=== PATIENT | female | born 1945 | race Caucasian/White ===

== ENCOUNTER 2016-10-06 14:28 | Inpatient (IN) | payer OTHER ==
[2016-10-06 15:05] VITALS: BMI 25.0
--- NOTE | 2016-10-06 15:43 | PDOC ---
History of Present Illness <Treva Capellan - Last Filed: 10/06/16 18:17> - History of Present Illness Initial Comments: 10/06/16 18:21 Pt. is a 71 y/o female with PMH of kidney cancer with mets to the liver and lungs, anemia who presents to the ED today with a complaint of shortness of breath and and cough. Patient states that she wasn't feeling well today. She recently traveled from [place] to [facility] 2 days ago also she could be evaluated for her cancer here. Patient states that she was diagnosed with her kidney cancer back in February 2016. At that time she had the kidney removed. She then went and had chemotherapy in July. She had 3 doses of chemotherapy and [place]. However they found that the cancer had spread in September to her kidneys liver and lungs. She has multiple lung metastases in her right long with a few scattered lung metastases in the left lung. Today she has cough and shortness of breath. She was evaluated today at Dr. Fina Jeong's office hematology oncology where was found she had a white blood cell count that was elevated as well as a hemoglobin of 7. She was transferred to the emergency department for higher level of care. She is also found to have a fever in the emergency department. Patient admits to lethargy, weakness, cough, shortness of breath. Patient denies chest pain, difficulty breathing, nausea, vomiting and diarrhea. <Dorys Carrera - Last Filed: 10/06/16 19:24> - General Chief Complaint: SIRS, Suspected/Possible Stated Complaint: SOB Time Seen by Provider: 10/06/16 15:42 Past History <Treva Capellan - Last Filed: 10/06/16 18:17> - Travel Traveled outside of the country in the last 30 days: Yes If so, where?: was living in [place] until this week. Close contact w/someone who was outside of country & ill: No - Past Medical History Cancer: Yes (renal) HTN: Yes - Psycho/Social/Smoking Cessation Hx Suicidal Ideation: No Smoking History: Never smoked Hx Alcohol Use: No Drug/Substance Use Hx: No <Dorys Carrera - Last Filed: 10/06/16 19:24> - Past Medical History Allergies/Adverse Reactions: Allergies Allergy/AdvReac Type Severity Reaction Status Date / Time Penicillins Allergy Verified 10/06/16 14:53 Home Medications: Ambulatory Orders Amlodipine Besylate 5 mg PO DAILY 10/06/16 Aspirin [Aspirin EC] 81 mg PO DAILY 10/06/16 Atorvastatin Ca [Lipitor] 40 mg PO HS 10/06/16 Dicyclomine HCl [Bentyl -] 20 mg PO BID 10/06/16 Famotidine 20 mg PO DAILY 10/06/16 Losartan Potassium 100 mg PO DAILY 10/06/16 Ondansetron [Zofran -] 4 mg PO BID 10/06/16 Tramadol HCl 50 mg PO DAILY 10/06/16 Review of Systems - Review of Systems Able to Perform ROS?: Yes Is the patient limited Monegasque proficient: No Constitutional: Yes: Chills, Fever, Malaise, Weakness HEENTM: No: Blurred Vision, Recent change in vision, Nose Congestion, Throat Pain Respiratory: Yes: Cough (dry ), Shortness of Breath. No: Wheezing, Productive cough Cardiac (ROS): No: Chest Pain, Edema, Lightheadedness, Syncope, Chest Tightness ABD/GI: No: Abdominal Distended, Diarrhea, Nausea, Vomiting : No: Burning, Dysuria, Discharge, Frequency, Hematuria Integumentary: No: Bruising, Rash Neurological: Yes: Weakness, Dizziness. No: Headache, Numbness, Paresthesia, Unsteady Gait <Dorys Carrera - Last Filed: 10/06/16 19:24> *Physical Exam - Vital Signs Last Vital Signs Temp Pulse Resp BP Pulse Ox 100.2 F H 101 H 18 122/68 100 10/06/16 14:53 10/06/16 14:53 10/06/16 14:53 10/06/16 14:53 10/06/16 14:53 <Treva Capellan - Last Filed: 10/06/16 18:17> - Vital Signs Last Vital Signs Temp Pulse Resp BP Pulse Ox 100.2 F H 101 H 18 122/68 100 10/06/16 14:53 10/06/16 14:53 10/06/16 14:53 10/06/16 14:53 10/06/16 14:53 - Physical Exam Comments: 10/06/16 18:41 GENERAL: Well developed, well nourished. Awake and alert and oriented x3. Mild distress. Tachycardic in the 110's, 02 sat 98 on 2L NC. HEENT: Normocephalic, atraumatic. PERRLA, EOMI. No conjunctival pallor. Sclera are non- icteric. Moist mucous membranes. Oropharynx is clear. NECK: Supple. Full ROM. No JVD. Carotid pulses 2+ and symmetric, without bruits. No thyromegaly. No lymphadenopathy. CARDIOVASCULAR: Regular rate and rhythm. No murmurs, rubs, or gallops. Distal pulses are 2+ and symmetric. PULMONARY: Mild respiratory distress. Fair aeration to the bases Diminished lung sounds on the right. Lungs clear to auscultation bilaterally. No wheezing, rales or rhonchi. ABDOMINAL: Soft. Non-tender. Non-distended. No rebound or guarding. No organomegaly. Normoactive bowel sounds. MUSCULOSKELETAL Normal range of motion at all joints. No bony deformities or tenderness. No CVA tenderness. EXTREMITIES: No cyanosis. No clubbing. No edema. No calf tenderness. SKIN: Pt. appears pale. Warm and dry. Normal capillary refill. No rashes. No jaundice. NEUROLOGICAL: Alert, awake, appropriate. Cranial nerves 2-12 intact. No deficits to light touch and temperature in face, upper extremities and lower extremities. No motor deficits in the in face, upper extremities and lower extremities. Normoreflexic in the upper and lower extremities. Normal speech. Toes are down- going bilaterally. Gait is normal without ataxia. PSYCHIATRIC: Cooperative. Good eye contact. Appropriate mood and affect. <Dorys Carrera - Last Filed: 10/06/16 19:24> Procedures - Bedside Ultrasound Bedside Ultrasound: Cardiac Other: FOCUSED ed tte, LUNG US SEE MDM FOR REPORT <Treva Capellan - Last Filed: 10/06/16 18:17> ED Treatment Course - LABORATORY CBC & Chemistry Diagram: 10/06/16 17:12 10/06/16 17:12 - ADDITIONAL ORDERS Additional order review: Laboratory Results 10/06/16 10/06/16 10/06/16 17:12 17:12 17:12 VBG pH POC VBG pCO2 POC VBG pO2 Mixed VBG HCO3 Sodium 136 Potassium 4.5 Chloride 102 Carbon Dioxide 21 Anion Gap 13 BUN 26 H Creatinine 1.6 H Creat Clearance w eGFR 31.87 Random Glucose 105 Lactic Acid Calcium 8.3 L Total Bilirubin 1.4 H AST 58 H ALT 63 Alkaline Phosphatase 1194 H Creatine Kinase 21 L Troponin I < 0.02 Total Protein 5.7 L Albumin 2.2 L Urine Color Yellow Urine Appearance Clear Urine pH 5.0 Urine Protein Negative Urine Glucose (UA) Negative Urine Ketones Negative Urine Blood Negative Urine Nitrite Negative Urine Bilirubin Negative Urine Urobilinogen 4.0 e.u/dl H Ur Leukocyte Esterase Negative Blood Type Cancelled Antibody Screen Cancelled Crossmatch See Detail Spec Expiration Date Cancelled 10/06/16 10/06/16 17:10 17:07 VBG pH 7.42 POC VBG pCO2 31.2 L POC VBG pO2 36.8 Mixed VBG HCO3 19.9 Sodium Potassium Chloride Carbon Dioxide Anion Gap BUN Creatinine Creat Clearance w eGFR Random Glucose Lactic Acid 2.5 H* Calcium Total Bilirubin AST ALT Alkaline Phosphatase Creatine Kinase Troponin I Total Protein Albumin Urine Color Urine Appearance Urine pH Urine Protein Urine Glucose (UA) Urine Ketones Urine Blood Urine Nitrite Urine Bilirubin Urine Urobilinogen Ur Leukocyte Esterase Blood Type Antibody Screen Crossmatch Spec Expiration Date 10/06/16 17:12 RBC 2.74 L MCV 82.8 MCHC 32.1 RDW 18.5 H MPV 7.8 Neutrophils % 79.5 Lymphocytes % 11.6 Monocytes % 8.4 Eosinophils % 0.3 Basophils % 0.2 - Medications Given in the ED: ED Medications Discontinued Medications Generic Name Dose Route Start Last Admin Trade Name Freq PRN Reason Stop Dose Admin Acetaminophen 650 mg 10/06/16 17:42 10/06/16 17:56 Tylenol - PO 10/06/16 17:43 650 mg ONCE ONE Administration <Treva Capellan - Last Filed: 10/06/16 18:17> - LABORATORY CBC & Chemistry Diagram: 10/06/16 17:12 10/06/16 17:12 <Dorys Carrera - Last Filed: 10/06/16 19:24> Medical Decision Making - Medical Decision Making 10/06/16 18:18 FOCUSED ED US TTE indication: r/o pericardial effusion sob cardiac exam performed, four views ( parasternal long and short, subxiphoid, apical). no pericardial effusion noted. good contractility no rv enlargement or strain. impression: normal tte. lungs scanned bilaterally , indication : sob findings: bilat lungs with normal lung sliding, no ptx. left anterior lung field with air bronchograms, possible infiltrate vs. met left lung base with dynamic air bronchograms, focal b lines, right lung base with air bronchograms. impression: bilat base with air bronchograms c/w atelectasis vs. pneumonia, left anterior bronchograms as well. magdalena <Treva Capellan - Last Filed: 10/06/16 18:17> - Medical Decision Making 10/06/16 16:43 Patient is a 71-year-old female who presents to the emergency department today with cough shortness of breath in the presence of metastatic kidney cancer to her lungs and liver. Patient appears to be pale and mildly short of breath on exam she is tachycardic into the 110s. She is also febrile at 100.2. 1.septic workup 2.IV fluids, PRBC's 3. CXR, EKG 4. bedside US 5. re-evaluate 10/06/16 17:48 CBC shows anemia to 7.3, WBC of 17. BUN/CR elevated to . Will start IV antibiotics at this time as blood cultures have been drawn at this time. Will use levoquin to cover lung or urine pathology. CXR shows bilateral pulmonary nodules compatible with clinical history. Minimal right pleural effusion. No gross focal infiltrates consolidation or pneumothorax are identified. EKG: Low voltage, rate 104, sinus rhythm, normal intervals normal axis. No acute ST-T wave changes. bedside ultra sound performed: see above 10/06/16 18:[address] Sandra zarate/onc. Would like to add CT chest non-contrast at this time to further evaluate for pneumonia and the nodules. Agrees that the patient will require admission. 10/06/16 18:51 Microblog to [facility] to admit patient. 10/06/16 18:57 Sign out given to Mohan Salmeron, resident <Dorys Carrera - Last Filed: 10/06/16 19:24> *DC/Admit/Observation/Transfer <Treva Capellan - Last Filed: 10/06/16 18:17> - Discharge Dispostion Admit: Yes <Dorys Carrera - Last Filed: 10/06/16 19:24> Diagnosis at time of Disposition: Metastases to the liver Sepsis Qualifiers: Sepsis type: sepsis due to unspecified organism Qualified Code(s): A41.9 - Sepsis, unspecified organism Metastatic lung cancer (metastasis from lung to other site) Qualifiers: Laterality: right Qualified Code(s): C34.91 - Malignant neoplasm of unspecified part of right bronchus or lung Anemia Qualifiers: Anemia type: unspecified type Qualified Code(s): D64.9 - Anemia, unspecified Kidney cancer, primary, with metastasis from kidney to other site Qualifiers: Laterality: unspecified laterality Qualified Code(s): C64.9 - Malignant neoplasm of unspecified kidney, except renal pelvis - Discharge Dispostion Condition at time of disposition: Guarded
[2016-10-06 17:10] LABS: VENOUS BLOOD GAS HCO3 19.9 meq/L (19-25); VENOUS PH 7.42 (7.32-7.42)
[2016-10-06 17:27] LABS: BASOPHIL 0.2 % (0-2.0); EOSINOPHIL 0.3 % (0-4.5); MCH 26.6 pg (25.7-33.7); MCHC 32.1 g/dl (32.0-36.0); MEAN CELL VOLUME 82.8 fl (80-96); MEAN PLT VOLUME 7.8 fl (7.5-11.1); NEUTROPHILS 79.5 % (42.8-82.8); PLATELET COUNT 494 K/MM3 (134-434); RDW 18.5 % (11.6-15.6); URINE APPEARANCE CLEAR; URINE BILIRUBIN NEGATIVE (NEGATIVE); URINE BLOOD NEGATIVE (NEGATIVE); URINE COLOR YELLOW; URINE GLUCOSE (UA) NEGATIVE (NEGATIVE); URINE KETONE NEGATIVE (NEGATIVE); URINE LEUK ESTERASE NEGATIVE (NEGATIVE); URINE NITRITE NEGATIVE (NEGATIVE); URINE PROTEIN NEGATIVE (NEGATIVE); URINE UROBILINOGEN 4.0 E.U/dl mg/dL (0.2-1.0); WHITE BLOOD COUNT 17.3 K/mm3 (4.0-10.0)
[2016-10-06] MEDS ORDERED: LEVOFLOXACIN 750 MG IVPB 150 ML IVPB ONE ×2 (17:31→17:56)
[2016-10-06] MEDS ORDERED: ACETAMINOPHEN 325 MG TABLET (FP) PO ONE (17:42)
--- NOTE | 2016-10-06 17:42 | PDOC ---
*Physical Exam - Vital Signs Last Vital Signs Temp Pulse Resp BP Pulse Ox 100.2 F H 101 H 18 122/68 100 10/06/16 14:53 10/06/16 14:53 10/06/16 14:53 10/06/16 14:53 10/06/16 14:53 - Physical Exam Comments: 10/06/16 17:41 The patient was examined by FRANSISCO Carrera under my direct supervision. I personally evaluated the patient. I concur with the above findings and the plan of care. ED Treatment Course - LABORATORY CBC & Chemistry Diagram: 10/06/16 17:12 10/06/16 17:12 - ADDITIONAL ORDERS Additional order review: Laboratory Results 10/06/16 10/06/16 10/06/16 17:12 17:12 17:07 VBG pH 7.42 POC VBG pCO2 31.2 L POC VBG pO2 36.8 Mixed VBG HCO3 19.9 Urine Color Yellow Urine Appearance Clear Urine pH 5.0 Urine Protein Negative Urine Glucose (UA) Negative Urine Ketones Negative Urine Blood Negative Urine Nitrite Negative Urine Bilirubin Negative Urine Urobilinogen 4.0 e.u/dl H Ur Leukocyte Esterase Negative Crossmatch See Detail *DC/Admit/Observation/Transfer Diagnosis at time of Disposition: Sepsis, Metastatic lung cancer (metastasis from lung to other site), Anemia, Metastases to the liver, Kidney cancer, primary, with metastasis from kidney to other site - Discharge Dispostion Condition at time of disposition: Guarded
[2016-10-06 17:49] LABS: ALBUMIN 2.2 g/dl (3.4-5.0); ANION GAP 13 (8-16); BILIRUBIN,TOTAL 1.4 mg/dL (0.2-1.0); CALCIUM 8.3 mg/dL (8.5-10.1); CO2 21 mmol/L (21-32); CREATININE 1.6 mg/dL (0.55-1.02); GLUCOSE,RANDOM 105 mg/dL (74-106); SGOT/AST 58 U/L (15-37); SGPT/ALT 63 U/L (12-78); TOT PROT 5.7 g/dl (6.4-8.2)
[2016-10-06 17:53] LABS: INR 1.43 (0.82-1.09); PROTHROMBIN TIME (PATIENT) 15.9 SEC (9.98-11.88)
[2016-10-06] MEDS ORDERED: ACETAMINOPHEN 325 MG TABLET (FP) ONE (17:56)
[2016-10-06 18:01] LABS: CPK 21 IU/L (26-192); TROPONIN I < 0.02 ng/ml (0.00-0.05)
[2016-10-06 18:02] LABS: ALK PHOS 1194 U/L (45-117)
[2016-10-06] MEDS ORDERED: SODIUM CHLORIDE 1,000 ML IV STA ×2 (18:04→19:27)
--- NOTE | 2016-10-06 20:33 | HP ---
CHIEF COMPLAINT: SOB, cough, weakness PCP: none Heme-Onc: Dr. Flores from Dr. [facility] HISTORY OF PRESENT ILLNESS: 71yo F with PMH of renal cancer with mets to lungs/liver presents today with weakness, SOB and cough x 2 weeks. Symptoms are constant and unchanged over the last 2 weeks. Pt saw Heme-Onc (Dr. Flores) today, who young blood finding pt to be anemic with elevated WBCs, and sent pt to ER. Pt reports a similar episode of symptomatic anemia in [place], which was relieved with a blood transfusion. Pt admits to hx of small amount of hemoptysis, but denies any hemoptysis now. Pt denies pleuritic chest pain, hematuria, hematochezia, melena. Pt was diagnosed with renal cancer in 02/2016 in [place], and had Left sided nephrectomy. Pt received 3-4 chemotherapy treatments in [place]. F/ U PET/CT from 09/2016 revealed disease progression so pt came to the [facility] for further W/U. Pt just arrived here on Tuesday, 2 days ago, and began care with Dr. Flores today. ER course was notable for: (1) Levaquin 750mg IVPB (2) NS 1 L bolus Recent Travel: Came here from [place] on Tuesday, 2 days ago. PAST MEDICAL HISTORY: HTN, hypercholesterolemia, renal cancer PAST SURGICAL HISTORY: Left Nephrectomy 02/2016 Social History: Smoking: never smoker Alcohol: social Drugs: none Family History: father with HTN Allergies Penicillins Allergy (Verified 10/06/16 14:53) HOME MEDICATIONS: Home Medications Medication Instructions Recorded Amlodipine Besylate 5 mg PO DAILY 10/06/16 Aspirin [Aspirin EC] 81 mg PO DAILY 10/06/16 Atorvastatin Ca [Lipitor] 40 mg PO HS 10/06/16 Dicyclomine HCl [Bentyl -] 20 mg PO BID 10/06/16 Famotidine 20 mg PO DAILY 10/06/16 Losartan Potassium 100 mg PO DAILY 10/06/16 Ondansetron [Zofran -] 4 mg PO BID 10/06/16 Tramadol HCl 50 mg PO DAILY 10/06/16 REVIEW OF SYSTEMS CONSTITUTIONAL: Present: weakness Absent: fever, chills, diaphoresis HEENT: Absent: throat pain, ear pain, eye pain, visual changes CARDIOVASCULAR: Present: ocassional LE edema Absent: chest pain, palpitations, irregular heart rate RESPIRATORY: Present: cough, SOB, dyspnea with exertion Absent: orthopnea, wheezing, stridor, hemoptysis GASTROINTESTINAL: Absent: melena, hematochezia, abdominal pain, abdominal distension, nausea, vomiting, diarrhea, constipation GENITOURINARY: Absent: hematuria MUSCULOSKELETAL: Present: flank pain with coughing Absent: myalgia, arthralgia, joint swelling, back pain, neck pain SKIN: Absent: rash, itching, pallor HEMATOLOGIC/IMMUNOLOGIC: Absent: easy bleeding, easy bruising, lymphadenopathy, frequent infections NEUROLOGIC: Absent: headache, focal weakness or paresthesias, unsteady gait, mental status changes PHYSICAL EXAMINATION Vital Signs - 24 hr 10/06/16 10/06/16 14:53 20:03 Temperature 100.2 F H 98.2 F Pulse Rate 101 H Pulse Rate [ 84 Right] Respiratory 18 16 Rate Blood Pressure 122/68 Blood Pressure 90/51 [Right] O2 Sat by Pulse 100 100 Oximetry (%) O2 Sat 95% on RA at visit, 22:00 GENERAL: Awake, alert, and fully oriented, in no acute distress. HEAD: Normal with no signs of trauma. EYES: sclera anicteric, conjunctiva clear. No lid lag. EARS, NOSE, THROAT: Ears normal, Moist mucous membranes. NECK: no JVD or masses. LUNGS: Breath sounds equal, clear to auscultation bilaterally. No wheezes, and no crackles. No accessory muscle use. HEART: Regular rate and rhythm, normal S1 and S2 without murmur, rub or gallop. ABDOMEN: bulging mass felt with coughing in umbilical region Soft, nontender, not distended, normoactive bowel sounds, no guarding, no rebound, no masses. No hepatomegaly or splenomegaly. LOWER EXTREMITIES: 2+ pulses, warm, well-perfused. No calf tenderness. No peripheral edema. NEUROLOGICAL: Normal speech. PSYCHIATRIC: Cooperative. Good eye contact. Appropriate mood and affect. SKIN: Warm, dry, normal turgor, no rashes or lesions noted. CBCD WBC 17.3 K/mm3 (4.0-10.0) H 10/06/16 17:12 RBC 2.74 M/mm3 (3.60-5.2) L 10/06/16 17:12 Hgb 7.3 GM/dL (10.7-15.3) L 10/06/16 17:12 Hct 22.7 % (32.4-45.2) L 10/06/16 17:12 MCV 82.8 fl (80-96) 10/06/16 17:12 MCHC 32.1 g/dl (32.0-36.0) 10/06/16 17:12 RDW 18.5 % (11.6-15.6) H 10/06/16 17:12 Plt Count 494 K/MM3 (134-434) H 10/06/16 17:12 MPV 7.8 fl (7.5-11.1) 10/06/16 17:12 CMP Sodium 136 mmol/L (136-145) 10/06/16 17:12 Potassium 4.5 mmol/L (3.5-5.1) 10/06/16 17:12 Chloride 102 mmol/L (98-107) 10/06/16 17:12 Carbon Dioxide 21 mmol/L (21-32) 10/06/16 17:12 Anion Gap 13 (8-16) 10/06/16 17:12 BUN 26 mg/dL (7-18) H 10/06/16 17:12 Creatinine 1.6 mg/dL (0.55-1.02) H 10/06/16 17:12 Creat Clearance w eGFR 31.87 (>60) 10/06/16 17:12 Calcium 8.3 mg/dL (8.5-10.1) L 10/06/16 17:12 Total Bilirubin 1.4 mg/dL (0.2-1.0) H 10/06/16 17:12 AST 58 U/L (15-37) H 10/06/16 17:12 ALT 63 U/L (12-78) 10/06/16 17:12 Alkaline Phosphatase 1194 U/L (45-117) H 10/06/16 17:12 Total Protein 5.7 g/dl (6.4-8.2) L 10/06/16 17:12 Albumin 2.2 g/dl (3.4-5.0) L 10/06/16 17:12 Abnormal Lab Results 10/06/16 10/06/16 10/06/16 17:07 17:10 17:12 WBC 17.3 H RBC 2.74 L Hgb 7.3 L Hct 22.7 L RDW 18.5 H Plt Count 494 H INR POC VBG pCO2 31.2 L BUN Creatinine Lactic Acid 2.5 H* Calcium Total Bilirubin AST Alkaline Phosphatase Creatine Kinase Total Protein Albumin Urine Urobilinogen Crossmatch 10/06/16 10/06/16 10/06/16 17:12 17:12 17:12 WBC RBC Hgb Hct RDW Plt Count INR 1.43 H POC VBG pCO2 BUN 26 H Creatinine 1.6 H Lactic Acid Calcium 8.3 L Total Bilirubin 1.4 H AST 58 H Alkaline Phosphatase 1194 H Creatine Kinase 21 L Total Protein 5.7 L Albumin 2.2 L Urine Urobilinogen 4.0 e.u/dl H Crossmatch IMAGIN10/06/16 CXR reveals minimal right pleural effusion. No gross focal infiltrates/ consolidation or pneumothorax noted. Bilateral pulmonary nodules compatible with lung mets. 10/06/[address] w/o contrast reveals mild to moderate Right and minimal Left pleural effusion. Right lung base with compressive atelectasis/consolidation. Multiple bilateral pulmonary nodules with the largest measuring 2.3cm consistent with clinical history of metastasis. 09/25/16 PET/CT from [place] reveals increase in number and size of lung lesions, significant worsening of liver mets with involvement of almost entire parenchyma now. Interval growth (compared to PET/CT from 06/07/16) of retroperitoneal metastatic adenopathy, with mets to Left axillary and Left retroclavicular adenopathy. ASSESSMENT/PLAN: 71yo F with PMH of renal cancer with mets to lungs/liver presents with SOB/cough /weakness adm to Med-Surg for symptomatic anemia. (1) Dyspnea - likely r/t symptomatic anemia vs pneumonia vs pulmonary embolism - Levaquin given in ER to cover possible pneumonia - low Wells Criteria Score, <4 - cont. supplemental O2 (2) Anemia - 1U PRBC given - f/u routine CBC tomorrow, f/u iron studies - f/u stool for occult blood (3) SUSANA on CKD - CKD Stage 3B based on GFR = 30-44 ml/min - baseline unknown - f/u Right sided renal U/S - f/u U lytes (4) Leukocytosis - likely reactive - cont. to monitor (5) Lactic Acidosis - Type B Lactic Acidosis r/t malignancy and mets to liver - f/u routine lactic acid after IV hydration (6) Renal Malignancy - consult Dr. Flores (7) HTN - cont. Amlodipine and Losartan (8) Hypercholesterolemia - cont. Atorvastatin (9) Umbilical mass - likely hernia - stable now, cont. to monitor (10) FEN - Fluids: NS @ 100 ml/hr - Electrolytes: cont. to monitor - Nutrition: regular diet (11) Prophylaxis - bilateral SCDs for DVT prophylaxis Visit type - Emergency Visit Emergency Visit: Yes ED Registration Date: 10/06/16 Care time: The patient presented to the Emergency Department on the above date and was hospitalized for further evaluation of their emergent condition. - New Patient This patient is new to me today: Yes Date on this admission: 10/07/16 - Critical Care Critical Care patient: No
--- NOTE | 2016-10-06 22:18 | PN ---
Teaching Attending Note Name of Resident: Mohan Salmeron ATTENDING PHYSICIAN STATEMENT I saw and evaluated the patient. I reviewed the resident's note and discussed the case with the resident. I agree with the resident's findings and plan as documented. 71 yrs old F known case F Left Renal cancer(pathology unknown) s/p Left Nephrectomy and 3 cycles of chemotherapy at [place] also H/O HTN, Hypercholsterolemia and back pain as per patient she has been feeling weak, poor PO intake, dry cough, ZHAO for past 2-3 wks after chemotherapy, 2 days ago came to [facility] to visit family and 2nd opinion, today visited Oncologist office and oncologist recommended to visit Ed for evaluation and get a CT chest, no acute decompensation of symptoms, denies any leg swelling, pleuritic chest pain , vomiting or diarrhea. At the time of examination: Vitals: Vital Signs Period Temp Pulse Resp BP Sys/Aldrich Pulse Ox Last 24 Hr 98.2 F-100.2 F 84-101 16-18 90-122/51-68 100-100 General:Elderly F not in distress feels improved after O2 inhalation; P Exam: HEENT: Mm moist anemia, PERRLA, EOMI NECK: No JVD No Bruit CHEST: B/L Good AE Occasional discrete Crepts CVS; S1S2 R no m/g/r ABD: Healed surgical scar , ventral hernia, non tender, no rebound no guarding Bs + EXT: B/L Trace edema, no calf tenderness, Pulses + [employer]: AOX3 non focal LABS: CBC,CMP WBC 17.3 K/mm3 (4.0-10.0) H 10/06/16 17:12 RBC 2.74 M/mm3 (3.60-5.2) L 10/06/16 17:12 Hgb 7.3 GM/dL (10.7-15.3) L 10/06/16 17:12 Hct 22.7 % (32.4-45.2) L 10/06/16 17:12 MCV 82.8 fl (80-96) 10/06/16 17:12 MCH 26.6 pg (25.7-33.7) 10/06/16 17:12 MCHC 32.1 g/dl (32.0-36.0) 10/06/16 17:12 RDW 18.5 % (11.6-15.6) H 10/06/16 17:12 Plt Count 494 K/MM3 (134-434) H 10/06/16 17:12 MPV 7.8 fl (7.5-11.1) 10/06/16 17:12 Neutrophils % 79.5 % (42.8-82.8) 10/06/16 17:12 Lymphocytes % 11.6 % (8-40) 10/06/16 17:12 Monocytes % 8.4 % (3.8-10.2) 10/06/16 17:12 Eosinophils % 0.3 % (0-4.5) 10/06/16 17:12 Basophils % 0.2 % (0-2.0) 10/06/16 17:12 Sodium 136 mmol/L (136-145) 10/06/16 17:12 Potassium 4.5 mmol/L (3.5-5.1) 10/06/16 17:12 Chloride 102 mmol/L (98-107) 10/06/16 17:12 Carbon Dioxide 21 mmol/L (21-32) 10/06/16 17:12 Anion Gap 13 (8-16) 10/06/16 17:12 BUN 26 mg/dL (7-18) H 10/06/16 17:12 Creatinine 1.6 mg/dL (0.55-1.02) H 10/06/16 17:12 Creat Clearance w eGFR 31.87 (>60) 10/06/16 17:12 Random Glucose 105 mg/dL (74-106) 10/06/16 17:12 Lactic Acid 2.5 mmol/L (0.4-2.0) H* 10/06/16 17:10 Calcium 8.3 mg/dL (8.5-10.1) L 10/06/16 17:12 Total Bilirubin 1.4 mg/dL (0.2-1.0) H 10/06/16 17:12 AST 58 U/L (15-37) H 10/06/16 17:12 ALT 63 U/L (12-78) 10/06/16 17:12 Alkaline Phosphatase 1194 U/L (45-117) H 10/06/16 17:12 Creatine Kinase 21 IU/L (26-192) L 10/06/16 17:12 Troponin I < 0.02 ng/ml (0.00-0.05) 10/06/16 17:12 Total Protein 5.7 g/dl (6.4-8.2) L 10/06/16 17:12 Albumin 2.2 g/dl (3.4-5.0) L 10/06/16 17:12 UA: Normal CXR: Small Pleural effusion on Rt Pulmonary nodules; CT Chest: Lymphadenopathy, multiple nodule, B/L Pleural effusion RT> Left, atelactasis/ consolidation EKG: ASSESSMENT AND PLAN:71 yrs old F known case F Left Renal cancer(pathology unknown) s/p Left Nephrectomy and 3 cycles of chemotherapy at [place] also H/O HTN, Hypercholsterolemia and back pain referred from Oncology office for evaluation of SOB and anemia, agrees with evalluation nad plan of acre by the team Active Issue; SOB with Cough R/O Pneumonia : symptoms are there for past 3 wks no recent decompensation , no fever T max 100.2 TWBC 17.2 mild elevation of Lactate , normal Blood PH no AG , noral O2 sat on RA, no clinical sign of DVT, multiple cause for SOB including low H/H, pulmonary metastasis, ? Consolidation , received IV Levofloxacin in the ED good for 24 hrs F/U Sputum Gram stain, culture, blood cultures, O2 Inhalation, re evaluate in am if patient needs Abx for pneumonia, TWBC can be reactive. Symptomatic Anemia; F/U anemia w/u consider 1 unit PRBC transfusion, stool occult blood Cont Famotidine and Zofran. CKD Stage 3: GFR 31 No base line GFR available, IV hydration call daughter to get base line lab result. Hold Lisinopril, Bladder scan and renal ultrasound in am. U Lytes. Mild elevation of Lactic acid; multile etiology malignancy, renal failure hepatic mets or infection rpt Lactic acid after IV Hydration. HTN: well controlled Hypercholesterolemia; cont statin. DVT Prophylaxis: SQ Heparin.
[2016-10-06] MEDS ORDERED: SODIUM CHLORIDE 1,000 ML IV SCH (23:30)
[2016-10-07] MEDS: ONDANSETRON 4 MG/2 ML VIAL IVPUSH PRN (06:30)
[2016-10-07 07:29] LABS: BASOPHIL 0.2 % (0-2.0); EOSINOPHIL 0.4 % (0-4.5); MCH 27.6 pg (25.7-33.7); MCHC 33.8 g/dl (32.0-36.0); MEAN CELL VOLUME 81.5 fl (80-96); MEAN PLT VOLUME 7.5 fl (7.5-11.1); NEUTROPHILS 86.1 % (42.8-82.8); PLATELET COUNT 402 K/MM3 (134-434); RDW 17.5 % (11.6-15.6); WHITE BLOOD COUNT 13.8 K/mm3 (4.0-10.0)
[2016-10-07 07:37] LABS: INR 1.58 (0.82-1.09); PROTHROMBIN TIME (PATIENT) 17.5 SEC (9.98-11.88)
[2016-10-07 07:40] LABS: ACTIVATED PTT 29.1 SECONDS (26.9-34.4)
[2016-10-07 08:41] LABS: ALBUMIN 1.9 g/dl (3.4-5.0); ALK PHOS 925 U/L (45-117); ANION GAP 8 (8-16); BILIRUBIN,TOTAL 2.2 mg/dL (0.2-1.0); CALCIUM 7.7 mg/dL (8.5-10.1); CO2 21 mmol/L (21-32); CREATININE 1.3 mg/dL (0.55-1.02); FERRITIN 1748.232 ng/ml (6.9-282.5); GLUCOSE,RANDOM 93 mg/dL (74-106); MAGNESIUM 2.2 mg/dL (1.8-2.4); SGOT/AST 44 U/L (15-37); SGPT/ALT 49 U/L (12-78); TOT PROT 4.9 g/dl (6.4-8.2)
--- NOTE | 2016-10-07 09:00 | PN ---
Teaching Attending Note Name of Resident: Tyree Jensen ATTENDING PHYSICIAN STATEMENT I saw and evaluated the patient. I reviewed the resident's note and discussed the case with the resident. I agree with the resident's findings and plan as documented. SUBJECTIVE: Patient is feeling better, breathing better since got one unit of blood transfusion. positive for hemoptysis tinged blood on and off. OBJECTIVE: Vital Signs Temperature 98.6 F 10/07/16 05:00 Pulse Rate 92 H 10/07/16 05:00 Respiratory Rate 16 10/07/16 05:00 Blood Pressure 122/64 10/07/16 05:00 O2 Sat by Pulse Oximetry (%) 95 10/06/16 22:53 CBCD WBC 13.8 K/mm3 (4.0-10.0) H 10/07/16 05:35 RBC 2.96 M/mm3 (3.60-5.2) L 10/07/16 05:35 Hgb 8.2 GM/dL (10.7-15.3) L D 10/07/16 05:35 Hct 24.1 % (32.4-45.2) L 10/07/16 05:35 MCV 81.5 fl (80-96) 10/07/16 05:35 MCHC 33.8 g/dl (32.0-36.0) 10/07/16 05:35 RDW 17.5 % (11.6-15.6) H 10/07/16 05:35 Plt Count 402 K/MM3 (134-434) 10/07/16 05:35 MPV 7.5 fl (7.5-11.1) 10/07/16 05:35 CMP Sodium 140 mmol/L (136-145) 10/07/16 05:35 Potassium 4.4 mmol/L (3.5-5.1) 10/07/16 05:35 Chloride 111 mmol/L (98-107) H 10/07/16 05:35 Carbon Dioxide 21 mmol/L (21-32) 10/07/16 05:35 Anion Gap 8 (8-16) 10/07/16 05:35 BUN 23 mg/dL (7-18) H 10/07/16 05:35 Creatinine 1.3 mg/dL (0.55-1.02) H 10/07/16 05:35 Creat Clearance w eGFR 40.49 (>60) 10/07/16 05:35 Random Glucose 93 mg/dL (74-106) 10/07/16 05:35 Calcium 7.7 mg/dL (8.5-10.1) L 10/07/16 05:35 Total Bilirubin 2.2 mg/dL (0.2-1.0) H D 10/07/16 05:35 AST 44 U/L (15-37) H D 10/07/16 05:35 ALT 49 U/L (12-78) D 10/07/16 05:35 Alkaline Phosphatase 925 U/L (45-117) H D 10/07/16 05:35 Total Protein 4.9 g/dl (6.4-8.2) L 10/07/16 05:35 Albumin 1.9 g/dl (3.4-5.0) L 10/07/16 05:35 CARDIAC ENZYMES Creatine Kinase 21 IU/L (26-192) L 10/06/16 17:12 Troponin I < 0.02 ng/ml (0.00-0.05) 10/06/16 17:12 Current Medications Generic Name Dose Route Start Last Admin Trade Name Freq PRN Reason Stop Dose Admin Amlodipine Besylate 5 mg 10/07/16 10:00 Norvasc - PO DAILY JOSE Aspirin 81 mg 10/07/16 10:00 Ecotrin - PO DAILY JOSE Atorvastatin Calcium 40 mg 10/07/16 22:00 Lipitor - PO HS JOSE Dicyclomine HCl 20 mg 10/07/16 10:00 Bentyl - PO BID JOSE Sodium Chloride 1,000 mls @ 100 mls/hr 10/06/16 23:30 10/07/16 06:29 Normal Saline - IV 100 mls/hr ASDIR JOSE Administration Levofloxacin 150 mls @ 100 mls/hr 10/07/16 10:00 Levaquin 750 Mg Premixed Ivpb - IVPB DAILY JOSE Ondansetron HCl 4 mg 10/07/16 06:23 10/07/16 06:30 Zofran Injection IVPUSH 4 mg Q6H PRN Administration NAUSEA AND/OR VOMITING Pneumococcal 13-Valent Conj Vacc 0.5 ml 10/07/16 10:00 Prevnar 13 Syringe - IM 10/07/16 10:01 .ONCE ONE Ranitidine HCl 150 mg 10/07/16 10:00 Zantac - PO DAILY [facility] Home Medications Medication Instructions Recorded Amlodipine Besylate 5 mg PO DAILY 10/06/16 Aspirin [Aspirin EC] 81 mg PO DAILY 10/06/16 Famotidine 20 mg PO DAILY 10/06/16 Losartan Potassium 100 mg PO DAILY 10/06/16 Ondansetron [Zofran -] 4 mg PO BID 10/06/16 Chest: CTABL Heart: S1S2 positive abdomen: NR, Nt. ND, positive for BS Rest of PE: resident's note IMAGIN10/06/16 CXR reveals minimal right pleural effusion. No gross focal infiltrates/ consolidation or pneumothorax noted. Bilateral pulmonary nodules compatible with lung mets. 10/06/[address] w/o contrast reveals mild to moderate Right and minimal Left pleural effusion. Right lung base with compressive atelectasis/consolidation. Multiple bilateral pulmonary nodules with the largest measuring 2.3cm consistent with clinical history of metastasis. 09/25/16 PET/CT from [place] reveals increase in number and size of lung lesions, significant worsening of liver mets with involvement of almost entire parenchyma now. Interval growth (compared to PET/CT from 06/07/16) of retroperitoneal metastatic adenopathy, with mets to Left axillary and Left retroclavicular adenopathy. ASSESSMENT/PLAN: Patient is a 71yo F with PMHx of renal cell CA with mets to lungs/liver presents with SOB/cough/weakness adm to Med-Surg for symptomatic anemia. # Acute Dyspnea with Hemoptysis likely r/o symptomatic anemia vs LUNg CA / pneumonia s/p Levaquin in ER for possible pneumonia. Pulmonary consult for hemoptysis and lung CA due to mets # Anemia s/p 1U PRBC given, breathing better, repeat level in am. and follow # SUSANA on CKD ; CKD Stage 3B based on GFR = 30-44 ml/min; s/p nephrectomy # Acute Leukocytosis trend down # Acute transaminits trend lft # Lactic Acidosis s/p IVF trend down - # Renal Malignancy consult Dr. Flores Hematology and oncology # HTN cont. Amlodipine and Losartan # Hypercholesterolemia cont. Atorvastatin # Umbilical mass likely hernia DVT Prophylaxis: bilateral SCDs for DVT prophylaxis
[2016-10-07] MEDS ORDERED: ASPIRIN COATED 81 MG TABLET.EC PO SCH (10:00)
[2016-10-07] MEDS ORDERED: DICYCLOMINE HCL 20 MG TABLET PO SCH (10:00)
[2016-10-07] MEDS ORDERED: RANITIDINE HCL 150 MG TABLET (FP) PO SCH (10:00)
[2016-10-07] MEDS ORDERED: ONDANSETRON 4 MG TABLET PO SCH (10:00)
[2016-10-07] MEDS ORDERED: BENZOCAINE/MENTH/CETYLPYRD CL 1 EACH LOZENGE MM PRN (10:04)
[2016-10-07] MEDS: amLODIPine BESYLATE 5 MG TABLET (FP) PO SCH (11:06)
[2016-10-07 11:24] LABS: HIV 1 & 2 AB NEGATIVE; HIV 1 AGp24 NEGATIVE
--- NOTE | 2016-10-07 11:25 | EKG ---
Test Reason : Blood Pressure : / mmHG Vent. Rate : 104 BPM Atrial Rate : 104 BPM P-R Int : 124 ms QRS Dur : 066 ms QT Int : 336 ms P-R-T Axes : 046 013 025 degrees QTc Int : 441 ms SINUS TACHYCARDIA LOW VOLTAGE QRS BORDERLINE ECG NO PREVIOUS ECGS AVAILABLE Confirmed by KATIE JOSEPH MD ([id number]) on 10/07/2016 11:25:19 AM Referred By: Confirmed By:KATIE JOSEPH MD
--- NOTE | 2016-10-07 11:27 | CONSULT ---
Consultation: REQUESTING PROVIDER: CONSULT REQUEST: We have been asked to medically evaluate this patient for ( Nephrology). HISTORY OF PRESENT ILLNESS: History given by patient 71 y/o female with pastm medical h/o of L Renak cancer s/p nephrectomy and chemotherapy( 3 or 4 cycle last one in august) with mets to liver and lungs came to [facility] from [place] for further work up. Patient states that she was diagnosed with ca kidney in december and nephrectomy, with removal of ureter and and part of urinary bladder was done in february 2016. Patient got pet scan in june 2013 which showed enlarged lymphnode and patient was started on chemo. In September she had repeat PET scan which showed mets in liver and lungs. Post chemo patient started feeling week. From last two week she started feeling sob she use to get sob even while at rest but it improved in hospital , generalized weakness, dizziness, loss of apatite and lost weight from 160 to 141. States she also have dry cough and had some blood in her sputum this morning, lood was bright red on outre surface of sputum. She also reports that she feels cold but no fever. Denies headache, chest pain, fever, palpitations, vomiting, diarrhoea, abdominal distension, burning micturation, no change in frequency of micturation. Denies blood in stool and urine. Denies yellow discoloration of skin. Patient also reports that she was not eating and drinking enough from two week and was feeling dehydrated. Patient also reports that her Cr was normal in [place] but don't remember the numbers. Denies use of advil, motrin, ibuprofen, naproxen Labs from [place] not available, pathology report not available. States that her relative is bringing in the reports. In hospital her Cr was 1.6 which decraesed to 1.3 after IV hydration. Her lactic acid improved. Hb went upto 8.2 after one PC transfusion. Fena 2.08 social: never smoked, non alcoholic, use to work in factory. Family: Grand father had some kind of cancer, Mother and father were smoker, no other h/o cancer in family. BP 122/66,pr 93, spo2 95 on room air. REVIEW OF SYSTEMS: CONSTITUTIONAL: Absent: fever, chills, diaphoresis, generalized weakness, malaise, loss of appetite, weight change HEENT: Absent: rhinorrhea, nasal congestion, throat pain, CARDIOVASCULAR: Absent: chest pain, syncope, palpitations, irregular heart rate, lightheadedness , peripheral edema RESPIRATORY: Absent: Dry cough, shortness of breath, orthopnea, wheezing, stridor, hemoptysis GASTROINTESTINAL: Absent: abdominal pain, abdominal distension, nausea, vomiting, diarrhea, constipation, melena, hematochezia GENITOURINARY: Absent: dysuria, frequency, urgency, hesitancy, hematuria, MUSCULOSKELETAL: Absent: myalgia, arthralgia, SKIN: Absent: rash, itching, pallor PHYSICAL EXAMINATION Vital Signs - 24 hr 10/06/16 10/06/16 10/07/16 20:03 22:53 01:46 Temperature 98.2 F 98.1 F 98.2 F Pulse Rate 91 H 89 Pulse Rate [ 84 Right] Respiratory 16 16 16 Rate Blood Pressure 114/59 107/60 Blood Pressure 90/51 [Right] O2 Sat by Pulse 100 95 Oximetry (%) 10/07/16 10/07/16 05:00 09:00 Temperature 98.6 F 98.7 F Pulse Rate 92 H 93 H Pulse Rate [ Right] Respiratory 16 18 Rate Blood Pressure 122/64 122/66 Blood Pressure [Right] O2 Sat by Pulse 96 Oximetry (%) CBCD WBC 13.8 K/mm3 (4.0-10.0) H 10/07/16 05:35 RBC 2.96 M/mm3 (3.60-5.2) L 10/07/16 05:35 Hgb 8.2 GM/dL (10.7-15.3) L D 10/07/16 05:35 Hct 24.1 % (32.4-45.2) L 10/07/16 05:35 MCV 81.5 fl (80-96) 10/07/16 05:35 MCHC 33.8 g/dl (32.0-36.0) 10/07/16 05:35 RDW 17.5 % (11.6-15.6) H 10/07/16 05:35 Plt Count 402 K/MM3 (134-434) 10/07/16 05:35 MPV 7.5 fl (7.5-11.1) 10/07/16 05:35 CMP Sodium 140 mmol/L (136-145) 10/07/16 05:35 Potassium 4.4 mmol/L (3.5-5.1) 10/07/16 05:35 Chloride 111 mmol/L (98-107) H 10/07/16 05:35 Carbon Dioxide 21 mmol/L (21-32) 10/07/16 05:35 Anion Gap 8 (8-16) 10/07/16 05:35 BUN 23 mg/dL (7-18) H 10/07/16 05:35 Creatinine 1.3 mg/dL (0.55-1.02) H 10/07/16 05:35 Creat Clearance w eGFR 40.49 (>60) 10/07/16 05:35 Random Glucose 93 mg/dL (74-106) 10/07/16 05:35 Calcium 7.7 mg/dL (8.5-10.1) L 10/07/16 05:35 Total Bilirubin 2.2 mg/dL (0.2-1.0) H D 10/07/16 05:35 AST 44 U/L (15-37) H D 10/07/16 05:35 ALT 49 U/L (12-78) D 10/07/16 05:35 Alkaline Phosphatase 925 U/L (45-117) H D 10/07/16 05:35 Total Protein 4.9 g/dl (6.4-8.2) L 10/07/16 05:35 Albumin 1.9 g/dl (3.4-5.0) L 10/07/16 05:35 CARDIAC ENZYMES Creatine Kinase 21 IU/L (26-192) L 10/06/16 17:12 Troponin I < 0.02 ng/ml (0.00-0.05) 10/06/16 17:12 GENERAL: Awake, alert, and fully oriented, in no acute distress. HEAD: Normal with no signs of trauma. EYES: Pupils equal, round sclera anicteric, conjunctiva clear EARS, NOSE, THROAT: oropharynx clear without exudates. dry mucous membranes. LUNGS: Breath sounds equal, clear to auscultation bilaterally. mild crackles at bases . No accessory muscle use. HEART: Regular rate normal S1 and S2 without murmur, ABDOMEN: Soft, nontender, not distended, normoactive bowel sounds, no guarding, no rebound, no masses. incesional hernia present UPPER EXTREMITIES: 2+ pulses, warm, well-perfused. LOWER EXTREMITIES: 2+ pulses, warm, well-perfused. No calf tenderness. No peripheral edema. SKIN: Warm, dry, . Laboratory Results - last 24 hr 10/06/16 10/07/16 10/07/16 23:00 05:35 05:35 WBC 13.8 H RBC 2.96 L Hgb 8.2 L D Hct 24.1 L MCV 81.5 MCH 27.6 MCHC 33.8 RDW 17.5 H Plt Count 402 MPV 7.5 Neutrophils % 86.1 H Lymphocytes % 6.3 L D Monocytes % 7.0 Eosinophils % 0.4 Basophils % 0.2 INR 1.58 H PTT (Actin FS) 29.1 Sodium Potassium Chloride Carbon Dioxide Anion Gap BUN Creatinine Creat Clearance w eGFR Random Glucose Lactic Acid 1.5 Calcium Phosphorus Magnesium Ferritin Total Bilirubin AST ALT Alkaline Phosphatase Total Protein Albumin Ur Random Sodium Urine Creatinine 10/07/16 10/07/16 10/07/16 05:35 05:35 06:30 WBC RBC Hgb Hct MCV MCH MCHC RDW Plt Count MPV Neutrophils % Lymphocytes % Monocytes % Eosinophils % Basophils % INR PTT (Actin FS) Sodium 140 Potassium 4.4 Chloride 111 H Carbon Dioxide 21 Anion Gap 8 BUN 23 H Creatinine 1.3 H Creat Clearance w eGFR 40.49 Random Glucose 93 Lactic Acid 0.9 Calcium 7.7 L Phosphorus 3.0 Magnesium 2.2 Ferritin 1748.232 H Cancelled Total Bilirubin 2.2 H D AST 44 H D ALT 49 D Alkaline Phosphatase 925 H D Total Protein 4.9 L Albumin 1.9 L Ur Random Sodium Urine Creatinine 10/07/16 10/07/16 07:00 07:00 WBC RBC Hgb Hct MCV MCH MCHC RDW Plt Count MPV Neutrophils % Lymphocytes % Monocytes % Eosinophils % Basophils % INR PTT (Actin FS) Sodium Potassium Chloride Carbon Dioxide Anion Gap BUN Creatinine Creat Clearance w eGFR Random Glucose Lactic Acid Calcium Phosphorus Magnesium Ferritin Total Bilirubin AST ALT Alkaline Phosphatase Total Protein Albumin Ur Random Sodium 64 Urine Creatinine 35.1 Active Medications Generic Name Dose Route Start Last Admin Trade Name Freq PRN Reason Stop Dose Admin Amlodipine Besylate 5 mg 10/07/16 10:00 10/07/16 11:06 Norvasc - PO 5 mg DAILY JOSE Administration Aspirin 81 mg 10/07/16 10:00 10/07/16 11:06 Ecotrin - PO 81 mg DAILY JOSE Administration Atorvastatin Calcium 40 mg 10/07/16 22:00 Lipitor - PO HS JOSE Benzocaine/Menthol 1 each 10/07/16 10:04 Cepacol Lozenge - MM PRN PRN SORE THROAT Dicyclomine HCl 20 mg 10/07/16 10:00 Bentyl - PO BID JOSE Levofloxacin 150 mls @ 100 mls/hr 10/07/16 10:00 Levaquin 750 Mg Premixed Ivpb - IVPB DAILY JOSE Ondansetron HCl 4 mg 10/07/16 06:23 10/07/16 06:30 Zofran Injection IVPUSH 4 mg Q6H PRN Administration NAUSEA AND/OR VOMITING Pneumococcal 13-Valent Conj Vacc 0.5 ml 10/07/16 12:00 Prevnar 13 Syringe - IM 10/07/16 12:01 .ONCE ONE Ranitidine HCl 150 mg 10/07/16 10:00 10/07/16 11:06 Zantac - PO 150 mg DAILY JOSE Administration ASSESSMENT/PLAN: SUSANA on ckd; could from prerenal cause as patient was not eating and drinkg from 2 week and Cr improved on IV hydration. Anemia s/p one pack transfusion. Acute dyspnea: cold be from symptomatic anemia vs pneumonia, on Levaquin H/o Renal cancer s/p nephrectomy and chemo H/o liver and lung mets. Lactic acidosis h/o HTN h/o Hyperlipidemia Incesional hernia Plan Continue with IV fluid. Avoid nephrotoxic drugs. Monitor electrolyte and renal function. FeNa 2.08. Renal usg pending. Try to get old records. Lactic acidosis improved after hydration. On levaquin for possible pneumonia. Monitor and control BP. Repeat labs tomorrow morning. DVt prophylaxis Renal diet. Dispo: We will continue to follow the patient. Thank you for this consultative opportunity. Visit type - Emergency Visit Emergency Visit: Yes ED Registration Date: 10/06/16 Care time: The patient presented to the Emergency Department on the above date and was hospitalized for further evaluation of their emergent condition. - New Patient This patient is new to me today: Yes Date on this admission: 10/07/16 - Critical Care Critical Care patient: No
[2016-10-07] MEDS ORDERED: PNEUMOC 13-VAL CONJ-DIP CRM/PF 0.5 ML DISP.SYRIN IM ONE (12:00)
--- NOTE | 2016-10-07 13:48 | PN ---
Physical Exam: SUBJECTIVE: Patient seen and examined at bedside. Pt feels well at this time. No complaints. OBJECTIVE: Vital Signs Period Temp Pulse Resp BP Sys/Aldrich Pulse Ox Last 24 Hr 98.1 F-98.7 F 84-93 16-18 90-122/51-66 95-100 GENERAL: The patient is awake, alert, and fully oriented, in no acute distress. HEAD: Normal with no signs of trauma. EYES: PERRL, extraocular movements intact, sclera anicteric, conjunctiva clear. No ptosis. ENT: oropharynx clear without exudates, moist mucous membranes. NECK: Trachea midline, full range of motion, supple. LUNGS: Breath sounds equal, clear to auscultation bilaterally, no wheezes, no crackles, no accessory muscle use. HEART: Regular rate and rhythm, S1, S2 without murmur, rub or gallop. ABDOMEN: Soft, nontender, nondistended, normoactive bowel sounds, no guarding, no rebound, no hepatosplenomegaly, no masses. suprapubic midline scar EXTREMITIES: 2+ pulses, warm, well-perfused, no edema. NEUROLOGICAL: Cranial nerves II through XII grossly intact. Normal speech, gait not observed. no focal neural deficits PSYCH: Normal mood, normal affect. SKIN: Warm, dry, normal turgor, no rashes or lesions noted Laboratory Results - last 24 hr 10/06/16 10/07/16 10/07/16 23:00 05:35 05:35 WBC 13.8 H RBC 2.96 L Hgb 8.2 L D Hct 24.1 L MCV 81.5 MCH 27.6 MCHC 33.8 RDW 17.5 H Plt Count 402 MPV 7.5 Neutrophils % 86.1 H Lymphocytes % 6.3 L D Monocytes % 7.0 Eosinophils % 0.4 Basophils % 0.2 INR 1.58 H PTT (Actin FS) 29.1 Sodium Potassium Chloride Carbon Dioxide Anion Gap BUN Creatinine Creat Clearance w eGFR Random Glucose Lactic Acid 1.5 Calcium Phosphorus Magnesium Ferritin Total Bilirubin AST ALT Alkaline Phosphatase Total Protein Albumin Ur Random Sodium Ur Random Potassium Ur Random Chloride Urine Creatinine HIV 1&2 Antibody Screen HIV P24 Antigen 10/07/16 10/07/16 10/07/16 05:35 05:35 05:35 WBC RBC Hgb Hct MCV MCH MCHC RDW Plt Count MPV Neutrophils % Lymphocytes % Monocytes % Eosinophils % Basophils % INR PTT (Actin FS) Sodium 140 Potassium 4.4 Chloride 111 H Carbon Dioxide 21 Anion Gap 8 BUN 23 H Creatinine 1.3 H Creat Clearance w eGFR 40.49 Random Glucose 93 Lactic Acid 0.9 Calcium 7.7 L Phosphorus 3.0 Magnesium 2.2 Ferritin 1748.232 H Total Bilirubin 2.2 H D AST 44 H D ALT 49 D Alkaline Phosphatase 925 H D Total Protein 4.9 L Albumin 1.9 L Ur Random Sodium Ur Random Potassium Ur Random Chloride Urine Creatinine HIV 1&2 Antibody Screen Negative HIV P24 Antigen Negative 10/07/16 10/07/16 10/07/16 06:30 07:00 07:00 WBC RBC Hgb Hct MCV MCH MCHC RDW Plt Count MPV Neutrophils % Lymphocytes % Monocytes % Eosinophils % Basophils % INR PTT (Actin FS) Sodium Potassium Chloride Carbon Dioxide Anion Gap BUN Creatinine Creat Clearance w eGFR Random Glucose Lactic Acid Calcium Phosphorus Magnesium Ferritin Cancelled Total Bilirubin AST ALT Alkaline Phosphatase Total Protein Albumin Ur Random Sodium 64 Ur Random Potassium Ur Random Chloride Urine Creatinine 35.1 HIV 1&2 Antibody Screen HIV P24 Antigen 10/07/16 10/07/16 13:00 13:00 WBC RBC Hgb Hct MCV MCH MCHC RDW Plt Count MPV Neutrophils % Lymphocytes % Monocytes % Eosinophils % Basophils % INR PTT (Actin FS) Sodium Potassium Chloride Carbon Dioxide Anion Gap BUN Creatinine Creat Clearance w eGFR Random Glucose Lactic Acid Calcium Phosphorus Magnesium Ferritin Total Bilirubin AST ALT Alkaline Phosphatase Total Protein Albumin Ur Random Sodium 67 Ur Random Potassium 23.2 Ur Random Chloride 72 Urine Creatinine 46.0 HIV 1&2 Antibody Screen HIV P24 Antigen Active Medications Generic Name Dose Route Start Last Admin Trade Name Freq PRN Reason Stop Dose Admin Amlodipine Besylate 5 mg 10/07/16 10:00 10/07/16 11:06 Norvasc - PO 5 mg DAILY JOSE Administration Aspirin 81 mg 10/07/16 10:00 10/07/16 11:06 Ecotrin - PO 81 mg DAILY JOSE Administration Atorvastatin Calcium 40 mg 10/07/16 22:00 Lipitor - PO HS JOSE Benzocaine/Menthol 1 each 10/07/16 10:04 Cepacol Lozenge - MM PRN PRN SORE THROAT Dicyclomine HCl 20 mg 10/07/16 10:00 Bentyl - PO BID JOSE Levofloxacin 150 mls @ 100 mls/hr 10/07/16 10:00 Levaquin 750 Mg Premixed Ivpb - IVPB DAILY [facility] Sodium Chloride 1,000 mls @ 75 mls/hr 10/07/16 12:15 Normal Saline - IV ASDIR JOSE Ondansetron HCl 4 mg 10/07/16 06:23 10/07/16 06:30 Zofran Injection IVPUSH 4 mg Q6H PRN Administration NAUSEA AND/OR VOMITING Ranitidine HCl 150 mg 10/07/16 10:00 10/07/16 11:06 Zantac - PO 150 mg DAILY JOSE Administration ASSESSMENT/PLAN: 71yo F with PMH of renal cancer with mets to lungs/liver presents with SOB/cough /weakness adm to Med-Surg for symptomatic anemia. #Dyspnea - uncertain etiology - Levaquin given in ER to cover possible pneumonia - low Wells Criteria Score, <4 - O2 96% on RA # Renal Malignancy - consult Dr. Flores, Dr. Tirado, f/u recs - per Heme/Onc, biopsy needed, but not with pt on ASA - per Heme/Onc, pt wants to continue palliative chemo # Lung Mets - causing small volume hemoptysis and ZHAO - per pulm, not unexpected considering pt's disease # Anemia - 1U PRBC given, f/u CBC 8.2 - iron studies: Ferritin 1748. f/u other Fe studies - f/u stool for occult blood - 1 PRBC, f/u repeat CBC # Elevated LFTs - per Heme/Onc, possibly 2/2 liver mets, consider MRCP - GI consulted - Stop Ceftriaxone # Elevated INR - per Heme/Onc, likely from liver mets - will repeat # SUSANA on CKD resolving - CKD Stage 3B based on GFR = 30-44 ml/min - baseline unknown - Right sided renal U/S - suspicious for liver mets - FeNa 2.8 - Dredge Mate down to 1.3 # Pleural effusion - Per Pulm, too small to sample # Leukocytosis - likely reactive - down from 17.3 to 13.8 - cont. to monitor # Lactic Acidosis : Resolved - dropped from 2.5 to 0.9 after hydration # HTN - cont. Amlodipine and Losartan # Hypercholesterolemia - cont. Atorvastatin # FEN - Fluids: not on fluids - Electrolytes: cont. to monitor - Nutrition: regular diet # Prophylaxis - bilateral SCDs for DVT prophylaxis - Zantac # Dispo - Admit to [facility] - Daughter [place] Visit type - Emergency Visit Emergency Visit: Yes ED Registration Date: 10/06/16 Care time: The patient presented to the Emergency Department on the above date and was hospitalized for further evaluation of their emergent condition. - New Patient This patient is new to me today: No - Critical Care Critical Care patient: No - Discharge Referral Referred to [facility] Med [facility] No
[2016-10-07] MEDS: DICYCLOMINE HCL 10 MG CAPSULE PO SCH ×2 (14:19→21:03)
[2016-10-07 14:21] LABS: URINE CREATININE 35.4 mg/dL (20-320)
[2016-10-07] MEDS: SODIUM CHLORIDE 1,000 ML IV SCH (14:23)
--- NOTE | 2016-10-07 14:24 | CON.PULM ---
Consult Consult Specialty:: PULMONARY Referred by:: Dr. Vázquez Reason for Consultation:: lung nodules, hemoptysis - History of Present Illness Chief Complaint: generalized weakness History of Present Illness: 71yo female with HTN, h/o renal cell ca s/p resection now with metastases to lung and liver, multiple chemotherapy regimens which have failed who presents with worsening shortness of breath and cough. She does report hemoptysis in the morning and coughing fits at night. Hemoptysis quantified as less than a teaspoon but bright red. No fevers, chills but with significant unintentional weight loss due to poor appetite. CT chest done in the ER confirming presence of multiple bilateral lung nodules. - History Source History Provided By: Patient, Family Member, Medical Record Limitations to Obtaining History: No Limitations - Past Medical History Cardio/Vascular: Yes: HTN - Alcohol/Substance Use Hx Alcohol Use: No - Smoking History Smoking history: Never smoked Home Medications - Allergies Allergies/Adverse Reactions: Allergies Allergy/AdvReac Type Severity Reaction Status Date / Time Penicillins Allergy Verified 10/06/16 14:53 - Home Medications Home Medications: Ambulatory Orders Amlodipine Besylate 5 mg PO DAILY 10/06/16 Aspirin [Aspirin EC] 81 mg PO DAILY 10/06/16 Famotidine 20 mg PO DAILY 10/06/16 Losartan Potassium 100 mg PO DAILY 10/06/16 Ondansetron [Zofran -] 4 mg PO BID 10/06/16 Review of Systems - Review of Systems Constitutional: reports: Malaise, Unintentional Wgt. Loss, Weakness. denies: Chills, Fever Eyes: denies: Recent Change in Vision HENT: denies: Nasal Congestion, Throat Pain Neck: denies: Stiffness, Tenderness Cardiovascular: reports: Shortness of Breath. denies: Chest Pain, Edema, Palpitations Respiratory: reports: Cough, Exercise Intolerance, Hemoptysis, SOB. denies: Wheezing Gastrointestinal: denies: Abdominal Pain, Nausea, Vomiting Genitourinary: denies: Dysuria, Hematuria Neurological: denies: Dizziness, Headache Endocrine: reports: Unexplained Weight Loss Physical Exam Vital Sings: Vital Signs Temperature 98.7 F 10/07/16 09:00 Pulse Rate 93 H 10/07/16 09:00 Respiratory Rate 18 10/07/16 09:00 Blood Pressure 122/66 10/07/16 09:00 O2 Sat by Pulse Oximetry (%) 96 10/07/16 09:00 Constitutional: Yes: Calm Eyes: Yes: Conjunctiva Clear, EOM Intact HENT: Yes: Atraumatic, Normocephalic Neck: Yes: Other (left supraclavicular node) Cardiovascular: Yes: Regular Rate and Rhythm Respiratory: Yes: Regular, Rales (basilar) ...Clubbing: No Gastrointestinal: Yes: Normal Bowel Sounds, Soft. No: Tenderness Edema: No Neurological: Yes: Alert, Oriented Labs: CBC, BMP 10/07/16 05:35 10/07/16 05:35 Imaging - Results Cat Scan: Report Reviewed, Image Reviewed (bilateral multiple nodules, small right sided effusion) Problem List - Problems (1) Kidney cancer, primary, with metastasis from kidney to other site Code(s): C64.9 - MALIGNANT NEOPLASM OF UNSP KIDNEY, EXCEPT RENAL PELVIS C79.9 - SECONDARY MALIGNANT NEOPLASM OF UNSPECIFIED SITE Qualifiers: Laterality: unspecified laterality Qualified Code(s): C64.9 - Malignant neoplasm of unspecified kidney, except renal pelvis; C79.9 - Secondary malignant neoplasm of unspecified site (2) Lung nodules Code(s): R91.8 - OTHER NONSPECIFIC ABNORMAL FINDING OF LUNG FIELD (3) Hemoptysis Code(s): R04.2 - HEMOPTYSIS (4) Pleural effusion Code(s): J90 - PLEURAL EFFUSION, NOT ELSEWHERE CLASSIFIED (5) Atelectasis Code(s): J98.11 - ATELECTASIS Assessment/Plan Metastatic Renal Cell Ca to lung, liver Hemoptysis Small Pleural Effusions Atelectasis - will start cough suppressants for hemoptysis - continue to monitor hemoptysis - pleural effusion to small to sample at this time - given pt's history of metastatic disease, findings on CT chest expected - oncology evaluation for further or salvage therapy - DVT prophylaxis Thank you for this consult Himanshu Guevara MD
--- NOTE | 2016-10-07 15:17 | CONSULT ---
Consult Consult Specialty:: Oncology/Hematology Reason for Consultation:: Urothelial cancer - History of Present Illness History of Present Illness: is a 71 year old female with history of metastatic urothelial papillary carcinoma diagnosed in [facility] earlier this year, she was on atezolizumab ( front line ) and she received 4 cycles. Post treatment scan on ( PET-CT) in [facility] showed progression of disease with lung and liver mets. Her last treatment was on 09/02/2016. [place] further care for her cancer. She was seen in the office yesterday, she was dyspenic, pale, tachycardic and was traiged to the ER. Patient seen and examined. She received PRBC, one unit yesterday. She underwent a CT chest , she was on abx for a brief time. She mentioned that she feels much better this morning. She was seen by Pulmonary too. She continues to have cough and reported small amount of hemoptysis. Daughter and son at bedside. - History Source History Provided By: Patient, Family Member Limitations to Obtaining History: No Limitations - Past Medical History Cardio/Vascular: Yes: HTN - Alcohol/Substance Use Hx Alcohol Use: No - Smoking History Smoking history: Never smoked Home Medications - Allergies Allergies/Adverse Reactions: Allergies Allergy/AdvReac Type Severity Reaction Status Date / Time Penicillins Allergy Verified 10/06/16 14:53 - Home Medications Home Medications: Ambulatory Orders Amlodipine Besylate 5 mg PO DAILY 10/06/16 Aspirin [Aspirin EC] 81 mg PO DAILY 10/06/16 Famotidine 20 mg PO DAILY 10/06/16 Losartan Potassium 100 mg PO DAILY 10/06/16 Ondansetron [Zofran -] 4 mg PO BID 10/06/16 Family Disease History - Family Disease History Family History: Denies Review of Systems Findings/Remarks: ROS was positive on 10/06 in the office: ZHAO Chest tightness Cough Lightheadedness Physical Exam Vital Signs: Vital Signs Temperature 98.3 F 10/07/16 14:57 Pulse Rate 100 H 10/07/16 14:57 Respiratory Rate 18 10/07/16 14:57 Blood Pressure 119/65 10/07/16 14:57 O2 Sat by Pulse Oximetry (%) 96 10/07/16 09:00 Constitutional: Yes: No Distress, Calm Eyes: Yes: Conjunctiva Clear, EOM Intact HENT: Yes: Atraumatic, Normocephalic Neck: Yes: Supple, Trachea Midline. No: Decreased ROM, Lymphadenopathy Cardiovascular: Yes: Regular Rate and Rhythm Respiratory: Yes: Regular, CTA Bilaterally Gastrointestinal: Yes: Normal Bowel Sounds, Soft, Other (hernia) Edema: No Labs: CBC, BMP 10/07/16 05:35 10/07/16 05:35 Imaging - Results Cat Scan: Report Reviewed Ultrasound: Report Reviewed Problem List - Problems (1) Anemia Code(s): D64.9 - ANEMIA, UNSPECIFIED Qualifiers: Anemia type: other cause Other causes of anemia: antineoplastic chemotherapy Qualified Code(s): D64.81 - Anemia due to antineoplastic chemotherapy (2) Metastatic urothelial carcinoma Code(s): C79.10 - SECONDARY MALIGNANT NEOPLASM OF UNSPECIFIED URINARY ORGANS (3) Metastases to the liver Code(s): C78.7 - SECONDARY MALIG NEOPLASM OF LIVER AND INTRAHEPATIC BILE DUCT (4) Lung nodules Code(s): R91.8 - OTHER NONSPECIFIC ABNORMAL FINDING OF LUNG FIELD Assessment/Plan is a 71 year old with h.o Metastatic Urothelial Cancer ( Lung, liver mets) progressed on front line immunotherapy is admitted for symptomatic anemia. Anemia: -likely ACD/ACI in the setting of active malignancy and s/p recent therapy. -supportive care with transfusion -Transfuse one more unit today Metastatic Urothelial Cancer: -Would need to confirm pathological diagnosis here -will need to get a biopsy (liver/lung) , to confirm diagnosis, but pt is on aspirin , will need at least 5 days off of therapy ( discontinued in the system ) , next week if she stay as an inpatient. -further treatment with second line agents as an out patient. Patient interested in continuing palliative chemotherapy. Elevated Bilirubin: -likely from the Liver mets -US of the liver noted -Consider MRCP andrea to r/o any obstruction and might need stenting if tumor/ obstruction present -GI consult. Lung mets: -causing ZHAO/mild hemoptysis -appreciate Pulm follow-up Elevated INR: -likely from the liver mets/poor po intake. -repeat in the am Hypocalcemia/CKD -Being worked up, renal consulted discussed with family. Plan discussed with Hospitalist.
--- NOTE | 2016-10-07 16:57 | PN ---
Teaching Attending Note Name of Resident: Tor Skinner (Nephrology) ATTENDING PHYSICIAN STATEMENT I saw and evaluated the patient. I reviewed the resident's note and discussed the case with the resident. I agree with the resident's findings and plan as documented. Nephrology Consult Pt is a 71 year old female with his of renal cell cancer s/p let nephrectomy.She presented for worsening fatigue and shortness of breath. She was found to have elevated creatinne and I was called to evaluate her. She denies dysuria. She denies hematuria. She denies nsaid use. PMHX nephrectomy ckd htn chol allergy pcn ros fatigue family hx neg Current Medications Generic Name Dose Route Start Last Admin Trade Name Freq PRN Reason Stop Dose Admin Amlodipine Besylate 5 mg 10/07/16 10:00 10/07/16 11:06 Norvasc - PO 5 mg DAILY JOSE Administration Atorvastatin Calcium 40 mg 10/07/16 22:00 Lipitor - PO HS JOSE Benzocaine/Menthol 1 each 10/07/16 10:04 Cepacol Lozenge - MM PRN PRN SORE THROAT Dicyclomine HCl 20 mg 10/07/16 10:00 10/07/16 14:19 Bentyl - PO Not Given BID JOSE Levofloxacin 150 mls @ 100 mls/hr 10/07/16 10:00 Levaquin 750 Mg Premixed Ivpb - IVPB DAILY JOSE Sodium Chloride 1,000 mls @ 75 mls/hr 10/07/16 12:15 10/07/16 14:23 Normal Saline - IV 75 mls/hr ASDIR JOSE Administration Ondansetron HCl 4 mg 10/07/16 06:23 10/07/16 06:30 Zofran Injection IVPUSH 4 mg Q6H PRN Administration NAUSEA AND/OR VOMITING Ranitidine HCl 150 mg 10/07/16 10:00 10/07/16 11:06 Zantac - PO 150 mg DAILY JOSE Administration Laboratory Tests 10/06/16 10/06/16 10/07/16 17:12 17:12 05:35 WBC 13.8 H Hgb 8.2 L D Sodium Potassium Chloride Carbon Dioxide Anion Gap BUN 26 H Creatinine 1.6 H Urine Color Yellow Urine Appearance Clear Urine pH 5.0 Ur Specific [place] 1.015 Urine Protein Negative Urine Glucose (UA) Negative Urine Ketones Negative Urine Blood Negative Urine Nitrite Negative Urine Bilirubin Negative 10/07/16 05:35 WBC Hgb Sodium 140 Potassium 4.4 Chloride 111 H Carbon Dioxide 21 Anion Gap 8 BUN 23 H Creatinine 1.3 H Urine Color Urine Appearance Urine pH Ur Specific [place] Urine Protein Urine Glucose (UA) Urine Ketones Urine Blood Urine Nitrite Urine Bilirubin cardio s1s2 reg pulm on oxygen GI soft ext neg edema neuro awake and alert Impression 1. SUSANA 2. renal cell cancer 3. metastatic urothelial cancer 4. HTN 5. chol Plan - renal function is improving with fluids - no obstruction on renal ultrasound - repeat labs in am - cont current meds - avoid nsaids - will follow Dr Tirado
[2016-10-07] MEDS: LEVOFLOXACIN 750 MG IVPB 150 ML IVPB SCH (17:39)
[2016-10-07] MEDS ORDERED: guaiFENesin 200 MG/10 ML 10 ML UNIT-DOSE CUPS PO ONE (17:46)
[2016-10-07] MEDS ORDERED: PT OWN MED DRAWER 7, Y5N ONE ×2 (20:49→21:33)
[2016-10-07] MEDS: ATORVASTATIN CA 40 MG TABLET (FP) PO SCH (21:03)
--- NOTE | 2016-10-07 21:08 | CON.GI ---
Consult Consult Specialty:: GASTROENTEROLOGY - History of Present Illness Chief Complaint: ELEVATED LIVER ENZYMES/METASTATIC REANL CELL CARCINOMA History of Present Illness: 71YEAR OLD FEMALA ADMITTED FOR ANEMIA, HEMOPYTSIS AND ELEVATED LIVER FUNCTION TESTS. SHE HAD LEFT NEPHECTOMY IN FEBRUARY IN [place] (SHE LIVES THERE NOW AFTER RAISING HER CHILDREN HER IN THE [place]) FOR RENAL CELL CANCER. SHE HAS BEEN TREATED WITH CHEMO AND REPEAT PET SCAN IN AUGUST/SEPTEMBER HAS SHOWN PROGRESSION OF THE DISEASE. SHE LEFT [place] AND FLEW TO [place] FOR FURTHER THERAPY. I HAVE REVIEWED HER INFO FROM [place]. SHE HAS HAD LESIONS IN HER LIVER BEFORE BUT FOLLOW UP IMAGES SHOW THE NOW TNEARLY THE ENTIRE PARENCHYMA IS INVOLVED IN NEOPLASTIC DISEASE. SINCE JULY OF THE YEAR HER LIVER FUNCTION TESTS HAVE WORSENED. SHE HAS FREQUENT HEMOPTYSIS. HER STOOLS ARE NORMAL. SHE HAS HAD COLONOSCOPIES THAT WERE NORMAL. I SPOKE WITH THE HOSPITALIST AND THERE IS A QUESTION BOUT PERFORMING A LIVER BIOPSY. - History Source History Provided By: Patient, Medical Record Limitations to Obtaining History: No Limitations - Past Medical History Cardio/Vascular: Yes: HTN Pulmonary: No: Asthma, Bronchitis, Cancer, COPD, O2 Dependent, Pneumonia, Previously Intubated, Pulmonary Embolus, Pulmonary Fibrosis, Sleep Apnea, Other Gastrointestinal: No: Ascites, Cancer, Constipation, Crohn's Disease, Diverticulitis, Diverticulosis, Esophageal Varices, Gastritis, GERD, GI Bleed, Hemorrhoids, Hiatal Hernia, Inflamatory Bowel Disease, Irritable Bowel Disease, Pancreatitis, Peptic Ulcer Disease, Ulcerative Colitis, Other Hepatobiliary: No: Cirrhosis, Cholelithiasis, Cholecystitis, Choledocholithiasis , Hepatitis A, Hepatitis B, Hepatitis C, Other Renal/: Yes: Other (RENAL CELL CANCER) Reproductive: No: Ectopic , Endometriosis, Fibroids, PID, Polycystic Ovary Syndrome, Postmenopausal, Other Heme/Onc: Yes: Anemia Infectious Disease: No: AIDS, C-Diff, Herpes Zoster, HIV, MRSA, STD's, Tuberculosis, VREF, Other Psych: No: Addictions, Anxiety, Bipolar, Depression, Panic, Psychosis, Schizophrenia, Other Musculoskeletal: No: Bursitis, Chronic low back pain, Hemiparesis, Hemiplegia, Osteoarthritis, Paraplegia, Other Rheumatology: No: Fibromyalgia, Gout, Lupus, Rheumatoid Arthritis, Sarcoidosis, Vasculitis, Other Endocrine: No: [place]'s Disease, [place]'s Disease, Diabetes Insipidus, Diabetes Mellitus, Hyperparathyroidism, Hyperthyroidism, Hypothyroidism, Osteopenia, SIADH, Other - Past Surgical History Past Surgical History: Yes: Colonoscopy Additional Surgical History: NEPHRECTOMY - Alcohol/Substance Use Hx Alcohol Use: No - Smoking History Smoking history: Never smoked Home Medications - Allergies Allergies/Adverse Reactions: Allergies Allergy/AdvReac Type Severity Reaction Status Date / Time Penicillins Allergy Verified 10/06/16 14:53 - Home Medications Home Medications: Ambulatory Orders Amlodipine Besylate 5 mg PO DAILY 10/06/16 Aspirin [Aspirin EC] 81 mg PO DAILY 10/06/16 Famotidine 20 mg PO DAILY 10/06/16 Losartan Potassium 100 mg PO DAILY 10/06/16 Ondansetron [Zofran -] 4 mg PO BID 10/06/16 Review of Systems - Review of Systems Constitutional: reports: Lethargy, Loss of Appetite Eyes: reports: No Symptoms HENT: reports: No Symptoms Neck: reports: No Symptoms Cardiovascular: reports: Shortness of Breath Respiratory: reports: Cough, Other (HEMOPTYSIS) Gastrointestinal: reports: Vomiting, Other (RARELY) Genitourinary: reports: No Symptoms Musculoskeletal: reports: No Symptoms Neurological: reports: No Symptoms Endocrine: reports: No Symptoms Hematology/Lymphatic: reports: No Symptoms Physical Exam-GI Vital Signs: Vital Signs Temperature 98.3 F 10/07/16 14:57 Pulse Rate 100 H 10/07/16 14:57 Respiratory Rate 18 10/07/16 14:57 Blood Pressure 119/65 10/07/16 14:57 O2 Sat by Pulse Oximetry (%) 96 10/07/16 09:00 Constitutional: Yes: Calm Eyes: Yes: Conjunctiva Clear HENT: Yes: Normocephalic Neck: Yes: Supple Cardiovascular: Yes: Regular Rate and Rhythm Respiratory: Yes: Diminished, Other (PORT SITE RIGHT CHEST) Gastrointestinal Inspection: Yes: WNL, Hernia, Scars ...Auscultate: Yes: Normoactive Bowel Sounds ...Palpate: Yes: Soft Musculoskeletal: Yes: WNL Extremities: Yes: WNL Neurological: Yes: Alert, Oriented Labs: CBC, BMP 10/07/16 05:35 10/07/16 05:35 INR, PTT INR 1.58 (0.82-1.09) H 10/07/16 05:35 Laboratory Tests 10/07/16 10/07/16 10/07/16 05:35 05:35 05:35 WBC 13.8 H RBC 2.96 L Hgb 8.2 L D Hct 24.1 L MCV 81.5 MCH 27.6 MCHC 33.8 RDW 17.5 H Plt Count 402 MPV 7.5 Neutrophils % 86.1 H Lymphocytes % 6.3 L D Monocytes % 7.0 Eosinophils % 0.4 Basophils % 0.2 INR 1.58 H PTT (Actin FS) 29.1 Sodium 140 Potassium 4.4 Chloride 111 H Carbon Dioxide 21 Anion Gap 8 BUN 23 H Creatinine 1.3 H Creat Clearance w eGFR 40.49 Random Glucose 93 Lactic Acid Calcium 7.7 L Phosphorus 3.0 Magnesium 2.2 Iron TIBC Iron Saturation Total Bilirubin 2.2 H D AST 44 H D ALT 49 D Alkaline Phosphatase 925 H D Total Protein 4.9 L Albumin 1.9 L Hepatitis C Antibody HIV 1&2 Antibody Screen HIV P24 Antigen 10/07/16 10/07/16 10/07/16 05:35 05:35 05:35 WBC RBC Hgb Hct MCV MCH MCHC RDW Plt Count MPV Neutrophils % Lymphocytes % Monocytes % Eosinophils % Basophils % INR PTT (Actin FS) Sodium Potassium Chloride Carbon Dioxide Anion Gap BUN Creatinine Creat Clearance w eGFR Random Glucose Lactic Acid 0.9 Calcium Phosphorus Magnesium Iron Pending TIBC Pending Iron Saturation Pending Total Bilirubin AST ALT Alkaline Phosphatase Total Protein Albumin Hepatitis C Antibody HIV 1&2 Antibody Screen Negative HIV P24 Antigen Negative 10/07/16 05:35 WBC RBC Hgb Hct MCV MCH MCHC RDW Plt Count MPV Neutrophils % Lymphocytes % Monocytes % Eosinophils % Basophils % INR PTT (Actin FS) Sodium Potassium Chloride Carbon Dioxide Anion Gap BUN Creatinine Creat Clearance w eGFR Random Glucose Lactic Acid Calcium Phosphorus Magnesium Iron TIBC Iron Saturation Total Bilirubin AST ALT Alkaline Phosphatase Total Protein Albumin Hepatitis C Antibody Pending HIV 1&2 Antibody Screen HIV P24 Antigen Problem List - Problems (1) Metastases to the liver Assessment/Plan: I BELIEVE THAT THIS IS THE CAUSE OF HER ELEVATED LIVER ENZYMES BASED ON THE CT/ PET SCAN AND LFT PATTERN. IF THE MEDICAL TEAM STRONGLY BELIEVES THAT THERE IS ANOTHER CANCER HERE AND A LIVER BIOPSY WOULD CHANGE THE COURSE OF HER THERAPY ANMD OUTCOME THEY CAN ORDER THE BIOPSY. I DO NOT THINK PERFORMING A BIOPSY WOULD BE HELPFUL. I DO NOT THINK ANY FURTHER EVALUATION OF THE LIVER ENZYMES IS NEEDED AT THIS POINT. I BELIEVE THE MAIN GOAL IS TO SEE IF OTHER CHEMOTHERAPUETIC AGENTS WILL IMPROVE HER SURVIVAL. Code(s): C78.7 - SECONDARY MALIG NEOPLASM OF LIVER AND INTRAHEPATIC BILE DUCT (2) Kidney cancer, primary, with metastasis from kidney to other site Code(s): C64.9 - MALIGNANT NEOPLASM OF UNSP KIDNEY, EXCEPT RENAL PELVIS C79.9 - SECONDARY MALIGNANT NEOPLASM OF UNSPECIFIED SITE Qualifiers: Laterality: unspecified laterality Qualified Code(s): C64.9 - Malignant neoplasm of unspecified kidney, except renal pelvis; C79.9 - Secondary malignant neoplasm of unspecified site (3) Hemoptysis Code(s): R04.2 - HEMOPTYSIS (4) Iron deficiency anemia due to chronic blood loss Code(s): D50.0 - IRON DEFICIENCY ANEMIA SECONDARY TO BLOOD LOSS (CHRONIC)
[2016-10-07] MEDS: SUCRALFATE 1 GM/10 ML UNIT DOSE CUPS PO SCH (21:36)
[2016-10-07] MEDS: RANITIDINE HCL 150 MG TABLET (FP) PO SCH (21:36)
[2016-10-08] LABS: BASOPHIL 0.3 % (0-2.0); EOSINOPHIL 0.8 % (0-4.5); MCH 27.2 pg (25.7-33.7); MEAN CELL VOLUME 82.4 fl (80-96); MEAN PLT VOLUME 7.4 fl (7.5-11.1); NEUTROPHILS 81.3 % (42.8-82.8); PLATELET COUNT 385 K/MM3 (134-434); RDW 17.1 % (11.6-15.6); WHITE BLOOD COUNT 14.9 K/mm3 (4.0-10.0)
[2016-10-08] MEDS: SODIUM CHLORIDE 1,000 ML IV SCH ×3 (02:34→22:20)
[2016-10-08 06:06] LABS: SERUM IRON 70 ug/dL (27-139); TOTAL IRON BINDING CAPACITY 105 ug/dL (250-450); UIBC 35 ug/dL (118-369)
[2016-10-08 06:30] LABS: BASOPHIL 0.4 % (0-2.0); EOSINOPHIL 0.8 % (0-4.5); MCH 27.2 pg (25.7-33.7); MCHC 33.2 g/dl (32.0-36.0); MEAN CELL VOLUME 81.8 fl (80-96); MEAN PLT VOLUME 7.7 fl (7.5-11.1); NEUTROPHILS 81.6 % (42.8-82.8); PLATELET COUNT 393 K/MM3 (134-434); RDW 17.3 % (11.6-15.6); WHITE BLOOD COUNT 14.4 K/mm3 (4.0-10.0)
[2016-10-08 06:45] LABS: INR 1.55 (0.82-1.09); PROTHROMBIN TIME (PATIENT) 17.2 SEC (9.98-11.88)
[2016-10-08 06:57] LABS: ANION GAP 7 (8-16); CO2 22 mmol/L (21-32); CREATININE 1.3 mg/dL (0.55-1.02); GLUCOSE,RANDOM 87 mg/dL (74-106)
[2016-10-08 06:58] LABS: ALBUMIN 1.8 g/dl (3.4-5.0); ALK PHOS 949 U/L (45-117); BILIRUBIN,TOTAL 1.6 mg/dL (0.2-1.0); SGOT/AST 49 U/L (15-37); SGPT/ALT 50 U/L (12-78); TOT PROT 4.7 g/dl (6.4-8.2)
[2016-10-08] MEDS: amLODIPine BESYLATE 5 MG TABLET (FP) PO SCH (10:36)
[2016-10-08] MEDS: RANITIDINE HCL 150 MG TABLET (FP) PO SCH ×2 (10:36→22:19)
[2016-10-08] MEDS: SUCRALFATE 1 GM/10 ML UNIT DOSE CUPS PO SCH ×2 (10:36→22:18)
[2016-10-08] MEDS: DICYCLOMINE HCL 10 MG CAPSULE PO SCH ×2 (10:36→22:19)
[2016-10-08] MEDS: LEVOFLOXACIN 750 MG IVPB 150 ML IVPB SCH (10:37)
--- NOTE | 2016-10-08 11:35 | PN ---
GI Progress Note Subjective: GASTROENTEROLOGY NO CHANGES SINCE LAST EVENING - Objective Vital Signs: Vital Signs Temperature 98.6 F 10/08/16 10:00 Pulse Rate 95 H 10/08/16 10:00 Respiratory Rate 18 10/08/16 10:00 Blood Pressure 116/58 10/08/16 10:00 O2 Sat by Pulse Oximetry (%) 96 10/08/16 09:00 Constitutional: No Distress HENT: Yes: WNL Cardiovascular: Yes: Regular Rate and Rhythm Respiratory: Yes: Regular ...Auscultate: Yes: Normoactive Bowel Sounds ...Palpate: Yes: Soft Extremities: Yes: WNL Labs: CBC, BMP 10/08/16 05:38 10/08/16 05:38 INR, PTT INR 1.55 (0.82-1.09) H 10/08/16 05:38 Problem List - Problems (1) Metastases to the liver Assessment/Plan: I BELIEVE THAT THIS IS THE CAUSE OF HER ELEVATED LIVER ENZYMES BASED ON THE CT/ PET SCAN AND LFT PATTERN. IF THE MEDICAL TEAM STRONGLY BELIEVES THAT THERE IS ANOTHER CANCER HERE AND A LIVER BIOPSY WOULD CHANGE THE COURSE OF HER THERAPY AND OUTCOME THEY CAN ORDER THE BIOPSY FROM THE ir DEPARTMENT. I DO NOT THINK PERFORMING A BIOPSY WOULD BE HELPFUL. I DO NOT THINK ANY FURTHER EVALUATION OF THE LIVER ENZYMES IS NEEDED AT THIS POINT. I BELIEVE THE MAIN GOAL IS TO SEE IF OTHER CHEMOTHERAPUETIC AGENTS WILL IMPROVE HER SURVIVAL. LFT'S INDICATIVE OF INFILTRATIVE DISEASE. IN VIEW OF HER IMAGING AND CURRENT CLINICAL PICTURE ERCP AND STENTING IS NOT INDICATED AT THIS POINT. Code(s): C78.7 - SECONDARY MALIG NEOPLASM OF LIVER AND INTRAHEPATIC BILE DUCT (2) Kidney cancer, primary, with metastasis from kidney to other site Code(s): C64.9 - MALIGNANT NEOPLASM OF UNSP KIDNEY, EXCEPT RENAL PELVIS C79.9 - SECONDARY MALIGNANT NEOPLASM OF UNSPECIFIED SITE Qualifiers: Laterality: unspecified laterality Qualified Code(s): C64.9 - Malignant neoplasm of unspecified kidney, except renal pelvis; C79.9 - Secondary malignant neoplasm of unspecified site (3) Hemoptysis Code(s): R04.2 - HEMOPTYSIS (4) Iron deficiency anemia due to chronic blood loss Code(s): D50.0 - IRON DEFICIENCY ANEMIA SECONDARY TO BLOOD LOSS (CHRONIC)
--- NOTE | 2016-10-08 11:35 | PN ---
Physical Exam: SUBJECTIVE: Patient seen and examined at bedside. No complaints today. Pt had some coughing last night without hemoptysis. No fever, chills, headache, cp, sob , abd pain, nausea, vomiting, diarrhea. OBJECTIVE: Vital Signs Period Temp Pulse Resp BP Sys/Aldrich Pulse Ox Last 24 Hr 97.9 F-98.7 F 93-100 18-20 115-126/52-71 96-98 GENERAL: The patient is awake, alert, and fully oriented, in no acute distress. HEAD: Normal with no signs of trauma. EYES: PERRLA, extraocular movements intact, sclera anicteric, conjunctiva clear. No ptosis. ENT:oropharynx clear without exudates, moist mucous membranes. NECK: Trachea midline, full range of motion, supple. LUNGS: Breath sounds equal, clear to auscultation bilaterally, no wheezes, sparse crackles, no accessory muscle use. HEART: Regular rate and rhythm, normal S1, S2 without murmur, rub or gallop. ABDOMEN: Soft, nontender, nondistended, normoactive bowel sounds, no guarding, no rebound, no hepatosplenomegaly, no masses. EXTREMITIES: 2+ pulses, warm, well-perfused, no edema. NEUROLOGICAL: Cranial nerves II through XII grossly intact. Normal speech, gait not observed. PSYCH: Normal mood, normal affect. SKIN: Warm, dry, normal turgor, no rashes or lesions noted Laboratory Results - last 24 hr 10/07/16 10/07/16 10/07/16 05:35 05:35 13:00 WBC RBC Hgb Hct MCV MCH MCHC RDW Plt Count MPV Neutrophils % Lymphocytes % Monocytes % Eosinophils % Basophils % INR PTT (Actin FS) Sodium Potassium Chloride Carbon Dioxide Anion Gap BUN Creatinine Creat Clearance w eGFR Random Glucose Calcium Iron 70 TIBC 105 L Iron Saturation 67 H Total Bilirubin Direct Bilirubin AST ALT Alkaline Phosphatase Total Protein Albumin Urine Protein U Random Total Protein 24 H Ur Random Sodium Ur Random Potassium Ur Random Chloride Urine Creatinine 35.4 Protein/Creatinin Ratio 0.67 Hepatitis C Antibody <0.1 10/07/16 10/07/16 10/07/16 13:00 13:00 23:44 WBC 14.9 H RBC 3.18 L Hgb 8.6 L Hct 26.2 L MCV 82.4 MCH 27.2 MCHC 33.0 RDW 17.1 H Plt Count 385 MPV 7.4 L Neutrophils % 81.3 Lymphocytes % 9.2 D Monocytes % 8.4 Eosinophils % 0.8 D Basophils % 0.3 INR PTT (Actin FS) Sodium Potassium Chloride Carbon Dioxide Anion Gap BUN Creatinine Creat Clearance w eGFR Random Glucose Calcium Iron TIBC Iron Saturation Total Bilirubin Direct Bilirubin AST ALT Alkaline Phosphatase Total Protein Albumin Urine Protein 35 U Random Total Protein Ur Random Sodium 67 Ur Random Potassium 23.2 Ur Random Chloride 72 Urine Creatinine Protein/Creatinin Ratio Hepatitis C Antibody 10/08/16 10/08/16 10/08/16 05:38 05:38 05:38 WBC 14.4 H RBC 3.13 L Hgb 8.5 L Hct 25.6 L MCV 81.8 MCH 27.2 MCHC 33.2 RDW 17.3 H Plt Count 393 MPV 7.7 Neutrophils % 81.6 Lymphocytes % 9.0 Monocytes % 8.2 Eosinophils % 0.8 Basophils % 0.4 INR PTT (Actin FS) Sodium 139 Potassium 4.7 Chloride 110 H Carbon Dioxide 22 Anion Gap 7 L BUN 22 H Creatinine 1.3 H Creat Clearance w eGFR 40.49 Random Glucose 87 Calcium 8.0 L Iron TIBC Iron Saturation Total Bilirubin 1.6 H D Direct Bilirubin 1.1 H AST 49 H ALT 50 Alkaline Phosphatase 949 H Total Protein 4.7 L Albumin 1.8 L Urine Protein U Random Total Protein Ur Random Sodium Ur Random Potassium Ur Random Chloride Urine Creatinine Protein/Creatinin Ratio Hepatitis C Antibody 10/08/16 05:38 WBC RBC Hgb Hct MCV MCH MCHC RDW Plt Count MPV Neutrophils % Lymphocytes % Monocytes % Eosinophils % Basophils % INR 1.55 H PTT (Actin FS) 30.0 Sodium Potassium Chloride Carbon Dioxide Anion Gap BUN Creatinine Creat Clearance w eGFR Random Glucose Calcium Iron TIBC Iron Saturation Total Bilirubin Direct Bilirubin AST ALT Alkaline Phosphatase Total Protein Albumin Urine Protein U Random Total Protein Ur Random Sodium Ur Random Potassium Ur Random Chloride Urine Creatinine Protein/Creatinin Ratio Hepatitis C Antibody Active Medications Generic Name Dose Route Start Last Admin Trade Name Freq PRN Reason Stop Dose Admin Amlodipine Besylate 5 mg 10/07/16 10:00 10/08/16 10:36 Norvasc - PO 5 mg DAILY JOSE Administration Atorvastatin Calcium 40 mg 10/07/16 22:00 10/07/16 21:03 Lipitor - PO Not Given HS JOSE Benzocaine/Menthol 1 each 10/07/16 10:04 Cepacol Lozenge - MM PRN PRN SORE THROAT Dicyclomine HCl 20 mg 10/07/16 10:00 10/08/16 10:36 Bentyl - PO 20 mg BID JOSE Administration Levofloxacin 150 mls @ 100 mls/hr 10/07/16 17:00 10/08/16 10:37 Levaquin 750 Mg Premixed Ivpb - IVPB 100 mls/hr DAILY JOSE Administration Sodium Chloride 1,000 mls @ 75 mls/hr 10/07/16 12:15 10/08/16 02:34 Normal Saline - IV 75 mls/hr ASDIR JOSE Administration Ondansetron HCl 4 mg 10/07/16 06:23 10/07/16 06:30 Zofran Injection IVPUSH 4 mg Q6H PRN Administration NAUSEA AND/OR VOMITING Ranitidine HCl 150 mg 10/07/16 22:00 10/08/16 10:36 Zantac - PO 150 mg BID JOSE Administration Sucralfate 1 gm 10/07/16 22:00 10/08/16 10:36 Carafate Oral Suspension - PO 1 gm BID JOSE Administration ASSESSMENT/PLAN: 71yo F with PMH of renal cancer with mets to lungs/liver presents with SOB/cough /weakness adm to Med-Surg for symptomatic anemia. #Dyspnea - uncertain etiology - Levaquin given in ER to cover possible pneumonia - low Wells Criteria Score, <4 # Renal Malignancy - consult Dr. Flores, Dr. Tirado, f/u recs - per Heme/Onc, biopsy needed, but not with pt on ASA. Pt can have Bx next week - per Heme/Onc, pt wants to continue palliative chemo # Lung Mets - causing small volume hemoptysis and ZHAO - per pulm, not unexpected considering pt's disease # Anemia - pt has had 2 PRBC - iron studies: Ferritin 1748, Fe 70, TIBC 105, FeSat 67 - f/u stool for occult blood # Elevated LFTs - per Heme/Onc, possibly 2/2 liver mets, consider MRCP - GI consulted - Stop Ceftriaxone # Elevated INR - per Heme/Onc, likely from liver mets - 1.55 # SUSANA on CKD resolving - CKD Stage 3B based on GFR = 30-44 ml/min - baseline unknown - Right sided renal U/S - suspicious for liver mets - FeNa 2.8 - Phlebotomy Specialist stable at 1.3 # Pleural effusion - Per Pulm, too small to sample # Leukocytosis - likely reactive - down from 17.3 to 14.4 - cont. to monitor # Lactic Acidosis : Resolved - dropped from 2.5 to 0.9 after hydration # HTN - cont. Amlodipine and Losartan # Hypercholesterolemia - cont. Atorvastatin # FEN - Fluids: not on fluids - Electrolytes: cont. to monitor - Nutrition: regular diet # Prophylaxis - bilateral SCDs for DVT prophylaxis - Zantac - PT #Serology -HepC neg -HIV neg # Dispo - Admit to [facility] - Daughter Carolina Visit type - Emergency Visit Emergency Visit: Yes ED Registration Date: 10/06/16 Care time: The patient presented to the Emergency Department on the above date and was hospitalized for further evaluation of their emergent condition. - New Patient This patient is new to me today: No - Critical Care Critical Care patient: No - Discharge Referral Referred to [facility] No
--- NOTE | 2016-10-08 13:15 | PN ---
Progress Note, Physician History of Present Illness: PULMONARY no distress,+ ritchie,-cp,- hemoptysis today - Current Medication List Current Medications: Active Medications Amlodipine Besylate (Norvasc -) 5 mg PO DAILY [facility] Last Admin: 10/08/16 10:36 Dose: 5 mg Atorvastatin Calcium (Lipitor -) 40 mg PO HS [facility] Last Admin: 10/07/16 21:03 Dose: Not Given Benzocaine/Menthol (Cepacol Lozenge -) 1 each MM PRN PRN PRN Reason: SORE THROAT Dicyclomine HCl (Bentyl -) 20 mg PO BID [facility] Last Admin: 10/08/16 10:36 Dose: 20 mg Levofloxacin (Levaquin 750 Mg Premixed Ivpb -) 150 mls @ 100 mls/hr IVPB DAILY [facility] Last Admin: 10/08/16 10:37 Dose: 100 mls/hr Sodium Chloride (Normal Saline -) 1,000 mls @ 75 mls/hr IV ASDIR [facility] Last Admin: 10/08/16 12:35 Dose: 75 mls/hr Ondansetron HCl (Zofran Injection) 4 mg IVPUSH Q6H PRN PRN Reason: NAUSEA AND/OR VOMITING Last Admin: 10/07/16 06:30 Dose: 4 mg Ranitidine HCl (Zantac -) 150 mg PO BID [facility] Last Admin: 10/08/16 10:36 Dose: 150 mg Sucralfate (Carafate Oral Suspension -) 1 gm PO BID [facility] Last Admin: 10/08/16 10:36 Dose: 1 gm - Objective Vital Signs: Vital Signs Temperature 98.6 F 10/08/16 10:00 Pulse Rate 95 H 10/08/16 10:00 Respiratory Rate 18 10/08/16 10:00 Blood Pressure 116/58 10/08/16 10:00 O2 Sat by Pulse Oximetry (%) 96 10/08/16 09:00 Constitutional: Yes: Well Nourished, Calm Eyes: Yes: WNL HENT: Yes: WNL Neck: Yes: WNL Cardiovascular: Yes: Regular Rate and Rhythm, S1, S2 Respiratory: Yes: Diminished (bibasilar crackles), Rales Gastrointestinal: Yes: Normal Bowel Sounds, Soft Extremities: Yes: WNL Edema: No Labs: CBC, BMP 10/08/16 05:38 10/08/16 05:38 INR, PTT INR 1.55 (0.82-1.09) H 10/08/16 05:38 Assessment/Plan Problem List - Problems (1) Kidney cancer, primary, with metastasis from kidney to other site Code(s): C64.9 - MALIGNANT NEOPLASM OF UNSP KIDNEY, EXCEPT RENAL PELVIS C79.9 - SECONDARY MALIGNANT NEOPLASM OF UNSPECIFIED SITE Qualifiers: Laterality: unspecified laterality Qualified Code(s): C64.9 - Malignant neoplasm of unspecified kidney, except renal pelvis; C79.9 - Secondary malignant neoplasm of unspecified site (2) Lung nodules Code(s): R91.8 - OTHER NONSPECIFIC ABNORMAL FINDING OF LUNG FIELD (3) Hemoptysis Code(s): R04.2 - HEMOPTYSIS (4) Pleural effusion Code(s): J90 - PLEURAL EFFUSION, NOT ELSEWHERE CLASSIFIED (5) Atelectasis Code(s): J98.11 - ATELECTASIS Assessment/Plan Metastatic Renal Cell Ca to lung, liver Hemoptysis Small Pleural Effusions Atelectasis - cough suppressants for hemoptysis - continue to monitor hemoptysis - pleural effusion to small to sample at this time - oncology evaluation for further or salvage therapy - DVT prophylaxis DR REID
[2016-10-08] MEDS ORDERED: HEPARIN NA (PORCINE) 5,000 UNITS/ML 1ML VIAL SQ SCH (14:00)
--- NOTE | 2016-10-08 14:06 | PN ---
Progress Note (short form) - Note Progress Note: Patient seen and examined this am. feels better. Has short of breath otherwise feels OK. She did not walk around yet or out of bed. Last Vital Signs Temp Pulse Resp BP Pulse Ox 98.6 F 95 H 18 116/58 96 10/08/16 10:00 10/08/16 10:00 10/08/16 10:00 10/08/16 10:00 10/08/16 09:00 CBC, BMP 10/08/16 05:38 10/08/16 05:38 INR, PTT INR 1.55 (0.82-1.09) H 10/08/16 05:38 Current Medications Generic Name Dose Route Start Last Admin Trade Name Freq PRN Reason Stop Dose Admin Amlodipine Besylate 5 mg 10/07/16 10:00 10/08/16 10:36 Norvasc - PO 5 mg DAILY JOSE Administration Atorvastatin Calcium 40 mg 10/07/16 22:00 10/07/16 21:03 Lipitor - PO Not Given HS JOSE Benzocaine/Menthol 1 each 10/07/16 10:04 Cepacol Lozenge - MM PRN PRN SORE THROAT Dicyclomine HCl 20 mg 10/07/16 10:00 10/08/16 10:36 Bentyl - PO 20 mg BID JOSE Administration Levofloxacin 150 mls @ 100 mls/hr 10/07/16 17:00 10/08/16 10:37 Levaquin 750 Mg Premixed Ivpb - IVPB 100 mls/hr DAILY JOSE Administration Sodium Chloride 1,000 mls @ 75 mls/hr 10/07/16 12:15 10/08/16 12:35 Normal Saline - IV 75 mls/hr ASDIR JOSE Administration Ondansetron HCl 4 mg 10/07/16 06:23 10/07/16 06:30 Zofran Injection IVPUSH 4 mg Q6H PRN Administration NAUSEA AND/OR VOMITING Ranitidine HCl 150 mg 10/07/16 22:00 10/08/16 10:36 Zantac - PO 150 mg BID JOSE Administration Sucralfate 1 gm 10/07/16 22:00 10/08/16 10:36 Carafate Oral Suspension - PO 1 gm BID JOSE Administration Assessment/Plan: is a 71 year old with h.o Metastatic Urothelial Cancer ( Lung, liver mets) progressed on front line immunotherapy is admitted for symptomatic anemia. Anemia Metastatic lung/Liver , from Urothelial Papillary high grade ( mets were not biopsied in [facility]) Dyspnea from lung mets Elevated INR CKD -likely ACD/ACI in the setting of active malignancy and s/p recent therapy, supportive care with transfusion, now stable -Would need to confirm pathological diagnosis here. Patient after surgery in [place], had image evidence of lung nodules and was started on immunotherapy , no pathological diagnosis was done there -pt is on aspirin , will need at least 5 days off of therapy (today is day 1), next week if she stay as an inpatient or will need to be arranged as an Out patient -further treatment with second line agents as an out patient. Patient interested in continuing palliative chemotherapy. -Lung mets are causing ZHAO/mild hemoptysis -Elevated INR is likely from the liver mets/poor po intake. -stable renal function. -PT eval -family requesting Visiting nurse services -Respiratory therapist to assess the need for home oxygen. discussed with family. Plan discussed with Hospitalist team Problem List - Problems (1) Anemia Code(s): D64.9 - ANEMIA, UNSPECIFIED Qualifiers: Anemia type: other cause Other causes of anemia: antineoplastic chemotherapy Qualified Code(s): D64.81 - Anemia due to antineoplastic chemotherapy (2) Metastatic urothelial carcinoma Code(s): C79.10 - SECONDARY MALIGNANT NEOPLASM OF UNSPECIFIED URINARY ORGANS (3) Metastases to the liver Code(s): C78.7 - SECONDARY MALIG NEOPLASM OF LIVER AND INTRAHEPATIC BILE DUCT (4) Lung nodules Code(s): R91.8 - OTHER NONSPECIFIC ABNORMAL FINDING OF LUNG FIELD
--- NOTE | 2016-10-08 15:08 | PN ---
Physical Exam: SUBJECTIVE: Patient seen and examined.. Patient feel better. Breathing has improved. Has base line creatnine of 1.5. OBJECTIVE: Vital Signs Period Temp Pulse Resp BP Sys/Aldrich Pulse Ox Last 24 Hr 97.9 F-98.9 F 93-100 18-20 115-135/52-71 96-98 Laboratory Results - last 24 hr GENERAL: Awake, alert, and fully oriented, in no acute distress. HEAD: Normal with no signs of trauma. EARS, NOSE, THROAT: oropharynx clear without exudates. moist mucous membranes. LUNGS: Breath sounds equal, clear to auscultation bilaterally. mild crackles at bases . No accessory muscle use. HEART: Regular rate normal S1 and S2 without murmur, ABDOMEN: Soft, nontender, not distended, normoactive bowel sounds, no guarding, no rebound, no masses. incesional hernia present UPPER EXTREMITIES: 2+ pulses, warm, well-perfused. LOWER EXTREMITIES: 2+ pulses, warm, well-perfused. No calf tenderness. No peripheral edema. SKIN: Warm, dry, . 10/07/16 10/07/16 10/07/16 05:35 05:35 23:44 WBC 14.9 H RBC 3.18 L Hgb 8.6 L Hct 26.2 L MCV 82.4 MCH 27.2 MCHC 33.0 RDW 17.1 H Plt Count 385 MPV 7.4 L Neutrophils % 81.3 Lymphocytes % 9.2 D Monocytes % 8.4 Eosinophils % 0.8 D Basophils % 0.3 INR PTT (Actin FS) Sodium Potassium Chloride Carbon Dioxide Anion Gap BUN Creatinine Creat Clearance w eGFR Random Glucose Calcium Iron 70 TIBC 105 L Iron Saturation 67 H Total Bilirubin Direct Bilirubin AST ALT Alkaline Phosphatase Total Protein Albumin Hepatitis C Antibody <0.1 10/08/16 10/08/16 10/08/16 05:38 05:38 05:38 WBC 14.4 H RBC 3.13 L Hgb 8.5 L Hct 25.6 L MCV 81.8 MCH 27.2 MCHC 33.2 RDW 17.3 H Plt Count 393 MPV 7.7 Neutrophils % 81.6 Lymphocytes % 9.0 Monocytes % 8.2 Eosinophils % 0.8 Basophils % 0.4 INR PTT (Actin FS) Sodium 139 Potassium 4.7 Chloride 110 H Carbon Dioxide 22 Anion Gap 7 L BUN 22 H Creatinine 1.3 H Creat Clearance w eGFR 40.49 Random Glucose 87 Calcium 8.0 L Iron TIBC Iron Saturation Total Bilirubin 1.6 H D Direct Bilirubin 1.1 H AST 49 H ALT 50 Alkaline Phosphatase 949 H Total Protein 4.7 L Albumin 1.8 L Hepatitis C Antibody 10/08/16 05:38 WBC RBC Hgb Hct MCV MCH MCHC RDW Plt Count MPV Neutrophils % Lymphocytes % Monocytes % Eosinophils % Basophils % INR 1.55 H PTT (Actin FS) 30.0 Sodium Potassium Chloride Carbon Dioxide Anion Gap BUN Creatinine Creat Clearance w eGFR Random Glucose Calcium Iron TIBC Iron Saturation Total Bilirubin Direct Bilirubin AST ALT Alkaline Phosphatase Total Protein Albumin Hepatitis C Antibody Active Medications Generic Name Dose Route Start Last Admin Trade Name Freq PRN Reason Stop Dose Admin Amlodipine Besylate 5 mg 10/07/16 10:00 10/08/16 10:36 Norvasc - PO 5 mg DAILY JOSE Administration Atorvastatin Calcium 40 mg 10/07/16 22:00 10/07/16 21:03 Lipitor - PO Not Given HS JOSE Benzocaine/Menthol 1 each 10/07/16 10:04 Cepacol Lozenge - MM PRN PRN SORE THROAT Dicyclomine HCl 20 mg 10/07/16 10:00 10/08/16 10:36 Bentyl - PO 20 mg BID JOSE Administration Levofloxacin 150 mls @ 100 mls/hr 10/07/16 17:00 10/08/16 10:37 Levaquin 750 Mg Premixed Ivpb - IVPB 100 mls/hr DAILY JOSE Administration Sodium Chloride 1,000 mls @ 75 mls/hr 10/07/16 12:15 10/08/16 12:35 Normal Saline - IV 75 mls/hr ASDIR JOSE Administration Ondansetron HCl 4 mg 10/07/16 06:23 10/07/16 06:30 Zofran Injection IVPUSH 4 mg Q6H PRN Administration NAUSEA AND/OR VOMITING Ranitidine HCl 150 mg 10/07/16 22:00 10/08/16 10:36 Zantac - PO 150 mg BID JOSE Administration Sucralfate 1 gm 10/07/16 22:00 10/08/16 10:36 Carafate Oral Suspension - PO 1 gm BID JOSE Administration ASSESSMENT/PLAN: SUSANA on ckd; could from prerenal cause as patient was not eating and drinkg from 2 week and Cr improved on IV hydration. Anemia s/p one pack transfusion. Acute dyspnea: cold be from symptomatic anemia vs pneumonia, on Levaquin H/o Renal cancer s/p nephrectomy and chemo H/o liver and lung mets. Lactic acidosis h/o HTN h/o Hyperlipidemia Incesional hernia Plan Renal function improved, back to its base line, her base is 1.5,Old record shows cr of 1.5 to 1.9 Avoid nephrotoxic drugs. Monitor electrolyte and renal function. Renal ultrasound report reviewed. Monitor and control BP. Repeat labs tomorrow morning. DVt prophylaxis Renal diet. Encourage po intake. Visit type - Emergency Visit Emergency Visit: Yes ED Registration Date: 10/06/16 Care time: The patient presented to the Emergency Department on the above date and was hospitalized for further evaluation of their emergent condition. - New Patient This patient is new to me today: No - Critical Care Critical Care patient: No
[2016-10-08] MEDS ORDERED: guaiFENesin 200 MG/10 ML 10 ML UNIT-DOSE CUPS PO PRN (16:52)
--- NOTE | 2016-10-08 17:33 | PN ---
Teaching Attending Note Name of Resident: Tyree Jensen ATTENDING PHYSICIAN STATEMENT I saw and evaluated the patient. I reviewed the resident's note and discussed the case with the resident. I agree with the resident's findings and plan as documented. SUBJECTIVE: Patient is comfortable, with no acute distress. OBJECTIVE: Vital Signs Temperature 99.2 F 10/08/16 17:18 Pulse Rate 103 H 10/08/16 17:18 Respiratory Rate 18 10/08/16 17:18 Blood Pressure 125/68 10/08/16 17:18 O2 Sat by Pulse Oximetry (%) 96 10/08/16 14:59 CBCD WBC 14.4 K/mm3 (4.0-10.0) H 10/08/16 05:38 RBC 3.13 M/mm3 (3.60-5.2) L 10/08/16 05:38 Hgb 8.5 GM/dL (10.7-15.3) L 10/08/16 05:38 Hct 25.6 % (32.4-45.2) L 10/08/16 05:38 MCV 81.8 fl (80-96) 10/08/16 05:38 MCHC 33.2 g/dl (32.0-36.0) 10/08/16 05:38 RDW 17.3 % (11.6-15.6) H 10/08/16 05:38 Plt Count 393 K/MM3 (134-434) 10/08/16 05:38 MPV 7.7 fl (7.5-11.1) 10/08/16 05:38 CMP Sodium 139 mmol/L (136-145) 10/08/16 05:38 Potassium 4.7 mmol/L (3.5-5.1) 10/08/16 05:38 Chloride 110 mmol/L (98-107) H 10/08/16 05:38 Carbon Dioxide 22 mmol/L (21-32) 10/08/16 05:38 Anion Gap 7 (8-16) L 10/08/16 05:38 BUN 22 mg/dL (7-18) H 10/08/16 05:38 Creatinine 1.3 mg/dL (0.55-1.02) H 10/08/16 05:38 Creat Clearance w eGFR 40.49 (>60) 10/08/16 05:38 Random Glucose 87 mg/dL (74-106) 10/08/16 05:38 Calcium 8.0 mg/dL (8.5-10.1) L 10/08/16 05:38 Total Bilirubin 1.6 mg/dL (0.2-1.0) H D 10/08/16 05:38 AST 49 U/L (15-37) H 10/08/16 05:38 ALT 50 U/L (12-78) 10/08/16 05:38 Alkaline Phosphatase 949 U/L (45-117) H 10/08/16 05:38 Total Protein 4.7 g/dl (6.4-8.2) L 10/08/16 05:38 Albumin 1.8 g/dl (3.4-5.0) L 10/08/16 05:38 CARDIAC ENZYMES Creatine Kinase 21 IU/L (26-192) L 10/06/16 17:12 Troponin I < 0.02 ng/ml (0.00-0.05) 10/06/16 17:12 Home Medications Medication Instructions Recorded Amlodipine Besylate 5 mg PO DAILY 10/06/16 Aspirin [Aspirin EC] 81 mg PO DAILY 10/06/16 Famotidine 20 mg PO DAILY 10/06/16 Losartan Potassium 100 mg PO DAILY 10/06/16 Ondansetron [Zofran -] 4 mg PO BID 10/06/16 Laboratory Tests 10/06/16 10/07/16 10/07/16 17:12 05:35 23:44 WBC 17.3 H 13.8 H 14.9 H Hgb 7.3 L 8.2 L D 8.6 L Hct 26.2 L 10/08/16 05:38 WBC 14.4 H Hgb 8.5 L Hct 25.6 L Pe: per resident's note Microbiology 10/06/16 17:22 Blood - Peripheral Venous Blood Culture - Preliminary NO GROWTH OBTAINED AFTER 48 HOURS, INCUBATION TO CONTINUE FOR 3 DAYS. 10/06/16 17:12 Blood - Peripheral Venous Blood Culture - Preliminary NO GROWTH OBTAINED AFTER 48 HOURS, INCUBATION TO CONTINUE FOR 3 DAYS. 10/06/16 17:12 Urine - Urine Clean Catch Urine Culture - Final NO GROWTH OBTAINED IMAGIN10/06/16 CXR reveals minimal right pleural effusion. No gross focal infiltrates/ consolidation or pneumothorax noted. Bilateral pulmonary nodules compatible with lung mets. 10/06/[address] w/o contrast reveals mild to moderate Right and minimal Left pleural effusion. Right lung base with compressive atelectasis/consolidation. Multiple bilateral pulmonary nodules with the largest measuring 2.3cm consistent with clinical history of metastasis. 09/25/16 PET/CT from [place] reveals increase in number and size of lung lesions, significant worsening of liver mets with involvement of almost entire parenchyma now. Interval growth (compared to PET/CT from 06/07/16) of retroperitoneal metastatic adenopathy, with mets to Left axillary and Left retroclavicular adenopathy. ASSESSMENT/PLAN: Patient is a 71yo F with PMHx of renal cell CA with mets to lungs/liver presents with SOB/cough/weakness adm to Med-Surg for symptomatic anemia. # Acute Dyspnea with Hemoptysis; Breating improving with no further hemoptysis today , with hx of Lung CA /pneumonia s/p Levaquin in ER for pneumonia. Pulmonary consult appreciated for hemoptysis and lung CA due to mets. Discussed with Oncologist , needs to be arranged for Liver Bx by IR, as per oncologist will be on Tuesday and will see her in her office on . # Anemia s/p 1U PRBC given, breathing better. # SUSANA on CKD ; CKD Stage 3B based on GFR = 30-44 ml/min; s/p nephrectomy # Acute Leukocytosis trending down # Acute transaminits trending LFTs # Lactic Acidosis s/p IVF ,resolved # Renal Malignancy seen by Dr. Flores Hematology and oncology , patient will have Liver Bx by Tuesday and will see her in her office on . # HTN cont. Amlodipine and Losartan # Hypercholesterolemia cont. Atorvastatin # Umbilical mass likely hernia DVT Px: SCds
--- NOTE | 2016-10-08 18:02 | PN ---
Teaching Attending Note Name of Resident: Tor Skinner (Nephrology) ATTENDING PHYSICIAN STATEMENT I saw and evaluated the patient. I reviewed the resident's note and discussed the case with the resident. I agree with the resident's findings and plan as documented. Nephrology Follow Up Pt seen and examined at bedside. Current Medications Generic Name Dose Route Start Last Admin Trade Name Freq PRN Reason Stop Dose Admin Amlodipine Besylate 5 mg 10/07/16 10:00 10/08/16 10:36 Norvasc - PO 5 mg DAILY JOSE Administration Atorvastatin Calcium 40 mg 10/07/16 22:00 10/07/16 21:03 Lipitor - PO Not Given HS JOSE Benzocaine/Menthol 1 each 10/07/16 10:04 Cepacol Lozenge - MM PRN PRN SORE THROAT Dicyclomine HCl 20 mg 10/07/16 10:00 10/08/16 10:36 Bentyl - PO 20 mg BID JOSE Administration Guaifenesin 10 ml 10/08/16 16:52 10/08/16 17:40 Robitussin - PO 10 ml Q6H PRN Administration COUGH Levofloxacin 150 mls @ 100 mls/hr 10/07/16 17:00 10/08/16 10:37 Levaquin 750 Mg Premixed Ivpb - IVPB 100 mls/hr DAILY JOSE Administration Sodium Chloride 1,000 mls @ 75 mls/hr 10/07/16 12:15 10/08/16 12:35 Normal Saline - IV 75 mls/hr ASDIR JOSE Administration Ondansetron HCl 4 mg 10/07/16 06:23 10/07/16 06:30 Zofran Injection IVPUSH 4 mg Q6H PRN Administration NAUSEA AND/OR VOMITING Ranitidine HCl 150 mg 10/07/16 22:00 10/08/16 10:36 Zantac - PO 150 mg BID JOSE Administration Sucralfate 1 gm 10/07/16 22:00 10/08/16 10:36 Carafate Oral Suspension - PO 1 gm BID JOSE Administration Last Vital Signs Temp Pulse Resp BP Pulse Ox 99.2 F 103 H 18 125/68 96 10/08/16 17:18 10/08/16 17:18 10/08/16 17:18 10/08/16 17:18 10/08/16 14:59 cardio s1s2 reg pulm on oxygen GI soft ext neg edema neuro awake and alert Impression 1. SUSANA 2. renal cell cancer 3. metastatic urothelial cancer 4. HTN 5. chol Plan - renal function is stable - encourage PO intake - repeat labs in am - cont current meds - avoid nsaids - will follow
[2016-10-08] MEDS ORDERED: PT OWN MED DRAWER 7, Y5N ONE (22:00)
[2016-10-08] MEDS: ATORVASTATIN CA 40 MG TABLET (FP) PO SCH (22:19)
[2016-10-09] MEDS: ONDANSETRON 4 MG/2 ML VIAL IVPUSH PRN ×2 (00:03→07:40)
[2016-10-09 07:22] LABS: BASOPHIL 0.6 % (0-2.0); EOSINOPHIL 0.4 % (0-4.5); MCH 27.4 pg (25.7-33.7); MCHC 33.2 g/dl (32.0-36.0); MEAN CELL VOLUME 82.5 fl (80-96); MEAN PLT VOLUME 7.1 fl (7.5-11.1); NEUTROPHILS 82.5 % (42.8-82.8); PLATELET COUNT 374 K/MM3 (134-434); RDW 17.4 % (11.6-15.6); WHITE BLOOD COUNT 14.1 K/mm3 (4.0-10.0)
[2016-10-09 07:49] LABS: ALBUMIN 1.7 g/dl (3.4-5.0); ANION GAP 8 (8-16); BILIRUBIN,TOTAL 1.3 mg/dL (0.2-1.0); CALCIUM 7.8 mg/dL (8.5-10.1); CO2 22 mmol/L (21-32); CREATININE 1.1 mg/dL (0.55-1.02); GLUCOSE,RANDOM 97 mg/dL (74-106); SGOT/AST 50 U/L (15-37); SGPT/ALT 48 U/L (12-78); TOT PROT 4.5 g/dl (6.4-8.2)
[2016-10-09 07:50] LABS: ALK PHOS 990 U/L (45-117)
[2016-10-09 08:10] LABS: INR 1.49 (0.82-1.09); PROTHROMBIN TIME (PATIENT) 16.5 SEC (9.98-11.88)
--- NOTE | 2016-10-09 09:41 | PN ---
Progress Note, Physician History of Present Illness: Renal f/u Pt in no distress Granddaughter at bedside Had some N/V last night but was able to eat breakfast today - Current Medication List Current Medications: Active Medications Amlodipine Besylate (Norvasc -) 5 mg PO DAILY [facility] Last Admin: 10/08/16 10:36 Dose: 5 mg Atorvastatin Calcium (Lipitor -) 40 mg PO HS [facility] Last Admin: 10/08/16 22:19 Dose: Not Given Benzocaine/Menthol (Cepacol Lozenge -) 1 each MM PRN PRN PRN Reason: SORE THROAT Dicyclomine HCl (Bentyl -) 20 mg PO BID [facility] Last Admin: 10/08/16 22:19 Dose: Not Given Guaifenesin (Robitussin -) 10 ml PO Q6H PRN PRN Reason: COUGH Last Admin: 10/08/16 17:40 Dose: 10 ml Levofloxacin (Levaquin 750 Mg Premixed Ivpb -) 150 mls @ 100 mls/hr IVPB DAILY [facility] Last Admin: 10/08/16 10:37 Dose: 100 mls/hr Sodium Chloride (Normal Saline -) 1,000 mls @ 75 mls/hr IV ASDIR [facility] Last Admin: 10/08/16 22:20 Dose: 75 mls/hr Ondansetron HCl (Zofran Injection) 4 mg IVPUSH Q6H PRN PRN Reason: NAUSEA AND/OR VOMITING Last Admin: 10/09/16 07:40 Dose: 4 mg Ranitidine HCl (Zantac -) 150 mg PO BID [facility] Last Admin: 10/08/16 22:19 Dose: 150 mg Sucralfate (Carafate Oral Suspension -) 1 gm PO BID [facility] Last Admin: 10/08/16 22:18 Dose: 1 gm - Objective Vital Signs: Vital Signs Temperature 99.3 F 10/09/16 06:00 Pulse Rate 94 H 10/09/16 06:00 Respiratory Rate 18 10/09/16 06:00 Blood Pressure 130/62 10/09/16 06:00 O2 Sat by Pulse Oximetry (%) 92 L 10/08/16 22:00 Constitutional: Yes: No Distress Neck: Yes: Other (Right sided Q Port) Cardiovascular: Yes: S1, S2 Respiratory: Yes: CTA Bilaterally Gastrointestinal: Yes: Soft. No: Tenderness, Rebound Edema: No Labs: CBC, BMP 10/09/16 06:20 10/09/16 06:20 INR, PTT INR 1.49 (0.82-1.09) H 10/09/16 06:20 Assessment/Plan IMPRESSION Impression S/P SUSANA [facility] Metastatic urothelial cancer HTN HLD Anemia Plan Will decrease the IVF Rpt labs in am Dr Navarrete
[2016-10-09] MEDS ORDERED: PT OWN MED DRAWER 7, Y5N ONE ×3 (10:03→21:45)
[2016-10-09] MEDS: amLODIPine BESYLATE 5 MG TABLET (FP) PO SCH (10:25)
[2016-10-09] MEDS: LEVOFLOXACIN 750 MG IVPB 150 ML IVPB SCH (10:25)
[2016-10-09] MEDS: SUCRALFATE 1 GM/10 ML UNIT DOSE CUPS PO SCH ×2 (10:25→22:01)
[2016-10-09] MEDS: SODIUM CHLORIDE 1,000 ML IV SCH (10:33)
[2016-10-09] MEDS: RANITIDINE HCL 150 MG TABLET (FP) PO SCH (10:33)
[2016-10-09] MEDS: DICYCLOMINE HCL 10 MG CAPSULE PO SCH ×2 (10:33→22:02)
--- NOTE | 2016-10-09 10:40 | PN ---
Progress Note, Physician History of Present Illness: PULMONARY ALERT,OOB-CHAIR,+ COUGH,TRACE HEMOPTYSIS - Current Medication List Current Medications: Active Medications Amlodipine Besylate (Norvasc -) 5 mg PO DAILY [facility] Last Admin: 10/09/16 10:25 Dose: 5 mg Atorvastatin Calcium (Lipitor -) 40 mg PO HS [facility] Last Admin: 10/08/16 22:19 Dose: Not Given Benzocaine/Menthol (Cepacol Lozenge -) 1 each MM PRN PRN PRN Reason: SORE THROAT Dicyclomine HCl (Bentyl -) 20 mg PO BID [facility] Last Admin: 10/09/16 10:33 Dose: Not Given Guaifenesin (Robitussin -) 10 ml PO Q6H PRN PRN Reason: COUGH Last Admin: 10/08/16 17:40 Dose: 10 ml Levofloxacin (Levaquin 750 Mg Premixed Ivpb -) 150 mls @ 100 mls/hr IVPB DAILY [facility] Last Admin: 10/09/16 10:25 Dose: 100 mls/hr Sodium Chloride (Normal Saline -) 1,000 mls @ 40 mls/hr IV ASDIR [facility] Last Admin: 10/09/16 10:33 Dose: 40 mls/hr Ondansetron HCl (Zofran Injection) 4 mg IVPUSH Q6H PRN PRN Reason: NAUSEA AND/OR VOMITING Last Admin: 10/09/16 07:40 Dose: 4 mg Ranitidine HCl (Zantac -) 150 mg PO BID [facility] Last Admin: 10/09/16 10:33 Dose: Not Given Sucralfate (Carafate Oral Suspension -) 1 gm PO BID [facility] Last Admin: 10/09/16 10:25 Dose: 1 gm - Objective Vital Signs: Vital Signs Temperature 99.3 F 10/09/16 06:00 Pulse Rate 94 H 10/09/16 06:00 Respiratory Rate 18 10/09/16 06:00 Blood Pressure 130/62 10/09/16 06:00 O2 Sat by Pulse Oximetry (%) 92 L 10/08/16 22:00 Constitutional: Yes: Well Nourished, Calm Eyes: Yes: WNL HENT: Yes: WNL Neck: Yes: Supple Cardiovascular: Yes: Regular Rate and Rhythm, S1, S2 Respiratory: Yes: Rhonchi (FEW RHONCHI) Gastrointestinal: Yes: Normal Bowel Sounds, Soft Extremities: Yes: WNL Edema: No Labs: CBC, BMP 10/09/16 06:20 10/09/16 06:20 INR, PTT INR 1.49 (0.82-1.09) H 10/09/16 06:20 Assessment/Plan Problem List - Problems (1) Kidney cancer, primary, with metastasis from kidney to other site Code(s): C64.9 - MALIGNANT NEOPLASM OF UNSP KIDNEY, EXCEPT RENAL PELVIS C79.9 - SECONDARY MALIGNANT NEOPLASM OF UNSPECIFIED SITE Qualifiers: Laterality: unspecified laterality Qualified Code(s): C64.9 - Malignant neoplasm of unspecified kidney, except renal pelvis; C79.9 - Secondary malignant neoplasm of unspecified site (2) Lung nodules Code(s): R91.8 - OTHER NONSPECIFIC ABNORMAL FINDING OF LUNG FIELD (3) Hemoptysis Code(s): R04.2 - HEMOPTYSIS (4) Pleural effusion Code(s): J90 - PLEURAL EFFUSION, NOT ELSEWHERE CLASSIFIED (5) Atelectasis Code(s): J98.11 - ATELECTASIS Assessment/Plan 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
[2016-10-09] MEDS ORDERED: guaiFENesin/CODEINE 5 ML UNIT-DOSE CUPS PO PRN (10:43)
--- NOTE | 2016-10-09 11:51 | PN ---
Physical Exam: SUBJECTIVE: Patient seen and examined Patient is comfortable with no acute distress. OBJECTIVE: Vital Signs Temperature 99.3 F 10/09/16 06:00 Pulse Rate 94 H 10/09/16 06:00 Respiratory Rate 18 10/09/16 06:00 Blood Pressure 130/62 10/09/16 06:00 O2 Sat by Pulse Oximetry (%) 92 L 10/08/16 22:00 GENERAL: The patient is awake, alert, and fully oriented, in no acute distress. HEAD: Normal with no signs of trauma. EYES: PERRL, extraocular movements intact, sclera anicteric, conjunctiva clear. ENT: Ears normal, oropharynx clear without exudates, moist mucous membranes. NECK: Trachea midline, full range of motion, supple. LUNGS: decreased Breath sounds equal, otherwise clear to auscultation bilaterally, no wheezes, no crackles, no accessory muscle use. HEART: Regular rate and rhythm, S1, S2 without murmur, rub or gallop. ABDOMEN: Soft, nontender, nondistended, normoactive bowel sounds, no guarding, no rebound, no hepatosplenomegaly, no masses. EXTREMITIES: 2+ pulses, warm, well-perfused, no edema. NEUROLOGICAL: Cranial nerves II through XII grossly intact. Normal speech. PSYCH: Normal mood, normal affect. SKIN: Warm, dry, normal turgor, no rashes or lesions noted CBCD WBC 14.1 K/mm3 (4.0-10.0) H 10/09/16 06:20 RBC 3.10 M/mm3 (3.60-5.2) L 10/09/16 06:20 Hgb 8.5 GM/dL (10.7-15.3) L 10/09/16 06:20 Hct 25.6 % (32.4-45.2) L 10/09/16 06:20 MCV 82.5 fl (80-96) 10/09/16 06:20 MCHC 33.2 g/dl (32.0-36.0) 10/09/16 06:20 RDW 17.4 % (11.6-15.6) H 10/09/16 06:20 Plt Count 374 K/MM3 (134-434) 10/09/16 06:20 MPV 7.1 fl (7.5-11.1) L 10/09/16 06:20 CMP Sodium 140 mmol/L (136-145) 10/09/16 06:20 Potassium 4.2 mmol/L (3.5-5.1) 10/09/16 06:20 Chloride 110 mmol/L (98-107) H 10/09/16 06:20 Carbon Dioxide 22 mmol/L (21-32) 10/09/16 06:20 Anion Gap 8 (8-16) 10/09/16 06:20 BUN 19 mg/dL (7-18) H 10/09/16 06:20 Creatinine 1.1 mg/dL (0.55-1.02) H 10/09/16 06:20 Creat Clearance w eGFR 49.10 (>60) 10/09/16 06:20 Random Glucose 97 mg/dL (74-106) 10/09/16 06:20 Calcium 7.8 mg/dL (8.5-10.1) L 10/09/16 06:20 Total Bilirubin 1.3 mg/dL (0.2-1.0) H 10/09/16 06:20 AST 50 U/L (15-37) H 10/09/16 06:20 ALT 48 U/L (12-78) 10/09/16 06:20 Alkaline Phosphatase 990 U/L (45-117) H 10/09/16 06:20 Total Protein 4.5 g/dl (6.4-8.2) L 10/09/16 06:20 Albumin 1.7 g/dl (3.4-5.0) L 10/09/16 06:20 CARDIAC ENZYMES Creatine Kinase 21 IU/L (26-192) L 10/06/16 17:12 Troponin I < 0.02 ng/ml (0.00-0.05) 10/06/16 17:12 Active Medications Generic Name Dose Route Start Last Admin Trade Name Freq PRN Reason Stop Dose Admin Amlodipine Besylate 5 mg 10/07/16 10:00 10/09/16 10:25 Norvasc - PO 5 mg DAILY JOSE Administration Atorvastatin Calcium 40 mg 10/07/16 22:00 10/08/16 22:19 Lipitor - PO Not Given HS JOSE Benzocaine/Menthol 1 each 10/07/16 10:04 Cepacol Lozenge - MM PRN PRN SORE THROAT Dicyclomine HCl 20 mg 10/07/16 10:00 10/09/16 10:33 Bentyl - PO Not Given BID JOSE Guaifenesin/Codeine Phosphate 5 ml 10/09/16 10:43 Robitussin Ac - PO QID PRN COUGH Levofloxacin 150 mls @ 100 mls/hr 10/07/16 17:00 10/09/16 10:25 Levaquin 750 Mg Premixed Ivpb - IVPB 100 mls/hr DAILY JO[facility] Administration Sodium Chloride 1,000 mls @ 40 mls/hr 10/09/16 09:44 10/09/16 10:33 Normal Saline - IV 40 mls/hr ASDIR JOSE Administration Ondansetron HCl 4 mg 10/07/16 06:23 10/09/16 07:40 Zofran Injection IVPUSH 4 mg Q6H PRN Administration NAUSEA AND/OR VOMITING Ranitidine HCl 150 mg 10/07/16 22:00 10/09/16 10:33 Zantac - PO Not Given BID JOSE Sucralfate 1 gm 10/07/16 22:00 10/09/16 10:25 Carafate Oral Suspension - PO 1 gm BID JOSE Administration IMAGIN10/06/16 CXR reveals minimal right pleural effusion. No gross focal infiltrates/ consolidation or pneumothorax noted. Bilateral pulmonary nodules compatible with lung mets. 10/06/[address] w/o contrast reveals mild to moderate Right and minimal Left pleural effusion. Right lung base with compressive atelectasis/consolidation. Multiple bilateral pulmonary nodules with the largest measuring 2.3cm consistent with clinical history of metastasis. 09/25/16 PET/CT from [place] reveals increase in number and size of lung lesions, significant worsening of liver mets with involvement of almost entire parenchyma now. Interval growth (compared to PET/CT from 06/07/16) of retroperitoneal metastatic adenopathy, with mets to Left axillary and Left retroclavicular adenopathy. ASSESSMENT/PLAN: Patient is a 71yo F with PMHx of renal cell CA with mets to lungs/liver presents with SOB/cough/weakness adm to Med-Surg for symptomatic anemia. # Acute Dyspnea improved with no further Hemoptysis with hx of Lung CA with multiple Bl pulmonary nodules seen by Pulmonary for hemoptysis and lung CA due to mets. # Acute Pneumonia s/p Levaquin in ER for pneumonia. On IV antibiotic will continue # Patient vomited last night will monitor , Pepcid IV changed from PO # Anemia s/p 1U PRBC given, breathing better. # SUSANA on CKD ; CKD Stage 3B based on GFR = 30-44 ml/min; s/p nephrectomy # Acute Leukocytosis trending down # Acute transaminits trending LFTs # Lactic Acidosis s/p IVF ,resolved # Renal Malignancy with lung and liver Cancer consult Dr. Flores Hematology and oncology : Liver Bx on Tuesday by IR # HTN cont. Amlodipine and Losartan # Hypercholesterolemia cont. Atorvastatin # Umbilical mass likely hernia possible discharge in am Visit type - Emergency Visit Emergency Visit: Yes ED Registration Date: 10/06/16 Care time: The patient presented to the Emergency Department on the above date and was hospitalized for further evaluation of their emergent condition. - New Patient This patient is new to me today: No - Critical Care Critical Care patient: No
[2016-10-09] MEDS: FAMOTIDINE 20 MG/50 ML IVPB 50 ML IVPB SCH ×2 (17:08→22:01)
[2016-10-09] MEDS ORDERED: FAMOTIDINE 20 MG/50 ML IVPB 50 ML IVPB SCH (22:00)
[2016-10-09] MEDS: ATORVASTATIN CA 40 MG TABLET (FP) PO SCH (22:01)
[2016-10-10 07:13] LABS: MCH 27.9 pg (25.7-33.7); MCHC 33.5 g/dl (32.0-36.0); MEAN CELL VOLUME 83.2 fl (80-96); MEAN PLT VOLUME 7.2 fl (7.5-11.1); PLATELET COUNT 373 K/MM3 (134-434); RDW 17.9 % (11.6-15.6); WHITE BLOOD COUNT 13.5 K/mm3 (4.0-10.0)
[2016-10-10 08:00] LABS: ANION GAP 7 (8-16); CO2 23 mmol/L (21-32); CREATININE 1.2 mg/dL (0.55-1.02); GLUCOSE,RANDOM 97 mg/dL (74-106)
[2016-10-10 08:40] LABS: HYPOCHROMIA 1+; METAMYELOCYTE 1 % (0-2); PLATELET ESTIMATE ADEQUATE (NORMAL); POLYCHROMASIA FEW
[2016-10-10] MEDS: DICYCLOMINE HCL 10 MG CAPSULE PO SCH (09:19)
[2016-10-10] MEDS: amLODIPine BESYLATE 5 MG TABLET (FP) PO SCH (09:21)
[2016-10-10] MEDS: FAMOTIDINE 20 MG/50 ML IVPB 50 ML IVPB SCH (09:21)
[2016-10-10] MEDS: LEVOFLOXACIN 750 MG IVPB 150 ML IVPB SCH (09:21)
[2016-10-10] MEDS: SUCRALFATE 1 GM/10 ML UNIT DOSE CUPS PO SCH (09:21)
[2016-10-10] MEDS: SODIUM CHLORIDE 1,000 ML IV SCH (09:25)
--- NOTE | 2016-10-10 10:00 | PN ---
Progress Note, Physician History of Present Illness: Renal f/u Pt in no distress and has not had any N/V since yesterday She ate breakfast without difficulty Granddaughter present at time of the evaluation - Current Medication List Current Medications: Active Medications Amlodipine Besylate (Norvasc -) 5 mg PO DAILY [facility] Last Admin: 10/10/16 09:21 Dose: 5 mg Atorvastatin Calcium (Lipitor -) 40 mg PO HS [facility] Last Admin: 10/09/16 22:01 Dose: Not Given Benzocaine/Menthol (Cepacol Lozenge -) 1 each MM PRN PRN PRN Reason: SORE THROAT Last Admin: 10/09/16 22:03 Dose: 1 each Dicyclomine HCl (Bentyl -) 20 mg PO BID [facility] Last Admin: 10/10/16 09:19 Dose: Not Given Guaifenesin/Codeine Phosphate (Robitussin Ac -) 5 ml PO QID PRN PRN Reason: COUGH Last Admin: 10/09/16 22:01 Dose: 5 ml Levofloxacin (Levaquin 750 Mg Premixed Ivpb -) 150 mls @ 100 mls/hr IVPB DAILY [facility] Last Admin: 10/10/16 09:21 Dose: 100 mls/hr Sodium Chloride (Normal Saline -) 1,000 mls @ 40 mls/hr IV ASDIR [facility] Last Admin: 10/10/16 09:25 Dose: 40 mls/hr Famotidine/Sodium Chloride (Pepcid 20 Mg Premixed Ivpb -) 50 mls @ 100 mls/hr IVPB BID [facility] Last Admin: 10/10/16 09:21 Dose: 100 mls/hr Ondansetron HCl (Zofran Injection) 4 mg IVPUSH Q6H PRN PRN Reason: NAUSEA AND/OR VOMITING Last Admin: 10/09/16 07:40 Dose: 4 mg Sucralfate (Carafate Oral Suspension -) 1 gm PO BID [facility] Last Admin: 10/10/16 09:21 Dose: 1 gm - Objective Vital Signs: Vital Signs Temperature 98.5 F 10/10/16 06:00 Pulse Rate 100 H 10/10/16 06:00 Respiratory Rate 20 10/10/16 06:00 Blood Pressure 127/68 10/10/16 06:00 O2 Sat by Pulse Oximetry (%) 93 L 10/09/16 21:00 Constitutional: Yes: No Distress Cardiovascular: Yes: S1, S2 Respiratory: Yes: CTA Bilaterally Gastrointestinal: Yes: Soft. No: Tenderness, Rebound Edema: No Labs: CBC, BMP 10/10/16 06:30 10/10/16 06:30 INR, PTT INR 1.49 (0.82-1.09) H 10/09/16 06:20 Assessment/Plan IMPRESSION Impression S/P SUSANA with slight rise in the serum Cr on the reduced IVF since yesterday RCC Metastatic urothelial cancer HTN HLD Anemia Plan Continue with the present IVF for additional 24 hour Rpt labs in am Dr Navarrete
--- NOTE | 2016-10-10 10:18 | PN ---
Progress Note, Physician History of Present Illness: pulmonary alert,nad,less cough,- hemoptysis - Current Medication List Current Medications: Active Medications Amlodipine Besylate (Norvasc -) 5 mg PO DAILY [facility] Last Admin: 10/10/16 09:21 Dose: 5 mg Atorvastatin Calcium (Lipitor -) 40 mg PO HS [facility] Last Admin: 10/09/16 22:01 Dose: Not Given Benzocaine/Menthol (Cepacol Lozenge -) 1 each MM PRN PRN PRN Reason: SORE THROAT Last Admin: 10/09/16 22:03 Dose: 1 each Dicyclomine HCl (Bentyl -) 20 mg PO BID [facility] Last Admin: 10/10/16 09:19 Dose: Not Given Guaifenesin/Codeine Phosphate (Robitussin Ac -) 5 ml PO QID PRN PRN Reason: COUGH Last Admin: 10/09/16 22:01 Dose: 5 ml Levofloxacin (Levaquin 750 Mg Premixed Ivpb -) 150 mls @ 100 mls/hr IVPB DAILY [facility] Last Admin: 10/10/16 09:21 Dose: 100 mls/hr Sodium Chloride (Normal Saline -) 1,000 mls @ 40 mls/hr IV ASDIR [facility] Last Admin: 10/10/16 09:25 Dose: 40 mls/hr Famotidine/Sodium Chloride (Pepcid 20 Mg Premixed Ivpb -) 50 mls @ 100 mls/hr IVPB BID [facility] Last Admin: 10/10/16 09:21 Dose: 100 mls/hr Ondansetron HCl (Zofran Injection) 4 mg IVPUSH Q6H PRN PRN Reason: NAUSEA AND/OR VOMITING Last Admin: 10/09/16 07:40 Dose: 4 mg Sucralfate (Carafate Oral Suspension -) 1 gm PO BID [facility] Last Admin: 10/10/16 09:21 Dose: 1 gm - Objective Vital Signs: Vital Signs Temperature 98.5 F 10/10/16 06:00 Pulse Rate 100 H 10/10/16 06:00 Respiratory Rate 20 10/10/16 06:00 Blood Pressure 127/68 10/10/16 06:00 O2 Sat by Pulse Oximetry (%) 93 L 10/09/16 21:00 Constitutional: Yes: Well Nourished, Calm Eyes: Yes: WNL HENT: Yes: WNL Neck: Yes: WNL Cardiovascular: Yes: Regular Rate and Rhythm, S1, S2 Respiratory: Yes: Rales (few bibasilar crackles) Gastrointestinal: Yes: Normal Bowel Sounds, Soft Extremities: Yes: WNL Edema: No Labs: CBC, BMP 10/10/16 06:30 10/10/16 06:30 INR, PTT INR 1.49 (0.82-1.09) H 10/09/16 06:20 Assessment/Plan Problem List - Problems (1) Kidney cancer, primary, with metastasis from kidney to other site Code(s): C64.9 - MALIGNANT NEOPLASM OF UNSP KIDNEY, EXCEPT RENAL PELVIS C79.9 - SECONDARY MALIGNANT NEOPLASM OF UNSPECIFIED SITE Qualifiers: Laterality: unspecified laterality Qualified Code(s): C64.9 - Malignant neoplasm of unspecified kidney, except renal pelvis; C79.9 - Secondary malignant neoplasm of unspecified site (2) Lung nodules Code(s): R91.8 - OTHER NONSPECIFIC ABNORMAL FINDING OF LUNG FIELD (3) Hemoptysis Code(s): R04.2 - HEMOPTYSIS (4) Pleural effusion Code(s): J90 - PLEURAL EFFUSION, NOT ELSEWHERE CLASSIFIED (5) Atelectasis Code(s): J98.11 - ATELECTASIS Assessment/Plan 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
--- NOTE | 2016-10-10 11:00 | PN ---
Teaching Attending Note Name of Resident: Tyree Jensen ATTENDING PHYSICIAN STATEMENT I saw and evaluated the patient. I reviewed the resident's note and discussed the case with the resident. I agree with the resident's findings and plan as documented. SUBJECTIVE: Patient is feeling better, with no acute distress, would like to go home. Grand daughter at bedside. No further vomiting. OBJECTIVE: Vital Signs Temperature 98.5 F 10/10/16 06:00 Pulse Rate 100 H 10/10/16 06:00 Respiratory Rate 20 10/10/16 06:00 Blood Pressure 127/68 10/10/16 06:00 O2 Sat by Pulse Oximetry (%) 93 L 10/09/16 21:00 CBCD WBC 13.5 K/mm3 (4.0-10.0) H 10/10/16 06:30 RBC 2.94 M/mm3 (3.60-5.2) L 10/10/16 06:30 Hgb 8.2 GM/dL (10.7-15.3) L 10/10/16 06:30 Hct 24.5 % (32.4-45.2) L 10/10/16 06:30 MCV 83.2 fl (80-96) 10/10/16 06:30 MCHC 33.5 g/dl (32.0-36.0) 10/10/16 06:30 RDW 17.9 % (11.6-15.6) H 10/10/16 06:30 Plt Count 373 K/MM3 (134-434) 10/10/16 06:30 MPV 7.2 fl (7.5-11.1) L 10/10/16 06:30 CMP Sodium 141 mmol/L (136-145) 10/10/16 06:30 Potassium 4.2 mmol/L (3.5-5.1) 10/10/16 06:30 Chloride 111 mmol/L (98-107) H 10/10/16 06:30 Carbon Dioxide 23 mmol/L (21-32) 10/10/16 06:30 Anion Gap 7 (8-16) L 10/10/16 06:30 BUN 20 mg/dL (7-18) H 10/10/16 06:30 Creatinine 1.2 mg/dL (0.55-1.02) H 10/10/16 06:30 Creat Clearance w eGFR 49.10 (>60) 10/09/16 06:20 Random Glucose 97 mg/dL (74-106) 10/10/16 06:30 Calcium 8.0 mg/dL (8.5-10.1) L 10/10/16 06:30 Total Bilirubin 1.3 mg/dL (0.2-1.0) H 10/09/16 06:20 AST 50 U/L (15-37) H 10/09/16 06:20 ALT 48 U/L (12-78) 10/09/16 06:20 Alkaline Phosphatase 990 U/L (45-117) H 10/09/16 06:20 Total Protein 4.5 g/dl (6.4-8.2) L 10/09/16 06:20 Albumin 1.7 g/dl (3.4-5.0) L 10/09/16 06:20 CARDIAC ENZYMES Creatine Kinase 21 IU/L (26-192) L 10/06/16 17:12 Troponin I < 0.02 ng/ml (0.00-0.05) 10/06/16 17:12 Current Medications Generic Name Dose Route Start Last Admin Trade Name Freq PRN Reason Stop Dose Admin Amlodipine Besylate 5 mg 10/07/16 10:00 10/10/16 09:21 Norvasc - PO 5 mg DAILY JOSE Administration Atorvastatin Calcium 40 mg 10/07/16 22:00 10/09/16 22:01 Lipitor - PO Not Given HS JOSE Benzocaine/Menthol 1 each 10/07/16 10:04 10/09/16 22:03 Cepacol Lozenge - MM 1 each PRN PRN Administration SORE THROAT Dicyclomine HCl 20 mg 10/07/16 10:00 10/10/16 09:19 Bentyl - PO Not Given BID JOSE Guaifenesin/Codeine Phosphate 5 ml 10/09/16 10:43 10/09/16 22:01 Robitussin Ac - PO 5 ml QID PRN Administration COUGH Levofloxacin 150 mls @ 100 mls/hr 10/07/16 17:00 10/10/16 09:21 Levaquin 750 Mg Premixed Ivpb - IVPB 100 mls/hr DAILY JOSE Administration Sodium Chloride 1,000 mls @ 40 mls/hr 10/09/16 09:44 10/10/16 09:25 Normal Saline - IV 40 mls/hr ASDIR JOSE Administration Famotidine/Sodium Chloride 50 mls @ 100 mls/hr 10/09/16 17:15 10/10/16 09:21 Pepcid 20 Mg Premixed Ivpb - IVPB 100 mls/hr BID JOSE Administration Ondansetron HCl 4 mg 10/07/16 06:23 10/09/16 07:40 Zofran Injection IVPUSH 4 mg Q6H PRN Administration NAUSEA AND/OR VOMITING Sucralfate 1 gm 10/07/16 22:00 10/10/16 09:21 Carafate Oral Suspension - PO 1 gm BID JOSE Administration Home Medications Medication Instructions Recorded Amlodipine Besylate 5 mg PO DAILY 10/06/16 Aspirin [Aspirin EC] 81 mg PO DAILY 10/06/16 Famotidine 20 mg PO DAILY 10/06/16 Losartan Potassium 100 mg PO DAILY 10/06/16 Ondansetron [Zofran -] 4 mg PO BID 10/06/16 10/06/16 CXR reveals minimal right pleural effusion. No gross focal infiltrates/ consolidation or pneumothorax noted. Bilateral pulmonary nodules compatible with lung mets. 10/06/[address] w/o contrast reveals mild to moderate Right and minimal Left pleural effusion. Right lung base with compressive atelectasis/consolidation. Multiple bilateral pulmonary nodules with the largest measuring 2.3cm consistent with clinical history of metastasis. 09/25/16 PET/CT from [place] reveals increase in number and size of lung lesions, significant worsening of liver mets with involvement of almost entire parenchyma now. Interval growth (compared to PET/CT from 06/07/16) of retroperitoneal metastatic adenopathy, with mets to Left axillary and Left retroclavicular adenopathy. ASSESSMENT/PLAN: Patient is a 71yo F with PMHx of renal cell CA with mets to lungs/liver presents with SOB/cough/weakness adm to Med-Surg for symptomatic anemia. # Acute Dyspnea improved with no further Hemoptysis , hx of Lung CA with multiple Bl pulmonary nodules seen by Pulmonary for hemoptysis and lung CA due to mets. Patient will follow with and the oncologist. # Acute Pneumonia on levaquin will continue 5 more days .s/p IV antibiotic. # Anemia s/p 1U PRBC given, breathing better. # SUSANA on CKD ; CKD Stage 3B based on GFR = 30-44 ml/min; s/p nephrectomy # Acute Leukocytosis trending down # Acute transaminits improving . needs to have CMP repeated as an outpatient. # Lactic Acidosis s/p IVF ,resolved # Renal Malignancy with lung and liver Cancer consult Dr. Flores Hematology and oncology : Liver Bx on Tuesday by IR # HTN cont. Amlodipine # Hypercholesterolemia cont. Atorvastatin will reduce the dose since mild elevation of LFts # Umbilical mass likely hernia discharge patient today .
--- NOTE | 2016-10-10 11:36 | DS ---
Physical Exam: SUBJECTIVE: Patient seen and examined at bedside. No acute events overnight. Pt has no complaints at this time. No headache, dizziness, fevers, cp, sob. OBJECTIVE: Vital Signs Period Temp Pulse Resp BP Sys/Aldrich Pulse Ox Last 24 Hr 98.3 F-99 F 80-100 18-20 122-140/65-82 93 PHYSICAL EXAM GENERAL: The patient is awake, alert, and fully oriented, in no acute distress. HEAD: Normal with no signs of trauma. EYES: sclera anicteric, conjunctiva clear. ENT: oropharynx clear without exudates, moist mucous membranes. NECK: Trachea midline, full range of motion, supple. LUNGS: Breath sounds equal, clear to auscultation bilaterally, no wheezes, sparse fine crackles, no accessory muscle use. HEART: Regular rate and rhythm, S1, S2 without murmur, rub or gallop. ABDOMEN: Soft, nontender, nondistended, normoactive bowel sounds, no guarding, no rebound, no hepatosplenomegaly, no masses. EXTREMITIES: 2+ pulses, warm, well-perfused, no edema. NEUROLOGICAL: Cranial nerves II through XII grossly intact. Normal speech, gait not observed. PSYCH: Normal mood, normal affect. SKIN: Warm, dry, normal turgor, no rashes or lesions noted. LABS Laboratory Results - last 24 hr 10/09/16 10/10/16 10/10/16 12:16 06:30 06:30 WBC 13.5 H RBC 2.94 L Hgb 8.2 L Hct 24.5 L MCV 83.2 MCH 27.9 MCHC 33.5 RDW 17.9 H Plt Count 373 MPV 7.2 L Neutrophils % 82.0 Lymphocytes % 10.0 D Monocytes % 7.0 Eosinophils % 1.0 D Metamyelocytes 1 Platelet Estimate Adequate Platelet Comment No clumping noted Polychromasia Few Hypochromic-Microcytic 1+ Sodium 141 Potassium 4.2 Chloride 111 H Carbon Dioxide 23 Anion Gap 7 L BUN 20 H Creatinine 1.2 H Random Glucose 97 Calcium 8.0 L Stool Occult Blood Negative HOSPITAL COURSE: Date of Admission:10/06/16 Date of Discharge: 10/10/16 71yo F with PMH of renal cancer with mets to lungs/liver presents with SOB/cough /weakness adm to Med-Surg for symptomatic anemia. Pt received 2 PRBCs in the hospital. -Pt had SUSANA and lactic acidosis which stabilized with IVF. -CXR and chest CT revealed pulm nodules and small effusion. -Liver U/S revealed multiple lesions suspicious for mets. Pt will be going for biopsy as outpt after at least 5 days without ASA. Pt had transaminitis likely 2 /2 rocephin, which was discontinued. Pt had leukocytosis, likely 2/2 CA, but ABX were given to cover for PNA. O2 sat was 96% on RA before leaving the hospital. -INR was high, likely 2/2 liver mets. -Pt's HTN was managed with home meds. Atorvastatin was held in setting of transaminitis with PCP to determine if/when to restart. -Pt had negative HepC and HIV serologies - Daughter Carolina Minutes to complete discharge: 45 Discharge Summary Reason For Visit: ANEMIA/SEPSIS/KIDNEY CANCER WITH METASTASIS Current Active Problems Atelectasis (Acute) Hemoptysis (Acute) Anemia (Chronic) Iron deficiency anemia due to chronic blood loss (Chronic) Kidney cancer, primary, with metastasis from kidney to other site (Chronic) Lung nodules (Chronic) Metastases to the liver (Chronic) Metastatic lung cancer (metastasis from lung to other site) (Chronic) Metastatic urothelial carcinoma (Chronic) Pleural effusion (Chronic) Sepsis (Chronic) Condition: Guarded - Instructions Diet, Activity, Other Instructions: You need to follow up with the following doctors: Dr. Martinez - interventional radiology Dr. Howell - pulmonology Dr. Tirado - nephrology Dr. Flores - hematology/oncology Dr. Alfonso - gastroenterology October 11, 2016 ,please call Dr. Jones the interventinal radiologist to perform biopsy of the Liver. Continue to hold the aspirin till you have the biopsy of the liver. After the biopsy check with radiologist when to start taking the aspirin! You need to take the following medications: -Amlodipine 5mg by mouth daily -Famotidine 20mg by mouth daily -Sucralfate 1gm oral suspension twice daily -Levaquin 500mg by mouth daily -Do not take aspirin until after your biopsy with Dr. Martinez It is important that you follow up with your appointments and take your medications as directed. If you have new symptoms or if you symptoms get worse, please return to the emergency department. Referrals: Gómez Howell MD [Staff Physician] - 1 Week Evan Jones MD [Staff Physician] - 10/11/16 (October 11, 2016 ,please call Dr. Jones the interventinal radiologist to perform biopsy of the Liver. Continue to hold the aspirin till you have the biopsy of the liver. After the biopsy check with radiologist when to start taking the aspirin!) Marcelina Flores MD [Primary Care Provider] - 1 Week Pepper Tirado MD [Staff Physician] - 1 Week Demarcus Alfonso MD [Staff Physician] - 1 Week Disposition: VNS/HOME HEALTH CARE - Home Medications Comprehensive Discharge Medication List: Ambulatory Orders Amlodipine Besylate 5 mg PO DAILY 10/06/16 Atorvastatin Ca [Lipitor] 20 mg PO HS #30 tablet 10/10/16 Famotidine 20 mg PO BID #60 tab 10/10/16 Levofloxacin [Levaquin -] 500 mg PO DAILY #5 tablet 10/10/16 Sucralfate Oral Suspension [Carafate Oral Suspension -] 1 gm PO BID #240 ml 08/21 This patient is new to me today: No Emergency Visit: No Critical Care patient: No - Discharge Referral Referred to [facility] No
[2016-10-10 18:39] VITALS: BP 130/72; PULSE 84; TEMP 98.1
== END 2016-10-10 19:55 | disposition home health service (06) | DRG 181 ==
LOC: JER 14:28 → JERBED 19:25 → J4S 21:22
PROVIDERS: ADMIT Internal Medicine; ATTEND Internal Medicine
PROC: 30233P1 Transfusion of Nonautologous Frozen Red Cells into Peripheral Vein, Percutaneous Approach (ICD-10-PCS; principal; 2016-10-07)
DX: C78.02 Secondary malignant neoplasm of left lung (principal); C64.9 Malignant neoplasm of unspecified kidney, except renal pelvis; C78.7 Secondary malignant neoplasm of liver and intrahepatic bile duct; C79.89 Secondary malignant neoplasm of other specified sites; N17.9 Acute kidney failure, unspecified; E87.2 Acidosis; J98.11 Atelectasis; R04.2 Hemoptysis; J91.0 Malignant pleural effusion; C78.01 Secondary malignant neoplasm of right lung; Z90.5 Acquired absence of kidney; D64.9 Anemia, unspecified; N18.3 Chronic kidney disease, stage 3 (moderate); I12.9 Hypertensive chronic kidney disease with stage 1 through stage 4 chronic kidney disease, or unspecified chronic kidney disease; E78.5 Hyperlipidemia, unspecified; K43.2 Incisional hernia without obstruction or gangrene; R06.00 Dyspnea, unspecified; E83.51 Hypocalcemia; J45.909 Unspecified asthma, uncomplicated
CPT/HCPCS: 36415; 36430; 71010-TC; 71250-TC; 76705-TC; 76775-TC; 80048; 80053; 81003; 82248; 82272; 82436; 82570; 82728; 82803; 83540; 83550; 83605; 83735; 84100; 84133; 84156; 84300; 84484; 85025; 85610; 85730; 86803; 86850; 86900; 86901; 86922; 87040; 87086; 87389; 90670; 93005; 93010; 94761; 97116-GP; 97161-GP; 99284-25; P9038; P9058

== ENCOUNTER 2016-10-13 20:57 | Inpatient (IN) | payer OTHER ==
[2016-10-13 21:22] VITALS: BMI 25.0
--- NOTE | 2016-10-13 22:19 | PDOC ---
History of Present Illness - General History Source: Patient Exam Limitations: No Limitations - History of Present Illness Initial Comments: 10/13/16 23:55 The patient is a 71 year old female with a significant PMH of pneumonia, renal cancer that metastasized to the liver and lungs s/p left kidney removal who presents to the emergency department with a fever (T. max 102 F), abdominal pain and back pain beginning approximately today. She reports that her abdominal pain is localized on the right mid quadrant, ranging from mild to moderate, without radiation. She reports minimal pain in her upper back, but significant pain in her lower back. The patients family notes that the patient has been coughing up blood for the past couple of months and had a coughing episode today. The patient was last in the ED on 10/06/2016 for shortness of breath and cough, she was admitted to the hospital and discharged on 10/10/2016 after improvement of symptoms. The patients family reports that the patient has recently returned from [place] last week. The patient denies chest pain, shortness of breath, headache and dizziness. Denies chills, nausea, vomit, diarrhea and constipation. Denies dysuria, frequency, urgency and hematuria. Allergies: Penicillin Past surgical history: None reported Social history : No alcohol, tobacco or drug use reported PCP: Dr. Schmidt <Xavier Shepherd - Last Filed: 10/14/16 02:01> <Oliver Choi - Last Filed: 10/14/16 02:10> - General Chief Complaint: Pain, Acute Stated Complaint: FEVER Time Seen by Provider: 10/13/16 21:55 Past History <Xavier Shepherd - Last Filed: 10/14/16 02:01> - Past Medical History Cancer: Yes (renal and lung) HTN: Yes Liver Disease: (liver cancer) - Psycho/Social/Smoking Cessation Hx Anxiety: No Suicidal Ideation: No Smoking History: Never smoked Have you smoked in the past 12 months: No Information on smoking cessation initiated: No Hx Alcohol Use: No Drug/Substance Use Hx: No Substance Use Type: None Hx Substance Use Treatment: No <Oliver Choi - Last Filed: 10/14/16 02:10> - Past Medical History Allergies/Adverse Reactions: Allergies Allergy/AdvReac Type Severity Reaction Status Date / Time Penicillins Allergy Verified 10/13/16 21:22 Home Medications: Ambulatory Orders Amlodipine Besylate 5 mg PO DAILY 10/06/16 Atorvastatin Ca [Lipitor] 20 mg PO HS #30 tablet 10/10/16 Famotidine 20 mg PO BID #60 tab 10/10/16 Levofloxacin [Levaquin -] 500 mg PO DAILY #5 tablet 10/10/16 Sucralfate Oral Suspension [Carafate Oral Suspension -] 1 gm PO BID #240 ml 08/21 Review of Systems - Review of Systems Able to Perform ROS?: Yes Comments:: 10/13/16 23:56 CONSTITUTIONAL: No fever, no chills, no fatigue EYES: No visual changes ENT: No ear pain, no sore throat CARDIOVASCULAR: No chest pain, no palpitations RESPIRATORY: (+) Cough. No SOB GI: (+) Abdominal pain. No nausea, no vomiting, no constipation, no diarrhea GENITOURINARY: No dysuria, no frequency, no hematuria MUSKULOSKELETAL: (+) Back pain. No joint pain, no myalgias SKIN: No rash NEURO: No headache <Xavier Shepherd - Last Filed: 10/14/16 02:01> *Physical Exam - Vital Signs Last Vital Signs Temp Pulse Resp BP Pulse Ox 100.2 F H 116 H 16 135/72 100 10/13/16 21:17 10/13/16 21:17 10/13/16 21:17 10/13/16 21:17 10/13/16 21:17 <Xavier Shepherd - Last Filed: 10/14/16 02:01> - Vital Signs Last Vital Signs Temp Pulse Resp BP Pulse Ox 100.2 F H 116 H 16 135/72 100 10/13/16 21:17 10/13/16 21:17 10/13/16 21:17 10/13/16 21:17 10/13/16 21:17 - Physical Exam Comments: 10/14/16 02:03 EXAMINATION CONSTITUTIONAL: Awake and alert, frail-appearing, in mild to moderate distress HEAD: Normocephalic; atraumatic EYES: PERRL; EOM intact; no photophobia; conjunctivae were pale; ENMT: External appears normal; mm-dry NECK: Supple; non-tender; no cervical lymphadenopathy CARD: Tachycardic; Normal S1, S2; no murmurs, rubs, or gallops RESP: Mildly tachypneic; decreased breath sounds at the right base; no wheezes, rhonchi, or rales ABD: Soft, non-distended; mild right sided abdominal tender; + hepatomegaly with hepatic edge palpable 5 fingers below the costal margin, no palpable hernias EXT: Normal ROM in all four extremities; non-tender to palpation; distal pulses intact SKIN: Warm, dry, no petechia NEURO: Awake and alert, moving all extremities symmetrically; cranial nerves II through XII are grossly intact. <Oliver Choi - Last Filed: 10/14/16 02:10> Heart Score/ECG Review #1 ECG reviewed & interpreted by me at: 02:01 10/14/16 02:01 Ventricular rate: 101 bpm Sinus tachycardia with frequent premature ventricular complexes Nonspecific T wave abnormality <Xavier Shepherd - Last Filed: 10/14/16 02:01> ED Treatment Course - LABORATORY CBC & Chemistry Diagram: 10/13/16 23:30 10/13/16 23:30 - Medications Given in the ED: ED Medications Discontinued Medications Generic Name Dose Route Start Last Admin Trade Name Freq PRN Reason Stop Dose Admin Acetaminophen 650 mg 10/13/16 22:38 10/13/16 23:16 Tylenol - PO 10/13/16 22:39 650 mg ONCE ONE Administration Sodium Chloride 500 ml 10/13/16 22:37 10/13/16 23:15 Normal Saline - IV 10/13/16 22:38 500 ml ONCE STA Administration <Xavier Shepherd - Last Filed: 10/14/16 02:01> - LABORATORY CBC & Chemistry Diagram: 10/13/16 23:30 10/13/16 23:30 <Oliver Choi - Last Filed: 10/14/16 02:10> Medical Decision Making - Medical Decision Making 10/14/16 02:05 Patient is an ill-appearing 71-year-old female with history of stage IV renal cell ca, status post left nephrectomy, with known pulmonary and hepatic metastases who presents to the ER with fever of 102, recurrent hemoptysis and worsening right-sided abdominal and back pain. In the ER, patient is awake and alert, in mild distress, afebrile and hemodynamically stable. Patient's oxygen saturation on room air is noted to be 90%. It improves to 97% on 3 L via nasal cannula. CBC reveals increased leukocytosis of 15,000 with normal differential with hematocrit of 27. CMP reveals a normal lactic acid is minimally increased BUN. Chest x-ray reveals increased right-sided pleural effusion and a small left -sided pleural effusion. Urinalysis reveals 9 WBCs per high-power field. I suspect worsening post obstructive pneumonia that has failed outpatient therapy with Levaquin. Patient has received IV fluids and set amount of thin. We will administer imipenem with vancomycin at this time. [place] [facility] [place]. <Oliver Choi - Last Filed: 10/14/16 02:10> *DC/Admit/Observation/Transfer - Attestations Scribe Attestion: 10/13/16 23:57 Documentation prepared by Xavier Shepherd, acting as certified medical assistant for Oliver Choi MD <Xavier Shepherd - Last Filed: 10/14/16 02:01> - Discharge Dispostion Admit: Yes - Attestations Physician Attestion: 10/14/16 02:03 The documentation was prepared by the scribe under my direct supervision. I have reviewed the documentation which correctly represents the findings, medical decision-making and critical action taken by me. <Oliver Choi - Last Filed: 10/14/16 02:10> Diagnosis at time of Disposition: Pleural effusion, Hepatomegaly Sepsis Qualifiers: Sepsis type: sepsis due to unspecified organism Qualified Code(s): A41.9 - Sepsis, unspecified organism Kidney cancer, primary, with metastasis from kidney to other site Qualifiers: Laterality: left Qualified Code(s): C64.2 - Malignant neoplasm of left kidney, except renal pelvis; C79.9 - Secondary malignant neoplasm of unspecified site - Discharge Dispostion Condition at time of disposition: Fair - Referrals Referrals: Jian Schmidt MD [Primary Care Provider] -
[2016-10-13] MEDS ORDERED: SODIUM CHLORIDE 0.9% 1000 ML INFUS.BAG IV STA (22:37)
[2016-10-13] MEDS ORDERED: ACETAMINOPHEN 325 MG TABLET (FP) PO ONE (22:38)
[2016-10-13] MEDS ORDERED: ACETAMINOPHEN 325 MG TABLET (FP) ONE (23:10)
[2016-10-14 00:15] LABS: URINE APPEARANCE CLEAR; URINE BILIRUBIN NEGATIVE (NEGATIVE); URINE BLOOD 1+ (NEGATIVE); URINE COLOR YELLOW; URINE GLUCOSE (UA) NEGATIVE (NEGATIVE); URINE KETONE NEGATIVE (NEGATIVE); URINE LEUK ESTERASE TRACE (NEGATIVE); URINE NITRITE NEGATIVE (NEGATIVE); URINE PROTEIN NEGATIVE (NEGATIVE); URINE UROBILINOGEN NEGATIVE mg/dL (0.2-1.0)
[2016-10-14 00:16] LABS: BASOPHIL 0.4 % (0-2.0); EOSINOPHIL 0.5 % (0-4.5); MCH 27.9 pg (25.7-33.7); MCHC 33.4 g/dl (32.0-36.0); MEAN CELL VOLUME 83.6 fl (80-96); MEAN PLT VOLUME 8.1 fl (7.5-11.1); PLATELET COUNT 312 K/MM3 (134-434); RDW 17.7 % (11.6-15.6); WHITE BLOOD COUNT 15.9 K/mm3 (4.0-10.0)
[2016-10-14 00:29] LABS: INR 1.48 (0.82-1.09); PROTHROMBIN TIME (PATIENT) 16.4 SEC (9.98-11.88)
[2016-10-14 00:31] LABS: ACTIVATED PTT 31.6 SECONDS (26.9-34.4)
[2016-10-14 00:40] LABS: ALBUMIN 2.1 g/dl (3.4-5.0); ANION GAP 11 (8-16); CALCIUM 8.2 mg/dL (8.5-10.1); CO2 24 mmol/L (21-32); CREATININE 1.1 mg/dL (0.55-1.02); GLUCOSE,RANDOM 116 mg/dL (74-106); SGOT/AST 77 U/L (15-37); SGPT/ALT 56 U/L (12-78)
[2016-10-14] MEDS ORDERED: IMIPENEM/CILASTATIN SODIUM 250 MG in SODIUM CHLORIDE 100 ML IV ONE (00:51)
[2016-10-14 00:54] LABS: ALK PHOS 967 U/L (45-117); BILIRUBIN,TOTAL 1.6 mg/dL (0.2-1.0); CPK 23 IU/L (26-192); TOT PROT 5.2 g/dl (6.4-8.2); TROPONIN I < 0.02 ng/ml (0.00-0.05)
[2016-10-14 01:33] LABS: URINE RBC 6 /hpf (0-3); URINE WBC 9 /hpf (3-5)
[2016-10-14] MEDS ORDERED: VANCOMYCIN 1,250 MG in DEXTROSE 5%-WATER - 250 ML IVPB ONE (01:42)
[2016-10-14 02:26] LABS: VENOUS PH 7.45 (7.32-7.42)
[2016-10-14 02:27] LABS: VENOUS BLOOD GAS HCO3 23.1 meq/L (19-25)
--- NOTE | 2016-10-14 02:31 | HP ---
Admitting History and Physical - Admission History of Present Illness: Pt is a 71yo F with significant history of renal carcinoma (s/p L nephrectomy ) with multiple mets to liver and lungs, HTN, and recent discharge from hospital 10/10/2016 due to PNA is seen today in the ER due to increased malaise, fever of 102 orally per ED physician (not documented in chart), and abdominal pain. Pt reports that today she started to feel a non-radiating, mid-right sided , intermittent abdominal pain. She states nothing she does really improves the pain and it goes away by itself for short periods of time. Per family, pt felt more feverish at home today and she has had increased coughing. She previously had hemoptysis related to her lung mets, however, pt and family note the hemoptysis to have decreased. Pt denies any chills, diarrhea/constipation/nausea /vomiting, chest pain/pressure, dysuria, and polyuria. ER Course notable for: 1) CXR - by my read: b/l pleural effusions (R>L) that have increased since previous on 10/06; four R lung nodules present with questionable opacities on the right cardiac silhouette; official read is pending 2) EKG - Sinus tachycardia unchanged from previous admission's EKG 3) Imipinem/Cilastatin IV dose x1 initiated for G- coverage 4) Vancomycin 1250mg IV x1 dose initiated 5) Blood cultures x2 drawn 6) Urine culture x1 collected 7) Labwork revealing LA - WNL Cbc - Leukocytosis with normal diff, CMP, INR - 1.48 (not on anticoagulation) On previous admission for pneumonia, pt received CT scan, liver ultrasound, and hematology consult for evaluation of her malignancies. She was discharged with instructions to f/u with a liver biopsy to evaluate her liver mets and was given Levaquin 500mg PO to finish on an outpatient basis. Recent Travel: Arrived 2 weeks ago from [place] PCP: Dr. Schmidt History Source: Patient, Family Member Limitations to Obtaining History: No Limitations - Past Medical History Cardiovascular: Yes: HTN Pulmonary: Yes: Other (R-sided lung mets from renal ca) Gastrointestinal: Yes: Other (Liver mets from renal ca) Renal/: Yes: Other (RENAL CELL CANCER) Heme/Onc: Yes: Anemia - Past Surgical History Past Surgical History: Yes: Colonoscopy, Nephrectomy (L kidney 02/2016) - Smoking History Smoking history: Never smoked Have you smoked in the past 12 months: No - Alcohol/Substance Use Hx Alcohol Use: No Home Medications - Allergies Allergies/Adverse Reactions: Allergies Allergy/AdvReac Type Severity Reaction Status Date / Time Penicillins Allergy Verified 10/13/16 21:22 - Home Medications Home Medications: Ambulatory Orders Amlodipine Besylate 5 mg PO DAILY 10/06/16 Atorvastatin Ca [Lipitor] 20 mg PO HS #30 tablet 10/10/16 Famotidine 20 mg PO BID #60 tab 10/10/16 Levofloxacin [Levaquin -] 500 mg PO DAILY #5 tablet 10/10/16 Sucralfate Oral Suspension [Carafate Oral Suspension -] 1 gm PO BID #240 ml 08/21 Family Disease History - Family Disease History Family Disease History: Other: Father (HTN) Review of Systems Findings/Remarks: See HPI Physical Examination Vital Signs: Vital Signs Temperature 100.2 F H 10/13/16 21:17 Pulse Rate 116 H 10/13/16 21:17 Respiratory Rate 16 10/13/16 21:17 Blood Pressure 135/72 10/13/16 21:17 O2 Sat by Pulse Oximetry (%) 100 10/13/16 21:17 Constitutional: Yes: Well Nourished, Calm, Mild Distress Eyes: Yes: Conjunctiva Clear, EOM Intact. No: Sclera Icterus HENT: Yes: Atraumatic, Normocephalic Cardiovascular: Yes: Tachycardia (regular rhythm). No: Murmur Respiratory: Yes: Regular, Other (Diminished breath sounds on base of R lobe). No: Rales, Rhonchi, SOB, Wheezes Gastrointestinal: Yes: Normal Bowel Sounds, Soft, Hepatomegaly (entire hand- length below rib margin), Tenderness (Mid-right side, no rebound, guarding or peritoneal signs), Other (Freely reducible umbilical hernia) Edema: No Integumentary: No: Rash Neurological: Yes: Alert, Oriented Psychiatric: Yes: Alert, Oriented Labs: CBC, BMP 10/13/16 23:30 10/13/16 23:30 Assessment/Plan 71yo F h/o renal ca (s/p nephrectomy 02/2016) with multiple mets to liver and lungs, HTN, and recent hospitalization for PNA. Leukocytosis 15.9, Fever 102 ( per ER physician), Tachycardia 116. CXR increased b/l effusions (R>L); questionable opacity right cardiac border most likely representing congestion. LA 1.4, 1.0. 1) Renal carcinoma (s/p L nephrectomy) with mets to lungs and liver --Leukocytosis most likely reactive due to malignancy --New pleural effusion seen on CXR with increased opacity most likely representing congestion; pending official report --Consulted IR for diagnostic and therapeutic thoracentesis --Will discuss about possible pigtail catheter for rapidly reoccurring effusions --Palliative care consulted for discussion about long-term plans of care --Consulted Dr. Flores --Fever most likely related to malignancy --Tylenol 325mg q8h PRN for management of fever in short-term due to hepatic impairment 2) CKD --Stage 3A --Unknown baseline, but Cr improved from previous visit (currently Cr 1.1) --Gentle hydration --Renal U/S obtained on previous visit --Renal electrolytes obtained on previous visit 3) Abdominal pain, right-sided --Slight tenderness on exam, no evidence of abnormal bowel movements, vomiting/nausea --Most likely related to hepatomegaly secondary to liver mets --Liver ultrasound obtained on previous admission; reviewed --Holding atorvastatin in light of elevation in AST from previous admission --Still recommend follow-up of liver nodules with biopsy; will discuss 4) HTN --Continued home medication Amlodipine 5) Hyperlipidemia --Holding atorvastatin in light of worsening AST FEN: Fluids: Gentle hydration with Normal Saline @75mls/hr Electrolyte abnormalities: None Nutrition: Regular Diet PPX DVT: SCDs applied to both leg; due to hepatic impairment cannot use Heparin; cannot use Lovenox due to kidney impairment GI: Not indicated at current time Dispo: Admit to med-surg floor Visit type - Emergency Visit Emergency Visit: Yes ED Registration Date: 10/14/16 Care time: The patient presented to the Emergency Department on the above date and was hospitalized for further evaluation of their emergent condition. - New Patient This patient is new to me today: Yes Date on this admission: 10/14/16 - Critical Care Critical Care patient: No
[2016-10-14] MEDS ORDERED: SODIUM CHLORIDE 1,000 ML IV SCH ×2 (03:00)
[2016-10-14] MEDS ORDERED: ACETAMINOPHEN 325 MG TABLET (FP) PO PRN ×2 (03:02→06:00)
--- NOTE | 2016-10-14 05:41 | PN ---
Teaching Attending Note Name of Resident: Guido Jackson ATTENDING PHYSICIAN STATEMENT I saw and evaluated the patient. I reviewed the resident's note and discussed the case with the resident. I agree with the resident's findings and plan as documented. SUBJECTIVE: 71 y/o female presented with right sided abdominal pain and fever of 100.2 for one day. Patient recently discharged for SOB and was treated for pneumonia but retrospectively assumed to be secondary to her metastatic cancer. OBJECTIVE: A&Ox3 in NAD, CVS:tachycardic. Lungs: CTA diminished RLL breath sounds Abd: hepatomegaly, RUQ tenderness, no guarding or rebound. Ext: No ascites, no peripheral edema. CBCD WBC 15.9 K/mm3 (4.0-10.0) H 10/13/16 23:30 RBC 3.23 M/mm3 (3.60-5.2) L 10/13/16 23:30 Hgb 9.0 GM/dL (10.7-15.3) L 10/13/16 23:30 Hct 27.0 % (32.4-45.2) L 10/13/16 23:30 MCV 83.6 fl (80-96) 10/13/16 23:30 MCHC 33.4 g/dl (32.0-36.0) 10/13/16 23:30 RDW 17.7 % (11.6-15.6) H 10/13/16 23:30 Plt Count 312 K/MM3 (134-434) 10/13/16 23:30 MPV 8.1 fl (7.5-11.1) D 10/13/16 23:30 CMP Sodium 141 mmol/L (136-145) 10/13/16 23:30 Potassium 3.7 mmol/L (3.5-5.1) 10/13/16 23:30 Chloride 106 mmol/L (98-107) 10/13/16 23:30 Carbon Dioxide 24 mmol/L (21-32) 10/13/16 23:30 Anion Gap 11 (8-16) 10/13/16 23:30 BUN 25 mg/dL (7-18) H D 10/13/16 23:30 Creatinine 1.1 mg/dL (0.55-1.02) H 10/13/16 23:30 Creat Clearance w eGFR 49.10 (>60) 10/13/16 23:30 Random Glucose 116 mg/dL (74-106) H 10/13/16 23:30 Calcium 8.2 mg/dL (8.5-10.1) L 10/13/16 23:30 Total Bilirubin 1.6 mg/dL (0.2-1.0) H D 10/13/16 23:30 AST 77 U/L (15-37) H D 10/13/16 23:30 ALT 56 U/L (12-78) 10/13/16 23:30 Alkaline Phosphatase 967 U/L (45-117) H 10/13/16 23:30 Total Protein 5.2 g/dl (6.4-8.2) L 10/13/16 23:30 Albumin 2.1 g/dl (3.4-5.0) L D 10/13/16 23:30 CARDIAC ENZYMES Creatine Kinase 23 IU/L (26-192) L 10/13/16 23:30 Troponin I < 0.02 ng/ml (0.00-0.05) 10/13/16 23:30 ASSESSMENT AND PLAN: Sepsis criteria met most likely noninfectious, and secondary to right sided pleural effusion secondary to malignancy. Will hold antibiotics and IR for thoracocentesis diagnostic and therapeutic. Palliative and oncology consults. DVT prophylaxis and continue home medications.
[2016-10-14 07:20] LABS: MCH 27.7 pg (25.7-33.7); MCHC 32.8 g/dl (32.0-36.0); MEAN CELL VOLUME 84.4 fl (80-96); MEAN PLT VOLUME 7.9 fl (7.5-11.1); PLATELET COUNT 252 K/MM3 (134-434); RDW 17.8 % (11.6-15.6)
[2016-10-14] MEDS ORDERED: IMIPENEM/CILASTATIN SODIUM 250 MG in SODIUM CHLORIDE 100 ML IVPB SCH (08:00)
[2016-10-14 08:02] LABS: ALBUMIN 1.8 g/dl (3.4-5.0); ALK PHOS 947 U/L (45-117); ANION GAP 8 (8-16); BILIRUBIN,TOTAL 1.2 mg/dL (0.2-1.0); CO2 24 mmol/L (21-32); CREATININE 1.1 mg/dL (0.55-1.02); GLUCOSE,RANDOM 120 mg/dL (74-106); SGOT/AST 91 U/L (15-37); SGPT/ALT 57 U/L (12-78); TOT PROT 4.6 g/dl (6.4-8.2)
[2016-10-14] MEDS: RANITIDINE HCL 150 MG TABLET (FP) PO SCH ×2 (09:09→21:33)
[2016-10-14] MEDS: amLODIPine BESYLATE 5 MG TABLET (FP) PO SCH (09:09)
[2016-10-14] MEDS: SUCRALFATE 1 GM/10 ML UNIT DOSE CUPS PO SCH ×2 (09:09→21:33)
[2016-10-14] MEDS ORDERED: VANCOMYCIN 1,250 MG in DEXTROSE 5%-WATER - 250 ML IVPB SCH (10:00)
[2016-10-14] MEDS: SODIUM CHLORIDE 1,000 ML IV SCH (10:52)
[2016-10-14] MEDS ORDERED: ENOXAPARIN NA (PORCINE) 40 MG/0.4 ML DISP.SYRIN SQ SCH (12:00)
[2016-10-14] MEDS ORDERED: IMIPENEM/CILASTATIN SODIUM 250 MG in SODIUM CHLORIDE 100 ML IVPB ONE (12:15)
--- NOTE | 2016-10-14 13:23 | PN ---
Teaching Attending Note Name of Resident: Tyree Jensen ATTENDING PHYSICIAN STATEMENT I saw and evaluated the patient. I reviewed the resident's note and discussed the case with the resident. I agree with the resident's findings and plan as documented. SUBJECTIVE: Feels fatigued and tired. has non productive cough. denies CP . has RLQ abd pain when she coughs or when is it is palpated . feels SOB admits to lower back pain, on R lower back , no radiation to LE , n o numbness/ tingling/weakness in LE . No urinary incontinence OBJECTIVE: AND, looks ill. icteric conjunctivae , slightly dry MM. has thrush . no JVD CV: RRR, tachy, no JVD Lungs: L base crackles , decreased breath sounds on R side half way down . Ext: trace edema on LE . Neuro of LE : Strength 5/5 proximally and distally. sensation to light touch NL. Knee jerk 2+ b/l . MS : TTP over R lumbar para-spinal muscles . no TTP over spine ASSESSMENT AND PLAN: 71 y/o unfortunate lady with h/o HTN, renal cell Ca with lung and liver mets , s /p resection and chemo in , and recent hospitalization fro PNA , who presented with fever and malaise 1- Sepsis : possible sources of infection can be lung (HCAP, less likely empyema ) VS Abd ( diverticulitis , Appendicitis , other ) no urinary sx. - will cover with imipinem now as has PCN allergy - ID consult for Abx management - check CT scan of Abd with po contrast ( No IV dye due to stage 3 CKD and one kidney ) - follow blood cx - Thoracentesis ( check cell count , cytology, LDH , protein , Gluc , culture, PH ) - IVF 2- Renal cell carcinoma: with mets to liver and lungs. - will contact her Oncologist. per her , plan was to start chemo on 10/21. 3- Thrush : start nystatin 4- HTN: cont her norvasc . 5- Transaminitis : due to liver mets. unlikley a second primary cancer Liver Bx was not as out pt , and it might not be necessary. - will not trend LFTS at this point - further w/u as out pt per her oncologist 6- h/o Iron ACD : Hb has been stable - monitor 7- dispo : HLOC
[2016-10-14] MEDS: NYSTATIN 500,000 UNITS/5 ML SUSPENSION PO SCH ×3 (14:29→23:32)
[2016-10-14 14:52] LABS: PLEURAL FLUID APPEARANCE CLOUDY; PLEURAL FLUID COLOR AMBER; PLEURAL FLUID SOURCE PLEURAL
[2016-10-14 15:13] LABS: GLUCOSE,PLEURAL FLUID 108.318; TOTAL PROTEIN,PLEURAL FLUID 2.827
--- NOTE | 2016-10-14 15:20 | CONSULT ---
Consult Consult Specialty:: infectious diseases Reason for Consultation:: fever weakness,malignancy - History of Present Illness Chief Complaint: weakness History of Present Illness: 71yo F with significant history of renal carcinoma (s/p L nephrectomy 02/2016) with multiple mets to liver and lungs, HTN, The patient was recently admitted to the hospital and treated for the same patient comes back to the hospital because of increased malaise, fever , and abdominal pain. Pt reports that today she started to feel a non-radiating, mid- right sided, intermittent abdominal pain. She states nothing she does really improves the pain and it goes away by itself for short periods of time. Per family, pt felt more feverish at home today and she has had increased coughing. She previously had hemoptysis related to her lung mets, however, pt and family note the hemoptysis to have decreased. Pt denies any chills, diarrhea/ constipation/nausea/vomiting, chest pain/pressure, dysuria, and polyuria. After the work up it was noted that patients effusion had worsened. patient was send to the IR for drainage of the collection and as per reports about 200 cc was removed patient was having back pain and on exam she has back pain on the rt side she says she feels better now patient was given immepenam - History Source History Provided By: Patient Limitations to Obtaining History: No Limitations - Past Medical History Cardio/Vascular: Yes: HTN Pulmonary: Yes: Other (R-sided lung mets from renal ca) Gastrointestinal: Yes: Other (Liver mets from renal ca) Renal/: Yes: Other (RENAL CELL CANCER) - Past Surgical History Past Surgical History: Yes: Colonoscopy, Nephrectomy (L kidney 02/2016) - Alcohol/Substance Use Hx Alcohol Use: No - Smoking History Smoking history: Never smoked Have you smoked in the past 12 months: No Home Medications - Allergies Allergies/Adverse Reactions: Allergies Allergy/AdvReac Type Severity Reaction Status Date / Time Penicillins Allergy Verified 10/13/16 21:22 - Home Medications Home Medications: Ambulatory Orders Amlodipine Besylate 5 mg PO DAILY 10/06/16 Atorvastatin Ca [Lipitor] 20 mg PO HS #30 tablet 10/10/16 Levofloxacin [Levaquin -] 500 mg PO DAILY #5 tablet 10/10/16 Sucralfate Oral Suspension [Carafate Oral Suspension -] 1 gm PO BID #240 ml 08/21 Losartan Potassium [Cozaar] 100 mg PO DAILY 10/14/16 Family Disease History - Family Disease History Family Disease History: Other: Father (HTN) Review of Systems - Review of Systems Constitutional: reports: Fever, Weakness Eyes: reports: No Symptoms HENT: reports: No Symptoms Neck: reports: No Symptoms Cardiovascular: reports: No Symptoms Respiratory: reports: Cough, SOB Gastrointestinal: reports: Abdominal Pain Genitourinary: reports: No Symptoms Integumentary: reports: No Symptoms Neurological: reports: No Symptoms Endocrine: reports: No Symptoms Hematology/Lymphatic: reports: No Symptoms Psychiatric: reports: No Symptoms Physical Exam Vital Signs: Vital Signs Temperature 99 F 10/14/16 13:42 Pulse Rate 106 H 10/14/16 13:42 Respiratory Rate 20 10/14/16 13:42 Blood Pressure 140/73 10/14/16 13:42 O2 Sat by Pulse Oximetry (%) 96 10/14/16 09:00 Constitutional: Yes: Well Nourished, No Distress, Calm Eyes: Yes: Conjunctiva Clear Neck: Yes: Supple, Trachea Midline Cardiovascular: Yes: Regular Rate and Rhythm Respiratory: Yes: On Nasal O2, Poor Air Entry (on the rt side), SOB Gastrointestinal: Yes: Normal Bowel Sounds, Soft Musculoskeletal: Yes: WNL Extremities: Yes: WNL Neurological: Yes: Alert, Oriented Psychiatric: Yes: Alert, Oriented Labs: CBC, BMP 10/14/16 05:35 10/14/16 05:35 Imaging - Results Chest X-ray: Report Reviewed, Image Reviewed Cat Scan: Report Reviewed, Image Reviewed Assessment/Plan ) Renal carcinoma (s/p L nephrectomy) with mets to lungs and liver 2) CKD 3) Abdominal pain, right-sided 4) HTN 5) Hyperlipidemia after looking at the ct scan i am more worried about her urinary retention and could this patient have pyelo patient mentions that she is able to pass urine pneumonia is a low suspicion plan will change abx to meropenam will see how patient does tomorrow and decide to change it to ertapenam bladder scan to see how much she is retaining await for all cx reports
--- NOTE | 2016-10-14 15:32 | EKG ---
Test Reason : Blood Pressure : / mmHG Vent. Rate : 101 BPM Atrial Rate : 101 BPM P-R Int : 124 ms QRS Dur : 082 ms QT Int : 354 ms P-R-T Axes : 042 024 015 degrees QTc Int : 459 ms SINUS TACHYCARDIA WITH FREQUENT PREMATURE VENTRICULAR COMPLEXES NONSPECIFIC T WAVE ABNORMALITY ABNORMAL ECG WHEN COMPARED WITH ECG OF 06-OCT-2016 16:36, PREMATURE VENTRICULAR COMPLEXES ARE NOW PRESENT Confirmed by JAKE ARRINGTON, KATIE ([id number]) on 10/14/2016 3:31:29 PM Referred By: Confirmed By:KATIE JOSEPH MD
[2016-10-14 15:35] LABS: CHLORIDE PLEURAL FLUID 113
[2016-10-14 15:40] LABS: PLEURAL FLUID LYMPHOCYTES 47 %; PLEURAL FLUID MACROPHAGES 9 %; PLEURAL FLUID NEUTROPHIL 16 %
--- NOTE | 2016-10-14 16:28 | PN ---
Addendum entered and electronically signed by Tyree Jensen, RES 10/15/16 13:20: Spoke with the patient at length about code status. Pt states that she wants to be full code for temporary issues that are expected to resolve quickly. She does not want to be kept alive for long duration with no hope of recovery. She also states that her children should be her decision makers in the event that she is not able to express her wishes and that they know exactly what she wants done for her. Original Note: Physical Exam: SUBJECTIVE: Patient seen and examined at bedside. Pt is understandably saddened by her situation. Pt complains of pain in the right lower abdomen and on the right side of her back when she coughs. No other complaints at this time. OBJECTIVE: Vital Signs Period Temp Pulse Resp BP Sys/Aldrich Pulse Ox Last 24 Hr 98.4 F-99 F 98-106 16-20 128-143/64-74 94-98 GENERAL: The patient is awake, alert, and fully oriented, in no acute distress. HEAD: Normal with no signs of trauma. EYES: PERRL, extraocular movements intact, scleral icterus, conjunctiva clear. No ptosis. ENT: nares patent, oropharynx clear without exudates, moist mucous membranes. NECK: Trachea midline, full range of motion, supple, no carotid bruits. LUNGS: Breath sounds equal, clear to auscultation bilaterally, no wheezes, no crackles, no accessory muscle use. HEART: Regular rate and rhythm, normal S1, S2 without murmur, rub or gallop. ABDOMEN: Soft, tender to palpation in RUQ, nondistended, normoactive bowel sounds, no guarding, no rebound, no hepatosplenomegaly, no masses. EXTREMITIES: 2+ pulses, warm, well-perfused, no edema. NEUROLOGICAL: Cranial nerves II through XII grossly intact. Normal speech, gait not observed. PSYCH: Normal mood, normal affect. SKIN: Warm, dry, normal turgor, no rashes or lesions noted Laboratory Results - last 24 hr 10/14/16 10/14/16 10/14/16 02:15 05:35 05:35 WBC 14.0 H RBC 3.13 L Hgb 8.7 L Hct 26.4 L MCV 84.4 MCH 27.7 MCHC 32.8 RDW 17.8 H Plt Count 252 MPV 7.9 VBG pH 7.45 H POC VBG pCO2 33.5 L POC VBG pO2 40.3 Mixed VBG HCO3 23.1 Sodium 141 Potassium 3.6 Chloride 109 H Carbon Dioxide 24 Anion Gap 8 BUN 23 H Creatinine 1.1 H Creat Clearance w eGFR 49.10 Random Glucose 120 H Calcium 8.0 L Total Bilirubin 1.2 H D AST 91 H ALT 57 Alkaline Phosphatase 947 H Total Protein 4.6 L Albumin 1.8 L Lipase 277 Pleural Fluid Source Pleural Color Pleural Appearance Pleural WBC Pleural RBC Pleural Neutrophils Pleural Lymphocytes Pleural Monocytes Pleural Macrophages Pleural Mesothelial Pleural Chloride Pleural Total Protein Pleural Albumin Pleural LDH Pleural Glucose Pleural Amylase Pleural Cholesterol Pleural Triglycerides 10/14/16 14:00 WBC RBC Hgb Hct MCV MCH MCHC RDW Plt Count MPV VBG pH POC VBG pCO2 POC VBG pO2 Mixed VBG HCO3 Sodium Potassium Chloride Carbon Dioxide Anion Gap BUN Creatinine Creat Clearance w eGFR Random Glucose Calcium Total Bilirubin AST ALT Alkaline Phosphatase Total Protein Albumin Lipase Pleural Fluid Source Pleural Pleural Color Angelica Pleural Appearance Cloudy Pleural WBC 848 Pleural RBC 14751 Pleural Neutrophils 16 Pleural Lymphocytes 47 Pleural Monocytes 6 Pleural Macrophages 9 Pleural Mesothelial 31 Pleural Chloride 113 Pleural Total Protein 2.827 Pleural Albumin 1 Pleural LDH 309.4 Pleural Glucose 108.318 Pleural Amylase 11.632 Pleural Cholesterol 57 Pleural Triglycerides 26 Active Medications Generic Name Dose Route Start Last Admin Trade Name Freq PRN Reason Stop Dose Admin Acetaminophen 325 mg 10/14/16 06:00 Tylenol - PO Q8H PRN FEVER OR PAIN Amlodipine Besylate 5 mg 10/14/16 10:00 10/14/16 09:09 Norvasc - PO 5 mg DAILY JOSE Administration Enoxaparin Sodium 40 mg 10/14/16 18:00 Lovenox - SQ DAILY JOSE Sodium Chloride 1,000 mls @ 75 mls/hr 10/14/16 03:00 10/14/16 05:53 Normal Saline - IV 75 mls/hr ASDIR JOSE Administration Sodium Chloride 1,000 mls @ 75 mls/hr 10/14/16 10:30 10/14/16 10:52 Normal Saline - IV 75 mls/hr ASDIR JOSE Administration Meropenem 1 gm/ Dextrose 100 mls @ 100 mls/hr 10/14/16 18:00 IVPB Q8H-IV JOSE Protocol Nystatin 500,000 units 10/14/16 12:00 10/14/16 14:29 Nystatin Oral Suspension - PO 500,000 units Q6HPO JOSE Administration Ranitidine HCl 150 mg 10/14/16 10:00 10/14/16 09:09 Zantac - PO 150 mg BID JOSE Administration Sucralfate 1 gm 10/14/16 10:00 10/14/16 09:09 Carafate Oral Suspension - PO 1 gm BID JOSE Administration ASSESSMENT/PLAN: 71yo F h/o renal ca (s/p nephrectomy 02/2016) with multiple mets to liver and lungs, HTN, and recent hospitalization for PNA. Leukocytosis 15.9, Fever 102 ( per ER physician), Tachycardia 116. CXR increased b/l effusions (R>L); questionable opacity right cardiac border most likely representing congestion. LA 1.4, 1.0. #r/o Sepsis -Pt measured her fever at 102, and had tachycardia of 116 on admission. Site of infection: pleural effusion -US guided thoracentesis of pleural effusion: exudative by Light's criteria -Per ID, Meropenem #RUQ pain -Due to liver metastases #Renal carcinoma (s/o L nephrectomy) with liver and lung mets -reactive leukocytosis and low grade fever -per Heme/Onc, pt will not be able to get chemo at this hospital because of insurance issues. Pt will need to be stabilized and transferred -palliative consult #HTN -Continued home medication Amlodipine #Hyperlipidemia -Holding atorvastatin in light of worsening AST #FEN -Gentle hydration with Normal Saline @75mls/hr -lytes wnl -Regular Diet #PPX -Lovenox -Not indicated at current time Dispo: Admit to med-surg floor Visit type - Emergency Visit Emergency Visit: No - New Patient This patient is new to me today: No - Critical Care Critical Care patient: No - Discharge Referral Referred to [facility] Med [facility].C[facility] No
[2016-10-14] MEDS: MEROPENEM 1 GM in DEXTROSE 5%-WATER - 100 ML IVPB SCH (17:51)
[2016-10-14] MEDS: ENOXAPARIN NA (PORCINE) 40 MG/0.4 ML DISP.SYRIN SQ SCH (17:51)
[2016-10-14] MEDS ORDERED: ONDANSETRON 8 MG TABLET (FP) PO PRN (19:07)
[2016-10-14] MEDS: ACETAMINOPHEN 325 MG TABLET (FP) PO PRN (20:17)
[2016-10-14] MEDS: guaiFENesin 200 MG/10 ML 10 ML UNIT-DOSE CUPS PO PRN (20:17)
--- NOTE | 2016-10-14 21:18 | PN ---
Progress Note (short form) - Note Progress Note: Patient admitted overnight with progressive shortness of breath and with new pleural effusion. Seen and examined the patient. In mild distress NCAT RRR Decreased breath sounds bilaterally no LE edema seen. Last Vital Signs Temp Pulse Resp BP Pulse Ox 99.7 F H 119 H 20 142/70 96 10/14/16 18:14 10/14/16 18:14 10/14/16 18:14 10/14/16 18:14 10/14/16 09:00 CBC, BMP 10/14/16 05:35 10/14/16 05:35 Current Medications Generic Name Dose Route Start Last Admin Trade Name Freq PRN Reason Stop Dose Admin Acetaminophen 325 mg 10/14/16 06:00 10/14/16 20:17 Tylenol - PO 325 mg Q8H PRN Administration FEVER OR PAIN Amlodipine Besylate 5 mg 10/14/16 10:00 10/14/16 09:09 Norvasc - PO 5 mg DAILY JOSE Administration Enoxaparin Sodium 40 mg 10/14/16 18:00 10/14/16 17:51 Lovenox - SQ 40 mg DAILY JOSE Administration Guaifenesin 10 ml 10/14/16 19:07 10/14/16 20:17 Robitussin - PO 10 ml Q6H PRN Administration COUGH Sodium Chloride 1,000 mls @ 75 mls/hr 10/14/16 10:30 10/14/16 10:52 Normal Saline - IV 75 mls/hr ASDIR JOSE Administration Meropenem 1 gm/ Dextrose 100 mls @ 100 mls/hr 10/14/16 18:00 10/14/16 17:51 IVPB 100 mls/hr Q8H-IV JOSE Administration Protocol Nystatin 500,000 units 10/14/16 12:00 10/14/16 18:35 Nystatin Oral Suspension - PO Not Given Q6HPO JOSE Ondansetron HCl 8 mg 10/14/16 19:07 Zofran - PO Q8H PRN NAUSEA Ranitidine HCl 150 mg 10/14/16 10:00 10/14/16 09:09 Zantac - PO 150 mg BID JOSE Administration Sucralfate 1 gm 10/14/16 10:00 10/14/16 09:09 Carafate Oral Suspension - PO 1 gm BID JOSE Administration INR, PTT INR 1.48 (0.82-1.09) H 10/13/16 23:30 Assessment/Plan: is a 71 year old with h.o Metastatic Urothelial Cancer ( Lung, liver mets) progressed on front line immunotherapy is admitted for symptomatic lung mets Anemia Metastatic lung/Liver , from Urothelial Papillary high grade Dyspnea from lung mets Pleural effusion ,likely malignant . CKD Abnormal LFTs Elevated INR -s/p thoracentesis, will follow up on cytology -not proceeding with biopsy of metastatic site -transfuse prn -repeat CXR post centesis with decreased effusion -less likely infectious -INR/LFTs ,due to liver mets, if continues to have poor po , consider vit K po. -d.c for out patient follow-up. -hopefully, palliative chemotherapy might improve sx. -encourage PO intake. -extensively discussed with the family, son Sundar and Daughter Carolina. Will follow -
[2016-10-14] MEDS ORDERED: ATORVASTATIN CA 20 MG TABLET (FP) PO SCH (22:00)
[2016-10-15] MEDS: MEROPENEM 1 GM in DEXTROSE 5%-WATER - 100 ML IVPB SCH ×2 (02:00→13:40)
[2016-10-15] MEDS: NYSTATIN 500,000 UNITS/5 ML SUSPENSION PO SCH ×3 (06:21→18:09)
[2016-10-15] MEDS: SODIUM CHLORIDE 1,000 ML IV SCH ×3 (06:40→20:14)
[2016-10-15 07:40] LABS: BASOPHIL 0.5 % (0-2.0); EOSINOPHIL 0.5 % (0-4.5); MCH 27.5 pg (25.7-33.7); MCHC 32.9 g/dl (32.0-36.0); MEAN CELL VOLUME 83.3 fl (80-96); MEAN PLT VOLUME 8.1 fl (7.5-11.1); NEUTROPHILS 83.9 % (42.8-82.8); PLATELET COUNT 265 K/MM3 (134-434); RDW 17.9 % (11.6-15.6); WHITE BLOOD COUNT 15.5 K/mm3 (4.0-10.0)
[2016-10-15 07:51] LABS: ALBUMIN 1.8 g/dl (3.4-5.0); ANION GAP 7 (8-16); CALCIUM 7.8 mg/dL (8.5-10.1); CO2 25 mmol/L (21-32); GLUCOSE,RANDOM 120 mg/dL (74-106); SGOT/AST 62 U/L (15-37); SGPT/ALT 55 U/L (12-78)
[2016-10-15 07:53] LABS: ALK PHOS 869 U/L (45-117); BILIRUBIN,TOTAL 1.3 mg/dL (0.2-1.0); CREATININE 0.9 mg/dL (0.55-1.02); TOT PROT 4.7 g/dl (6.4-8.2)
[2016-10-15] MEDS ORDERED: POTASSIUM CHLORIDE TABS 20 MEQ TABLET.ER (FP) PO ONE (08:52)
[2016-10-15] MEDS ORDERED: PT OWN MED DRAWER 7, Y5N ONE ×2 (09:22→20:52)
--- NOTE | 2016-10-15 10:20 | PN ---
Progress Note (short form) - Note Progress Note: Seen and examined the patient. No overnight events. This am, she complains of dizziness upon returning from the bathroom, denies any diarrhea, feels tired. In mild distress, scleral icterus NCAT RRR Decreased breath sounds bilaterally no LE edema seen. Last Vital Signs Temp Pulse Resp BP Pulse Ox 99.0 F 106 H 20 140/69 97 10/15/16 09:47 10/15/16 09:47 10/15/16 09:47 10/15/16 09:47 10/14/16 21:00 CBC, BMP 10/15/16 06:00 10/15/16 06:00 Current Medications Generic Name Dose Route Start Last Admin Trade Name Freq PRN Reason Stop Dose Admin Acetaminophen 325 mg 10/14/16 06:00 10/14/16 20:17 Tylenol - PO 325 mg Q8H PRN Administration FEVER OR PAIN Amlodipine Besylate 5 mg 10/14/16 10:00 10/14/16 09:09 Norvasc - PO 5 mg DAILY JOSE Administration Enoxaparin Sodium 40 mg 10/14/16 18:00 10/14/16 17:51 Lovenox - SQ 40 mg DAILY JOSE Administration Guaifenesin 10 ml 10/14/16 19:07 10/14/16 20:17 Robitussin - PO 10 ml Q6H PRN Administration COUGH Sodium Chloride 1,000 mls @ 75 mls/hr 10/14/16 10:30 10/15/16 06:40 Normal Saline - IV 75 mls/hr ASDIR JOSE Administration Meropenem 1 gm/ Dextrose 100 mls @ 100 mls/hr 10/14/16 18:00 10/15/16 02:00 IVPB 100 mls/hr Q8H-IV JOSE Administration Protocol Nystatin 500,000 units 10/14/16 12:00 10/15/16 06:21 Nystatin Oral Suspension - PO 500,000 units Q6HPO JOSE Administration Ondansetron HCl 8 mg 10/14/16 19:07 Zofran - PO Q8H PRN NAUSEA Ranitidine HCl 150 mg 10/14/16 10:00 10/14/16 21:33 Zantac - PO 150 mg BID JOSE Administration Sucralfate 1 gm 10/14/16 10:00 10/14/16 21:33 Carafate Oral Suspension - PO 1 gm BID JOSE Administration Assessment/Plan: is a 71 year old with h.o Metastatic Urothelial Cancer ( Lung, liver mets) progressed on front line immunotherapy is admitted for symptomatic lung mets Anemia Metastatic lung/Liver , from Urothelial Papillary high grade Dyspnea from lung mets Pleural effusion ,likely malignant . CKD Abnormal LFTs Elevated INR Sepsis likely due to Pyelo/PNA -s/p thoracentesis, will follow up on cytology -not proceeding with biopsy of metastatic site -transfuse prn, will order one today -INR/LFTs ,due to liver mets, if continues to have poor po , consider vit K po. -discussed with the hospitalist, concern for sepsis, on carbopenams, ID consulted. -IVF -encourage PO intake. -encouraged out of bed to chair. I had a extensive discussion about the present situation not limited to infection, pleural effusion, generalized weakness, likely progressing malignancy , and in the present situation that chemotherapy could not be given when being treated for an active infection and she is very weak too. Suggested to focus on quality of life. Suggested that they discuss amongst themselves the best course of actions in terms of supportive care. Emotional support offered. They will discuss about this with family/pt and will let us know. If decision for best supportive care and focus on quality of life was chosen, recommend Pal care consult. Will follow -
[2016-10-15] MEDS ORDERED: ONDANSETRON 8 MG TABLET (FP) PO PRN (11:17)
[2016-10-15] MEDS ORDERED: ONDANSETRON 4 MG TABLET PO ONE (11:18)
[2016-10-15] MEDS ORDERED: ONDANSETRON 4 MG/2 ML VIAL IVPUSH ONE ×2 (11:24→21:29)
[2016-10-15] MEDS: amLODIPine BESYLATE 5 MG TABLET (FP) PO SCH (13:41)
[2016-10-15] MEDS: RANITIDINE HCL 150 MG TABLET (FP) PO SCH ×2 (13:41→21:01)
[2016-10-15] MEDS: ENOXAPARIN NA (PORCINE) 40 MG/0.4 ML DISP.SYRIN SQ SCH (13:41)
[2016-10-15] MEDS: SUCRALFATE 1 GM/10 ML UNIT DOSE CUPS PO SCH ×2 (13:42→21:01)
--- NOTE | 2016-10-15 13:53 | PN ---
Progress Note, Physician History of Present Illness: better than yesterday very tired and dizzy - Current Medication List Current Medications: Active Medications Acetaminophen (Tylenol -) 325 mg PO Q8H PRN PRN Reason: FEVER OR PAIN Last Admin: 10/14/16 20:17 Dose: 325 mg Amlodipine Besylate (Norvasc -) 5 mg PO DAILY [facility] Last Admin: 10/14/16 09:09 Dose: 5 mg Enoxaparin Sodium (Lovenox -) 40 mg SQ DAILY [facility] Last Admin: 10/14/16 17:51 Dose: 40 mg Guaifenesin (Robitussin -) 10 ml PO Q6H PRN PRN Reason: COUGH Last Admin: 10/14/16 20:17 Dose: 10 ml Sodium Chloride (Normal Saline -) 1,000 mls @ 75 mls/hr IV ASDIR [facility] Last Admin: 10/15/16 06:40 Dose: 75 mls/hr Ertapenem 1 gm/ Sodium (Chloride) 50 mls @ 50 mls/hr IVPB DAILY [facility] PRN Reason: Protocol Nystatin (Nystatin Oral Suspension -) 500,000 units PO Q6HPO [facility] Last Admin: 10/15/16 06:21 Dose: 500,000 units Ondansetron HCl (Zofran -) 8 mg PO Q8H PRN PRN Reason: NAUSEA Ranitidine HCl (Zantac -) 150 mg PO BID [facility] Last Admin: 10/14/16 21:33 Dose: 150 mg Sucralfate (Carafate Oral Suspension -) 1 gm PO BID [facility] Last Admin: 10/14/16 21:33 Dose: 1 gm - Objective Vital Signs: Vital Signs Temperature 99.0 F 10/15/16 09:47 Pulse Rate 106 H 10/15/16 09:47 Respiratory Rate 20 10/15/16 09:47 Blood Pressure 140/69 10/15/16 09:47 O2 Sat by Pulse Oximetry (%) 97 10/14/16 21:00 Constitutional: Yes: No Distress, Calm Respiratory: Yes: On Nasal O2, SOB Gastrointestinal: Yes: Normal Bowel Sounds, Soft Musculoskeletal: Yes: WNL Extremities: Yes: WNL Neurological: Yes: Alert, Oriented Psychiatric: Yes: Alert, Oriented Labs: CBC, BMP 10/15/16 06:00 10/15/16 06:00 INR, PTT INR 1.48 (0.82-1.09) H 10/13/16 23:30 Assessment/Plan ) Renal carcinoma (s/p L nephrectomy) with mets to lungs and liver 2) CKD 3) Abdominal pain, right-sided 4) HTN 5) Hyperlipidemia after looking at the ct scan i am more worried about her urinary retention and could this patient have pyelo patient mentions that she is able to pass urine pneumonia is a low suspicion plan changed abx to ertapenam will continue to closely watch her if she spikes then will reinstitute michael with broad coverage await for all reports to be back
--- NOTE | 2016-10-15 14:16 | PN ---
Teaching Attending Note Name of Resident: Tyree Jensen ATTENDING PHYSICIAN STATEMENT I saw and evaluated the patient. I reviewed the resident's note and discussed the case with the resident. I agree with the resident's findings and plan as documented. SUBJECTIVE: Nausea this am , feels a little better at time of evaluation ( 12:30 pm ) . felt dizzy twice when she got up and walked to bathroom, denies double vision , focal weakness, numbness, tingling , or dysphagea . denies back pain OBJECTIVE: NAD, looks slightly better compared to yesterday CV: RRR, tachy, no JVD Lungs: L base crackles , decreased breath sounds on R base Ext: trace edema on LE . Neuro : EOMI, round equal pupils reactive to light. NL facial sensation , uvula and tongue at mid line , strength 5/5 in upper extremities proximally and distally Strength in LE 4/5 at hip flexion , 5/5 knee flexion /extension, and plantar flexion/dorsiflexion . sensation to light touch NL. Knee jerk 2+ b/ l . ASSESSMENT AND PLAN: 71 y/o unfortunate lady with h/o HTN, renal cell Ca with lung and liver mets , s /p resection and chemo in , and recent hospitalization fro PNA , who presented with fever and malaise 1-Sepsis : source could be Urine vs Lung. urine cx neg but pt was on levaquin at home . Keep in mind that fever and leukocytosis could be due to cancer - cont meropenem - follow blood cx and pleural fluid cx and G staining - cont IVF and increase rate - one unit of blood. 2-Pleural effusion R > L. s/p R thoracentesis. Exudative likely due to cancer. - D/w Dr. Olivares who will evaluate 3-Renal cell carcinoma: with mets to liver and lungs. - d/w Dr. Flores. focus on treatment of possible infection and blood transfusion 4- Dizziness: likely due to volume depletion. Although it is described as vertigo, it happened when she tried to walk x 2 this admission , indicating a possible volume depletion as etiology. - increase IVF - RBC transfusion 5- Thrush: Nystatin 6- HTN: cont her norvasc . 7- Transaminitis : due to liver mets Liver Bx was not as out pt , and it might not be necessary. 8- dispo : HLOC d/w son and granddaughter in details
--- NOTE | 2016-10-15 16:35 | PN ---
Progress Note (short form) - Note Progress Note: PULMONARY CONSULTATION DICTATED 10/15/16 IMP METASTATIC RENAL CELL CA BILATERAL PLEURA EFFUSIONS EXUDATE LIKELY MALIGNANT DYSPNEA HEMOPTYSIS FEVER ?INFECTIOUS,? SECONDARY TO TUMOR PLAN ANTIBIOTICS PER ID O2 CHEST CT CHECK PATH PLEURAL FLUID QUANTIFY HEMOPTYSIS ANTITUSSIVES CULTURES PLEUR-X CATH IF FLUID MALIGNANT AND RE-ACCUMULATES DR REID Problem List - Problems (1) Kidney cancer, primary, with metastasis from kidney to other site Code(s): C64.9 - MALIGNANT NEOPLASM OF UNSP KIDNEY, EXCEPT RENAL PELVIS C79.9 - SECONDARY MALIGNANT NEOPLASM OF UNSPECIFIED SITE Qualifiers: Laterality: left Qualified Code(s): C64.2 - Malignant neoplasm of left kidney, except renal pelvis; C79.9 - Secondary malignant neoplasm of unspecified site (2) Pleural effusion Code(s): J90 - PLEURAL EFFUSION, NOT ELSEWHERE CLASSIFIED (3) Hemoptysis Code(s): R04.2 - HEMOPTYSIS (4) Anemia Code(s): D64.9 - ANEMIA, UNSPECIFIED Qualifiers: Anemia type: other cause Other causes of anemia: antineoplastic chemotherapy Qualified Code(s): D64.81 - Anemia due to antineoplastic chemotherapy; T45.1X5A - Adverse effect of antineoplastic and immunosuppressive drugs, initial encounter (5) Lung nodules Code(s): R91.8 - OTHER NONSPECIFIC ABNORMAL FINDING OF LUNG FIELD (6) Metastases to the liver Code(s): C78.7 - SECONDARY MALIG NEOPLASM OF LIVER AND INTRAHEPATIC BILE DUCT (7) Metastatic lung cancer (metastasis from lung to other site) Code(s): C34.90 - MALIGNANT NEOPLASM OF UNSP PART OF UNSP BRONCHUS OR LUNG Qualifiers: Laterality: right Qualified Code(s): C34.91 - Malignant neoplasm of unspecified part of right bronchus or lung (8) Fever Code(s): R50.9 - FEVER, UNSPECIFIED
--- NOTE | 2016-10-15 18:22 | PATH ---
Cytology Non-Gynecological Report Patient Name: GRACIELA SETHI Med. Rec. #: [id number] /Age/Gender: 1945 (Age: 71) / F Account: [id number] Location: [facility] MED/SURG Taken: 10/14/2016 Received: 10/14/2016 Reported: 10/15/2016 Physicians: Clare Ayers M.D. Specimen(s) Received PLEURAL FLUID Clinical History None given Final Diagnosis PLEURAL FLUID, THORACENTESIS: SATISFACTORY FOR EVALUATION BENIGN (NO MALIGNANT CELLS IDENTIFIED) BENIGN AND REACTIVE MESOTHELIAL CELLS, NEUTROPHILS AND LYMPHOCYTES PRESENT. Comment: Recommend correlation with clinical findings and follow up as clinically indicated. Electronically Signed Himanshu Bashir M.D. Gross Description Approximately 50 cc of peach colored fluid received fixed in 50% alcohol. One cytofunnel and one cellblock prepared.
--- NOTE | 2016-10-15 19:40 | PN ---
Physical Exam: SUBJECTIVE: Patient seen and examined at bedside. No other complaints at this time. ROS negative. OBJECTIVE: Vital Signs Period Temp Pulse Resp BP Sys/Aldrich Pulse Ox Last 24 Hr 98.9 F-100.4 F 100-117 18-23 133-148/69-77 93-97 GENERAL: The patient is awake, alert, and fully oriented, in no acute distress. HEAD: Normal with no signs of trauma. EYES: PERRL, extraocular movements intact, scleral icterus, conjunctiva clear. No ptosis. ENT: nares patent, oropharynx clear without exudates, moist mucous membranes. NECK: Trachea midline, full range of motion, supple, no carotid bruits. LUNGS: decreased breath sounds in R lung base, clear to auscultation bilaterally , no wheezes, no crackles, no accessory muscle use. HEART: Regular rate and rhythm, normal S1, S2 without murmur, rub or gallop. ABDOMEN: Soft, tender to palpation in RUQ, nondistended, normoactive bowel sounds, no guarding, no rebound, no hepatosplenomegaly, no masses. EXTREMITIES: 2+ pulses, warm, well-perfused, no edema. NEUROLOGICAL: Cranial nerves II through XII grossly intact. Normal speech, gait not observed. PSYCH: Normal mood, normal affect. SKIN: Warm, dry, normal turgor, no rashes or lesions noted Laboratory Results - last 24 hr 10/14/16 10/15/16 10/15/16 02:15 06:00 06:00 WBC 15.5 H RBC 3.01 L Hgb 8.3 L Hct 25.1 L MCV 83.3 MCH 27.5 MCHC 32.9 RDW 17.9 H Plt Count 265 MPV 8.1 Neutrophils % 83.9 H Lymphocytes % 7.4 L D Monocytes % 7.7 Eosinophils % 0.5 Basophils % 0.5 VBG pH 7.45 H POC VBG pCO2 33.5 L POC VBG pO2 40.3 Mixed VBG HCO3 23.1 Sodium 142 Potassium 3.2 L Chloride 110 H Carbon Dioxide 25 Anion Gap 7 L BUN 21 H Creatinine 0.9 Creat Clearance w eGFR > 60 Random Glucose 120 H Calcium 7.8 L Total Bilirubin 1.3 H AST 62 H D ALT 55 Alkaline Phosphatase 869 H Total Protein 4.7 L Albumin 1.8 L Active Medications Generic Name Dose Route Start Last Admin Trade Name Freq PRN Reason Stop Dose Admin Acetaminophen 325 mg 10/14/16 06:00 10/14/16 20:17 Tylenol - PO 325 mg Q8H PRN Administration FEVER OR PAIN Amlodipine Besylate 5 mg 10/14/16 10:00 10/15/16 13:41 Norvasc - PO 5 mg DAILY JOSE Administration Enoxaparin Sodium 40 mg 10/14/16 18:00 10/15/16 13:41 Lovenox - SQ 40 mg DAILY JOSE Administration Guaifenesin 10 ml 10/14/16 19:07 10/14/16 20:17 Robitussin - PO 10 ml Q6H PRN Administration COUGH Ertapenem 1 gm/ Sodium 50 mls @ 50 mls/hr 10/15/16 21:00 Chloride IVPB DAILY JOSE Protocol Sodium Chloride 1,000 mls @ 100 mls/hr 10/15/16 14:30 10/15/16 14:30 Normal Saline - IV 100 mls/hr ASDIR JOSE Administration Nystatin 500,000 units 10/14/16 12:00 10/15/16 18:09 Nystatin Oral Suspension - PO 500,000 units Q6HPO JOSE Administration Ondansetron HCl 8 mg 10/14/16 19:07 Zofran - PO Q8H PRN NAUSEA Ranitidine HCl 150 mg 10/14/16 10:00 10/15/16 13:41 Zantac - PO 150 mg BID JOSE Administration Sucralfate 1 gm 10/14/16 10:00 10/15/16 13:42 Carafate Oral Suspension - PO 1 gm BID JOSE Administration ASSESSMENT/PLAN: 71yo F h/o renal ca (s/p nephrectomy 02/2016) with multiple mets to liver and lungs, HTN, and recent hospitalization for PNA. Leukocytosis 15.9, Fever 102 ( per ER physician), Tachycardia 116. CXR increased b/l effusions (R>L); questionable opacity right cardiac border most likely representing congestion. LA 1.4, 1.0. #r/o Sepsis -Pt measured her fever at 102, and had tachycardia of 116 on admission. Site of infection: pleural effusion -US guided thoracentesis of pleural effusion: exudative by Light's criteria -Per ID, Meropenem #RUQ pain -Due to liver metastases #Pleural effusion -tap showed no cancer cells, exudative -post-tap CXR slightly improved. Only 140cc removed in the tap #Renal carcinoma (s/o L nephrectomy) with liver and lung mets -reactive leukocytosis and low grade fever -per Heme/Onc, pt will not be able to get chemo at this hospital because of insurance issues. Pt will need to be stabilized and transferred -palliative consult #HTN -Continued home medication Amlodipine #Hyperlipidemia -Holding atorvastatin in light of worsening AST #FEN -NS @100mls/hr -lytes wnl -Regular Diet #PPX -Lovenox -Not indicated at current time Dispo: Admit to med-surg floor Visit type - Emergency Visit Emergency Visit: No - New Patient This patient is new to me today: No - Critical Care Critical Care patient: No - Discharge Referral Referred to [facility] No
[2016-10-15] MEDS: guaiFENesin 200 MG/10 ML 10 ML UNIT-DOSE CUPS PO PRN (20:58)
[2016-10-15] MEDS ORDERED: ONDANSETRON 4 MG/2 ML VIAL ONE (21:34)
[2016-10-15] MEDS: ERTAPENEM SODIUM 1 GM in SODIUM CHLORIDE 50 ML IVPB SCH (21:36)
[2016-10-16] MEDS: NYSTATIN 500,000 UNITS/5 ML SUSPENSION PO SCH ×4 (00:56→17:27)
[2016-10-16] MEDS: SODIUM CHLORIDE 1,000 ML IV SCH (02:10)
[2016-10-16 08:07] LABS: ALBUMIN 1.7 g/dl (3.4-5.0); ANION GAP 8 (8-16); CALCIUM 7.6 mg/dL (8.5-10.1); CO2 25 mmol/L (21-32); CREATININE 0.9 mg/dL (0.55-1.02); GLUCOSE,RANDOM 93 mg/dL (74-106); SGOT/AST 60 U/L (15-37); SGPT/ALT 48 U/L (12-78)
[2016-10-16 08:09] LABS: ALK PHOS 785 U/L (45-117); BILIRUBIN,TOTAL 1.1 mg/dL (0.2-1.0); TOT PROT 4.4 g/dl (6.4-8.2)
[2016-10-16 08:18] LABS: MCH 28.1 pg (25.7-33.7); MCHC 33.4 g/dl (32.0-36.0); MEAN CELL VOLUME 84.3 fl (80-96); MEAN PLT VOLUME 8.3 fl (7.5-11.1); PLATELET COUNT 251 K/MM3 (134-434); RDW 17.7 % (11.6-15.6); WHITE BLOOD COUNT 15.2 K/mm3 (4.0-10.0)
--- NOTE | 2016-10-16 09:43 | PN ---
Teaching Attending Note Name of Resident: Maryjane Webster ATTENDING PHYSICIAN STATEMENT I saw and evaluated the patient. I reviewed the resident's note and discussed the case with the resident. I agree with the resident's findings and plan as documented. SUBJECTIVE: feels much better today . roya SOB or fever . has no N/V. slept well last night . No NIETO OBJECTIVE: NAD, looks better compared to yesterday CV: RRR, no JVD Lungs: L base crackles , decreased breath sounds on R base Ext: trace edema on LE . ABd : soft , TTP in RUQ. Liver is palpated 5 cm below the costal margin. NL B S , no rebound tenderness ASSESSMENT AND PLAN: 71 y/o unfortunate lady with h/o HTN, renal cell Ca with lung and liver mets , s /p resection and chemo in [place], and recent hospitalization fro PNA , who presented with fever and malaise 1-Sepsis : source could be Urine vs Lung. urine cx neg but pt was on levaquin at home . Keep in mind that fever and leukocytosis could be due to cancer - cont meropenem day 3 - Blood cx neg to date, pleural fluid cx pending . Urine cx neg , but was on levaquin at home - cont IVF 2-Pleural effusion R > L. s/p R thoracentesis. Exudative . only 140 cc removed. - CT of chest pending - fluid cx pending . Cytology neg for malignant cells - ? parapneumonic - possible loculated effusion. Further Recs from Pulm pending 3-Renal cell carcinoma: with mets to liver and lungs. -Further cancer treatment plan to follow 4- Thrush: Nystatin 5- HTN: cont her norvasc . 6- Transaminitis : due to liver mets 8- ACD , s/p 1 unit of RBC HLOC
[2016-10-16] MEDS: RANITIDINE HCL 150 MG TABLET (FP) PO SCH ×2 (10:11→21:04)
[2016-10-16] MEDS: SUCRALFATE 1 GM/10 ML UNIT DOSE CUPS PO SCH ×2 (10:11→21:04)
[2016-10-16] MEDS: ENOXAPARIN NA (PORCINE) 40 MG/0.4 ML DISP.SYRIN SQ SCH (10:11)
[2016-10-16] MEDS: ERTAPENEM SODIUM 1 GM in SODIUM CHLORIDE 50 ML IVPB SCH (10:11)
[2016-10-16] MEDS: amLODIPine BESYLATE 5 MG TABLET (FP) PO SCH (10:11)
--- NOTE | 2016-10-16 11:53 | PN ---
Progress Note (short form) - Note Progress Note: Breathing feels better today. Cytology negative for malignant cells. Prelim fluid cultures are negative. CT : large right effusion / no significant loculations noted Intake & Output 10/13/16 10/14/16 10/15/16 10/16/16 23:59 23:59 23:59 23:59 Intake Total 1342 1575 Output Total 1000 Balance 1342 1575 -1000 Weight 141 lb 141 lb Last Vital Signs Temp Pulse Resp BP Pulse Ox 98.9 F 96 H 20 133/72 97 10/16/16 09:00 10/16/16 09:00 10/16/16 09:00 10/16/16 09:00 10/16/16 07:44 Active Medications Acetaminophen (Tylenol -) 325 mg PO Q8H PRN PRN Reason: FEVER OR PAIN Last Admin: 10/14/16 20:17 Dose: 325 mg Amlodipine Besylate (Norvasc -) 5 mg PO DAILY [facility] Last Admin: 10/16/16 10:11 Dose: 5 mg Enoxaparin Sodium (Lovenox -) 40 mg SQ DAILY [facility] Last Admin: 10/16/16 10:11 Dose: 40 mg Guaifenesin (Robitussin -) 10 ml PO Q6H PRN PRN Reason: COUGH Last Admin: 10/15/16 20:58 Dose: 10 ml Ertapenem 1 gm/ Sodium (Chloride) 50 mls @ 50 mls/hr IVPB DAILY [facility] PRN Reason: Protocol Last Admin: 10/16/16 10:11 Dose: 50 mls/hr Sodium Chloride (Normal Saline -) 1,000 mls @ 100 mls/hr IV ASDIR [facility] Last Admin: 10/16/16 02:10 Dose: 100 mls/hr Nystatin (Nystatin Oral Suspension -) 500,000 units PO Q6HPO [facility] Last Admin: 10/16/16 11:50 Dose: 500,000 units Ondansetron HCl (Zofran -) 8 mg PO Q8H PRN PRN Reason: NAUSEA Ranitidine HCl (Zantac -) 150 mg PO BID [facility] Last Admin: 10/16/16 10:11 Dose: 150 mg Sucralfate (Carafate Oral Suspension -) 1 gm PO BID [facility] Last Admin: 10/16/16 10:11 Dose: 1 gm Constitutional: Yes: No Distress Respiratory: Yes: On Nasal O2, SOB Gastrointestinal: Yes: Normal Bowel Sounds, Soft Musculoskeletal: Yes: WNL Extremities: Yes: WNL Neurological: Yes: Alert, Oriented Psychiatric: Yes: Alert, Oriented Labs Laboratory Results - last 24 hr 10/13/16 10/13/16 10/13/16 23:30 23:30 23:30 WBC 15.9 H RBC 3.23 L Hgb 9.0 L Hct 27.0 L MCV 83.6 MCH 27.9 MCHC 33.4 RDW 17.7 H Plt Count 312 MPV 8.1 D Neutrophils % 80.0 Lymphocytes % 10.0 Monocytes % 9.1 Eosinophils % 0.5 Basophils % 0.4 INR 1.48 H PTT (Actin FS) 31.6 VBG pH POC VBG pCO2 POC VBG pO2 Mixed VBG HCO3 Sodium Potassium Chloride Carbon Dioxide Anion Gap BUN Creatinine Creat Clearance w eGFR Random Glucose Lactic Acid Calcium Total Bilirubin AST ALT Alkaline Phosphatase Creatine Kinase Troponin I Total Protein Albumin Urine Color Yellow Urine Appearance Clear Urine pH 6.0 Urine Protein Negative Urine Glucose (UA) Negative Urine Ketones Negative Urine Blood 1+ H Urine Nitrite Negative Urine Bilirubin Negative Urine Urobilinogen Negative Ur Leukocyte Esterase Trace Urine RBC 6 Urine WBC 9 Ur Epithelial Cells Few Blood Type Antibody Screen Crossmatch 10/13/16 10/13/16 10/13/16 23:30 23:30 23:30 WBC RBC Hgb Hct MCV MCH MCHC RDW Plt Count MPV Neutrophils % Lymphocytes % Monocytes % Eosinophils % Basophils % INR PTT (Actin FS) VBG pH POC VBG pCO2 POC VBG pO2 Mixed VBG HCO3 Sodium 141 Potassium 3.7 Chloride 106 Carbon Dioxide 24 Anion Gap 11 BUN 25 H D Creatinine 1.1 H Creat Clearance w eGFR 49.10 Random Glucose 116 H Lactic Acid 1.4 Calcium 8.2 L Total Bilirubin 1.6 H D AST 77 H D ALT 56 Alkaline Phosphatase 967 H Creatine Kinase 23 L Troponin I < 0.02 Total Protein 5.2 L Albumin 2.1 L D Urine Color Urine Appearance Urine pH Urine Protein Urine Glucose (UA) Urine Ketones Urine Blood Urine Nitrite Urine Bilirubin Urine Urobilinogen Ur Leukocyte Esterase Urine RBC Urine WBC Ur Epithelial Cells Blood Type A POSITIVE Antibody Screen Negative Crossmatch See Detail 10/14/16 10/16/16 10/16/16 02:15 06:00 06:00 WBC 15.2 H RBC 3.09 L Hgb 8.7 L Hct 26.0 L MCV 84.3 MCH 28.1 MCHC 33.4 RDW 17.7 H Plt Count 251 MPV 8.3 Neutrophils % Lymphocytes % Monocytes % Eosinophils % Basophils % INR PTT (Actin FS) VBG pH 7.45 H POC VBG pCO2 33.5 L POC VBG pO2 40.3 Mixed VBG HCO3 23.1 Sodium 145 Potassium 3.8 Chloride 112 H Carbon Dioxide 25 Anion Gap 8 BUN 18 Creatinine 0.9 Creat Clearance w eGFR > 60 Random Glucose 93 D Lactic Acid Calcium 7.6 L Total Bilirubin 1.1 H AST 60 H ALT 48 Alkaline Phosphatase 785 H Creatine Kinase Troponin I Total Protein 4.4 L Albumin 1.7 L Urine Color Urine Appearance Urine pH Urine Protein Urine Glucose (UA) Urine Ketones Urine Blood Urine Nitrite Urine Bilirubin Urine Urobilinogen Ur Leukocyte Esterase Urine RBC Urine WBC Ur Epithelial Cells Blood Type Antibody Screen Crossmatch Problem List - Problems (1) Kidney cancer, primary, with metastasis from kidney to other site Code(s): C64.9 - MALIGNANT NEOPLASM OF UNSP KIDNEY, EXCEPT RENAL PELVIS C79.9 - SECONDARY MALIGNANT NEOPLASM OF UNSPECIFIED SITE Qualifiers: Laterality: left Qualified Code(s): C64.2 - Malignant neoplasm of left kidney, except renal pelvis; C79.9 - Secondary malignant neoplasm of unspecified site (2) Pleural effusion Code(s): J90 - PLEURAL EFFUSION, NOT ELSEWHERE CLASSIFIED (3) Hemoptysis Code(s): R04.2 - HEMOPTYSIS (4) Anemia Code(s): D64.9 - ANEMIA, UNSPECIFIED Qualifiers: Anemia type: other cause Other causes of anemia: antineoplastic chemotherapy Qualified Code(s): D64.81 - Anemia due to antineoplastic chemotherapy; T45.1X5A - Adverse effect of antineoplastic and immunosuppressive drugs, initial encounter (5) Lung nodules Code(s): R91.8 - OTHER NONSPECIFIC ABNORMAL FINDING OF LUNG FIELD (6) Metastases to the liver Code(s): C78.7 - SECONDARY MALIG NEOPLASM OF LIVER AND INTRAHEPATIC BILE DUCT (7) Metastatic lung cancer (metastasis from lung to other site) Code(s): C34.90 - MALIGNANT NEOPLASM OF UNSP PART OF UNSP BRONCHUS OR LUNG Qualifiers: Laterality: right Qualified Code(s): C34.91 - Malignant neoplasm of unspecified part of right bronchus or lung (8) Fever Code(s): R50.9 - FEVER, UNSPECIFIED IMP METASTATIC RENAL CELL CA -> I SUSPECT ETIOLOGY OF EFFUSION IS MALIGNANT BILATERAL PLEURA EFFUSIONS -> EXUDATIVE DYSPNEA HEMOPTYSIS FEVER ?INFECTIOUS,? SECONDARY TO TUMOR DO NOT SUSPECT EMPYEMA PLAN ANTIBIOTICS PER ID O2 ANTITUSSIVES FOLLOW FINAL CULTURES MAY BENEFIT FROM REPEAT TAP -> PATIENT AND HER FAMILY ARE CONSIDERING GOING TO ANOTHER HOSPITAL FOR FURTHER CARE ([facility]) A PLEUR-X CATH WOULD BE APPROPRIATE IF WE ARE ABLE TO COLLECT ADDITIONAL FLUID AND IT IS IDENTIFIED MALIGNANT DR TAVARES
--- NOTE | 2016-10-16 11:59 | CONS ---
DATE OF CONSULTATION: 10/15/2016 REFERRING PHYSICIAN: Dayne Alvarez MD The patient is a 71-year-old female known to me from previous recent hospitalization with past medical history of renal cell carcinoma diagnosed February 2016, status post left nephrectomy. The patient has multiple metastases to the liver as well as lung, failed chemotherapy; hypertension; recently hospitalized at [facility] secondary to hemoptysis and possible pneumonia, treated with antibiotics and inhaled bronchodilators, improvement, was readmitted on October 14 secondary to feeling right-sided, intermittent abdominal pain as well as felt feverish at home as well as cough and had some hemoptysis. She denied any chest pain. She did complain of mild increased shortness of breath. On admission, she was noted to have increasing bilateral pleural effusion. She underwent a CT scan of the abdomen and pelvis, which revealed evidence of multiple soft tissue mass lesions in the liver, consistent with metastatic disease and again, interval enlargement of right pleural effusions and small left pleural effusion. Patient underwent a thoracentesis on October 14, but fluid was consistent with an exudate. Pathology is pending. Patient's hospitalization was for she had been having fever. She was evaluated by Dr. Gannon and placed on broad-spectrum antibiotic. Dr. Gannon felt the patient possibly had a pyelonephritis. Patient is a nonsmoker. There is no history of occupational exposure to chemicals or fumes. There is no history of DVT or PE in the past. PAST MEDICAL HISTORY: Again, includes metastatic renal cell carcinoma, status post left nephrectomy in 2015, status post chemotherapy; a history of hemoptysis. REVIEW OF SYSTEMS: No orthopnea. Positive dyspnea. Positive hemoptysis. No chest pain. No palpitations. Positive abdominal discomfort. PHYSICAL EXAMINATION: General: The patient is an elderly white female, well-developed, awake, alert, in no acute distress. Vital Signs: She is currently afebrile. Heart rate is 102, blood pressure 136/71, respiratory rate is 20, O2 saturation is 94% on 2 L. HEENT: Normocephalic, atraumatic. Neck: Supple. Heart: Regular. S1, S2. Chest: Diminished breath sounds on the left. A few crackles are noted on the right. Abdomen: Soft. Bowel sounds are present. Extremities: No cyanosis or edema. WBC is 15.5, hemoglobin 8.3, hematocrit 25.1, and platelet count of 265,000. INR is 1.48. BUN is 21, creatinine 0.9. Alkaline phosphatase is 869, AST is 62, bilirubin is 1.3. Chest x-ray on admission reveals a large right pleural effusion with lung metastases bilaterally. Repeat chest x-ray today reveals, again, right pleural effusion, interval air-space disease in the left lung field. IMPRESSION: 1. Advanced metastatic renal cell cancer with extensive hepatic as well as liver metastasis. 2. Right pleural effusion, likely malignant. Pathology pending. 3. Fever, etiology to be determined; cannot exclude the possibility of possible infectious process, possible pneumonia as noted by increased markings on the left lung field. Also, cannot exclude possible genitourinary as well as tumor fever. 4. Hemoptysis, likely secondary to extensive metastasis. PLAN: Continue antibiotics, as per Infectious Disease. We will obtain a CT scan of the chest to further evaluate pulmonary parenchyma. Obtain cultures. Quantify hemoptysis. Antitussives. Thank you. We will follow closely with you. ALICIA REID M.D. [id number]
--- NOTE | 2016-10-16 12:43 | PN ---
Progress Note, Physician History of Present Illness: feels much better no complaints says strength is coming back family in room wbc still on the higher side - Current Medication List Current Medications: Active Medications Acetaminophen (Tylenol -) 325 mg PO Q8H PRN PRN Reason: FEVER OR PAIN Last Admin: 10/14/16 20:17 Dose: 325 mg Amlodipine Besylate (Norvasc -) 5 mg PO DAILY [facility] Last Admin: 10/16/16 10:11 Dose: 5 mg Enoxaparin Sodium (Lovenox -) 40 mg SQ DAILY [facility] Last Admin: 10/16/16 10:11 Dose: 40 mg Guaifenesin (Robitussin -) 10 ml PO Q6H PRN PRN Reason: COUGH Last Admin: 10/15/16 20:58 Dose: 10 ml Ertapenem 1 gm/ Sodium (Chloride) 50 mls @ 50 mls/hr IVPB DAILY [facility] PRN Reason: Protocol Last Admin: 10/16/16 10:11 Dose: 50 mls/hr Sodium Chloride (Normal Saline -) 1,000 mls @ 100 mls/hr IV ASDIR [facility] Last Admin: 10/16/16 02:10 Dose: 100 mls/hr Nystatin (Nystatin Oral Suspension -) 500,000 units PO Q6HPO [facility] Last Admin: 10/16/16 11:50 Dose: 500,000 units Ondansetron HCl (Zofran -) 8 mg PO Q8H PRN PRN Reason: NAUSEA Ranitidine HCl (Zantac -) 150 mg PO BID [facility] Last Admin: 10/16/16 10:11 Dose: 150 mg Sucralfate (Carafate Oral Suspension -) 1 gm PO BID [facility] Last Admin: 10/16/16 10:11 Dose: 1 gm - Objective Vital Signs: Vital Signs Temperature 98.9 F 10/16/16 09:00 Pulse Rate 96 H 10/16/16 09:00 Respiratory Rate 20 10/16/16 09:00 Blood Pressure 133/72 10/16/16 09:00 O2 Sat by Pulse Oximetry (%) 97 10/16/16 07:44 Constitutional: Yes: No Distress, Calm Cardiovascular: Yes: Regular Rate and Rhythm Respiratory: Yes: Regular, Poor Air Entry (rt side) Gastrointestinal: Yes: Normal Bowel Sounds, Soft Musculoskeletal: Yes: WNL Extremities: Yes: WNL Neurological: Yes: Alert, Oriented Psychiatric: Yes: Alert, Oriented Labs: CBC, BMP 10/16/16 06:00 10/16/16 06:00 INR, PTT INR 1.48 (0.82-1.09) H 10/13/16 23:30 Assessment/Plan ) Renal carcinoma (s/p L nephrectomy) with mets to lungs and liver 2) CKD 3) Abdominal pain, right-sided 4) HTN 5) Hyperlipidemia after looking at the ct scan i am more worried about her urinary retention and could this patient have pyelo patient mentions that she is able to pass urine pneumonia is a low suspicion plan continue current mgmt patient improving rest as per primary team
--- NOTE | 2016-10-16 12:51 | PN ---
Progress Note (short form) - Note Progress Note: Seen and examined the patient. No overnight events. Tem of 100. She does feel a lot better than yesterday. No further dizziness. resting comfortably today, scleral icterus NCAT RRR Decreased breath sounds bilaterally no LE edema seen. Last Vital Signs Temp Pulse Resp BP Pulse Ox 99.0 F 106 H 20 140/69 97 10/15/16 09:47 10/15/16 09:47 10/15/16 09:47 10/15/16 09:47 10/14/16 21:00 CBC, BMP 10/15/16 06:00 10/15/16 06:00 Current Medications Generic Name Dose Route Start Last Admin Trade Name Freq PRN Reason Stop Dose Admin Acetaminophen 325 mg 10/14/16 06:00 10/14/16 20:17 Tylenol - PO 325 mg Q8H PRN Administration FEVER OR PAIN Amlodipine Besylate 5 mg 10/14/16 10:00 10/14/16 09:09 Norvasc - PO 5 mg DAILY JOSE Administration Enoxaparin Sodium 40 mg 10/14/16 18:00 10/14/16 17:51 Lovenox - SQ 40 mg DAILY JOSE Administration Guaifenesin 10 ml 10/14/16 19:07 10/14/16 20:17 Robitussin - PO 10 ml Q6H PRN Administration COUGH Sodium Chloride 1,000 mls @ 75 mls/hr 10/14/16 10:30 10/15/16 06:40 Normal Saline - IV 75 mls/hr ASDIR JOSE Administration Meropenem 1 gm/ Dextrose 100 mls @ 100 mls/hr 10/14/16 18:00 10/15/16 02:00 IVPB 100 mls/hr Q8H-IV JOSE Administration Protocol Nystatin 500,000 units 10/14/16 12:00 10/15/16 06:21 Nystatin Oral Suspension - PO 500,000 units Q6HPO JOSE Administration Ondansetron HCl 8 mg 10/14/16 19:07 Zofran - PO Q8H PRN NAUSEA Ranitidine HCl 150 mg 10/14/16 10:00 10/14/16 21:33 Zantac - PO 150 mg BID JOSE Administration Sucralfate 1 gm 10/14/16 10:00 10/14/16 21:33 Carafate Oral Suspension - PO 1 gm BID JOSE Administration Assessment/Plan: is a 71 year old with h.o Metastatic Urothelial Cancer ( Lung, liver mets) progressed on front line immunotherapy is admitted for symptomatic lung mets Anemia Metastatic lung/Liver , from Urothelial Papillary high grade Dyspnea from lung mets Pleural effusion ,likely malignant . CKD Abnormal LFTs Elevated INR Sepsis likely due to Pyelo/PNA -abx per ID -repeat CT chest reviewed, discussed with , will benefit from pleural catheter, discussed with family/pt. -through cytology negative, rapid re-accumulation on abx, may point towards malignant effusion. -Infection to be treated prior to treating malignancy. discussed with family/ pt. -s/p one unit on 10/15 of PRBC. transfuse prn -leuckocytosis/fevers: could be reactive to tumor burden in addition to infection -Abn LFTs/elevated INR, from liver mets will follow. -
[2016-10-16] MEDS: guaiFENesin 200 MG/10 ML 10 ML UNIT-DOSE CUPS PO PRN (13:26)
[2016-10-16] MEDS: ACETAMINOPHEN 325 MG TABLET (FP) PO PRN (17:53)
--- NOTE | 2016-10-16 22:34 | PN ---
Physical Exam: SUBJECTIVE: Patient seen and examined by me at bedside. Patient reports feeling much better today than she did yesterday. She reports sleeping throughout the night yesterday. Otherwise, patient denies chest pain, palpitations, shortness of breath, headaches. OBJECTIVE: Vital Signs Period Temp Pulse Resp BP Sys/Aldrich Pulse Ox Last 24 Hr 97.5 F-100.8 F 96-110 18-20 126-143/63-72 97 GENERAL: The patient is awake, alert, and fully oriented, in no acute distress. LUNGS: Left base crackles and decreased breath sounds throughout right lung base HEART:RRR, normal S1 and S2 without murmur, rub or gallop. ABDOMEN: Soft, mild tenderness upon palpation of RUQ with hepatomegaly of 5cm below the costal margin. Normoactive bowel sounds EXTREMITIES:Trace pedal edema in B/L LE Laboratory Results - last 24 hr 10/16/16 10/16/16 06:00 06:00 WBC 15.2 H RBC 3.09 L Hgb 8.7 L Hct 26.0 L MCV 84.3 MCH 28.1 MCHC 33.4 RDW 17.7 H Plt Count 251 MPV 8.3 Sodium 145 Potassium 3.8 Chloride 112 H Carbon Dioxide 25 Anion Gap 8 BUN 18 Creatinine 0.9 Creat Clearance w eGFR > 60 Random Glucose 93 D Calcium 7.6 L Total Bilirubin 1.1 H AST 60 H ALT 48 Alkaline Phosphatase 785 H Total Protein 4.4 L Albumin 1.7 L Active Medications Generic Name Dose Route Start Last Admin Trade Name Freq PRN Reason Stop Dose Admin Acetaminophen 325 mg 10/14/16 06:00 10/16/16 17:53 Tylenol - PO 325 mg Q8H PRN Administration FEVER OR PAIN Amlodipine Besylate 5 mg 10/14/16 10:00 10/16/16 10:11 Norvasc - PO 5 mg DAILY JOSE Administration Enoxaparin Sodium 40 mg 10/14/16 18:00 10/16/16 10:11 Lovenox - SQ 40 mg DAILY [facility] Administration Guaifenesin 10 ml 10/14/16 19:07 10/16/16 13:26 Robitussin - PO 10 ml Q6H PRN Administration COUGH Ertapenem 1 gm/ Sodium 50 mls @ 50 mls/hr 10/15/16 21:00 10/16/16 10:11 Chloride IVPB 50 mls/hr DAILY JOSE Administration Protocol Sodium Chloride 1,000 mls @ 100 mls/hr 10/15/16 14:30 10/16/16 02:10 Normal Saline - IV 100 mls/hr ASDIR JOSE Administration Nystatin 500,000 units 10/14/16 12:00 10/16/16 17:27 Nystatin Oral Suspension - PO 500,000 units Q6HPO JOSE Administration Ondansetron HCl 8 mg 10/14/16 19:07 Zofran - PO Q8H PRN NAUSEA Ranitidine HCl 150 mg 10/14/16 10:00 10/16/16 21:04 Zantac - PO 150 mg BID JOSE Administration Sucralfate 1 gm 10/14/16 10:00 10/16/16 21:04 Carafate Oral Suspension - PO 1 gm BID JOSE Administration ASSESSMENT/PLAN: Patient is a 71 year old female with a PMHx of HTN, renal cell cancer with mets to the liver and lungs s/p resection and chemotherapy in [place] who presented for fever and malaise. Patient was found to be septic and admitted for further monitoring and management. Sepsis likely secondary to PNA vs UTI -Urine cultures and blood cultures negative. However, patient was on Levaquin prior to admission. -Continue Ertapenem 1gm IV daily day #3 -Continue IV Fluids with NS @100mls/hr -Continue Tylenol 325mg Q8H Pleural Effusions -s/p Thoracocentesis (10/14/16) with 140 cc removed and showed Exudative -Repeat CT revealed worsening pleural effusions bilaterally -Fluid cultures pending -Cytology negative for malignant cells. Possibly parapneumonic -Pulm recommends VATS -Will contact CT Renal Cell Carcinoma with mets to liver and lungs -Heme/oncology consult placed -Patient currently not optimal for chemotherapy -1 PRBC given, as per oncologist Oral Thrush -Continue Nystatin oral suspension Q6H HTN -Controlled -Continue Norvasc 5mg daily Transaminitis -Likely secondary to liver mets -Will continue to monitor F/E/N -NS @100cc/hr -Electrolytes wnl -Regular diet Prophylaxis -Lovenox 40mg sq daily Disposition -Full code -Continue IV antibiotics Visit type - Emergency Visit Emergency Visit: Yes ED Registration Date: 10/14/16 Care time: The patient presented to the Emergency Department on the above date and was hospitalized for further evaluation of their emergent condition. - New Patient This patient is new to me today: Yes Date on this admission: 10/16/16 - Critical Care Critical Care patient: No
[2016-10-17] MEDS: SODIUM CHLORIDE 1,000 ML IV SCH ×2 (00:43→23:23)
[2016-10-17] MEDS: NYSTATIN 500,000 UNITS/5 ML SUSPENSION PO SCH ×5 (00:43→23:23)
[2016-10-17 07:48] LABS: MCH 28.3 pg (25.7-33.7); MCHC 33.6 g/dl (32.0-36.0); MEAN CELL VOLUME 84.2 fl (80-96); MEAN PLT VOLUME 8.3 fl (7.5-11.1); PLATELET COUNT 257 K/MM3 (134-434); RDW 17.7 % (11.6-15.6); WHITE BLOOD COUNT 15.8 K/mm3 (4.0-10.0)
[2016-10-17 08:12] LABS: ANION GAP 8 (8-16); CALCIUM 7.9 mg/dL (8.5-10.1); CO2 25 mmol/L (21-32); CREATININE 0.8 mg/dL (0.55-1.02); GLUCOSE,RANDOM 93 mg/dL (74-106)
[2016-10-17] MEDS: ENOXAPARIN NA (PORCINE) 40 MG/0.4 ML DISP.SYRIN SQ SCH (10:02)
[2016-10-17] MEDS: SUCRALFATE 1 GM/10 ML UNIT DOSE CUPS PO SCH ×2 (10:02→21:15)
[2016-10-17] MEDS: amLODIPine BESYLATE 5 MG TABLET (FP) PO SCH (10:02)
[2016-10-17] MEDS: RANITIDINE HCL 150 MG TABLET (FP) PO SCH ×2 (10:02→21:15)
[2016-10-17] MEDS: ERTAPENEM SODIUM 1 GM in SODIUM CHLORIDE 50 ML IVPB SCH (10:19)
--- NOTE | 2016-10-17 11:56 | PN ---
Progress Note, Physician History of Present Illness: patient continues to improve still becomes dizzy when she gets up - Current Medication List Current Medications: Active Medications Acetaminophen (Tylenol -) 325 mg PO Q8H PRN PRN Reason: FEVER OR PAIN Last Admin: 10/16/16 17:53 Dose: 325 mg Amlodipine Besylate (Norvasc -) 5 mg PO DAILY [facility] Last Admin: 10/17/16 10:02 Dose: Not Given Enoxaparin Sodium (Lovenox -) 40 mg SQ DAILY [facility] Last Admin: 10/17/16 10:02 Dose: 40 mg Guaifenesin (Robitussin -) 10 ml PO Q6H PRN PRN Reason: COUGH Last Admin: 10/16/16 13:26 Dose: 10 ml Ertapenem 1 gm/ Sodium (Chloride) 50 mls @ 50 mls/hr IVPB DAILY [facility] PRN Reason: Protocol Last Admin: 10/17/16 10:19 Dose: 50 mls/hr Sodium Chloride (Normal Saline -) 1,000 mls @ 100 mls/hr IV ASDIR [facility] Last Admin: 10/17/16 00:43 Dose: 100 mls/hr Nystatin (Nystatin Oral Suspension -) 500,000 units PO Q6HPO [facility] Last Admin: 10/17/16 11:03 Dose: 500,000 units Ondansetron HCl (Zofran -) 8 mg PO Q8H PRN PRN Reason: NAUSEA Ranitidine HCl (Zantac -) 150 mg PO BID [facility] Last Admin: 10/17/16 10:02 Dose: 150 mg Sucralfate (Carafate Oral Suspension -) 1 gm PO BID [facility] Last Admin: 10/17/16 10:02 Dose: 1 gm - Objective Vital Signs: Vital Signs Temperature 98.9 F 10/17/16 05:29 Pulse Rate 98 H 10/17/16 05:29 Respiratory Rate 20 10/17/16 08:01 Blood Pressure 138/70 10/17/16 07:59 O2 Sat by Pulse Oximetry (%) 97 10/17/16 08:01 Constitutional: Yes: No Distress, Calm Cardiovascular: Yes: Regular Rate and Rhythm Respiratory: Yes: Regular, Poor Air Entry (rt side) Gastrointestinal: Yes: Normal Bowel Sounds, Soft Musculoskeletal: Yes: WNL Extremities: Yes: WNL Neurological: Yes: Alert, Oriented Psychiatric: Yes: Alert, Oriented Labs: CBC, BMP 10/17/16 06:00 10/17/16 06:00 INR, PTT INR 1.48 (0.82-1.09) H 10/13/16 23:30 Assessment/Plan ) Renal carcinoma (s/p L nephrectomy) with mets to lungs and liver 2) CKD 3) Abdominal pain, right-sided 4) HTN 5) Hyperlipidemia plan continue current mgmt patient improving rest as per primary team physio incentive cindy
--- NOTE | 2016-10-17 12:24 | PN ---
Progress Note (short form) - Note Progress Note: Breathing feels better today. Currently off nasal O2. Preliminary fluid cultures are negative. Intake & Output 10/14/16 10/15/16 10/16/16 10/17/16 23:59 23:59 23:59 23:59 Intake Total 1342 1575 1500 700 Output Total 1800 Balance 1342 1575 -300 700 Weight 141 lb Last Vital Signs Temp Pulse Resp BP Pulse Ox 98.9 F 98 H 20 138/70 97 10/17/16 05:29 10/17/16 05:29 10/17/16 08:01 10/17/16 07:59 10/17/16 08:01 Active Medications Acetaminophen (Tylenol -) 325 mg PO Q8H PRN PRN Reason: FEVER OR PAIN Last Admin: 10/16/16 17:53 Dose: 325 mg Amlodipine Besylate (Norvasc -) 5 mg PO DAILY [facility] Last Admin: 10/17/16 10:02 Dose: Not Given Enoxaparin Sodium (Lovenox -) 40 mg SQ DAILY [facility] Last Admin: 10/17/16 10:02 Dose: 40 mg Guaifenesin (Robitussin -) 10 ml PO Q6H PRN PRN Reason: COUGH Last Admin: 10/16/16 13:26 Dose: 10 ml Ertapenem 1 gm/ Sodium (Chloride) 50 mls @ 50 mls/hr IVPB DAILY [facility] PRN Reason: Protocol Last Admin: 10/17/16 10:19 Dose: 50 mls/hr Sodium Chloride (Normal Saline -) 1,000 mls @ 100 mls/hr IV ASDIR [facility] Last Admin: 10/17/16 00:43 Dose: 100 mls/hr Nystatin (Nystatin Oral Suspension -) 500,000 units PO Q6HPO [facility] Last Admin: 10/17/16 11:03 Dose: 500,000 units Ondansetron HCl (Zofran -) 8 mg PO Q8H PRN PRN Reason: NAUSEA Ranitidine HCl (Zantac -) 150 mg PO BID [facility] Last Admin: 10/17/16 10:02 Dose: 150 mg Sucralfate (Carafate Oral Suspension -) 1 gm PO BID [facility] Last Admin: 10/17/16 10:02 Dose: 1 gm Constitutional: Yes: No Distress Respiratory: Yes: On Nasal O2, SOB Gastrointestinal: Yes: Normal Bowel Sounds, Soft Musculoskeletal: Yes: WNL Extremities: Yes: WNL Neurological: Yes: Alert, Oriented Psychiatric: Yes: Alert, Oriented Labs Laboratory Results - last 24 hr 10/17/16 10/17/16 06:00 06:00 WBC 15.8 H RBC 3.05 L Hgb 8.6 L Hct 25.7 L MCV 84.2 MCH 28.3 MCHC 33.6 RDW 17.7 H Plt Count 257 MPV 8.3 Sodium 143 Potassium 3.6 Chloride 110 H Carbon Dioxide 25 Anion Gap 8 BUN 18 Creatinine 0.8 Random Glucose 93 Calcium 7.9 L Problem List - Problems (1) Kidney cancer, primary, with metastasis from kidney to other site Code(s): C64.9 - MALIGNANT NEOPLASM OF UNSP KIDNEY, EXCEPT RENAL PELVIS C79.9 - SECONDARY MALIGNANT NEOPLASM OF UNSPECIFIED SITE Qualifiers: Laterality: left Qualified Code(s): C64.2 - Malignant neoplasm of left kidney, except renal pelvis; C79.9 - Secondary malignant neoplasm of unspecified site (2) Pleural effusion Code(s): J90 - PLEURAL EFFUSION, NOT ELSEWHERE CLASSIFIED (3) Hemoptysis Code(s): R04.2 - HEMOPTYSIS (4) Anemia Code(s): D64.9 - ANEMIA, UNSPECIFIED Qualifiers: Anemia type: other cause Other causes of anemia: antineoplastic chemotherapy Qualified Code(s): D64.81 - Anemia due to antineoplastic chemotherapy; T45.1X5A - Adverse effect of antineoplastic and immunosuppressive drugs, initial encounter (5) Lung nodules Code(s): R91.8 - OTHER NONSPECIFIC ABNORMAL FINDING OF LUNG FIELD (6) Metastases to the liver Code(s): C78.7 - SECONDARY MALIG NEOPLASM OF LIVER AND INTRAHEPATIC BILE DUCT (7) Metastatic lung cancer (metastasis from lung to other site) Code(s): C34.90 - MALIGNANT NEOPLASM OF UNSP PART OF UNSP BRONCHUS OR LUNG Qualifiers: Laterality: right Qualified Code(s): C34.91 - Malignant neoplasm of unspecified part of right bronchus or lung (8) Fever Code(s): R50.9 - FEVER, UNSPECIFIED IMP METASTATIC RENAL CELL CA -> I SUSPECT ETIOLOGY OF EFFUSION IS MALIGNANT BILATERAL PLEURA EFFUSIONS -> EXUDATIVE DYSPNEA HEMOPTYSIS FEVER ?INFECTIOUS,? SECONDARY TO TUMOR DO NOT SUSPECT EMPYEMA PLAN ANTIBIOTICS PER ID O2 ANTITUSSIVES FOLLOW FINAL CULTURES A PLEUR-X CATH WOULD BE APPROPRIATE IF ALL CULTURES ARE NEGATIVE DR TAVARES
--- NOTE | 2016-10-17 13:10 | PN ---
Progress Note (short form) - Note Progress Note: Seen and examined the patient. No overnight events. she does feel better than yesterday. resting comfortably , scleral icterus NCAT RRR Decreased breath sounds bilaterally no LE edema seen. Last Vital Signs Temp Pulse Resp BP Pulse Ox 98.9 F 98 H 20 138/70 97 10/17/16 05:29 10/17/16 05:29 10/17/16 08:01 10/17/16 07:59 10/17/16 08:01 CBC, BMP 10/17/16 06:00 10/17/16 06:00 Current Medications Generic Name Dose Route Start Last Admin Trade Name Freq PRN Reason Stop Dose Admin Acetaminophen 325 mg 10/14/16 06:00 10/16/16 17:53 Tylenol - PO 325 mg Q8H PRN Administration FEVER OR PAIN Amlodipine Besylate 5 mg 10/14/16 10:00 10/17/16 10:02 Norvasc - PO Not Given DAILY JOSE Enoxaparin Sodium 40 mg 10/14/16 18:00 10/17/16 10:02 Lovenox - SQ 40 mg DAILY JOSE Administration Guaifenesin 10 ml 10/14/16 19:07 10/16/16 13:26 Robitussin - PO 10 ml Q6H PRN Administration COUGH Ertapenem 1 gm/ Sodium 50 mls @ 50 mls/hr 10/15/16 21:00 10/17/16 10:19 Chloride IVPB 50 mls/hr DAILY JOSE Administration Protocol Sodium Chloride 1,000 mls @ 100 mls/hr 10/15/16 14:30 10/17/16 00:43 Normal Saline - IV 100 mls/hr ASDIR JOSE Administration Nystatin 500,000 units 10/14/16 12:00 10/17/16 11:03 Nystatin Oral Suspension - PO 500,000 units Q6HPO JOSE Administration Ondansetron HCl 8 mg 10/14/16 19:07 Zofran - PO Q8H PRN NAUSEA Ranitidine HCl 150 mg 10/14/16 10:00 10/17/16 10:02 Zantac - PO 150 mg BID JOSE Administration Sucralfate 1 gm 10/14/16 10:00 10/17/16 10:02 Carafate Oral Suspension - PO 1 gm BID JOSE Administration Assessment/Plan: is a 71 year old with h.o Metastatic Urothelial Cancer ( Lung, liver mets) progressed on front line immunotherapy is admitted for symptomatic lung mets Metastatic lung/Liver , from Urothelial Papillary high grade Dyspnea from lung mets Pleural effusion . CKD Abnormal LFTs Elevated INR Sepsis likely due to Pyelo/PNA Anemia -abx per ID -Await CTS consult -Infection to be treated prior to treating malignancy. discussed with family/ pt. -s/p one unit on 10/15 of PRBC. transfuse prn -leuckocytosis/fevers: could be reactive to tumor burden in addition to infection -Abn LFTs/elevated INR, from liver mets -PT eval when ready -encouraged out of bed to chair will follow. -
--- NOTE | 2016-10-17 14:40 | PN ---
Progress Note (short form) - Note Progress Note: Subjective: feels better . has no Pain . nodiarrhea . Objective: Vital Signs: Last Vital Signs Temp Pulse Resp BP Pulse Ox 98.6 F 106 H 20 144/74 97 10/17/16 13:56 10/17/16 13:56 10/17/16 13:56 10/17/16 13:56 10/17/16 08:01 Laboratory Results - last 24 hr 10/17/16 10/17/16 06:00 06:00 WBC 15.8 H RBC 3.05 L Hgb 8.6 L Hct 25.7 L MCV 84.2 MCH 28.3 MCHC 33.6 RDW 17.7 H Plt Count 257 MPV 8.3 Sodium 143 Potassium 3.6 Chloride 110 H Carbon Dioxide 25 Anion Gap 8 BUN 18 Creatinine 0.8 Random Glucose 93 Calcium 7.9 L Physical Exam: NAD,aaox3 CV: RRR, no JVD Lungs: decreased breath sounds at b/l bases R > L Ext: trace edema on LE . ABd : soft , TTP in RUQ. Liver is palpated 5 cm below the costal margin. NL B S , no rebound tenderness ASSESSMENT AND PLAN: 71 y/o unfortunate lady with h/o HTN, renal cell Ca with lung and liver mets , [place] /[place], and recent hospitalization fro PNA , who presented with fever and malaise 1-Sepsis : source could be Urine vs Lung. - cont meropenem day 4 - Blood cx neg to date, pleural fluid cx neg . Urine cx neg , but was on levaquin at home - cont IVF , can decrease rate in am 2-Pleural effusion R > L. looks loculated. s/p R thoracentesis. Exudative likely from tumor . only 140 cc removed. cytology neg, and cx neg - will consult Dr. Holley for VATS/pleur-x - cont treatment fro possible PNA 3-Renal cell carcinoma: with mets to liver and lungs. -Further cancer treatment to [facility] at [facility] 4- Thrush: Nystatin 5- HTN: she does not take norvasc at [facility]. Only losartan. change meds to losartan since renal function is NL now and BP is slightly elevated 6- Transaminitis : due to liver mets 8- ACD , s/p 1 unit of RBC 9- urinary retention , ? due ot infection. dc [facility] in am HLOC Visit type - Emergency Visit Emergency Visit: Yes ED Registration Date: 10/14/16 Care time: The patient presented to the Emergency Department on the above date and was hospitalized for further evaluation of their emergent condition. - New Patient This patient is new to me today: No - Critical Care Critical Care patient: No
[2016-10-17] MEDS: LOSARTAN POTASSIUM 50 MG TABLET (FP) PO SCH (15:27)
[2016-10-18] MEDS: guaiFENesin 200 MG/10 ML 10 ML UNIT-DOSE CUPS PO PRN ×2 (06:17→13:07)
[2016-10-18] MEDS: NYSTATIN 500,000 UNITS/5 ML SUSPENSION PO SCH ×3 (07:07→17:13)
[2016-10-18 07:56] LABS: BASOPHIL 0.2 % (0-2.0); EOSINOPHIL 0.5 % (0-4.5); MCH 28.3 pg (25.7-33.7); MCHC 33.5 g/dl (32.0-36.0); MEAN CELL VOLUME 84.6 fl (80-96); MEAN PLT VOLUME 8.2 fl (7.5-11.1); NEUTROPHILS 79.3 % (42.8-82.8); PLATELET COUNT 306 K/MM3 (134-434); RDW 18.3 % (11.6-15.6); WHITE BLOOD COUNT 17.2 K/mm3 (4.0-10.0)
[2016-10-18 08:12] LABS: ALBUMIN 1.8 g/dl (3.4-5.0); ANION GAP 10 (8-16); CALCIUM 7.4 mg/dL (8.5-10.1); CO2 24 mmol/L (21-32); CREATININE 0.7 mg/dL (0.55-1.02); GLUCOSE,RANDOM 99 mg/dL (74-106); SGOT/AST 85 U/L (15-37); SGPT/ALT 59 U/L (12-78)
[2016-10-18] MEDS ORDERED: INSULIN (NOVOLOG MIX 70/30) 100 UNITS/ML MDV SQ ONE (08:25)
[2016-10-18 08:26] LABS: INR 1.26 (0.82-1.09); PROTHROMBIN TIME (PATIENT) 13.9 SEC (9.98-11.88)
[2016-10-18 08:28] LABS: BILIRUBIN,TOTAL 1.9 mg/dL (0.2-1.0); TOT PROT 4.7 g/dl (6.4-8.2)
[2016-10-18 08:30] LABS: ALK PHOS 1006 U/L (45-117)
[2016-10-18] MEDS ORDERED: LOSARTAN POTASSIUM 50 MG TABLET (FP) PO SCH (10:00)
[2016-10-18] MEDS: SODIUM CHLORIDE 1,000 ML IV SCH ×2 (10:02→10:03)
[2016-10-18] MEDS: ERTAPENEM SODIUM 1 GM in SODIUM CHLORIDE 50 ML IVPB SCH (10:04)
[2016-10-18] MEDS: SUCRALFATE 1 GM/10 ML UNIT DOSE CUPS PO SCH ×2 (10:05→22:44)
[2016-10-18] MEDS: RANITIDINE HCL 150 MG TABLET (FP) PO SCH ×2 (10:05→22:44)
[2016-10-18] MEDS: ENOXAPARIN NA (PORCINE) 40 MG/0.4 ML DISP.SYRIN SQ SCH (10:05)
[2016-10-18] MEDS: amLODIPine BESYLATE 5 MG TABLET (FP) PO SCH (10:06)
[2016-10-18] MEDS: LOSARTAN POTASSIUM 50 MG TABLET (FP) PO SCH (10:06)
--- NOTE | 2016-10-18 10:33 | PN ---
Progress Note (short form) - Note Progress Note: PULMONARY Still with persistent cough with occasional hemoptysis. Last Vital Signs Temp Pulse Resp BP Pulse Ox 99.1 F 100 H 18 144/72 97 10/18/16 08:42 10/18/16 08:42 10/18/16 08:42 10/18/16 08:42 10/17/16 21:00 Gen: weak appearing but in NAD Heart: tachycardic, regular Lung: decreased breath sounds right base Abd: soft, nontender Ext: no edema CBC, BMP 10/18/16 06:00 10/18/16 06:00 Active Medications Acetaminophen (Tylenol -) 325 mg PO Q8H PRN PRN Reason: FEVER OR PAIN Last Admin: 10/16/16 17:53 Dose: 325 mg Amlodipine Besylate (Norvasc -) 5 mg PO DAILY [facility] Last Admin: 10/18/16 10:06 Dose: 5 mg Enoxaparin Sodium (Lovenox -) 40 mg SQ DAILY [facility] Last Admin: 10/18/16 10:05 Dose: 40 mg Guaifenesin (Robitussin -) 10 ml PO Q6H PRN PRN Reason: COUGH Last Admin: 10/18/16 06:17 Dose: 10 ml Ertapenem 1 gm/ Sodium (Chloride) 50 mls @ 50 mls/hr IVPB DAILY [facility] PRN Reason: Protocol Last Admin: 10/18/16 10:04 Dose: 50 mls/hr Sodium Chloride (Normal Saline -) 1,000 mls @ 100 mls/hr IV ASDIR [facility] Last Admin: 10/18/16 10:03 Dose: Not Given Losartan Potassium (Cozaar -) 100 mg PO DAILY [facility] Last Admin: 10/18/16 10:06 Dose: 100 mg Nystatin (Nystatin Oral Suspension -) 500,000 units PO Q6HPO [facility] Last Admin: 10/18/16 07:07 Dose: 500,000 units Ondansetron HCl (Zofran -) 8 mg PO Q8H PRN PRN Reason: NAUSEA Ranitidine HCl (Zantac -) 150 mg PO BID [facility] Last Admin: 10/18/16 10:05 Dose: 150 mg Sucralfate (Carafate Oral Suspension -) 1 gm PO BID [facility] Last Admin: 10/18/16 10:05 Dose: 1 gm A/P Metastatic Renal Cell Ca to lung, liver Pleural Effusion - Exudative Hemoptysis Fever likely from malignancy - agree with thoracic surgery eval for pleur-x placement - cough suppressants - monitor hemoptysis - DVT prophylaxis
--- NOTE | 2016-10-18 12:14 | CONSULT ---
Consult - text type - Consultation Consultation Note: Thoracic Consultation: Pt seen and examined for pleural effusion, possible malignant that is symptomatic. Briefly, h/o urothelial cancer with lung metastases and bilateral pleural effusions, right greater than left. Thoracentesis on right cytology pending. Thoracentesis was incomplete so unclear if this will palliate. Based on her functional status reasonable to consider vats drainage with pleur-x. Will put on schedule for tomorrow. NPO p MN. Needs labs, type and screen. I have spent >40 minutes in this consultation including counseling and coordination of care with Dr. Cordero, reviewing history, images, and discussing risks/benefits/alternatives of the procedure with her and her daughter.
--- NOTE | 2016-10-18 14:28 | PN ---
Progress Note, Physician History of Present Illness: patient continues to improve sitting in chair thoracic surgery note noted - Current Medication List Current Medications: Active Medications Acetaminophen (Tylenol -) 325 mg PO Q8H PRN PRN Reason: FEVER OR PAIN Last Admin: 10/16/16 17:53 Dose: 325 mg Amlodipine Besylate (Norvasc -) 5 mg PO DAILY [facility] Last Admin: 10/18/16 10:06 Dose: 5 mg Enoxaparin Sodium (Lovenox -) 40 mg SQ DAILY [facility] Last Admin: 10/18/16 10:05 Dose: 40 mg Guaifenesin (Robitussin -) 10 ml PO Q6H PRN PRN Reason: COUGH Last Admin: 10/18/16 13:07 Dose: 10 ml Ertapenem 1 gm/ Sodium (Chloride) 50 mls @ 50 mls/hr IVPB DAILY [facility] PRN Reason: Protocol Last Admin: 10/18/16 10:04 Dose: 50 mls/hr Sodium Chloride (Normal Saline -) 1,000 mls @ 100 mls/hr IV ASDIR [facility] Last Admin: 10/18/16 10:03 Dose: Not Given Losartan Potassium (Cozaar -) 100 mg PO DAILY [facility] Last Admin: 10/18/16 10:06 Dose: 100 mg Nystatin (Nystatin Oral Suspension -) 500,000 units PO Q6HPO [facility] Last Admin: 10/18/16 13:09 Dose: 500,000 units Ondansetron HCl (Zofran -) 8 mg PO Q8H PRN PRN Reason: NAUSEA Ranitidine HCl (Zantac -) 150 mg PO BID [facility] Last Admin: 10/18/16 10:05 Dose: 150 mg Sucralfate (Carafate Oral Suspension -) 1 gm PO BID [facility] Last Admin: 10/18/16 10:05 Dose: 1 gm - Objective Vital Signs: Vital Signs Temperature 100.4 F H 10/18/16 14:17 Pulse Rate 124 H 10/18/16 14:17 Respiratory Rate 18 10/18/16 14:17 Blood Pressure 133/70 10/18/16 14:17 O2 Sat by Pulse Oximetry (%) 97 10/17/16 21:00 Constitutional: Yes: No Distress, Calm Cardiovascular: Yes: Regular Rate and Rhythm Respiratory: Yes: Regular, Other (decreased air entry) Musculoskeletal: Yes: WNL Extremities: Yes: WNL Neurological: Yes: Alert, Oriented Psychiatric: Yes: Alert, Oriented Labs: CBC, BMP 10/18/16 06:00 10/18/16 06:00 INR, PTT INR 1.26 (0.82-1.09) H 10/18/16 06:00 Assessment/Plan ) Renal carcinoma (s/p L nephrectomy) with mets to lungs and liver 2) CKD 3) Abdominal pain, right-sided 4) HTN 5) Hyperlipidemia plan continue current mgmt patient improving rest as per primary team physio incentive cindy thoracic surgery note noted i think pleurex catheter is a good idea as i doubt the collection will stop
--- NOTE | 2016-10-18 15:24 | SPA.PREOP ---
- PRE-OP NOTE Dx: Loculated pleural effusion Planned Procedure: VATs drainage with pleur-x cath Surgeon: Jason Holley Consent: To be obtained by surgeon after risks, benefits and alternatives explained to patient. Last Vital Signs Temp Pulse Resp BP Pulse Ox 100.4 F H 124 H 18 133/70 95 10/18/16 14:17 10/18/16 14:17 10/18/16 14:17 10/18/16 14:17 10/18/16 09:00 Lab Results WBC 17.2 K/mm3 (4.0-10.0) H 10/18/16 06:00 RBC 3.10 M/mm3 (3.60-5.2) L 10/18/16 06:00 Hgb 8.8 GM/dL (10.7-15.3) L 10/18/16 06:00 Hct 26.2 % (32.4-45.2) L 10/18/16 06:00 MCV 84.6 fl (80-96) 10/18/16 06:00 MCHC 33.5 g/dl (32.0-36.0) 10/18/16 06:00 RDW 18.3 % (11.6-15.6) H 10/18/16 06:00 Plt Count 306 K/MM3 (134-434) 10/18/16 06:00 Sodium 142 mmol/L (136-145) 10/18/16 06:00 Potassium 3.5 mmol/L (3.5-5.1) 10/18/16 06:00 Chloride 108 mmol/L (98-107) H 10/18/16 06:00 Carbon Dioxide 24 mmol/L (21-32) 10/18/16 06:00 Anion Gap 10 (8-16) 10/18/16 06:00 BUN 19 mg/dL (7-18) H 10/18/16 06:00 Creatinine 0.7 mg/dL (0.55-1.02) 10/18/16 06:00 Random Glucose 99 mg/dL (74-106) 10/18/16 06:00 Calcium 7.4 mg/dL (8.5-10.1) L 10/18/16 06:00 Blood Type A POSITIVE 10/13/16 23:30 Antibody Screen Negative 10/13/16 23:30 INR 1.26 (0.82-1.09) H 10/18/16 06:00 - ASSESSMENT/PLAN 1. Make NPO after midnight except po meds 2. GI/DVT PPX 3. Medical optimization / clearance Visit type - Case Type Case Type: ED Admission - New patient This patient is new to me today: Yes Date on this admission: 10/18/16
--- NOTE | 2016-10-18 16:02 | PN ---
Teaching Attending Note Name of Resident: Tyree Jensen ATTENDING PHYSICIAN STATEMENT I saw and evaluated the patient. I reviewed the resident's note and discussed the case with the resident. I agree with the resident's findings and plan as documented. SUBJECTIVE: feels worse today. has abd pain No SOB OBJECTIVE: NAD CV: RRR, no JVD Lungs: decreased breath sounds at b/l bases R > L Ext: trace edema on LE . ABd : soft , TTP in RUQ. Liver is palpated 5 cm below the costal margin. NL BS, no rebound tenderness ASSESSMENT AND PLAN: 71 y/o unfortunate lady with h/o HTN, renal cell Ca with lung and liver mets , s /[place] chemo [place], and recent hospitalization fro PNA , who presented with fever and malaise 1-Sepsis: source could be Urine vs Lung. - Cont meropenem day 5 - Blood cx neg to date, pleural fluid cx neg . Urine cx neg , but was on levaquin at home - cont IVF,decrease rate 2-Pleural effusion R > L. looks loculated. s/p R thoracentesis. Exudative likely from tumor . only 140 cc removed. cytology neg, and cx neg - On schedule for VATS/pleur-x - NO absolute contraindication for procedure 3-Renal cell carcinoma: with mets to liver and lungs. -Further cancer treatment to Cont at [facility] 4- Thrush: Nystatin 5- HTN: cont losartan 6- Transaminitis : due to liver mets 8- ACD , s/p 1 unit of RBC 9- Urinary retention , Dc [facility] HLOC
--- NOTE | 2016-10-18 16:14 | PN ---
Physical Exam: SUBJECTIVE: Patient seen and examined at bedside. Pt complains of cough with blood-tinged sputum and mild right and left abdominal pain. No other complaints at this time. Denies headache, fever, diarrhea, nausea, vomiting. OBJECTIVE: Vital Signs Period Temp Pulse Resp BP Sys/Aldrich Pulse Ox Last 24 Hr 99 F-100.4 F 100-124 18-20 127-150/62-73 95-97 GENERAL: The patient is awake, alert, and fully oriented, in no acute distress. HEAD: Normal with no signs of trauma. EYES: scleral icterus,No ptosis. ENT: nares patent, oropharynx clear without exudates, moist mucous membranes. NECK: Trachea midline, full range of motion, supple, no carotid bruits. LUNGS: decreased breath sounds in R lung base, clear to auscultation bilaterally , no wheezes, no crackles, no accessory muscle use. HEART: Regular rate and rhythm, normal S1, S2 without murmur, rub or gallop. ABDOMEN: Soft, tender to palpation in RUQ, nondistended, normoactive bowel sounds, no guarding, no rebound, no hepatosplenomegaly, no masses. No cva tenderness EXTREMITIES: 2+ pulses, warm, well-perfused, no edema. NEUROLOGICAL: Cranial nerves II through XII grossly intact. Normal speech, gait not observed. PSYCH: Normal mood, normal affect. SKIN: Warm, dry, normal turgor, no rashes or lesions noted Laboratory Results - last 24 hr 10/18/16 10/18/16 10/18/16 06:00 06:00 06:00 WBC 17.2 H RBC 3.10 L Hgb 8.8 L Hct 26.2 L MCV 84.6 MCH 28.3 MCHC 33.5 RDW 18.3 H Plt Count 306 MPV 8.2 Neutrophils % 79.3 Lymphocytes % 11.7 D Monocytes % 8.3 Eosinophils % 0.5 Basophils % 0.2 INR 1.26 H Sodium 142 Potassium 3.5 Chloride 108 H Carbon Dioxide 24 Anion Gap 10 BUN 19 H Creatinine 0.7 Creat Clearance w eGFR > 60 Random Glucose 99 Calcium 7.4 L Total Bilirubin 1.9 H D AST 85 H D ALT 59 D Alkaline Phosphatase 1006 H D Total Protein 4.7 L Albumin 1.8 L Blood Type Antibody Screen 10/18/16 14:00 WBC RBC Hgb Hct MCV MCH MCHC RDW Plt Count MPV Neutrophils % Lymphocytes % Monocytes % Eosinophils % Basophils % INR Sodium Potassium Chloride Carbon Dioxide Anion Gap BUN Creatinine Creat Clearance w eGFR Random Glucose Calcium Total Bilirubin AST ALT Alkaline Phosphatase Total Protein Albumin Blood Type A POSITIVE Antibody Screen Negative Active Medications Generic Name Dose Route Start Last Admin Trade Name Freq PRN Reason Stop Dose Admin Acetaminophen 325 mg 10/14/16 06:00 10/16/16 17:53 Tylenol - PO 325 mg Q8H PRN Administration FEVER OR PAIN Amlodipine Besylate 5 mg 10/14/16 10:00 10/18/16 10:06 Norvasc - PO 5 mg DAILY JOSE Administration Enoxaparin Sodium 40 mg 10/14/16 18:00 10/18/16 10:05 Lovenox - SQ 40 mg DAILY JOSE Administration Guaifenesin 10 ml 10/14/16 19:07 10/18/16 13:07 Robitussin - PO 10 ml Q6H PRN Administration COUGH Ertapenem 1 gm/ Sodium 50 mls @ 50 mls/hr 10/15/16 21:00 10/18/16 10:04 Chloride IVPB 50 mls/hr DAILY JOSE Administration Protocol Sodium Chloride 1,000 mls @ 75 mls/hr 10/18/16 16:15 Normal Saline - IV ASDIR JOSE Losartan Potassium 100 mg 10/17/16 14:45 10/18/16 10:06 Cozaar - PO 100 mg DAILY JOSE Administration Nystatin 500,000 units 10/14/16 12:00 10/18/16 13:09 Nystatin Oral Suspension - PO 500,000 units Q6HPO JOSE Administration Ondansetron HCl 8 mg 10/14/16 19:07 Zofran - PO Q8H PRN NAUSEA Ranitidine HCl 150 mg 10/14/16 10:00 10/18/16 10:05 Zantac - PO 150 mg BID JOSE Administration Sucralfate 1 gm 10/14/16 10:00 10/18/16 10:05 Carafate Oral Suspension - PO 1 gm BID JOSE Administration ASSESSMENT/PLAN: 71yo F h/o renal ca (s/p nephrectomy 02/2016) with multiple mets to liver and lungs, HTN, and recent hospitalization for PNA. Leukocytosis 15.9, Fever 102 ( per ER physician), Tachycardia 116. CXR increased b/l effusions (R>L); questionable opacity right cardiac border most likely representing congestion. LA 1.4, 1.0. #Sepsis -Pt measured her fever at 102, and had tachycardia of 116 on admission. Site of infection: pleural effusion vs UTI -BCx, UCx, pleural fluid Cx neg -US guided thoracentesis of pleural effusion: exudative by Light's criteria -Per ID, Meropenem #RUQ pain -Due to liver metastases #Pleural effusion -tap showed no cancer cells, exudative -post-tap CXR slightly improved. Only 140cc removed in the tap -effusion appears loculated. Pt will go for VATS tomorrow with placement of drainage pleur-x cath -Robitussin for cough #Renal carcinoma (s/o L nephrectomy) with liver and lung mets -reactive leukocytosis and low grade fever -per Heme/Onc, pt will not be able to get chemo at this hospital because of insurance issues. Pt will need to be stabilized and transferred probably to [facility] -palliative consult #HTN -Continued home medication Amlodipine #Hyperlipidemia -Holding atorvastatin in light of worsening AST #FEN -NS @ 50mls/hr -lytes wnl -Regular Diet #PPX -Lovenox Dispo: Admit to med-surg floor Visit type - Emergency Visit Emergency Visit: No - New Patient This patient is new to me today: No - Critical Care Critical Care patient: No - Discharge Referral Referred to [facility] Med P.C.: No
[2016-10-18] MEDS ORDERED: SODIUM CHLORIDE 1,000 ML IV SCH (16:15)
[2016-10-18] MEDS: ACETAMINOPHEN 325 MG TABLET (FP) PO PRN (17:14)
[2016-10-18] MEDS ORDERED: PT OWN MED DRAWER 7, Y5N ONE (23:38)
[2016-10-19] MEDS ORDERED: PT OWN MED DRAWER 7, Y5N ONE ×2 (00:08→00:10)
[2016-10-19] MEDS: guaiFENesin 200 MG/10 ML 10 ML UNIT-DOSE CUPS PO PRN (00:10)
[2016-10-19] MEDS: NYSTATIN 500,000 UNITS/5 ML SUSPENSION PO SCH ×4 (00:12→17:34)
[2016-10-19] MEDS: SODIUM CHLORIDE 1,000 ML IV SCH ×2 (06:18→20:30)
[2016-10-19] MEDS ORDERED: ONDANSETRON 4 MG/2 ML VIAL IVPUSH ONE ×2 (06:31→06:45)
[2016-10-19 07:45] LABS: BASOPHIL 0.3 % (0-2.0); EOSINOPHIL 0.2 % (0-4.5); MCH 27.8 pg (25.7-33.7); MEAN CELL VOLUME 84.3 fl (80-96); MEAN PLT VOLUME 8.4 fl (7.5-11.1); NEUTROPHILS 84.5 % (42.8-82.8); PLATELET COUNT 303 K/MM3 (134-434); RDW 18.1 % (11.6-15.6); WHITE BLOOD COUNT 15.9 K/mm3 (4.0-10.0)
[2016-10-19 07:59] LABS: INR 1.36 (0.82-1.09)
[2016-10-19 08:40] LABS: ALBUMIN 1.7 g/dl (3.4-5.0); ANION GAP 9 (8-16); BILIRUBIN,TOTAL 1.4 mg/dL (0.2-1.0); CALCIUM 7.7 mg/dL (8.5-10.1); CO2 24 mmol/L (21-32); CREATININE 0.8 mg/dL (0.55-1.02); GLUCOSE,RANDOM 101 mg/dL (74-106); SGOT/AST 84 U/L (15-37); SGPT/ALT 56 U/L (12-78); TOT PROT 4.5 g/dl (6.4-8.2)
[2016-10-19 08:53] LABS: ALK PHOS 1003 U/L (45-117)
[2016-10-19] MEDS: RANITIDINE HCL 150 MG TABLET (FP) PO SCH ×2 (09:37→21:53)
[2016-10-19] MEDS: LOSARTAN POTASSIUM 50 MG TABLET (FP) PO SCH (09:38)
[2016-10-19] MEDS: SUCRALFATE 1 GM/10 ML UNIT DOSE CUPS PO SCH ×2 (09:39→22:00)
[2016-10-19] MEDS: ERTAPENEM SODIUM 1 GM in SODIUM CHLORIDE 50 ML IVPB SCH (09:39)
--- NOTE | 2016-10-19 10:29 | PN ---
Progress Note (short form) - Note Progress Note: PULMONARY Breathing about the same. Still with persistent cough with occasional hemoptysis. For VATS/pleur-x today. Last Vital Signs Temp Pulse Resp BP Pulse Ox 98.4 F 115 H 18 139/67 94 L 10/19/16 06:00 10/19/16 06:00 10/19/16 06:00 10/19/16 06:00 10/18/16 20:58 Gen: weak appearing but in NAD Heart: tachycardic, regular Lung: decreased breath sounds right base Abd: soft, nontender Ext: no edema CBC, BMP 10/19/16 06:00 10/19/16 06:00 Active Medications Acetaminophen (Tylenol -) 325 mg PO Q8H PRN PRN Reason: FEVER OR PAIN Last Admin: 10/18/16 17:14 Dose: 325 mg Guaifenesin (Robitussin -) 10 ml PO Q6H PRN PRN Reason: COUGH Last Admin: 10/19/16 00:10 Dose: 10 ml Ertapenem 1 gm/ Sodium (Chloride) 50 mls @ 50 mls/hr IVPB DAILY JOSE PRN Reason: Protocol Last Admin: 10/19/16 09:39 Dose: 50 mls/hr Sodium Chloride (Normal Saline -) 1,000 mls @ 50 mls/hr IV ASDIR [facility] Stop: 10/20/16 06:00 Last Admin: 10/19/16 06:18 Dose: 50 mls/hr Losartan Potassium (Cozaar -) 100 mg PO DAILY [facility] Last Admin: 10/19/16 09:38 Dose: 100 mg Nystatin (Nystatin Oral Suspension -) 500,000 units PO Q6HPO [facility] Last Admin: 10/19/16 06:17 Dose: Not Given Ondansetron HCl (Zofran -) 8 mg PO Q8H PRN PRN Reason: NAUSEA Ranitidine HCl (Zantac -) 150 mg PO BID [facility] Last Admin: 10/19/16 09:37 Dose: 150 mg Sucralfate (Carafate Oral Suspension -) 1 gm PO BID JOSE Last Admin: 10/19/16 09:39 Dose: 1 gm A/P Metastatic Renal Cell Ca to lung, liver Pleural Effusion - Exudative Hemoptysis Fever likely from malignancy - for R VATS/pleur-x placement - cough suppressants - monitor hemoptysis - DVT prophylaxis
--- NOTE | 2016-10-19 10:37 | PN ---
Progress Note (short form) - Note Progress Note: Seen and examined the patient. No overnight events. She feels OK. Mild cough present, dyspenic on exterion. She mentioned that she did eat good yesterday. Presently NPO Was seen by PT resting comfortably in NAD NCAT RRR Decreased breath sounds bilaterally no LE edema seen, has SCDs Last Vital Signs Temp Pulse Resp BP Pulse Ox 98.4 F 115 H 18 139/67 94 L 10/19/16 06:00 10/19/16 06:00 10/19/16 06:00 10/19/16 06:00 10/18/16 20:58 CBC, BMP 10/19/16 06:00 10/19/16 06:00 Current Medications Generic Name Dose Route Start Last Admin Trade Name Freq PRN Reason Stop Dose Admin Acetaminophen 325 mg 10/14/16 06:00 10/18/16 17:14 Tylenol - PO 325 mg Q8H PRN Administration FEVER OR PAIN Guaifenesin 10 ml 10/14/16 19:07 10/19/16 00:10 Robitussin - PO 10 ml Q6H PRN Administration COUGH Ertapenem 1 gm/ Sodium 50 mls @ 50 mls/hr 10/15/16 21:00 10/19/16 09:39 Chloride IVPB 50 mls/hr DAILY JOSE Administration Protocol Sodium Chloride 1,000 mls @ 50 mls/hr 10/19/16 06:00 10/19/16 06:18 Normal Saline - IV 10/20/16 06:00 50 mls/hr ASDIR JOSE Administration Losartan Potassium 100 mg 10/17/16 14:45 10/19/16 09:38 Cozaar - PO 100 mg DAILY JOSE Administration Nystatin 500,000 units 10/14/16 12:00 10/19/16 06:17 Nystatin Oral Suspension - PO Not Given Q6HPO JOSE Ondansetron HCl 8 mg 10/14/16 19:07 Zofran - PO Q8H PRN NAUSEA Ranitidine HCl 150 mg 10/14/16 10:00 10/19/16 09:37 Zantac - PO 150 mg BID JOSE Administration Sucralfate 1 gm 10/14/16 10:00 10/19/16 09:39 Carafate Oral Suspension - PO 1 gm BID JOSE Administration Assessment/Plan: is a 71 year old with h.o Metastatic Urothelial Cancer ( Lung, liver mets) progressed on front line immunotherapy ,treated in [facility] , is admitted for symptomatic lung mets. Metastatic lung/Liver , from Urothelial Papillary high grade Dyspnea from lung mets Pleural effusion .,exudative, likely malignant CKD Abnormal LFTs Elevated INR Sepsis likely due to Pyelo/PNA Anemia -abx per ID, on ertepenam. Febrile yesterday. -appreciate CTS consult, for VATS pleural catheter today -appreciate pulm consult -s/p one unit on 10/15 of PRBC. transfuse prn -leuckocytosis/fevers: could be reactive to tumor burden in addition to infection -Abn LFTs/elevated INR, from liver mets -PT eval done, pt mentioned that she was able to walk from bed to the hallway. -resume dvt ppx when appropriate post procedure. will follow. -
[2016-10-19] MEDS ORDERED: POTASSIUM CHLORIDE TABS 20 MEQ TABLET.ER (FP) PO ONE ×2 (12:35→22:00)
--- NOTE | 2016-10-19 13:44 | PN ---
Progress Note, Physician History of Present Illness: patient stable no new issues patient for pleurodesesis pleurx catheter - Current Medication List Current Medications: Active Medications Acetaminophen (Tylenol -) 325 mg PO Q8H PRN PRN Reason: FEVER OR PAIN Last Admin: 10/18/16 17:14 Dose: 325 mg Guaifenesin (Robitussin -) 10 ml PO Q6H PRN PRN Reason: COUGH Last Admin: 10/19/16 00:10 Dose: 10 ml Ertapenem 1 gm/ Sodium (Chloride) 50 mls @ 50 mls/hr IVPB DAILY [facility] PRN Reason: Protocol Last Admin: 10/19/16 09:39 Dose: 50 mls/hr Sodium Chloride (Normal Saline -) 1,000 mls @ 50 mls/hr IV ASDIR [facility] Stop: 10/20/16 06:00 Last Admin: 10/19/16 06:18 Dose: 50 mls/hr Losartan Potassium (Cozaar -) 100 mg PO DAILY [facility] Last Admin: 10/19/16 09:38 Dose: 100 mg Nystatin (Nystatin Oral Suspension -) 500,000 units PO Q6HPO [facility] Last Admin: 10/19/16 06:17 Dose: Not Given Ondansetron HCl (Zofran -) 8 mg PO Q8H PRN PRN Reason: NAUSEA Ranitidine HCl (Zantac -) 150 mg PO BID [facility] Last Admin: 10/19/16 09:37 Dose: 150 mg Sucralfate (Carafate Oral Suspension -) 1 gm PO BID [facility] Last Admin: 10/19/16 09:39 Dose: 1 gm - Objective Vital Signs: Vital Signs Temperature 98.1 F 10/19/16 10:00 Pulse Rate 102 H 10/19/16 10:00 Respiratory Rate 19 10/19/16 10:00 Blood Pressure 132/64 10/19/16 10:00 O2 Sat by Pulse Oximetry (%) 94 L 10/19/16 09:00 Constitutional: Yes: No Distress, Calm Cardiovascular: Yes: Regular Rate and Rhythm Respiratory: Yes: Regular, On Nasal O2, Poor Air Entry Gastrointestinal: Yes: Normal Bowel Sounds, Soft Musculoskeletal: Yes: WNL Extremities: Yes: WNL Neurological: Yes: Alert, Oriented Psychiatric: Yes: Alert, Oriented Labs: CBC, BMP 10/19/16 06:00 10/19/16 06:00 INR, PTT INR 1.36 (0.82-1.09) H 10/19/16 06:00 Assessment/Plan ) Renal carcinoma (s/p L nephrectomy) with mets to lungs and liver 2) CKD 3) Abdominal pain, right-sided 4) HTN 5) Hyperlipidemia leukocytosis plan continue current mgmt patient improving rest as per primary team physio incentive cindy pleurex catheter today
--- NOTE | 2016-10-19 14:10 | PN ---
Teaching Attending Note Name of Resident: Tyree Jensen ATTENDING PHYSICIAN STATEMENT I saw and evaluated the patient. I reviewed the resident's note and discussed the case with the resident. I agree with the resident's findings and plan as documented. SUBJECTIVE: no fever or chills. has no abd pain. was nauseous earlier. no OSB. minimal cough with minmal hemoptysis OBJECTIVE: NAD CV: RRR, no JVD Lungs: decreased breath sounds at b/l bases R > L Ext: trace edema on LE . ABd : soft , TTP in RUQ. Liver is palpated 5 cm below the costal margin. NL BS, no rebound tenderness ASSESSMENT AND PLAN: 71 y/o unfortunate lady with h/o HTN, renal cell Ca with lung and liver mets , s /p resection and chemo in [place], and recent hospitalization fro PNA , who presented with fever and malaise 1-Sepsis: source could be Urine vs Lung. - Cont meropenem day 6 - Blood cx neg to date, pleural fluid cx neg . Urine cx neg , but was on levaquin at home - cont decreased rate of IVF , may dc later todayor tomorrow am 2-Pleural effusion R > L. looks loculated. s/p R thoracentesis. Exudative likely from tumor . only 140 cc removed. cytology neg, and cx neg - VATS/pleur-x today 3-Renal cell carcinoma: with mets to liver and lungs. -Further cancer treatment to Cont at [facility] 4- Thrush: Nystatin 5- HTN: cont losartan 6- Transaminitis : due to liver Mets 8- ACD , s/p 1 unit of RBC 9- Urinary retention , s/p christopher . dc'd HLOC
--- NOTE | 2016-10-19 16:31 | PN ---
Physical Exam: SUBJECTIVE: Patient seen and examined at bedside. Pt complains of cough with blood-tinged sputum and mild right and left abdominal pain. Pt also had nausea this morning. No other complaints at this time. Denies headache, fever, diarrhea , nausea, vomiting. OBJECTIVE: Vital Signs Period Temp Pulse Resp BP Sys/Aldrich Pulse Ox Last 24 Hr 98.1 F-101.7 F 102-116 18-20 132-147/64-71 94-94 GENERAL: The patient is awake, alert, and fully oriented, in no acute distress. HEAD: Normal with no signs of trauma. EYES: scleral icterus,No ptosis. ENT: nares patent, oropharynx clear without exudates, moist mucous membranes. NECK: Trachea midline, full range of motion, supple, no carotid bruits. LUNGS: decreased breath sounds in R lung base, clear to auscultation bilaterally , no wheezes, no crackles, no accessory muscle use. HEART: Regular rate and rhythm, normal S1, S2 without murmur, rub or gallop. ABDOMEN: Soft, tender to palpation in RUQ, nondistended, normoactive bowel sounds, no guarding, no rebound, no hepatosplenomegaly, no masses. No cva tenderness EXTREMITIES: 2+ pulses, warm, well-perfused, no edema. NEUROLOGICAL: Cranial nerves II through XII grossly intact. Normal speech, gait not observed. PSYCH: Normal mood, normal affect. SKIN: Warm, dry, normal turgor, no rashes or lesions noted Laboratory Results - last 24 hr 10/19/16 10/19/16 10/19/16 06:00 06:00 06:00 WBC 15.9 H RBC 2.81 L Hgb 7.8 L D Hct 23.7 L MCV 84.3 MCH 27.8 MCHC 33.0 RDW 18.1 H Plt Count 303 MPV 8.4 Neutrophils % 84.5 H Lymphocytes % 7.6 L D Monocytes % 7.4 Eosinophils % 0.2 Basophils % 0.3 INR 1.36 H Sodium 143 Potassium 3.3 L Chloride 110 H Carbon Dioxide 24 Anion Gap 9 BUN 22 H Creatinine 0.8 Creat Clearance w eGFR > 60 Random Glucose 101 Calcium 7.7 L Total Bilirubin 1.4 H D AST 84 H ALT 56 Alkaline Phosphatase 1003 H Total Protein 4.5 L Albumin 1.7 L Active Medications Generic Name Dose Route Start Last Admin Trade Name Freq PRN Reason Stop Dose Admin Acetaminophen 325 mg 10/14/16 06:00 10/18/16 17:14 Tylenol - PO 325 mg Q8H PRN Administration FEVER OR PAIN Guaifenesin 10 ml 10/14/16 19:07 10/19/16 00:10 Robitussin - PO 10 ml Q6H PRN Administration COUGH Ertapenem 1 gm/ Sodium 50 mls @ 50 mls/hr 10/15/16 21:00 10/19/16 09:39 Chloride IVPB 50 mls/hr DAILY JOSE Administration Protocol Sodium Chloride 1,000 mls @ 50 mls/hr 10/19/16 06:00 10/19/16 06:18 Normal Saline - IV 10/20/16 06:00 50 mls/hr ASDIR JOSE Administration Losartan Potassium 100 mg 10/17/16 14:45 10/19/16 09:38 Cozaar - PO 100 mg DAILY JOSE Administration Nystatin 500,000 units 10/14/16 12:00 10/19/16 06:17 Nystatin Oral Suspension - PO Not Given Q6HPO JOSE Ondansetron HCl 8 mg 10/14/16 19:07 Zofran - PO Q8H PRN NAUSEA Ranitidine HCl 150 mg 10/14/16 10:00 10/19/16 09:37 Zantac - PO 150 mg BID JOSE Administration Sucralfate 1 gm 10/14/16 10:00 10/19/16 09:39 Carafate Oral Suspension - PO 1 gm BID JOSE Administration ASSESSMENT/PLAN: 71yo F h/o renal ca (s/p nephrectomy 02/2016) with multiple mets to liver and lungs, HTN, and recent hospitalization for PNA. Leukocytosis 15.9, Fever 102 ( per ER physician), Tachycardia 116. CXR increased b/l effusions (R>L); questionable opacity right cardiac border most likely representing congestion. LA 1.4, 1.0. #Pleural effusion -tap showed no cancer cells, exudative -post-tap CXR slightly improved. Only 140cc removed in the tap -Pt will go for VATS with placement of drainage pleur-x cath -Robitussin for cough #Sepsis -Pt measured her fever at 102, and had tachycardia of 116 on admission. Site of infection: pleural effusion vs UTI -BCx, UCx, pleural fluid Cx neg -US guided thoracentesis of pleural effusion: exudative by Light's criteria -Per ID, Ertapenem #RUQ pain, lft abnormalities, elev INR -Due to liver metastases #Renal carcinoma (s/o L nephrectomy) with liver and lung mets -reactive leukocytosis and low grade fever -per Heme/Onc, pt will not be able to get chemo at this hospital because of insurance issues. Pt will need to be stabilized and transferred probably to [facility] -palliative consult #HTN -Continued home medication Amlodipine #Hyperlipidemia -Holding atorvastatin in light of worsening AST #FEN -NS @ 50mls/hr -low K. repleting -Regular Diet #PPX -Lovenox Dispo: Admit to med-surg floor Visit type - Emergency Visit Emergency Visit: No - New Patient This patient is new to me today: No - Critical Care Critical Care patient: No - Discharge Referral Referred to [facility] Med P.C.: No
[2016-10-19] MEDS ORDERED: MIDAZOLAM HCL 2 MG/2 ML SINGLE DOSE VIAL ONE (17:05)
[2016-10-19] MEDS ORDERED: PROPOFOL 20 ML ONE (17:05)
[2016-10-19] MEDS ORDERED: ROCURONIUM BROMIDE 50 MG/5 ML VIAL ONE (17:05)
[2016-10-19] MEDS ORDERED: LIDOCAINE HCL/PF 2% SDV 5ML VIAL ONE (17:06)
[2016-10-19] MEDS ORDERED: LIDOCAINE HCL 1%, 10 MG/ML (20ML VIAL) ONE (17:14)
[2016-10-19] MEDS ORDERED: BUPIVACAINE HCL/PF 0.5% (5MG/ML) 10 ML VIAL ONE (17:14)
[2016-10-19] MEDS ORDERED: HEPARIN NA (PORCINE) 5,000 UNITS/ML 1ML VIAL SQ ONE (18:15)
[2016-10-19] MEDS ORDERED: DEXAMETHASONE SOD PHOSPHATE 4 MG/1 ML VIAL ONE (18:20)
[2016-10-19] MEDS ORDERED: LIDOCAINE 1%/EPI 1:100000 (20 ML MULTI DOSE VIAL) IJ ONE (18:30)
[2016-10-19] MEDS ORDERED: BUPIVACAINE HCL/PF 0.5% (5MG/ML) 10 ML VIAL NR ONE (18:30)
--- NOTE | 2016-10-19 18:50 | OP ---
Operative Note - Note: Operative Date: 10/19/16 Pre-Operative Diagnosis: Malignant effusion Operation: Bronchoscopy, right vats, placement of pleur-x Findings: Bronchoscopy: airway without tumor; VATS: simple effusion, tube placed posterior at diaphragm, did not do survey as there was no lung isolation. Post-Operative Diagnosis: Same as Pre-op Surgeon: Jason Holley Production Machine Tender: Tru Hassan Anesthesiologist/COMMERCIAL LINES MANAGER: Gigi Ramon Anesthesia: General Estimated Blood Loss (mls): 5 Drains & Tubes with Location: Right pleur-x Operative Report Dictated: Yes
--- NOTE | 2016-10-19 18:54 | SURG ---
Surgery Die Machine Operator Note Die Machine Operator: Tru Hassan PA-C Date of Service: 10/19/16 Diagnosis: Malignant effusion Procedure: Bronchoscopy, right vats, placement of pleur-x catheter I was present for the entirety of the operative procedure. For further detail, please refer to operative report. Visit type - Case Type Case Type: ED Admission - New patient This patient is new to me today: Yes Date on this admission: 10/19/16
[2016-10-19] MEDS: LACTATED RINGERS SOLUTION 1,000 ML IV SCH (21:19)
[2016-10-20] MEDS: NYSTATIN 500,000 UNITS/5 ML SUSPENSION PO SCH ×5 (00:25→23:39)
[2016-10-20 06:30] LABS: BASOPHIL 0.7 % (0-2.0); MCH 27.8 pg (25.7-33.7); MCHC 32.4 g/dl (32.0-36.0); MEAN CELL VOLUME 85.8 fl (80-96); MEAN PLT VOLUME 8.7 fl (7.5-11.1); NEUTROPHILS 90.5 % (42.8-82.8); PLATELET COUNT 341 K/MM3 (134-434); RDW 18.5 % (11.6-15.6); WHITE BLOOD COUNT 16.1 K/mm3 (4.0-10.0)
[2016-10-20 06:56] LABS: ALBUMIN 1.6 g/dl (3.4-5.0); ALK PHOS 816 U/L (45-117); ANION GAP 8 (8-16); BILIRUBIN,TOTAL 1.1 mg/dL (0.2-1.0); CALCIUM 7.7 mg/dL (8.5-10.1); CO2 26 mmol/L (21-32); CREATININE 0.8 mg/dL (0.55-1.02); GLUCOSE,RANDOM 105 mg/dL (74-106); SGOT/AST 63 U/L (15-37); SGPT/ALT 47 U/L (12-78); TOT PROT 4.5 g/dl (6.4-8.2)
[2016-10-20] MEDS: LACTATED RINGERS SOLUTION 1,000 ML IV SCH (07:55)
--- NOTE | 2016-10-20 08:27 | PN ---
<Tyree Jensen - Last Filed: 10/20/16 17:31> Physical Exam: SUBJECTIVE: Patient seen and examined at bedside. Pt states cough and abdominal pain have improved but not resolved. No other complaints at this time. Denies headache, fever, diarrhea, nausea, vomiting. OBJECTIVE: Vital Signs Period Temp Pulse Resp BP Sys/Aldrich Pulse Ox Last 24 Hr 20 F-99.1 F 84-112 16-28 101-133/51-73 94-94 GENERAL: The patient is awake, alert, and fully oriented, in no acute distress. HEAD: Normal with no signs of trauma. EYES: scleral icterus,No ptosis. ENT: nares patent, oropharynx clear without exudates, moist mucous membranes. NECK: Trachea midline, full range of motion, supple, no carotid bruits. LUNGS: decreased breath sounds in R lung base, clear to auscultation bilaterally , no wheezes, no crackles, no accessory muscle use. Right sided drain in place. HEART: Regular rate and rhythm, normal S1, S2 without murmur, rub or gallop. ABDOMEN: Soft, tender to palpation in RUQ, nondistended, normoactive bowel sounds, no guarding, no rebound, no hepatosplenomegaly, no masses. No cva tenderness EXTREMITIES: 2+ pulses, warm, well-perfused, no edema. NEUROLOGICAL: Cranial nerves II through XII grossly intact. Normal speech, gait not observed. PSYCH: Normal mood, normal affect. SKIN: Warm, dry, normal turgor, no rashes or lesions noted Laboratory Results - last 24 hr 10/18/16 10/19/16 10/20/16 14:00 06:00 05:20 WBC 16.1 H RBC 2.66 L Hgb 7.4 L Hct 22.8 L MCV 85.8 MCH 27.8 MCHC 32.4 RDW 18.5 H Plt Count 341 MPV 8.7 Neutrophils % 90.5 H Lymphocytes % 5.5 L D Monocytes % 3.3 L Eosinophils % 0.0 D Basophils % 0.7 Sodium 143 Potassium 3.3 L Chloride 110 H Carbon Dioxide 24 Anion Gap 9 BUN 22 H Creatinine 0.8 Creat Clearance w eGFR > 60 Random Glucose 101 Calcium 7.7 L Total Bilirubin 1.4 H D AST 84 H ALT 56 Alkaline Phosphatase 1003 H Total Protein 4.5 L Albumin 1.7 L Blood Type A POSITIVE Antibody Screen Negative Crossmatch See Detail 10/20/16 05:20 WBC RBC Hgb Hct MCV MCH MCHC RDW Plt Count MPV Neutrophils % Lymphocytes % Monocytes % Eosinophils % Basophils % Sodium 145 Potassium 4.7 D Chloride 111 H Carbon Dioxide 26 Anion Gap 8 BUN 22 H Creatinine 0.8 Creat Clearance w eGFR > 60 Random Glucose 105 Calcium 7.7 L Total Bilirubin 1.1 H D AST 63 H D ALT 47 Alkaline Phosphatase 816 H Total Protein 4.5 L Albumin 1.6 L Blood Type Antibody Screen Crossmatch Active Medications Generic Name Dose Route Start Last Admin Trade Name Freq PRN Reason Stop Dose Admin Acetaminophen 325 mg 10/14/16 06:00 10/18/16 17:14 Tylenol - PO 325 mg Q8H PRN Administration FEVER OR PAIN Fentanyl 25 mcg 10/19/16 19:01 10/19/16 20:10 Sublimaze Injection - IVPUSH 10/22/16 19:02 25 mcg [id number] PRN Administration PAIN Guaifenesin 10 ml 10/14/16 19:07 10/19/16 00:10 Robitussin - PO 10 ml Q6H PRN Administration COUGH Ertapenem 1 gm/ Sodium 50 mls @ 50 mls/hr 10/15/16 21:00 10/19/16 09:39 Chloride IVPB 50 mls/hr DAILY JOSE Administration Protocol Lactated Ringer's 1,000 mls @ 75 mls/hr 10/19/16 19:15 10/20/16 07:55 Lactated Ringers Solution IV 75 mls/hr ASDIR JOSE Administration Losartan Potassium 100 mg 10/17/16 14:45 10/19/16 09:38 Cozaar - PO 100 mg DAILY JOSE Administration Nystatin 500,000 units 10/14/16 12:00 10/20/16 06:49 Nystatin Oral Suspension - PO 500,000 units Q6HPO JOSE Administration Ondansetron HCl 8 mg 10/14/16 19:07 Zofran - PO Q8H PRN NAUSEA Ranitidine HCl 150 mg 10/19/16 21:32 10/19/16 21:53 Zantac - PO 150 mg BID JOSE Administration Sucralfate 1 gm 10/14/16 10:00 10/19/16 22:00 Carafate Oral Suspension - PO Not Given BID JOSE ASSESSMENT/PLAN: 71yo F h/o renal ca (s/p nephrectomy 02/2016) with multiple mets to liver and lungs, HTN, and recent hospitalization for PNA. Leukocytosis 15.9, Fever 102 ( per ER physician), Tachycardia 116. CXR increased b/l effusions (R>L); questionable opacity right cardiac border most likely representing congestion. LA 1.4, 1.0. #Pleural effusion -tap showed no cancer cells, exudative -post-tap CXR slightly improved. Only 140cc removed in the tap -Pleur-x in place. Drained 210ml since placement -Robitussin for cough -pt in ICU to be transferred to [facility] tomorrow #Sepsis -Pt measured her fever at 102, and had tachycardia of 116 on admission. Site of infection: pleural effusion vs UTI -BCx, UCx, pleural fluid Cx neg -US guided thoracentesis of pleural effusion: exudative by Light's criteria -Per ID, Ertapenem #anemia -per Heme/Onc, transfused 1 unit today #RUQ pain, lft abnormalities, elev INR -Due to liver metastases #Renal carcinoma (s/o L nephrectomy) with liver and lung mets -reactive leukocytosis and low grade fever -per Heme/Onc, pt will not be able to get chemo at this hospital because of insurance issues. Pt will need to be stabilized and transferred probably to [facility] -palliative consult #HTN -Continued home medication Amlodipine #Hyperlipidemia -Holding atorvastatin in light of worsening AST #FEN -NS @ 50mls/hr -lytes wnl -Regular Diet #PPX -HSQ Dispo: Admit to med-surg floor Visit type - Emergency Visit Emergency Visit: No - New Patient This patient is new to me today: No - Critical Care Critical Care patient: No - Discharge Referral Referred to [facility] Med [facility] No <Flaco Vázquez - Last Filed: 10/20/16 18:01> Physical Exam: SUBJECTIVE: Patient seen and examined Laboratory Results - last 24 hr 10/18/16 10/20/16 10/20/16 14:00 05:20 05:20 WBC 16.1 H RBC 2.66 L Hgb 7.4 L Hct 22.8 L MCV 85.8 MCH 27.8 MCHC 32.4 RDW 18.5 H Plt Count 341 MPV 8.7 Neutrophils % 90.5 H Lymphocytes % 5.5 L D Monocytes % 3.3 L Eosinophils % 0.0 D Basophils % 0.7 Sodium 145 Potassium 4.7 D Chloride 111 H Carbon Dioxide 26 Anion Gap 8 BUN 22 H Creatinine 0.8 Creat Clearance w eGFR > 60 Random Glucose 105 Calcium 7.7 L Total Bilirubin 1.1 H D AST 63 H D ALT 47 Alkaline Phosphatase 816 H Total Protein 4.5 L Albumin 1.6 L Blood Type A POSITIVE Antibody Screen Negative Crossmatch See Detail Active Medications Generic Name Dose Route Start Last Admin Trade Name Freq PRN Reason Stop Dose Admin Acetaminophen 325 mg 10/20/16 17:55 Tylenol - PO Q8H PRN FEVER OR PAIN Fentanyl 25 mcg 10/20/16 17:55 Sublimaze Injection - IVPUSH 10/20/16 18:11 Q5M PRN PAIN Guaifenesin 10 ml 10/20/16 17:55 Robitussin - PO Q6H PRN COUGH Heparin Sodium (Porcine) 5,000 unit 10/20/16 22:00 Heparin - SQ TID [facility] Ertapenem 1 gm/ Sodium 50 mls @ 50 mls/hr 10/21/16 10:00 Chloride IVPB DAILY [facility] Protocol Losartan Potassium 100 mg 10/21/16 10:00 Cozaar - PO DAILY [facility] Nystatin 500,000 units 10/20/16 18:00 Nystatin Oral Suspension - PO Q6HPO [facility] Ondansetron HCl 8 mg 10/20/16 17:55 Zofran - PO Q8H PRN NAUSEA Ranitidine HCl 150 mg 10/20/16 22:00 Zantac - PO BID [facility] Sucralfate 1 gm 10/20/16 22:00 Carafate Oral Suspension - PO BID [facility] ASSESSMENT/PLAN: Correction is on Losartan for HTN not Norvasc
--- NOTE | 2016-10-20 09:48 | PN ---
Teaching Attending Note Name of Resident: Guido Leonard ATTENDING PHYSICIAN STATEMENT I saw and evaluated the patient. I reviewed the resident's note and discussed the case with the resident. I agree with the resident's findings and plan as documented. SUBJECTIVE: Patient seen and examined in the ICU. POD #1 drainage of a right malignant effusion and PleureX placement. Awake and alert. Some mild discomfort at the surgical site. CXR : Overall improved effusions / minimal Right apical PTX Intake & Output 10/17/16 10/18/16 10/19/16 10/20/16 23:59 23:59 23:59 23:59 Intake Total 1400 2050 1300 875 Output Total 1100 1000 530 330 Balance 300 1050 770 545 Weight 153 lb 2 oz Last Vital Signs Temp Pulse Resp BP Pulse Ox 98.8 F 86 16 114/70 100 10/20/16 06:00 10/20/16 08:00 10/20/16 08:00 10/20/16 08:00 10/20/16 08:30 Active Medications Acetaminophen (Tylenol -) 325 mg PO Q8H PRN PRN Reason: FEVER OR PAIN Last Admin: 10/18/16 17:14 Dose: 325 mg Fentanyl (Sublimaze Injection -) 25 mcg IVPUSH [id number] PRN PRN Reason: PAIN Stop: 10/22/16 19:02 Last Admin: 10/19/16 20:10 Dose: 25 mcg Guaifenesin (Robitussin -) 10 ml PO Q6H PRN PRN Reason: COUGH Last Admin: 10/19/16 00:10 Dose: 10 ml Heparin Sodium (Porcine) (Heparin -) 5,000 unit SQ TID [facility] Ertapenem 1 gm/ Sodium (Chloride) 50 mls @ 50 mls/hr IVPB DAILY JOSE PRN Reason: Protocol Last Admin: 10/19/16 09:39 Dose: 50 mls/hr Lactated Ringer's (Lactated Ringers Solution) 1,000 mls @ 75 mls/hr IV ASDIR JOSE Last Admin: 10/20/16 07:55 Dose: 75 mls/hr Losartan Potassium (Cozaar -) 100 mg PO DAILY [facility] Last Admin: 10/19/16 09:38 Dose: 100 mg Nystatin (Nystatin Oral Suspension -) 500,000 units PO Q6HPO [facility] Last Admin: 10/20/16 06:49 Dose: 500,000 units Ondansetron HCl (Zofran -) 8 mg PO Q8H PRN PRN Reason: NAUSEA Ranitidine HCl (Zantac -) 150 mg PO BID [facility] Last Admin: 10/19/16 21:53 Dose: 150 mg Sucralfate (Carafate Oral Suspension -) 1 gm PO BID [facility] Last Admin: 10/19/16 22:00 Dose: Not Given Constitutional: Yes: No Distress Respiratory: Yes: Right PleureX attached to a PleuraVac, NC O2 Gastrointestinal: Yes: Normal Bowel Sounds, Soft Musculoskeletal: Yes: WNL Extremities: Yes: WNL Neurological: Yes: Alert, Oriented Psychiatric: Yes: Alert, Oriented Labs Laboratory Results - last 24 hr 10/18/16 10/20/16 10/20/16 14:00 05:20 05:20 WBC 16.1 H RBC 2.66 L Hgb 7.4 L Hct 22.8 L MCV 85.8 MCH 27.8 MCHC 32.4 RDW 18.5 H Plt Count 341 MPV 8.7 Neutrophils % 90.5 H Lymphocytes % 5.5 L D Monocytes % 3.3 L Eosinophils % 0.0 D Basophils % 0.7 Sodium 145 Potassium 4.7 D Chloride 111 H Carbon Dioxide 26 Anion Gap 8 BUN 22 H Creatinine 0.8 Creat Clearance w eGFR > 60 Random Glucose 105 Calcium 7.7 L Total Bilirubin 1.1 H D AST 63 H D ALT 47 Alkaline Phosphatase 816 H Total Protein 4.5 L Albumin 1.6 L Blood Type A POSITIVE Antibody Screen Negative Crossmatch See Detail Problem List - Problems (1) Kidney cancer, primary, with metastasis from kidney to other site Code(s): C64.9 - MALIGNANT NEOPLASM OF UNSP KIDNEY, EXCEPT RENAL PELVIS C79.9 - SECONDARY MALIGNANT NEOPLASM OF UNSPECIFIED SITE Qualifiers: Laterality: left Qualified Code(s): C64.2 - Malignant neoplasm of left kidney, except renal pelvis; C79.9 - Secondary malignant neoplasm of unspecified site (2) Pleural effusion Code(s): J90 - PLEURAL EFFUSION, NOT ELSEWHERE CLASSIFIED (3) Hemoptysis Code(s): R04.2 - HEMOPTYSIS (4) Anemia Code(s): D64.9 - ANEMIA, UNSPECIFIED Qualifiers: Anemia type: other cause Other causes of anemia: antineoplastic chemotherapy Qualified Code(s): D64.81 - Anemia due to antineoplastic chemotherapy; T45.1X5A - Adverse effect of antineoplastic and immunosuppressive drugs, initial encounter (5) Lung nodules Code(s): R91.8 - OTHER NONSPECIFIC ABNORMAL FINDING OF LUNG FIELD (6) Metastases to the liver Code(s): C78.7 - SECONDARY MALIG NEOPLASM OF LIVER AND INTRAHEPATIC BILE DUCT (7) Metastatic lung cancer (metastasis from lung to other site) Code(s): C34.90 - MALIGNANT NEOPLASM OF UNSP PART OF UNSP BRONCHUS OR LUNG Qualifiers: Laterality: right Qualified Code(s): C34.91 - Malignant neoplasm of unspecified part of right bronchus or lung (8) Fever Code(s): R50.9 - FEVER, UNSPECIFIED IMP METASTATIC RENAL CELL CA WITH MALIGNANT EFFUSION BILATERAL PLEURA EFFUSIONS -> EXUDATIVE DYSPNEA HEMOPTYSIS FEVER ?INFECTIOUS,? SECONDARY TO TUMOR DO NOT SUSPECT EMPYEMA PLAN ANTIBIOTICS PER ID (CONSIDER D/C ALL CULTURES ARE NEGATIVE) O2 INCENTIVE SPIROMETRY VTE PROPHYLAXIS NORMAL TRANSFUSION THRESHOLDS MONITOR CXR DR TAVARES CCTime 35" The care of this patient involved high complexity decision making to prevent further life threatening deterioration of the patient's condition and/or to evaluate & treat vital organ system(s) failure or risk of failure.
[2016-10-20] MEDS ORDERED: PT OWN MED DRAWER 7, Y5N ONE (10:11)
[2016-10-20] MEDS: LOSARTAN POTASSIUM 50 MG TABLET (FP) PO SCH (10:13)
[2016-10-20] MEDS: SUCRALFATE 1 GM/10 ML UNIT DOSE CUPS PO SCH ×2 (10:13→21:19)
[2016-10-20] MEDS: ERTAPENEM SODIUM 1 GM in SODIUM CHLORIDE 50 ML IVPB SCH (10:14)
[2016-10-20] MEDS: RANITIDINE HCL 150 MG TABLET (FP) PO SCH ×2 (10:14→21:20)
--- NOTE | 2016-10-20 10:33 | PN ---
Physical Exam: SUBJECTIVE: Patient seen and examined at bedside. Pt has no acute complaints. Denies chest pain, SOB, n/v/f/c. Resting comfortably. Pleural drainage tube in place under right breast. OBJECTIVE: Vital Signs Period Temp Pulse Resp BP Sys/Aldrich Pulse Ox Last 24 Hr 20 F-99.1 F 84-112 16-28 101-133/51-84 94-100 GENERAL: The patient is awake, alert, and fully oriented, in no acute distress. HEAD: Normal with no signs of trauma. EYES: PERRL, extraocular movements intact, sclera anicteric, conjunctiva clear. No ptosis. ENT: Ears normal, nares patent, oropharynx clear without exudates, moist mucous membranes. NECK: Trachea midline, full range of motion, supple. LUNGS: Breath sounds equal, mildly decreased breath sounds at the lung bases, no wheezes, no crackles, no accessory muscle use. Drainage tube in place in right chest under R breast. HEART: Regular rate and rhythm, S1, S2 without murmur, rub or gallop. ABDOMEN: Soft, nontender, nondistended, normoactive bowel sounds, no guarding, no rebound, no hepatosplenomegaly, no masses. EXTREMITIES: 2+ pulses, warm, well-perfused, no edema. NEUROLOGICAL: Cranial nerves II through XII grossly intact. Normal speech, gait not observed. PSYCH: Normal mood, normal affect. SKIN: Warm, dry, normal turgor, no rashes or lesions noted Laboratory Results - last 24 hr 10/18/16 10/20/16 10/20/16 14:00 05:20 05:20 WBC 16.1 H RBC 2.66 L Hgb 7.4 L Hct 22.8 L MCV 85.8 MCH 27.8 MCHC 32.4 RDW 18.5 H Plt Count 341 MPV 8.7 Neutrophils % 90.5 H Lymphocytes % 5.5 L D Monocytes % 3.3 L Eosinophils % 0.0 D Basophils % 0.7 Sodium 145 Potassium 4.7 D Chloride 111 H Carbon Dioxide 26 Anion Gap 8 BUN 22 H Creatinine 0.8 Creat Clearance w eGFR > 60 Random Glucose 105 Calcium 7.7 L Total Bilirubin 1.1 H D AST 63 H D ALT 47 Alkaline Phosphatase 816 H Total Protein 4.5 L Albumin 1.6 L Blood Type A POSITIVE Antibody Screen Negative Crossmatch See Detail Active Medications Generic Name Dose Route Start Last Admin Trade Name Freq PRN Reason Stop Dose Admin Acetaminophen 325 mg 10/14/16 06:00 10/18/16 17:14 Tylenol - PO 325 mg Q8H PRN Administration FEVER OR PAIN Fentanyl 25 mcg 10/19/16 19:01 10/19/16 20:10 Sublimaze Injection - IVPUSH 10/22/16 19:02 25 mcg [id number] PRN Administration PAIN Guaifenesin 10 ml 10/14/16 19:07 10/19/16 00:10 Robitussin - PO 10 ml Q6H PRN Administration COUGH Heparin Sodium (Porcine) 5,000 unit 10/20/16 14:00 Heparin - SQ TID JOSE Ertapenem 1 gm/ Sodium 50 mls @ 50 mls/hr 10/15/16 21:00 10/19/16 09:39 Chloride IVPB 50 mls/hr DAILY JOSE Administration Protocol Lactated Ringer's 1,000 mls @ 75 mls/hr 10/19/16 19:15 10/20/16 07:55 Lactated Ringers Solution IV 75 mls/hr ASDIR JOSE Administration Losartan Potassium 100 mg 10/17/16 14:45 10/19/16 09:38 Cozaar - PO 100 mg DAILY JOSE Administration Nystatin 500,000 units 10/14/16 12:00 10/20/16 06:49 Nystatin Oral Suspension - PO 500,000 units Q6HPO JOSE Administration Ondansetron HCl 8 mg 10/14/16 19:07 Zofran - PO Q8H PRN NAUSEA Ranitidine HCl 150 mg 10/19/16 21:32 10/19/16 21:53 Zantac - PO 150 mg BID JOSE Administration Sucralfate 1 gm 10/14/16 10:00 10/19/16 22:00 Carafate Oral Suspension - PO Not Given BID JOSE Imaging: CXR (10/20): small R apical pneumothorax seen, slight decrease in consolidation of left lower lobe and decrease in L pleural effusion. Nodular opacities seen again bilaterally Chest CT (10/16): bilateral pleural effusions, multiple pleural nodules consistent with metastasis ASSESSMENT/PLAN: 71 year old F with pmh metastatic renal cancer (liver and lungs), htn, recent PNA arrived to ED for fever, tachycardia. Found to have b/l pleural effusions on CXR. Pt is s/p VATs w/ placement of drainage pleuro Neuro: No acute issues -continue zofran 8mg PO PRN nausea -continue fentanyl and tylenol PRN pain Cardiovascular: hx of htn -continue losartan 100mg PO QD -hgb 7.4 today, maintain normal transfusion protocols -decrease ready pRBCs from 2 to 1 Pulmonary: b/l mets with exudative pleural effusions, s/p VATs w/ placement of pleural drainage cath -all cultures negative -discuss with ID about possibly d/c-ing antibiotics -continue abx for now -3L oxygen by nasal cannula -community health counselor on importance of incentive spirometry -am CXR FEN -continue lactated ringers -transition to regular diet -continue ranitidine 150mg PO BID Prophylaxis -heparin 5000 SubQ TID Dispo: -stable for transfer to [facility] [place] [facility] Problem List - Problems (1) Hepatomegaly Code(s): R16.0 - HEPATOMEGALY, NOT ELSEWHERE CLASSIFIED (2) Kidney cancer, primary, with metastasis from kidney to other site Code(s): C64.9 - MALIGNANT NEOPLASM OF UNSP KIDNEY, EXCEPT RENAL PELVIS C79.9 - SECONDARY MALIGNANT NEOPLASM OF UNSPECIFIED SITE Qualifiers: Laterality: left Qualified Code(s): C64.2 - Malignant neoplasm of left kidney, except renal pelvis; C79.9 - Secondary malignant neoplasm of unspecified site (3) Pleural effusion Code(s): J90 - PLEURAL EFFUSION, NOT ELSEWHERE CLASSIFIED (4) Anemia Code(s): D64.9 - ANEMIA, UNSPECIFIED Qualifiers: Anemia type: other cause Other causes of anemia: antineoplastic chemotherapy Qualified Code(s): D64.81 - Anemia due to antineoplastic chemotherapy; T45.1X5A - Adverse effect of antineoplastic and immunosuppressive drugs, initial encounter (5) Iron deficiency anemia due to chronic blood loss Code(s): D50.0 - IRON DEFICIENCY ANEMIA SECONDARY TO BLOOD LOSS (CHRONIC) (6) Lung nodules Code(s): R91.8 - OTHER NONSPECIFIC ABNORMAL FINDING OF LUNG FIELD (7) Metastases to the liver Code(s): C78.7 - SECONDARY MALIG NEOPLASM OF LIVER AND INTRAHEPATIC BILE DUCT (8) Metastatic lung cancer (metastasis from lung to other site) Code(s): C34.90 - MALIGNANT NEOPLASM OF UNSP PART OF UNSP BRONCHUS OR LUNG Qualifiers: Laterality: right Qualified Code(s): C34.91 - Malignant neoplasm of unspecified part of right bronchus or lung Visit type - Emergency Visit Emergency Visit: No - New Patient This patient is new to me today: Yes Date on this admission: 10/20/16 - Critical Care Critical Care patient: Yes Total Critical Care Time (in minutes): 20
--- NOTE | 2016-10-20 13:06 | PN ---
Progress Note (short form) - Note Progress Note: Anesthesia postop note 71 y/o F s/p GA for right vats, drainage of pleural effusion, pleurex cath placement POD#1, vss, aaox3 in icu, pain well controlled, sitting i chair No anesthesia complications.
--- NOTE | 2016-10-20 13:43 | OPR ---
Patient Name: Karen Chamberlain MR#: [id number] Procedure Date: 10/19/2016 Preoperative Diagnosis: Metastatic urothelial cancer Postoperative Diagnosis: Same Procedure: 1. Bronchoscopy; 2. Ultrasound of right chest; 3. Right thoracoscopy with pleur-x placement; Indication: Right pleural effusion Surgeon(s): Jason Holley MD Cosurgeon: erika Lip Cutter Surgeon: CACHORRO Castro Anesthesia: General endotracheal; Findings: Bronchoscopy: normal anatomy, no tumor. Thoracoscopy: Lung expanded and without obvious loculation; 1L of serosanguineous fluid removed. Specimens Sent: 1. na Complications: none Drains / Tubes / Catheters: Pleur-x. Hardware / Implants: na Blood / Fluid Losses: minimal Post-Operative Condition: Hemodynamically stable in transfer to PACU and extubated Indications: This patient is a 71 year-old female with urothelial cancer metastatic to the lung referred for drainage of a malignant effusion. After informed consent was obtained, and she understood, she was taken to the operating room for a bronchoscopy, thoracoscopy, and drainage of malignant effusion. Details of Procedure: The patient was taken into the operating room and placed supine on the table. She was monitored with pulse oximetry and blood pressure monitoring. Preoperative antibiotics were given on the floor she was intubated after being given intravenous sedation. Subcutaneous heparin was also given. A bronchoscopy was performed (see results above). We then positioned her in the left lateral decubitus position. We performed an ultrasound of her right chest to identify the space to enter. After being prepared and draped, we began by injecting lidocaine in the 7th intercostal space inferior to the tip of the scapula. We then made an incision and placed the thoracoscope in her chest after suctioning ~1000cc of serosanguineous fluid. We inspected the chest and the lung was well inflated as there was no lung isolation. We next tunneled the pleurx after giving local and inserted in the chest over the posterior diaphragm. It was secured and we closed the wounds and placed a sterile dressing. She was then awakened and extubated. She was transferred to the PACU in hemodynamically stable condition.
[2016-10-20] MEDS ORDERED: HEPARIN NA (PORCINE) 5,000 UNITS/ML 1ML VIAL SQ SCH (14:00)
--- NOTE | 2016-10-20 15:33 | PN ---
Progress Note (short form) - Note Progress Note: Seen and examined the patient. No overnight events. s/p VATS and Pleurex on 10/19 She is out of bed to chair, mentioned that she did eat good for breakfast. resting comfortably in NAD NCAT RRR Decreased breath sounds bilaterally has chest tube, dressing below the right breast no LE edema seen, has SCDs Last Vital Signs Temp Pulse Resp BP Pulse Ox 98.4 F 115 H 18 139/67 94 L 10/19/16 06:00 10/19/16 06:00 10/19/16 06:00 10/19/16 06:00 10/18/16 20:58 CBC, BMP 10/19/16 06:00 10/19/16 06:00 Current Medications Generic Name Dose Route Start Last Admin Trade Name Freq PRN Reason Stop Dose Admin Acetaminophen 325 mg 10/14/16 06:00 10/18/16 17:14 Tylenol - PO 325 mg Q8H PRN Administration FEVER OR PAIN Guaifenesin 10 ml 10/14/16 19:07 10/19/16 00:10 Robitussin - PO 10 ml Q6H PRN Administration COUGH Ertapenem 1 gm/ Sodium 50 mls @ 50 mls/hr 10/15/16 21:00 10/19/16 09:39 Chloride IVPB 50 mls/hr DAILY JOSE Administration Protocol Sodium Chloride 1,000 mls @ 50 mls/hr 10/19/16 06:00 10/19/16 06:18 Normal Saline - IV 10/20/16 06:00 50 mls/hr ASDIR JOSE Administration Losartan Potassium 100 mg 10/17/16 14:45 10/19/16 09:38 Cozaar - PO 100 mg DAILY JOSE Administration Nystatin 500,000 units 10/14/16 12:00 10/19/16 06:17 Nystatin Oral Suspension - PO Not Given Q6HPO JOSE Ondansetron HCl 8 mg 10/14/16 19:07 Zofran - PO Q8H PRN NAUSEA Ranitidine HCl 150 mg 10/14/16 10:00 10/19/16 09:37 Zantac - PO 150 mg BID JOSE Administration Sucralfate 1 gm 10/14/16 10:00 10/19/16 09:39 Carafate Oral Suspension - PO 1 gm BID JOSE Administration Assessment/Plan: is a 71 year old with h.o Metastatic Urothelial Cancer ( Lung, liver mets) progressed on front line immunotherapy ,treated in [facility] , is admitted for symptomatic lung mets. Metastatic lung/Liver , from Urothelial Papillary high grade Dyspnea from lung mets Pleural effusion .,exudative, likely malignant CKD Abnormal LFTs Elevated INR Sepsis likely due to Pyelo/PNA Anemia -abx per ID, on ertepenam. -s/p VATS and pleurex for suspected malignant effusion -transfuse one unit today -resume dvt ppx when appropriate post procedure. -PT participation when able to -if stable/afebrile/need VNS for pleur-x maintenance. will follow. -
--- NOTE | 2016-10-20 16:40 | PN ---
Progress Note, Physician History of Present Illness: patient stable no new issues patient with chest tube now feels much better wbc slightly elevated - Current Medication List Current Medications: Active Medications Acetaminophen (Tylenol -) 325 mg PO Q8H PRN PRN Reason: FEVER OR PAIN Last Admin: 10/18/16 17:14 Dose: 325 mg Fentanyl (Sublimaze Injection -) 25 mcg IVPUSH [id number] PRN PRN Reason: PAIN Stop: 10/22/16 19:02 Last Admin: 10/19/16 20:10 Dose: 25 mcg Guaifenesin (Robitussin -) 10 ml PO Q6H PRN PRN Reason: COUGH Last Admin: 10/19/16 00:10 Dose: 10 ml Heparin Sodium (Porcine) (Heparin -) 5,000 unit SQ TID [facility] Last Admin: 10/20/16 15:29 Dose: 5,000 unit Ertapenem 1 gm/ Sodium (Chloride) 50 mls @ 50 mls/hr IVPB DAILY [facility] PRN Reason: Protocol Last Admin: 10/20/16 10:14 Dose: 50 mls/hr Losartan Potassium (Cozaar -) 100 mg PO DAILY [facility] Last Admin: 10/20/16 10:13 Dose: 100 mg Nystatin (Nystatin Oral Suspension -) 500,000 units PO Q6HPO [facility] Last Admin: 10/20/16 15:30 Dose: 500,000 units Ondansetron HCl (Zofran -) 8 mg PO Q8H PRN PRN Reason: NAUSEA Ranitidine HCl (Zantac -) 150 mg PO BID [facility] Last Admin: 10/20/16 10:14 Dose: 150 mg Sucralfate (Carafate Oral Suspension -) 1 gm PO BID [facility] Last Admin: 10/20/16 10:13 Dose: 1 gm - Objective Vital Signs: Vital Signs Temperature 98.7 F 10/20/16 10:00 Pulse Rate 88 10/20/16 10:00 Respiratory Rate 18 10/20/16 10:00 Blood Pressure 97/69 10/20/16 10:00 O2 Sat by Pulse Oximetry (%) 100 10/20/16 08:30 Constitutional: Yes: No Distress, Calm Eyes: Yes: Conjunctiva Clear HENT: Yes: Atraumatic Neck: Yes: Supple Cardiovascular: Yes: Regular Rate and Rhythm Respiratory: Yes: Regular, Poor Air Entry (left side), Other (chest tube in place) Gastrointestinal: Yes: Normal Bowel Sounds, Soft Musculoskeletal: Yes: WNL Extremities: Yes: WNL Neurological: Yes: Alert, Oriented Psychiatric: Yes: Alert, Oriented Labs: CBC, BMP 10/20/16 05:20 10/20/16 05:20 INR, PTT INR 1.36 (0.82-1.09) H 10/19/16 06:00 Assessment/Plan ) Renal carcinoma (s/p L nephrectomy) with mets to lungs and liver 2) CKD 3) Abdominal pain, right-sided 4) HTN 5) Hyperlipidemia leukocytosis plan continue current mgmt patient improving rest as per primary team physio incentive cindy pleurex in place continue as per thoracic and icu cc time 40 min
--- NOTE | 2016-10-20 17:50 | PN ---
Teaching Attending Note Name of Resident: Tyree Jensen ATTENDING PHYSICIAN STATEMENT I saw and evaluated the patient. I reviewed the resident's note and discussed the case with the resident. I agree with the resident's findings and plan as documented. SUBJECTIVE: Patient is comfortable with barbie cute distress, o fever or chills. OBJECTIVE: Vital Signs Temperature 98.5 F 10/20/16 14:00 Pulse Rate 88 10/20/16 16:00 Respiratory Rate 25 H 10/20/16 16:00 Blood Pressure 105/65 10/20/16 16:00 O2 Sat by Pulse Oximetry (%) 100 10/20/16 08:30 CBCD WBC 16.1 K/mm3 (4.0-10.0) H 10/20/16 05:20 RBC 2.66 M/mm3 (3.60-5.2) L 10/20/16 05:20 Hgb 7.4 GM/dL (10.7-15.3) L 10/20/16 05:20 Hct 22.8 % (32.4-45.2) L 10/20/16 05:20 MCV 85.8 fl (80-96) 10/20/16 05:20 MCHC 32.4 g/dl (32.0-36.0) 10/20/16 05:20 RDW 18.5 % (11.6-15.6) H 10/20/16 05:20 Plt Count 341 K/MM3 (134-434) 10/20/16 05:20 MPV 8.7 fl (7.5-11.1) 10/20/16 05:20 CMP Sodium 145 mmol/L (136-145) 10/20/16 05:20 Potassium 4.7 mmol/L (3.5-5.1) D 10/20/16 05:20 Chloride 111 mmol/L (98-107) H 10/20/16 05:20 Carbon Dioxide 26 mmol/L (21-32) 10/20/16 05:20 Anion Gap 8 (8-16) 10/20/16 05:20 BUN 22 mg/dL (7-18) H 10/20/16 05:20 Creatinine 0.8 mg/dL (0.55-1.02) 10/20/16 05:20 Creat Clearance w eGFR > 60 (>60) 10/20/16 05:20 Random Glucose 105 mg/dL (74-106) 10/20/16 05:20 Calcium 7.7 mg/dL (8.5-10.1) L 10/20/16 05:20 Total Bilirubin 1.1 mg/dL (0.2-1.0) H D 10/20/16 05:20 AST 63 U/L (15-37) H D 10/20/16 05:20 ALT 47 U/L (12-78) 10/20/16 05:20 Alkaline Phosphatase 816 U/L (45-117) H 10/20/16 05:20 Total Protein 4.5 g/dl (6.4-8.2) L 10/20/16 05:20 Albumin 1.6 g/dl (3.4-5.0) L 10/20/16 05:20 CARDIAC ENZYMES Creatine Kinase 23 IU/L (26-192) L 10/13/16 23:30 Troponin I < 0.02 ng/ml (0.00-0.05) 10/13/16 23:30 Current Medications Generic Name Dose Route Start Last Admin Trade Name Freq PRN Reason Stop Dose Admin Acetaminophen 325 mg 10/14/16 06:00 10/18/16 17:14 Tylenol - PO 325 mg Q8H PRN Administration FEVER OR PAIN Fentanyl 25 mcg 10/19/16 19:01 10/19/16 20:10 Sublimaze Injection - IVPUSH 10/22/16 19:02 25 mcg [id number] PRN Administration PAIN Guaifenesin 10 ml 10/14/16 19:07 10/19/16 00:10 Robitussin - PO 10 ml Q6H PRN Administration COUGH Heparin Sodium (Porcine) 5,000 unit 10/20/16 14:00 10/20/16 15:29 Heparin - SQ 5,000 unit TID JOSE Administration Ertapenem 1 gm/ Sodium 50 mls @ 50 mls/hr 10/15/16 21:00 10/20/16 10:14 Chloride IVPB 50 mls/hr DAILY JOSE Administration Protocol Losartan Potassium 100 mg 10/17/16 14:45 10/20/16 10:13 Cozaar - PO 100 mg DAILY JOSE Administration Nystatin 500,000 units 10/14/16 12:00 10/20/16 15:30 Nystatin Oral Suspension - PO 500,000 units Q6HPO JOSE Administration Ondansetron HCl 8 mg 10/14/16 19:07 Zofran - PO Q8H PRN NAUSEA Ranitidine HCl 150 mg 10/19/16 21:32 10/20/16 10:14 Zantac - PO 150 mg BID JOSE Administration Sucralfate 1 gm 10/14/16 10:00 10/20/16 10:13 Carafate Oral Suspension - PO 1 gm BID JOSE Administration Home Medications Medication Instructions Recorded Atorvastatin Ca [Lipitor] 20 mg PO HS #30 tablet 10/10/16 Levofloxacin [Levaquin -] 500 mg PO DAILY #5 tablet 10/10/16 Sucralfate Oral Suspension 1 gm PO BID #240 ml 10/10/16 [Carafate Oral Suspension -] Losartan Potassium [Cozaar] 100 mg PO DAILY 10/14/16 Microbiology 10/13/16 23:30 Blood - Peripheral Venous Blood Culture - Final NO GROWTH AFTER 5 DAYS INCUBATION 10/14/16 14:00 Pleural Fluid Gram Stain - Final 10/14/16 14:00 Pleural Fluid Body Fluid Culture - Final NO GROWTH OF AEROBIC ORGANISMS AFTER 48 HOURS INCUBATION 10/14/16 14:00 Pleural Fluid Anaerobic Culture - Final NO ANAEROBES WERE ISOLATED 10/13/16 23:30 Urine - Urine Clean Catch Urine Culture - Final NO GROWTH OBTAINED 10/14/16 14:00 Pleural Fluid SUNITA Preparation - Preliminary 10/14/16 14:00 Pleural Fluid Fungal Culture - Preliminary 10/14/16 14:00 Pleural Fluid AFB Smear Concentration - Preliminary 10/14/16 14:00 Pleural Fluid Mycobacterial Culture - Preliminary PE: per resident's note Chest: Positive for VATS/pleur-X on the right side LLE swollen > right on SCds will discontinue for now. ASSESSMENT AND PLAN: 71 y/o unfortunate lady with h/o HTN, renal cell Ca with lung and liver mets , s /p resection and chemo in [place], and recent hospitalization for PNA , who presented with fever and malaise # s/p sepsis: source could be Urine vs Lung. on meropenem day 7 so far all her cultures are negative, patient was on Levaquin at home # Pleural effusion Exudative R > L.s/p R thoracentesis s/p VATS/pleur-x by ; fluid looks loculated. most likely from tumor . only 140 cc removed, cytology neg, and cx neg # Renal cell carcinoma:s/p Left nephrectomy; with mets to liver and lungs. Further cancer treatment to Cont at [facility] # Thrush: Nystatin # HTN: cont losartan # Acute Transaminitis : due to liver Mets # ACD , s/p 1 unit of RBC # Urinary retention , s/p christopher . dc'd DVT px: Scds, Heparin
[2016-10-20] MEDS ORDERED: guaiFENesin 200 MG/10 ML 10 ML UNIT-DOSE CUPS PO PRN (17:55)
--- NOTE | 2016-10-20 18:43 | PN ---
Progress Note (short form) - Note Progress Note: Thoracic POD#1: Doing well. Breathing better. CXR well-expanded. Keep CT to suction until close to discharge. Surgical PA can cap prior to dc. Paperwork for cannisters to be faxed over. Will need nursing care 3x/week, taking as much as possible each time.
[2016-10-20] MEDS: HEPARIN NA (PORCINE) 5,000 UNITS/ML 1ML VIAL SQ SCH (21:19)
[2016-10-21] MEDS: HEPARIN NA (PORCINE) 5,000 UNITS/ML 1ML VIAL SQ SCH ×3 (06:05→21:24)
[2016-10-21] MEDS: NYSTATIN 500,000 UNITS/5 ML SUSPENSION PO SCH ×3 (06:05→17:49)
[2016-10-21 06:45] LABS: BASOPHIL 0.5 % (0-2.0); EOSINOPHIL 0.2 % (0-4.5); MCH 29.2 pg (25.7-33.7); MEAN CELL VOLUME 85.9 fl (80-96); MEAN PLT VOLUME 8.4 fl (7.5-11.1); NEUTROPHILS 84.7 % (42.8-82.8); PLATELET COUNT 382 K/MM3 (134-434); RDW 17.5 % (11.6-15.6); WHITE BLOOD COUNT 17.2 K/mm3 (4.0-10.0)
[2016-10-21 07:05] LABS: ALBUMIN 1.6 g/dl (3.4-5.0); ANION GAP 7 (8-16); CO2 28 mmol/L (21-32); CREATININE 1.1 mg/dL (0.55-1.02); GLUCOSE,RANDOM 110 mg/dL (74-106); SGOT/AST 70 U/L (15-37); SGPT/ALT 51 U/L (12-78)
[2016-10-21 07:07] LABS: ALK PHOS 775 U/L (45-117); BILIRUBIN,TOTAL 0.9 mg/dL (0.2-1.0); TOT PROT 4.3 g/dl (6.4-8.2)
[2016-10-21] MEDS ORDERED: PT OWN MED DRAWER 7, Y5N ONE (08:55)
[2016-10-21] MEDS: SUCRALFATE 1 GM/10 ML UNIT DOSE CUPS PO SCH ×2 (09:33→21:24)
[2016-10-21] MEDS: ONDANSETRON 8 MG TABLET (FP) PO PRN (09:34)
[2016-10-21] MEDS: RANITIDINE HCL 150 MG TABLET (FP) PO SCH ×2 (09:34→21:24)
[2016-10-21] MEDS ORDERED: ERTAPENEM SODIUM 1 GM in SODIUM CHLORIDE 50 ML IVPB SCH (10:00)
[2016-10-21] MEDS: LOSARTAN POTASSIUM 50 MG TABLET (FP) PO SCH (10:41)
[2016-10-21] MEDS ORDERED: morphine CARPU-JECT 4 MG/1 ML DISP.SYRIN IVPUSH PRN ×2 (12:07→12:48)
--- NOTE | 2016-10-21 12:51 | PN ---
Progress Note (short form) - Note Progress Note: Reports discomfort at the PleureX site. Visibly splinting. 200cc drainage. CXR : increasing areas of atelectasis / small effusion Intake & Output 10/18/16 10/19/16 10/20/16 10/21/16 23:59 23:59 23:59 23:59 Intake Total 2050 1300 2275 Output Total 1000 530 450 520 Balance 6378 354 7924 -520 Weight 153 lb 2 oz 155 lb Last Vital Signs Temp Pulse Resp BP Pulse Ox 98.2 F 106 H 18 112/55 97 10/21/16 06:00 10/21/16 10:10 10/21/16 06:00 10/21/16 06:00 10/21/16 10:10 Active Medications Acetaminophen (Tylenol -) 325 mg PO Q8H PRN PRN Reason: FEVER OR PAIN Acetaminophen (Ofirmev Injection -) 1,000 mg IVPB ONCE ONE Stop: 10/21/16 12:49 Guaifenesin (Robitussin -) 10 ml PO Q6H PRN PRN Reason: COUGH Heparin Sodium (Porcine) (Heparin -) 5,000 unit SQ TID [facility] Last Admin: 10/21/16 06:05 Dose: 5,000 unit Ertapenem 1 gm/ Sodium (Chloride) 50 mls @ 50 mls/hr IVPB DAILY [facility] PRN Reason: Protocol Last Admin: 10/21/16 10:15 Dose: 50 mls/hr Losartan Potassium (Cozaar -) 100 mg PO DAILY [facility] Last Admin: 10/21/16 10:41 Dose: 100 mg Morphine Sulfate (Morphine Injection -) 1 mg IVPUSH Q3H PRN PRN Reason: PAIN Nystatin (Nystatin Oral Suspension -) 500,000 units PO Q6HPO [facility] Last Admin: 10/21/16 06:05 Dose: 500,000 units Ondansetron HCl (Zofran -) 8 mg PO Q8H PRN PRN Reason: NAUSEA Last Admin: 10/21/16 09:34 Dose: 8 mg Ranitidine HCl (Zantac -) 150 mg PO BID [facility] Last Admin: 10/21/16 09:34 Dose: 150 mg Sucralfate (Carafate Oral Suspension -) 1 gm PO BID [facility] Last Admin: 10/21/16 09:33 Dose: 1 gm Constitutional: Yes: Uncomfortable due to pain Respiratory: Yes: On Nasal O2, PleureX intact Gastrointestinal: Yes: Normal Bowel Sounds, Soft Musculoskeletal: Yes: WNL Extremities: Yes: WNL Neurological: Yes: Alert, Oriented Psychiatric: Yes: Alert, Oriented Labs Laboratory Results - last 24 hr 10/18/16 10/21/16 10/21/16 14:00 05:15 05:15 WBC 17.2 H RBC 3.07 L Hgb 9.0 L D Hct 26.4 L D MCV 85.9 MCH 29.2 MCHC 34.0 RDW 17.5 H Plt Count 382 MPV 8.4 Neutrophils % 84.7 H Lymphocytes % 8.9 D Monocytes % 5.7 Eosinophils % 0.2 D Basophils % 0.5 Sodium 143 Potassium 4.4 Chloride 108 H Carbon Dioxide 28 Anion Gap 7 L BUN 38 H D Creatinine 1.1 H D Creat Clearance w eGFR 49.10 Random Glucose 110 H Calcium 8.0 L Total Bilirubin 0.9 AST 70 H ALT 51 Alkaline Phosphatase 775 H Total Protein 4.3 L Albumin 1.6 L Blood Type A POSITIVE Antibody Screen Negative Crossmatch See Detail Problem List - Problems (1) Kidney cancer, primary, with metastasis from kidney to other site Code(s): C64.9 - MALIGNANT NEOPLASM OF UNSP KIDNEY, EXCEPT RENAL PELVIS C79.9 - SECONDARY MALIGNANT NEOPLASM OF UNSPECIFIED SITE Qualifiers: Laterality: left Qualified Code(s): C64.2 - Malignant neoplasm of left kidney, except renal pelvis; C79.9 - Secondary malignant neoplasm of unspecified site (2) Pleural effusion Code(s): J90 - PLEURAL EFFUSION, NOT ELSEWHERE CLASSIFIED (3) Hemoptysis Code(s): R04.2 - HEMOPTYSIS (4) Anemia Code(s): D64.9 - ANEMIA, UNSPECIFIED Qualifiers: Anemia type: other cause Other causes of anemia: antineoplastic chemotherapy Qualified Code(s): D64.81 - Anemia due to antineoplastic chemotherapy; T45.1X5A - Adverse effect of antineoplastic and immunosuppressive drugs, initial encounter (5) Lung nodules Code(s): R91.8 - OTHER NONSPECIFIC ABNORMAL FINDING OF LUNG FIELD (6) Metastases to the liver Code(s): C78.7 - SECONDARY MALIG NEOPLASM OF LIVER AND INTRAHEPATIC BILE DUCT (7) Metastatic lung cancer (metastasis from lung to other site) Code(s): C34.90 - MALIGNANT NEOPLASM OF UNSP PART OF UNSP BRONCHUS OR LUNG Qualifiers: Laterality: right Qualified Code(s): C34.91 - Malignant neoplasm of unspecified part of right bronchus or lung (8) Fever Code(s): R50.9 - FEVER, UNSPECIFIED IMP METASTATIC RENAL CELL CA -> I SUSPECT ETIOLOGY OF EFFUSION IS MALIGNANT BILATERAL PLEURA EFFUSIONS -> EXUDATIVE DYSPNEA HEMOPTYSIS FEVER ?INFECTIOUS,? SECONDARY TO TUMOR DO NOT SUSPECT EMPYEMA PLAN PAIN CONTROL CONSIDER TO MONITOR OFF ABX O2 NEEDED ANTITUSSIVES INCENTIVE SPIROMETRY DR TAVARES
[2016-10-21] MEDS ORDERED: ACETAMINOPHEN 1000 MG/100 ML VIAL (NON FORMULARY) IVPB ONE (14:15)
--- NOTE | 2016-10-21 15:11 | PN ---
<Tyree Jensen - Last Filed: 10/22/16 07:19> Physical Exam: SUBJECTIVE: Patient seen and examined at bedside. Cough has improved. No other complaints at this time. Denies headache, fever, diarrhea, nausea, vomiting. OBJECTIVE: Vital Signs Period Temp Pulse Resp BP Sys/Aldrich Pulse Ox Last 24 Hr 97.9 F-98.5 F 79-111 18-25 98-112/52-65 96-97 GENERAL: The patient is awake, alert, and fully oriented, in no acute distress. HEAD: Normal with no signs of trauma. EYES: scleral icterus,No ptosis. ENT: nares patent, oropharynx clear without exudates, moist mucous membranes. NECK: Trachea midline, full range of motion, supple, no carotid bruits. LUNGS: decreased breath sounds in R lung base, clear to auscultation bilaterally , no wheezes, no crackles, no accessory muscle use. Right sided drain in place. HEART: Regular rate and rhythm, normal S1, S2 without murmur, rub or gallop. ABDOMEN: Soft, tender to palpation in RUQ, nondistended, normoactive bowel sounds, no guarding, no rebound, no hepatosplenomegaly, no masses. No cva tenderness EXTREMITIES: 2+ pulses, warm, well-perfused, no edema. NEUROLOGICAL: Cranial nerves II through XII grossly intact. Normal speech, gait not observed. PSYCH: Normal mood, normal affect. SKIN: Warm, dry, normal turgor, no rashes or lesions noted Laboratory Results - last 24 hr 10/18/16 10/21/16 10/21/16 14:00 05:15 05:15 WBC 17.2 H RBC 3.07 L Hgb 9.0 L D Hct 26.4 L D MCV 85.9 MCH 29.2 MCHC 34.0 RDW 17.5 H Plt Count 382 MPV 8.4 Neutrophils % 84.7 H Lymphocytes % 8.9 D Monocytes % 5.7 Eosinophils % 0.2 D Basophils % 0.5 Sodium 143 Potassium 4.4 Chloride 108 H Carbon Dioxide 28 Anion Gap 7 L BUN 38 H D Creatinine 1.1 H D Creat Clearance w eGFR 49.10 Random Glucose 110 H Calcium 8.0 L Total Bilirubin 0.9 AST 70 H ALT 51 Alkaline Phosphatase 775 H Total Protein 4.3 L Albumin 1.6 L Blood Type A POSITIVE Antibody Screen Negative Crossmatch See Detail Active Medications Generic Name Dose Route Start Last Admin Trade Name Freq PRN Reason Stop Dose Admin Acetaminophen 325 mg 10/20/16 17:55 Tylenol - PO Q8H PRN FEVER OR PAIN Guaifenesin 10 ml 10/20/16 17:55 Robitussin - PO Q6H PRN COUGH Heparin Sodium (Porcine) 5,000 unit 10/20/16 22:00 10/21/16 14:33 Heparin - SQ 5,000 unit TID JOSE Administration Ertapenem 1 gm/ Sodium 50 mls @ 50 mls/hr 10/21/16 10:00 10/21/16 10:15 Chloride IVPB 50 mls/hr DAILY JOSE Administration Protocol Losartan Potassium 100 mg 10/21/16 10:00 10/21/16 10:41 Cozaar - PO 100 mg DAILY JOSE Administration Morphine Sulfate 1 mg 10/21/16 12:48 Morphine Injection - IVPUSH Q3H PRN PAIN Nystatin 500,000 units 10/20/16 18:00 10/21/16 14:34 Nystatin Oral Suspension - PO 500,000 units Q6HPO JOSE Administration Ondansetron HCl 8 mg 10/20/16 17:55 10/21/16 09:34 Zofran - PO 8 mg Q8H PRN Administration NAUSEA Ranitidine HCl 150 mg 10/20/16 22:00 10/21/16 09:34 Zantac - PO 150 mg BID JOSE Administration Sucralfate 1 gm 10/20/16 22:00 10/21/16 09:33 Carafate Oral Suspension - PO 1 gm BID JOSE Administration ASSESSMENT/PLAN: 71yo F h/o renal ca (s/p nephrectomy 02/2016) with multiple mets to liver and lungs, HTN, and recent hospitalization for PNA. Leukocytosis 15.9, Fever 102 ( per ER physician), Tachycardia 116. CXR increased b/l effusions (R>L); questionable opacity right cardiac border most likely representing congestion. #Pleural effusion -tap showed no cancer cells, exudative -Pleur-x in place and draining -Robitussin for cough -pt in Tele -per surg pt will need VNS 3/wk #Sepsis -Pt measured her fever at 102, and had tachycardia of 116 on admission. Site of infection: pleural effusion vs UTI -BCx, UCx, pleural fluid Cx neg -US guided thoracentesis of pleural effusion: exudative by Light's criteria -Per ID, Ertapenem #anemia -no transfusion at this time #RUQ pain, lft abnormalities, elev INR -Due to liver metastases #Renal carcinoma (s/o L nephrectomy) with liver and lung mets -reactive leukocytosis and low grade fever -per Heme/Onc, pt will not be able to get chemo at this hospital because of insurance issues. Pt will need to be stabilized and transferred probably to [facility] -palliative consult #HTN -Continued home medication Amlodipine #Hyperlipidemia -Holding atorvastatin in light of worsening AST #FEN -NS @ 50mls/hr -lytes wnl -Regular Diet #PPX -HSQ Dispo: Admit to med-surg floor Tyree Jensen MD PGY-1 Visit type - Emergency Visit Emergency Visit: No - New Patient This patient is new to me today: No - Critical Care Critical Care patient: No - Discharge Referral Referred to [facility] Med P.C.: No <Flaco Vázquez - Last Filed: 10/22/16 14:46> Physical Exam: SUBJECTIVE: Patient seen and examined Correction to the Sales Designer's note: Patient is not being transferred to another facility , once stable will be discharged home and follow with [facility] afterward with the oncology center.
--- NOTE | 2016-10-21 15:44 | PN ---
Teaching Attending Note Name of Resident: Tyree Jensen ATTENDING PHYSICIAN STATEMENT I saw and evaluated the patient. I reviewed the resident's note and discussed the case with the resident. I agree with the resident's findings and plan as documented. SUBJECTIVE: Patient is feeling weak, continues to be tachycardic. OBJECTIVE: Vital Signs Temperature 97.9 F 10/21/16 10:00 Pulse Rate 97 H 10/21/16 14:00 Respiratory Rate 20 10/21/16 14:00 Blood Pressure 112/58 10/21/16 14:00 O2 Sat by Pulse Oximetry (%) 97 10/21/16 10:10 CBCD WBC 17.2 K/mm3 (4.0-10.0) H 10/21/16 05:15 RBC 3.07 M/mm3 (3.60-5.2) L 10/21/16 05:15 Hgb 9.0 GM/dL (10.7-15.3) L D 10/21/16 05:15 Hct 26.4 % (32.4-45.2) L D 10/21/16 05:15 MCV 85.9 fl (80-96) 10/21/16 05:15 MCHC 34.0 g/dl (32.0-36.0) 10/21/16 05:15 RDW 17.5 % (11.6-15.6) H 10/21/16 05:15 Plt Count 382 K/MM3 (134-434) 10/21/16 05:15 MPV 8.4 fl (7.5-11.1) 10/21/16 05:15 CMP Sodium 143 mmol/L (136-145) 10/21/16 05:15 Potassium 4.4 mmol/L (3.5-5.1) 10/21/16 05:15 Chloride 108 mmol/L (98-107) H 10/21/16 05:15 Carbon Dioxide 28 mmol/L (21-32) 10/21/16 05:15 Anion Gap 7 (8-16) L 10/21/16 05:15 BUN 38 mg/dL (7-18) H D 10/21/16 05:15 Creatinine 1.1 mg/dL (0.55-1.02) H D 10/21/16 05:15 Creat Clearance w eGFR 49.10 (>60) 10/21/16 05:15 Random Glucose 110 mg/dL (74-106) H 10/21/16 05:15 Calcium 8.0 mg/dL (8.5-10.1) L 10/21/16 05:15 Total Bilirubin 0.9 mg/dL (0.2-1.0) 10/21/16 05:15 AST 70 U/L (15-37) H 10/21/16 05:15 ALT 51 U/L (12-78) 10/21/16 05:15 Alkaline Phosphatase 775 U/L (45-117) H 10/21/16 05:15 Total Protein 4.3 g/dl (6.4-8.2) L 10/21/16 05:15 Albumin 1.6 g/dl (3.4-5.0) L 10/21/16 05:15 CARDIAC ENZYMES Creatine Kinase 23 IU/L (26-192) L 10/13/16 23:30 Troponin I < 0.02 ng/ml (0.00-0.05) 10/13/16 23:30 Current Medications Generic Name Dose Route Start Last Admin Trade Name Freq PRN Reason Stop Dose Admin Acetaminophen 325 mg 10/20/16 17:55 Tylenol - PO Q8H PRN FEVER OR PAIN Guaifenesin 10 ml 10/20/16 17:55 Robitussin - PO Q6H PRN COUGH Heparin Sodium (Porcine) 5,000 unit 10/20/16 22:00 10/21/16 14:33 Heparin - SQ 5,000 unit TID JOSE Administration Ertapenem 1 gm/ Sodium 50 mls @ 50 mls/hr 10/21/16 10:00 10/21/16 10:15 Chloride IVPB 50 mls/hr DAILY JOSE Administration Protocol Losartan Potassium 100 mg 10/21/16 10:00 10/21/16 10:41 Cozaar - PO 100 mg DAILY JOSE Administration Morphine Sulfate 1 mg 10/21/16 12:48 Morphine Injection - IVPUSH Q3H PRN PAIN Nystatin 500,000 units 10/20/16 18:00 10/21/16 14:34 Nystatin Oral Suspension - PO 500,000 units Q6HPO JOSE Administration Ondansetron HCl 8 mg 10/20/16 17:55 10/21/16 09:34 Zofran - PO 8 mg Q8H PRN Administration NAUSEA Ranitidine HCl 150 mg 10/20/16 22:00 10/21/16 09:34 Zantac - PO 150 mg BID JOSE Administration Sucralfate 1 gm 10/20/16 22:00 10/21/16 09:33 Carafate Oral Suspension - PO 1 gm BID JOSE Administration Home Medications Medication Instructions Recorded Atorvastatin Ca [Lipitor] 20 mg PO HS #30 tablet 10/10/16 Levofloxacin [Levaquin -] 500 mg PO DAILY #5 tablet 10/10/16 Sucralfate Oral Suspension 1 gm PO BID #240 ml 10/10/16 [Carafate Oral Suspension -] Losartan Potassium [Cozaar] 100 mg PO DAILY 10/14/16 Microbiology 10/13/16 23:30 Blood - Peripheral Venous Blood Culture - Final NO GROWTH AFTER 5 DAYS INCUBATION 10/14/16 14:00 Pleural Fluid Gram Stain - Final 10/14/16 14:00 Pleural Fluid Body Fluid Culture - Final NO GROWTH OF AEROBIC ORGANISMS AFTER 48 HOURS INCUBATION 10/14/16 14:00 Pleural Fluid Anaerobic Culture - Final NO ANAEROBES WERE ISOLATED 10/13/16 23:30 Urine - Urine Clean Catch Urine Culture - Final NO GROWTH OBTAINED 10/14/16 14:00 Pleural Fluid SUNITA Preparation - Preliminary 10/14/16 14:00 Pleural Fluid Fungal Culture - Preliminary 10/14/16 14:00 Pleural Fluid AFB Smear Concentration - Preliminary 10/14/16 14:00 Pleural Fluid Mycobacterial Culture - Preliminary PE: per resident's note Chest: Positive for VATS/pleur-X on the right side LLE swollen > right with 2 plus edema as per nurse was hanging her legs down ASSESSMENT AND PLAN: 71 y/o unfortunate lady with h/o HTN, renal cell Ca with lung and liver mets , s /p resection and chemo in [place], and recent hospitalization for PNA , who presented with fever and malaise # Pleural effusion Exudative R > L.s/p R thoracentesis s/p VATS/pleur-x by ; fluid looks loculated. most likely from tumor . only 140 cc removed, cytology neg, and cx neg ; patient feels tired andrea. on exertion. will discuss withsocial worker, oncologist discharge plan # s/p sepsis: source could be Urine vs Lung. on Meropenem day 8; so far all her cultures are negative, s/p po Levaquin at home # Renal cell carcinoma:s/p Left nephrectomy; with mets to liver and lungs. Further cancer [facility] # Thrush: Nystatin # HTN: cont losartan # Acute Transaminitis : due to liver Mets , will continue to monitor # ACD , s/p 1 unit of RBC DVT px: Scds, Heparin
--- NOTE | 2016-10-21 16:28 | PN ---
Progress Note (short form) - Note Progress Note: Seen and examined the patient. No overnight events. s/p VATS and Pleurex on 10/19 She c/o pain at the site of the catheter. Continues to try to keep up po intake. resting comfortably in NAD NCAT RRR Decreased breath sounds bilaterally has chest tube, draining at bedside. no LE edema seen, has SCDs Current Medications Generic Name Dose Route Start Last Admin Trade Name Freq PRN Reason Stop Dose Admin Acetaminophen 325 mg 10/20/16 17:55 Tylenol - PO Q8H PRN FEVER OR PAIN Guaifenesin 10 ml 10/20/16 17:55 Robitussin - PO Q6H PRN COUGH Heparin Sodium (Porcine) 5,000 unit 10/20/16 22:00 10/21/16 14:33 Heparin - SQ 5,000 unit TID JOSE Administration Ertapenem 1 gm/ Sodium 50 mls @ 50 mls/hr 10/21/16 10:00 10/21/16 10:15 Chloride IVPB 50 mls/hr DAILY JOSE Administration Protocol Losartan Potassium 100 mg 10/21/16 10:00 10/21/16 10:41 Cozaar - PO 100 mg DAILY JOSE Administration Morphine Sulfate 1 mg 10/21/16 12:48 Morphine Injection - IVPUSH Q3H PRN PAIN Nystatin 500,000 units 10/20/16 18:00 10/21/16 14:34 Nystatin Oral Suspension - PO 500,000 units Q6HPO JOSE Administration Ondansetron HCl 8 mg 10/20/16 17:55 10/21/16 09:34 Zofran - PO 8 mg Q8H PRN Administration NAUSEA Ranitidine HCl 150 mg 10/20/16 22:00 10/21/16 09:34 Zantac - PO 150 mg BID JOSE Administration Sucralfate 1 gm 10/20/16 22:00 10/21/16 09:33 Carafate Oral Suspension - PO 1 gm BID JOSE Administration CBC, BMP 10/21/16 05:15 10/21/16 05:15 Last Vital Signs Temp Pulse Resp BP Pulse Ox 97.9 F 97 H 20 112/58 97 10/21/16 10:00 10/21/16 14:00 10/21/16 14:00 10/21/16 14:00 10/21/16 10:10 Assessment/Plan: Ms.Lara is a 71 year old with h.o Metastatic Urothelial Cancer ( Lung, liver mets) progressed on front line immunotherapy ,treated in [facility] , is admitted for symptomatic lung mets,fever. 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 -s/p VATS and pleurex for suspected malignant effusion -s/p one unit prbc on 10/20, crit stable -repeat CXR reviewed. -PT participation -if stable/afebrile/need VNS for pleur-x maintenance. -d/c planning, when able. will follow. -
--- NOTE | 2016-10-21 17:49 | PN ---
Progress Note, Physician History of Present Illness: stable no new issues pain at the site wbc has increased - Current Medication List Current Medications: Active Medications Acetaminophen (Tylenol -) 325 mg PO Q8H PRN PRN Reason: FEVER OR PAIN Guaifenesin (Robitussin -) 10 ml PO Q6H PRN PRN Reason: COUGH Heparin Sodium (Porcine) (Heparin -) 5,000 unit SQ TID [facility] Last Admin: 10/21/16 14:33 Dose: 5,000 unit Ertapenem 1 gm/ Sodium (Chloride) 50 mls @ 50 mls/hr IVPB DAILY [facility] PRN Reason: Protocol Last Admin: 10/21/16 10:15 Dose: 50 mls/hr Losartan Potassium (Cozaar -) 100 mg PO DAILY [facility] Last Admin: 10/21/16 10:41 Dose: 100 mg Morphine Sulfate (Morphine Injection -) 1 mg IVPUSH Q3H PRN PRN Reason: PAIN Nystatin (Nystatin Oral Suspension -) 500,000 units PO Q6HPO [facility] Last Admin: 10/21/16 14:34 Dose: 500,000 units Ondansetron HCl (Zofran -) 8 mg PO Q8H PRN PRN Reason: NAUSEA Last Admin: 10/21/16 09:34 Dose: 8 mg Ranitidine HCl (Zantac -) 150 mg PO BID [facility] Last Admin: 10/21/16 09:34 Dose: 150 mg Sucralfate (Carafate Oral Suspension -) 1 gm PO BID [facility] Last Admin: 10/21/16 09:33 Dose: 1 gm - Objective Vital Signs: Vital Signs Temperature 97.9 F 10/21/16 10:00 Pulse Rate 97 H 10/21/16 14:00 Respiratory Rate 20 10/21/16 14:00 Blood Pressure 112/58 10/21/16 14:00 O2 Sat by Pulse Oximetry (%) 97 10/21/16 10:10 Constitutional: Yes: No Distress, Calm HENT: Yes: Atraumatic Cardiovascular: Yes: Regular Rate and Rhythm Respiratory: Yes: Other (decreased air entry pleurex in place) Gastrointestinal: Yes: Normal Bowel Sounds, Soft Musculoskeletal: Yes: WNL Extremities: Yes: WNL Neurological: Yes: Alert Psychiatric: Yes: Alert Labs: CBC, BMP 10/21/16 05:15 10/21/16 05:15 INR, PTT INR 1.36 (0.82-1.09) H 10/19/16 06:00 Assessment/Plan ) Renal carcinoma (s/p L nephrectomy) with mets to lungs and liver 2) CKD 3) Abdominal pain, right-sided 4) HTN 5) Hyperlipidemia leukocytosis plan continue current mgmt patient improving rest as per primary team physio incentive cindy pleurex in place continue as per thoracic and icu will stop abx and monitor if wbc starts increasing will see
[2016-10-22] MEDS: NYSTATIN 500,000 UNITS/5 ML SUSPENSION PO SCH ×4 (00:16→18:30)
[2016-10-22] MEDS: HEPARIN NA (PORCINE) 5,000 UNITS/ML 1ML VIAL SQ SCH ×3 (06:11→21:42)
--- NOTE | 2016-10-22 07:00 | PN ---
Addendum entered and electronically signed by Tyree Jensen RES 10/22/16 14:21: note saved in error. see next note Original Note: <Tyree Jensen - Last Filed: 10/22/16 07:18> Physical Exam: SUBJECTIVE: Patient seen and examined at bedside. No acute events overnight. Pt complains of generalized weakness and swollen legs. No other complaints at this time. No dizziness, chest pain, shortness of breath. OBJECTIVE: Vital Signs Period Temp Pulse Resp BP Sys/Aldrich Pulse Ox Last 24 Hr 97.9 F-98.7 F 92-111 18-23 110-117/52-58 95-97 GENERAL: The patient is awake, alert, and fully oriented, in no acute distress. HEAD: Normal with no signs of trauma. EYES: extraocular movements intact, sclera anicteric, conjunctiva clear. No ptosis. ENT: Ears normal, nares patent, oropharynx clear without exudates, moist mucous membranes. NECK: Trachea midline, full range of motion, supple. LUNGS: Breath sounds decreased in both bases, clear to auscultation bilaterally , no wheezes, no crackles, no accessory muscle use. HEART: Regular rate and rhythm, S1, S2 without murmur, rub or gallop. ABDOMEN: Soft, nontender, nondistended, normoactive bowel sounds, no guarding, no rebound, no hepatosplenomegaly, no masses. EXTREMITIES: 2+ pulses, warm, well-perfused, 1+ edema. NEUROLOGICAL: Cranial nerves II through XII grossly intact. Normal speech, gait not observed. PSYCH: Normal mood, normal affect. SKIN: Warm, dry, normal turgor, no rashes or lesions noted Laboratory Results - last 24 hr 10/18/16 10/21/16 10/21/16 14:00 05:15 05:15 WBC 17.2 H RBC 3.07 L Hgb 9.0 L D Hct 26.4 L D MCV 85.9 MCH 29.2 MCHC 34.0 RDW 17.5 H Plt Count 382 MPV 8.4 Neutrophils % 84.7 H Lymphocytes % 8.9 D Monocytes % 5.7 Eosinophils % 0.2 D Basophils % 0.5 Sodium 143 Potassium 4.4 Chloride 108 H Carbon Dioxide 28 Anion Gap 7 L BUN 38 H D Creatinine 1.1 H D Creat Clearance w eGFR 49.10 Random Glucose 110 H Calcium 8.0 L Total Bilirubin 0.9 AST 70 H ALT 51 Alkaline Phosphatase 775 H Total Protein 4.3 L Albumin 1.6 L Blood Type A POSITIVE Antibody Screen Negative Crossmatch See Detail Active Medications Generic Name Dose Route Start Last Admin Trade Name Freq PRN Reason Stop Dose Admin Acetaminophen 325 mg 10/20/16 17:55 Tylenol - PO Q8H PRN FEVER OR PAIN Guaifenesin 10 ml 10/20/16 17:55 Robitussin - PO Q6H PRN COUGH Heparin Sodium (Porcine) 5,000 unit 10/20/16 22:00 10/22/16 06:11 Heparin - SQ 5,000 unit TID JOSE Administration Losartan Potassium 100 mg 10/21/16 10:00 10/21/16 10:41 Cozaar - PO 100 mg DAILY JOSE Administration Morphine Sulfate 1 mg 10/21/16 12:48 Morphine Injection - IVPUSH Q3H PRN PAIN Nystatin 500,000 units 10/20/16 18:00 10/22/16 06:11 Nystatin Oral Suspension - PO 500,000 units Q6HPO JOSE Administration Ondansetron HCl 8 mg 10/20/16 17:55 10/21/16 09:34 Zofran - PO 8 mg Q8H PRN Administration NAUSEA Ranitidine HCl 150 mg 10/20/16 22:00 10/21/16 21:24 Zantac - PO 150 mg BID JOSE Administration Sucralfate 1 gm 10/20/16 22:00 10/21/16 21:24 Carafate Oral Suspension - PO 1 gm BID JOSE Administration ASSESSMENT/PLAN: Visit type - Emergency Visit Emergency Visit: No - New Patient This patient is new to me today: No - Critical Care Critical Care patient: No - Discharge Referral Referred to [facility] Med P.C.: No <Flaco Vázquez - Last Filed: 10/22/16 14:41> Physical Exam: SUBJECTIVE: Patient seen and examined Correction of an Inside Technical Sales Representative's note: patient is not being transferred to [facility], discharge planning would be once stable, will go home and Follow with the oncology center at [facility].
[2016-10-22 08:14] LABS: BASOPHIL 0.3 % (0-2.0); EOSINOPHIL 0.9 % (0-4.5); MCH 28.5 pg (25.7-33.7); MCHC 33.1 g/dl (32.0-36.0); MEAN CELL VOLUME 86.2 fl (80-96); MEAN PLT VOLUME 8.5 fl (7.5-11.1); NEUTROPHILS 82.3 % (42.8-82.8); PLATELET COUNT 387 K/MM3 (134-434); RDW 17.8 % (11.6-15.6); WHITE BLOOD COUNT 15.8 K/mm3 (4.0-10.0)
[2016-10-22 08:58] LABS: ALBUMIN 1.7 g/dl (3.4-5.0); ALK PHOS 967 U/L (45-117); ANION GAP 9 (8-16); BILIRUBIN,TOTAL 1.2 mg/dL (0.2-1.0); CALCIUM 8.4 mg/dL (8.5-10.1); CO2 25 mmol/L (21-32); CREATININE 1.2 mg/dL (0.55-1.02); GLUCOSE,RANDOM 104 mg/dL (74-106); SGOT/AST 96 U/L (15-37); SGPT/ALT 68 U/L (12-78); TOT PROT 4.6 g/dl (6.4-8.2)
[2016-10-22] MEDS: SUCRALFATE 1 GM/10 ML UNIT DOSE CUPS PO SCH ×2 (09:36→21:42)
[2016-10-22] MEDS: LOSARTAN POTASSIUM 50 MG TABLET (FP) PO SCH (09:37)
[2016-10-22] MEDS: RANITIDINE HCL 150 MG TABLET (FP) PO SCH ×2 (09:37→21:42)
--- NOTE | 2016-10-22 12:48 | PN ---
Progress Note (short form) - Note Progress Note: PULMONARY Breathing and cough improving. Pleur-x draining~350mL past 24 hrs. Last Vital Signs Temp Pulse Resp BP Pulse Ox 98.2 F 96 H 16 120/60 95 10/22/16 08:05 10/22/16 08:05 10/22/16 08:05 10/22/16 08:05 10/22/16 09:00 Gen: weak appearing but in NAD Heart: tachycardic, regular Lung: decreased breath sounds right base Abd: soft, nontender Ext: no edema CBC, BMP 10/22/16 05:35 10/22/16 05:35 Active Medications Acetaminophen (Tylenol -) 325 mg PO Q8H PRN PRN Reason: FEVER OR PAIN Guaifenesin (Robitussin -) 10 ml PO Q6H PRN PRN Reason: COUGH Heparin Sodium (Porcine) (Heparin -) 5,000 unit SQ TID [facility] Last Admin: 10/22/16 06:11 Dose: 5,000 unit Losartan Potassium (Cozaar -) 100 mg PO DAILY [facility] Last Admin: 10/22/16 09:37 Dose: 100 mg Morphine Sulfate (Morphine Injection -) 1 mg IVPUSH Q3H PRN PRN Reason: PAIN Nystatin (Nystatin Oral Suspension -) 500,000 units PO Q6HPO [facility] Last Admin: 10/22/16 12:29 Dose: 500,000 units Ondansetron HCl (Zofran -) 8 mg PO Q8H PRN PRN Reason: NAUSEA Last Admin: 10/21/16 09:34 Dose: 8 mg Ranitidine HCl (Zantac -) 150 mg PO BID [facility] Last Admin: 10/22/16 09:37 Dose: 150 mg Sucralfate (Carafate Oral Suspension -) 1 gm PO BID [facility] Last Admin: 10/22/16 09:36 Dose: 1 gm A/P Metastatic Renal Cell Ca to lung, liver Pleural Effusion - Exudative Hemoptysis Fever likely from malignancy - monitor pleur-x output - cough suppressants - monitor hemoptysis - DVT prophylaxis - OOB to chair if possible - rehab/PT
--- NOTE | 2016-10-22 14:26 | PN ---
Physical Exam: SUBJECTIVE: Patient seen and examined at bedside. Some leg swelling. No other complaints at this time. Denies headache, fever, diarrhea, nausea, vomiting. OBJECTIVE: Vital Signs Period Temp Pulse Resp BP Sys/Aldrich Pulse Ox Last 24 Hr 98.2 F-98.7 F 92-101 16-21 110-120/52-60 95-95 GENERAL: The patient is awake, alert, and fully oriented, in no acute distress. HEAD: Normal with no signs of trauma. EYES: scleral icterus,No ptosis. ENT: nares patent, oropharynx clear without exudates, moist mucous membranes. NECK: Trachea midline, full range of motion, supple, no carotid bruits. LUNGS: decreased breath sounds in R lung base, clear to auscultation bilaterally , no wheezes, no crackles, no accessory muscle use. Right sided drain in place. HEART: Regular rate and rhythm, normal S1, S2 without murmur, rub or gallop. ABDOMEN: Soft, tender to palpation in RUQ, nondistended, normoactive bowel sounds, no guarding, no rebound, no hepatosplenomegaly, no masses. No cva tenderness EXTREMITIES: 2+ pulses, warm, well-perfused, 2+ pedal edema. NEUROLOGICAL: Cranial nerves II through XII grossly intact. Normal speech, gait not observed. PSYCH: Normal mood, normal affect. SKIN: Warm, dry, normal turgor, no rashes or lesions noted Laboratory Results - last 24 hr 10/22/16 10/22/16 05:35 05:35 WBC 15.8 H RBC 3.24 L Hgb 9.3 L Hct 27.9 L MCV 86.2 MCH 28.5 MCHC 33.1 RDW 17.8 H Plt Count 387 MPV 8.5 Neutrophils % 82.3 Lymphocytes % 9.7 Monocytes % 6.8 Eosinophils % 0.9 D Basophils % 0.3 Sodium 143 Potassium 4.7 Chloride 109 H Carbon Dioxide 25 Anion Gap 9 BUN 39 H Creatinine 1.2 H Creat Clearance w eGFR 44.41 Random Glucose 104 Calcium 8.4 L Total Bilirubin 1.2 H D AST 96 H D ALT 68 D Alkaline Phosphatase 967 H D Total Protein 4.6 L Albumin 1.7 L Active Medications Generic Name Dose Route Start Last Admin Trade Name Freq PRN Reason Stop Dose Admin Acetaminophen 325 mg 10/20/16 17:55 Tylenol - PO Q8H PRN FEVER OR PAIN Guaifenesin 10 ml 10/20/16 17:55 Robitussin - PO Q6H PRN COUGH Heparin Sodium (Porcine) 5,000 unit 10/20/16 22:00 10/22/16 14:17 Heparin - SQ 5,000 unit TID JOSE Administration Losartan Potassium 100 mg 10/21/16 10:00 10/22/16 09:37 Cozaar - PO 100 mg DAILY JOSE Administration Morphine Sulfate 1 mg 10/21/16 12:48 Morphine Injection - IVPUSH Q3H PRN PAIN Nystatin 500,000 units 10/20/16 18:00 10/22/16 12:29 Nystatin Oral Suspension - PO 500,000 units Q6HPO JOSE Administration Ondansetron HCl 8 mg 10/20/16 17:55 10/21/16 09:34 Zofran - PO 8 mg Q8H PRN Administration NAUSEA Ranitidine HCl 150 mg 10/20/16 22:00 10/22/16 09:37 Zantac - PO 150 mg BID JOSE Administration Sucralfate 1 gm 10/20/16 22:00 10/22/16 09:36 Carafate Oral Suspension - PO 1 gm BID JOSE Administration ASSESSMENT/PLAN: 71yo F h/o renal ca (s/p nephrectomy 02/2016) with multiple mets to liver and lungs, HTN, and recent hospitalization for PNA. Leukocytosis 15.9, Fever 102 ( per ER physician), Tachycardia 116. CXR increased b/l effusions (R>L); questionable opacity right cardiac border most likely representing congestion. #Pleural effusion -tap showed no cancer cells, exudative -Pleur-x in place and draining -Robitussin for cough -per surg pt will need VNS 3/wk -CXR shows possible b/l effusion, likely 2/2 splinting. Pt is refusing pain meds #Sepsis -Pt measured her fever at 102, and had tachycardia of 116 on admission. Site of infection: pleural effusion vs UTI -BCx, UCx, pleural fluid Cx neg -US guided thoracentesis of pleural effusion: exudative by Light's criteria #anemia -no transfusion at this time #RUQ pain, lft abnormalities, elev INR -Due to liver metastases #Renal carcinoma (s/o L nephrectomy) with liver and lung mets -reactive leukocytosis and low grade fever -Pt is not medically stable for chemotherapy at this time -per Heme/Onc, Pt is being optimized -palliative consult #HTN -Continued home medication Amlodipine #Hyperlipidemia -Holding atorvastatin in light of worsening AST #FEN -NS @ 50mls/hr -lytes wnl -Regular Diet #PPX -HSQ Dispo: Admit to med-surg floor Tyree Jensen MD PGY-1 Visit type - Emergency Visit Emergency Visit: No - New Patient This patient is new to me today: No - Critical Care Critical Care patient: No - Discharge Referral Referred to [facility] Med P.C.: No
--- NOTE | 2016-10-22 14:38 | PN ---
Teaching Attending Note Name of Resident: Tyree Jensen ATTENDING PHYSICIAN STATEMENT I saw and evaluated the patient. I reviewed the resident's note and discussed the case with the resident. I agree with the resident's findings and plan as documented. SUBJECTIVE: Patient feels tired, denies any shortness of breath, no fever or chills. OBJECTIVE: Vital Signs Temperature 98.2 F 10/22/16 08:05 Pulse Rate 96 H 10/22/16 08:05 Respiratory Rate 16 10/22/16 08:05 Blood Pressure 120/60 10/22/16 08:05 O2 Sat by Pulse Oximetry (%) 95 10/22/16 09:00 CBCD WBC 15.8 K/mm3 (4.0-10.0) H 10/22/16 05:35 RBC 3.24 M/mm3 (3.60-5.2) L 10/22/16 05:35 Hgb 9.3 GM/dL (10.7-15.3) L 10/22/16 05:35 Hct 27.9 % (32.4-45.2) L 10/22/16 05:35 MCV 86.2 fl (80-96) 10/22/16 05:35 MCHC 33.1 g/dl (32.0-36.0) 10/22/16 05:35 RDW 17.8 % (11.6-15.6) H 10/22/16 05:35 Plt Count 387 K/MM3 (134-434) 10/22/16 05:35 MPV 8.5 fl (7.5-11.1) 10/22/16 05:35 CMP Sodium 143 mmol/L (136-145) 10/22/16 05:35 Potassium 4.7 mmol/L (3.5-5.1) 10/22/16 05:35 Chloride 109 mmol/L (98-107) H 10/22/16 05:35 Carbon Dioxide 25 mmol/L (21-32) 10/22/16 05:35 Anion Gap 9 (8-16) 10/22/16 05:35 BUN 39 mg/dL (7-18) H 10/22/16 05:35 Creatinine 1.2 mg/dL (0.55-1.02) H 10/22/16 05:35 Creat Clearance w eGFR 44.41 (>60) 10/22/16 05:35 Random Glucose 104 mg/dL (74-106) 10/22/16 05:35 Calcium 8.4 mg/dL (8.5-10.1) L 10/22/16 05:35 Total Bilirubin 1.2 mg/dL (0.2-1.0) H D 10/22/16 05:35 AST 96 U/L (15-37) H D 10/22/16 05:35 ALT 68 U/L (12-78) D 10/22/16 05:35 Alkaline Phosphatase 967 U/L (45-117) H D 10/22/16 05:35 Total Protein 4.6 g/dl (6.4-8.2) L 10/22/16 05:35 Albumin 1.7 g/dl (3.4-5.0) L 10/22/16 05:35 CARDIAC ENZYMES Creatine Kinase 23 IU/L (26-192) L 10/13/16 23:30 Troponin I < 0.02 ng/ml (0.00-0.05) 10/13/16 23:30 Current Medications Generic Name Dose Route Start Last Admin Trade Name Freq PRN Reason Stop Dose Admin Acetaminophen 325 mg 10/20/16 17:55 Tylenol - PO Q8H PRN FEVER OR PAIN Guaifenesin 10 ml 10/20/16 17:55 Robitussin - PO Q6H PRN COUGH Heparin Sodium (Porcine) 5,000 unit 10/20/16 22:00 10/22/16 14:17 Heparin - SQ 5,000 unit TID JOSE Administration Losartan Potassium 100 mg 10/21/16 10:00 10/22/16 09:37 Cozaar - PO 100 mg DAILY JOSE Administration Morphine Sulfate 1 mg 10/21/16 12:48 Morphine Injection - IVPUSH Q3H PRN PAIN Nystatin 500,000 units 10/20/16 18:00 10/22/16 12:29 Nystatin Oral Suspension - PO 500,000 units Q6HPO JOSE Administration Ondansetron HCl 8 mg 10/20/16 17:55 10/21/16 09:34 Zofran - PO 8 mg Q8H PRN Administration NAUSEA Ranitidine HCl 150 mg 10/20/16 22:00 10/22/16 09:37 Zantac - PO 150 mg BID JOSE Administration Sucralfate 1 gm 10/20/16 22:00 10/22/16 09:36 Carafate Oral Suspension - PO 1 gm BID JOSE Administration PE: per resident's note Patient looks edematous Chest: Positive for VATS/pleur-X on the right side LLE swollen > right with 2 plus edema, elevated LE ASSESSMENT AND PLAN: 71 y/o unfortunate lady with h/o HTN, renal cell Ca with lung and liver mets , s /p resection and chemo in [place], and recent hospitalization for PNA , who presented with fever and malaise # Pleural effusion Exudative R > L.s/p R thoracentesis s/p VATS/pleur-x by , CXR on the left side positive for effusion as well, cytology neg , and cx neg ; once stable will prepare the patient for discharge will discuss with social media content manager, oncologist. # LE edema continues, will give her a dose of Lasix IV 40mg. # s/p sepsis: s/p IV Meropenem ( completed) all her cultures are negative, s/ p po Levaquin at home # Renal cell carcinoma:s/p Left nephrectomy; with mets to liver and lungs. Further care [facility] once patient is stable. # Thrush: Nystatin # HTN: cont losartan # Acute Transaminitis : due to liver Mets DVT px: Scds, Heparin
[2016-10-22] MEDS ORDERED: FUROSEMIDE 40 MG/4 ML INJECTABLE VIAL IVPB ONE (14:57)
--- NOTE | 2016-10-22 15:52 | PN ---
Progress Note (short form) - Note Progress Note: Seen and examined the patient. No overnight events. Off abx chart reviewed still with drainage resting comfortably in NAD NCAT RRR Decreased breath sounds bilaterally has chest tube, draining at bedside. no LE edema seen Last Vital Signs Temp Pulse Resp BP Pulse Ox 98.7 F 113 H 16 123/56 95 10/22/16 14:29 10/22/16 14:29 10/22/16 14:29 10/22/16 14:29 10/22/16 09:00 CBC, BMP 10/22/16 05:35 10/22/16 05:35 Current Medications Generic Name Dose Route Start Last Admin Trade Name Freq PRN Reason Stop Dose Admin Acetaminophen 325 mg 10/20/16 17:55 Tylenol - PO Q8H PRN FEVER OR PAIN Guaifenesin 10 ml 10/20/16 17:55 Robitussin - PO Q6H PRN COUGH Heparin Sodium (Porcine) 5,000 unit 10/20/16 22:00 10/22/16 14:17 Heparin - SQ 5,000 unit TID JOSE Administration Losartan Potassium 100 mg 10/21/16 10:00 10/22/16 09:37 Cozaar - PO 100 mg DAILY JOSE Administration Morphine Sulfate 1 mg 10/21/16 12:48 Morphine Injection - IVPUSH Q3H PRN PAIN Nystatin 500,000 units 10/20/16 18:00 10/22/16 12:29 Nystatin Oral Suspension - PO 500,000 units Q6HPO JOSE Administration Ondansetron HCl 8 mg 10/20/16 17:55 10/21/16 09:34 Zofran - PO 8 mg Q8H PRN Administration NAUSEA Ranitidine HCl 150 mg 10/20/16 22:00 10/22/16 09:37 Zantac - PO 150 mg BID JOSE Administration Sucralfate 1 gm 10/20/16 22:00 10/22/16 09:36 Carafate Oral Suspension - PO 1 gm BID JOSE Administration Assessment/Plan: 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 -leukocytosis likely from malignancy -slight uptrend in the BUN, pt says she does not have any problems urinating, continue to monitor. -monitor off of abx -resend pleural cytology -d/c planning, when able, likely once drainage minimum -PT eval -encouraged PO intake and OOB to chair -[facility] appt 11/03 1200pm, family/pt aware. will follow. -
--- NOTE | 2016-10-22 16:20 | PN ---
Progress Note, Physician History of Present Illness: stable no new issues drainage tube in place - Current Medication List Current Medications: Active Medications Acetaminophen (Tylenol -) 325 mg PO Q8H PRN PRN Reason: FEVER OR PAIN Guaifenesin (Robitussin -) 10 ml PO Q6H PRN PRN Reason: COUGH Heparin Sodium (Porcine) (Heparin -) 5,000 unit SQ TID [facility] Last Admin: 10/22/16 14:17 Dose: 5,000 unit Losartan Potassium (Cozaar -) 100 mg PO DAILY [facility] Last Admin: 10/22/16 09:37 Dose: 100 mg Morphine Sulfate (Morphine Injection -) 1 mg IVPUSH Q3H PRN PRN Reason: PAIN Nystatin (Nystatin Oral Suspension -) 500,000 units PO Q6HPO [facility] Last Admin: 10/22/16 12:29 Dose: 500,000 units Ondansetron HCl (Zofran -) 8 mg PO Q8H PRN PRN Reason: NAUSEA Last Admin: 10/21/16 09:34 Dose: 8 mg Ranitidine HCl (Zantac -) 150 mg PO BID [facility] Last Admin: 10/22/16 09:37 Dose: 150 mg Sucralfate (Carafate Oral Suspension -) 1 gm PO BID [facility] Last Admin: 10/22/16 09:36 Dose: 1 gm - Objective Vital Signs: Vital Signs Temperature 98.7 F 10/22/16 14:29 Pulse Rate 113 H 10/22/16 14:29 Respiratory Rate 16 10/22/16 14:29 Blood Pressure 123/56 10/22/16 14:29 O2 Sat by Pulse Oximetry (%) 95 10/22/16 09:00 Constitutional: Yes: No Distress, Calm Cardiovascular: Yes: Regular Rate and Rhythm Respiratory: Yes: Poor Air Entry, Other (chest tube in place) Gastrointestinal: Yes: Normal Bowel Sounds, Soft Musculoskeletal: Yes: WNL Extremities: Yes: WNL Neurological: Yes: Alert, Oriented Psychiatric: Yes: Alert, Oriented Labs: CBC, BMP 10/22/16 05:35 10/22/16 05:35 INR, PTT INR 1.36 (0.82-1.09) H 10/19/16 06:00 Assessment/Plan ) Renal carcinoma (s/p L nephrectomy) with mets to lungs and liver 2) CKD 3) Abdominal pain, right-sided 4) HTN 5) Hyperlipidemia leukocytosis plan continue current mgmt patient improving rest as per primary team physio incentive cindy pleurex in place stable off of abx
[2016-10-23] MEDS: NYSTATIN 500,000 UNITS/5 ML SUSPENSION PO SCH ×4 (01:13→21:38)
[2016-10-23] MEDS: HEPARIN NA (PORCINE) 5,000 UNITS/ML 1ML VIAL SQ SCH ×3 (06:40→21:39)
[2016-10-23] MEDS: LOSARTAN POTASSIUM 50 MG TABLET (FP) PO SCH (09:10)
[2016-10-23] MEDS: RANITIDINE HCL 150 MG TABLET (FP) PO SCH ×2 (09:10→21:39)
[2016-10-23] MEDS: SUCRALFATE 1 GM/10 ML UNIT DOSE CUPS PO SCH ×2 (09:10→21:39)
--- NOTE | 2016-10-23 12:58 | PN ---
Progress Note, Physician History of Present Illness: Pt states she feels better. Denies having any new complaints. - Current Medication List Current Medications: Active Medications Acetaminophen (Tylenol -) 325 mg PO Q8H PRN PRN Reason: FEVER OR PAIN Guaifenesin (Robitussin -) 10 ml PO Q6H PRN PRN Reason: COUGH Heparin Sodium (Porcine) (Heparin -) 5,000 unit SQ TID [facility] Last Admin: 10/23/16 06:40 Dose: 5,000 unit Losartan Potassium (Cozaar -) 100 mg PO DAILY [facility] Last Admin: 10/23/16 09:10 Dose: 100 mg Morphine Sulfate (Morphine Injection -) 1 mg IVPUSH Q3H PRN PRN Reason: PAIN Nystatin (Nystatin Oral Suspension -) 500,000 units PO Q6HPO [facility] Last Admin: 10/23/16 06:40 Dose: 500,000 units Ondansetron HCl (Zofran -) 8 mg PO Q8H PRN PRN Reason: NAUSEA Last Admin: 10/21/16 09:34 Dose: 8 mg Ranitidine HCl (Zantac -) 150 mg PO BID [facility] Last Admin: 10/23/16 09:10 Dose: 150 mg Sucralfate (Carafate Oral Suspension -) 1 gm PO BID [facility] Last Admin: 10/23/16 09:10 Dose: 1 gm - Objective Vital Signs: Vital Signs Temperature 98.4 F 10/23/16 10:00 Pulse Rate 107 H 10/23/16 10:00 Respiratory Rate 18 10/23/16 10:00 Blood Pressure 121/56 10/23/16 10:00 O2 Sat by Pulse Oximetry (%) 96 10/23/16 10:00 Constitutional: Yes: No Distress HENT: Yes: WNL Neck: Yes: Supple Cardiovascular: Yes: Tachycardia Respiratory: Yes: CTA Bilaterally Gastrointestinal: Yes: Normal Bowel Sounds, Soft Genitourinary: Yes: WNL Musculoskeletal: Yes: WNL Integumentary: Yes: WNL Neurological: Yes: Alert Labs: CBC, BMP 10/22/16 05:35 10/22/16 05:35 INR, PTT INR 1.36 (0.82-1.09) H 10/19/16 06:00 Problem List - Problems (1) Fever Code(s): R50.9 - FEVER, UNSPECIFIED (2) Pleural effusion Code(s): J90 - PLEURAL EFFUSION, NOT ELSEWHERE CLASSIFIED (3) Anemia Code(s): D64.9 - ANEMIA, UNSPECIFIED Qualifiers: Anemia type: other cause Other causes of anemia: antineoplastic chemotherapy Qualified Code(s): D64.81 - Anemia due to antineoplastic chemotherapy; T45.1X5A - Adverse effect of antineoplastic and immunosuppressive drugs, initial encounter (4) Kidney cancer, primary, with metastasis from kidney to other site Code(s): C64.9 - MALIGNANT NEOPLASM OF UNSP KIDNEY, EXCEPT RENAL PELVIS C79.9 - SECONDARY MALIGNANT NEOPLASM OF UNSPECIFIED SITE Qualifiers: Laterality: left Qualified Code(s): C64.2 - Malignant neoplasm of left kidney, except renal pelvis; C79.9 - Secondary malignant neoplasm of unspecified site Assessment/Plan Pleural effusion s/p drainage tube Leukocytosis but wbc stable Pt afebrile, alert - suggest continue monitor off antibiotics at this time
--- NOTE | 2016-10-23 12:59 | PN ---
Physical Exam: SUBJECTIVE: Patient seen and examined Comfortable, family at bedside. no new complains. OBJECTIVE: Vital Signs Temperature 98.4 F 10/23/16 10:00 Pulse Rate 107 H 10/23/16 10:00 Respiratory Rate 18 10/23/16 10:00 Blood Pressure 121/56 10/23/16 10:00 O2 Sat by Pulse Oximetry (%) 96 10/23/16 10:00 GENERAL: The patient is awake, alert, and fully oriented, in no acute distress. HEAD: Normal with no signs of trauma. EYES: PERRL, extraocular movements intact, sclera anicteric, conjunctiva clear. ENT: Ears normal, oropharynx clear without exudates, moist mucous membranes. NECK: Trachea midline, full range of motion, supple. LUNGS: decreased breath sounds right base HEART: Regular rate and rhythm, S1, S2 without murmur, rub or gallop. ABDOMEN: Soft, nontender, nondistended, normoactive bowel sounds, no guarding, no hepatosplenomegaly, no masses. EXTREMITIES: 2+ pulses, warm, well-perfused, no edema. NEUROLOGICAL: Cranial nerves II through XII grossly intact. Normal speech, gait not observed. PSYCH: Normal mood, normal affect. SKIN: Warm, dry, normal turgor, no rashes or lesions noted CBCD WBC 15.8 K/mm3 (4.0-10.0) H 10/22/16 05:35 RBC 3.24 M/mm3 (3.60-5.2) L 10/22/16 05:35 Hgb 9.3 GM/dL (10.7-15.3) L 10/22/16 05:35 Hct 27.9 % (32.4-45.2) L 10/22/16 05:35 MCV 86.2 fl (80-96) 10/22/16 05:35 MCHC 33.1 g/dl (32.0-36.0) 10/22/16 05:35 RDW 17.8 % (11.6-15.6) H 10/22/16 05:35 Plt Count 387 K/MM3 (134-434) 10/22/16 05:35 MPV 8.5 fl (7.5-11.1) 10/22/16 05:35 CMP Sodium 143 mmol/L (136-145) 10/22/16 05:35 Potassium 4.7 mmol/L (3.5-5.1) 10/22/16 05:35 Chloride 109 mmol/L (98-107) H 10/22/16 05:35 Carbon Dioxide 25 mmol/L (21-32) 10/22/16 05:35 Anion Gap 9 (8-16) 10/22/16 05:35 BUN 39 mg/dL (7-18) H 10/22/16 05:35 Creatinine 1.2 mg/dL (0.55-1.02) H 10/22/16 05:35 Creat Clearance w eGFR 44.41 (>60) 10/22/16 05:35 Random Glucose 104 mg/dL (74-106) 10/22/16 05:35 Calcium 8.4 mg/dL (8.5-10.1) L 10/22/16 05:35 Total Bilirubin 1.2 mg/dL (0.2-1.0) H D 10/22/16 05:35 AST 96 U/L (15-37) H D 10/22/16 05:35 ALT 68 U/L (12-78) D 10/22/16 05:35 Alkaline Phosphatase 967 U/L (45-117) H D 10/22/16 05:35 Total Protein 4.6 g/dl (6.4-8.2) L 10/22/16 05:35 Albumin 1.7 g/dl (3.4-5.0) L 10/22/16 05:35 CARDIAC ENZYMES Creatine Kinase 23 IU/L (26-192) L 10/13/16 23:30 Troponin I < 0.02 ng/ml (0.00-0.05) 10/13/16 23:30 Laboratory Results - last 24 hr 10/18/16 14:00 Blood Type A POSITIVE Antibody Screen Negative Crossmatch See Detail Active Medications Generic Name Dose Route Start Last Admin Trade Name Freq PRN Reason Stop Dose Admin Acetaminophen 325 mg 10/20/16 17:55 Tylenol - PO Q8H PRN FEVER OR PAIN Guaifenesin 10 ml 10/20/16 17:55 Robitussin - PO Q6H PRN COUGH Heparin Sodium (Porcine) 5,000 unit 10/20/16 22:00 10/23/16 06:40 Heparin - SQ 5,000 unit TID JOSE Administration Losartan Potassium 100 mg 10/21/16 10:00 10/23/16 09:10 Cozaar - PO 100 mg DAILY JOSE Administration Morphine Sulfate 1 mg 10/21/16 12:48 Morphine Injection - IVPUSH Q3H PRN PAIN Nystatin 500,000 units 10/20/16 18:00 10/23/16 06:40 Nystatin Oral Suspension - PO 500,000 units Q6HPO JOSE Administration Ondansetron HCl 8 mg 10/20/16 17:55 10/21/16 09:34 Zofran - PO 8 mg Q8H PRN Administration NAUSEA Ranitidine HCl 150 mg 10/20/16 22:00 10/23/16 09:10 Zantac - PO 150 mg BID JOSE Administration Sucralfate 1 gm 10/20/16 22:00 10/23/16 09:10 Carafate Oral Suspension - PO 1 gm BID JOSE Administration Home Medications Medication Instructions Recorded Atorvastatin Ca [Lipitor] 20 mg PO HS #30 tablet 10/10/16 Levofloxacin [Levaquin -] 500 mg PO DAILY #5 tablet 10/10/16 Sucralfate Oral Suspension 1 gm PO BID #240 ml 10/10/16 [Carafate Oral Suspension -] Losartan Potassium [Cozaar] 100 mg PO DAILY 10/14/16 PE:as per resident ASSESSMENT/PLAN: 71 y/o unfortunate lady with h/o HTN, renal cell Ca with lung and liver mets , s /p resection and chemo in [place], and recent hospitalization for PNA , who presented with fever and malaise # Pleural effusion Exudative R > L s/p R thoracentesis s/p VATS/pleur-x by , CXR on the left side positive for effusion as well, cytology neg , and cx neg ; once stable will prepare the patient for discharge will discuss with social service director, oncologist. # LE edema continues, will give her a dose of Lasix IV 40mg. # s/p sepsis: s/p IV Ertopenem ( completed) all her cultures are negative, s/ p po Levaquin at home # Renal cell carcinoma:s/p Left nephrectomy; with mets to liver and lungs. Further care [facility] once patient is stable. # Thrush: Nystatin # HTN: cont losartan # Acute Transaminitis : due to liver Mets DVT px: Scds, Heparin Visit type - Emergency Visit Emergency Visit: Yes ED Registration Date: 10/14/16 Care time: The patient presented to the Emergency Department on the above date and was hospitalized for further evaluation of their emergent condition. - New Patient This patient is new to me today: No - Critical Care Critical Care patient: No
--- NOTE | 2016-10-23 14:55 | PN ---
Progress Note (short form) - Note Progress Note: PULMONARY Feels better today. Breathing and cough continue to improve. Last Vital Signs Temp Pulse Resp BP Pulse Ox 98.6 F 111 H 18 134/63 96 10/23/16 14:10 10/23/16 14:10 10/23/16 14:10 10/23/16 14:10 10/23/16 10:00 Gen: weak appearing but in NAD Heart: tachycardic, regular Lung: decreased breath sounds right base Abd: soft, nontender Ext: no edema CBC, BMP 10/22/16 05:35 10/22/16 05:35 Active Medications Acetaminophen (Tylenol -) 325 mg PO Q8H PRN PRN Reason: FEVER OR PAIN Guaifenesin (Robitussin -) 10 ml PO Q6H PRN PRN Reason: COUGH Heparin Sodium (Porcine) (Heparin -) 5,000 unit SQ TID [facility] Last Admin: 10/23/16 06:40 Dose: 5,000 unit Losartan Potassium (Cozaar -) 100 mg PO DAILY [facility] Last Admin: 10/23/16 09:10 Dose: 100 mg Morphine Sulfate (Morphine Injection -) 1 mg IVPUSH Q3H PRN PRN Reason: PAIN Nystatin (Nystatin Oral Suspension -) 500,000 units PO Q6HPO [facility] Last Admin: 10/23/16 06:40 Dose: 500,000 units Ondansetron HCl (Zofran -) 8 mg PO Q8H PRN PRN Reason: NAUSEA Last Admin: 10/21/16 09:34 Dose: 8 mg Ranitidine HCl (Zantac -) 150 mg PO BID [facility] Last Admin: 10/23/16 09:10 Dose: 150 mg Sucralfate (Carafate Oral Suspension -) 1 gm PO BID [facility] Last Admin: 10/23/16 09:10 Dose: 1 gm A/P Metastatic Renal Cell Ca to lung, liver Pleural Effusion - Exudative Hemoptysis Fever likely from malignancy - monitor pleur-x output - cough suppressants - monitor hemoptysis - DVT prophylaxis - OOB to chair if possible - rehab/PT - will need VNS for pleur-x drainage at home
--- NOTE | 2016-10-23 21:52 | PN ---
Progress Note (short form) - Note Progress Note: PAtient seen and examined vitals/labs/meds reviewed testing comfortably in NAD NCAT RRR Decreased breath sounds bilaterally has chest tube, draining at bedside. 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 -leukocytosis likely from malignancy -resend pleural cytology -d/c planning, when able, likely once drainage minimum -encouraged PO intake and OOB to chair -[facility] onc appt 11/03 1200pm, family/pt aware -ongoing discussion with family
[2016-10-24] MEDS: NYSTATIN 500,000 UNITS/5 ML SUSPENSION PO SCH ×4 (00:45→17:38)
[2016-10-24] MEDS: HEPARIN NA (PORCINE) 5,000 UNITS/ML 1ML VIAL SQ SCH ×3 (06:16→22:06)
[2016-10-24] MEDS: RANITIDINE HCL 150 MG TABLET (FP) PO SCH ×2 (09:06→22:06)
[2016-10-24] MEDS: SUCRALFATE 1 GM/10 ML UNIT DOSE CUPS PO SCH ×2 (09:06→22:06)
[2016-10-24] MEDS: LOSARTAN POTASSIUM 50 MG TABLET (FP) PO SCH (09:06)
--- NOTE | 2016-10-24 14:49 | PN ---
Progress Note (short form) - Note Progress Note: PULMONARY Breathing and cough continues to improve. Chest tube with ~200mL drainage. Last Vital Signs Temp Pulse Resp BP Pulse Ox 98.9 F 106 H 20 113/48 96 10/24/16 09:00 10/24/16 09:00 10/24/16 09:00 10/24/16 09:00 10/24/16 09:00 Gen: weak appearing but in NAD Heart: tachycardic, regular Lung: decreased breath sounds right base Abd: soft, nontender Ext: no edema CBC, BMP 10/22/16 05:35 10/22/16 05:35 Active Medications Acetaminophen (Tylenol -) 325 mg PO Q8H PRN PRN Reason: FEVER OR PAIN Guaifenesin (Robitussin -) 10 ml PO Q6H PRN PRN Reason: COUGH Heparin Sodium (Porcine) (Heparin -) 5,000 unit SQ TID [facility] Last Admin: 10/24/16 13:21 Dose: 5,000 unit Losartan Potassium (Cozaar -) 100 mg PO DAILY [facility] Last Admin: 10/24/16 09:06 Dose: 100 mg Morphine Sulfate (Morphine Injection -) 1 mg IVPUSH Q3H PRN PRN Reason: PAIN Nystatin (Nystatin Oral Suspension -) 500,000 units PO Q6HPO [facility] Last Admin: 10/24/16 13:21 Dose: 500,000 units Ondansetron HCl (Zofran -) 8 mg PO Q8H PRN PRN Reason: NAUSEA Last Admin: 10/21/16 09:34 Dose: 8 mg Ranitidine HCl (Zantac -) 150 mg PO BID [facility] Last Admin: 10/24/16 09:06 Dose: 150 mg Sucralfate (Carafate Oral Suspension -) 1 gm PO BID [facility] Last Admin: 10/24/16 09:06 Dose: 1 gm A/P Metastatic Renal Cell Ca to lung, liver Pleural Effusion - Exudative Hemoptysis Fever likely from malignancy - monitor pleur-x output - cough suppressants - monitor hemoptysis - DVT prophylaxis - OOB to chair if possible - rehab/PT - will need VNS for pleur-x drainage at home
[2016-10-24] MEDS: ACETAMINOPHEN 325 MG TABLET (FP) PO PRN (15:25)
--- NOTE | 2016-10-24 16:09 | PN ---
Progress Note, Physician History of Present Illness: Pt noted to have fever 103.2F today. Currently alert, denies shortness of breath but has cough with deep inspiration. Denies chills, abd pain/n/v/d or dysuria. Chest tube remains in place. - Current Medication List Current Medications: Active Medications Acetaminophen (Tylenol -) 325 mg PO Q8H PRN PRN Reason: FEVER OR PAIN Last Admin: 10/24/16 15:25 Dose: 325 mg Guaifenesin (Robitussin -) 10 ml PO Q6H PRN PRN Reason: COUGH Heparin Sodium (Porcine) (Heparin -) 5,000 unit SQ TID [facility] Last Admin: 10/24/16 13:21 Dose: 5,000 unit Losartan Potassium (Cozaar -) 100 mg PO DAILY [facility] Last Admin: 10/24/16 09:06 Dose: 100 mg Morphine Sulfate (Morphine Injection -) 1 mg IVPUSH Q3H PRN PRN Reason: PAIN Nystatin (Nystatin Oral Suspension -) 500,000 units PO Q6HPO [facility] Last Admin: 10/24/16 13:21 Dose: 500,000 units Ondansetron HCl (Zofran -) 8 mg PO Q8H PRN PRN Reason: NAUSEA Last Admin: 10/21/16 09:34 Dose: 8 mg Ranitidine HCl (Zantac -) 150 mg PO BID [facility] Last Admin: 10/24/16 09:06 Dose: 150 mg Sucralfate (Carafate Oral Suspension -) 1 gm PO BID [facility] Last Admin: 10/24/16 09:06 Dose: 1 gm - Objective Vital Signs: Vital Signs Temperature 103.4 F H 10/24/16 14:15 Pulse Rate 119 H 10/24/16 14:15 Respiratory Rate 20 10/24/16 14:15 Blood Pressure 131/71 10/24/16 14:15 O2 Sat by Pulse Oximetry (%) 96 10/24/16 09:00 Constitutional: Yes: No Distress, Calm Neck: Yes: Supple Cardiovascular: Yes: Tachycardia Respiratory: Yes: Other (mild decreased breath sounds in Rt base, no rhonchi/ rales/wheeze, Rt chest tube in place.) Gastrointestinal: Yes: Normal Bowel Sounds, Soft Genitourinary: Yes: WNL Extremities: Yes: WNL Integumentary: Yes: WNL Wound/Incision: Yes: Other (Rt chest tube site clean) Neurological: Yes: Alert Labs: CBC, BMP 10/22/16 05:35 10/22/16 05:35 INR, PTT INR 1.36 (0.82-1.09) H 10/19/16 06:00 Problem List - Problems (1) Fever Code(s): R50.9 - FEVER, UNSPECIFIED (2) Pleural effusion Code(s): J90 - PLEURAL EFFUSION, NOT ELSEWHERE CLASSIFIED (3) Anemia Code(s): D64.9 - ANEMIA, UNSPECIFIED Qualifiers: Anemia type: other cause Other causes of anemia: antineoplastic chemotherapy Qualified Code(s): D64.81 - Anemia due to antineoplastic chemotherapy; T45.1X5A - Adverse effect of antineoplastic and immunosuppressive drugs, initial encounter (4) Kidney cancer, primary, with metastasis from kidney to other site Code(s): C64.9 - MALIGNANT NEOPLASM OF UNSP KIDNEY, EXCEPT RENAL PELVIS C79.9 - SECONDARY MALIGNANT NEOPLASM OF UNSPECIFIED SITE Qualifiers: Laterality: left Qualified Code(s): C64.2 - Malignant neoplasm of left kidney, except renal pelvis; C79.9 - Secondary malignant neoplasm of unspecified site Assessment/Plan Pt febrile today, persistent leukocytosis - repeat cbc, bmp, blood culture x 2 sets, urine c+s, CXR - suggest restart Ertapenem IV - continue monitor closely pt alert, without distress at this time
[2016-10-24 17:15] LABS: MCH 28.6 pg (25.7-33.7); MCHC 33.3 g/dl (32.0-36.0); MEAN CELL VOLUME 86.1 fl (80-96); MEAN PLT VOLUME 8.5 fl (7.5-11.1); PLATELET COUNT 397 K/MM3 (134-434); RDW 18.4 % (11.6-15.6); WHITE BLOOD COUNT 18.3 K/mm3 (4.0-10.0)
[2016-10-24] MEDS ORDERED: PT OWN MED DRAWER 7, Y5N ONE (17:19)
[2016-10-24 17:42] LABS: ALBUMIN 1.5 g/dl (3.4-5.0); ALK PHOS 932 U/L (45-117); ANION GAP 10 (8-16); BILIRUBIN,TOTAL 1.5 mg/dL (0.2-1.0); CALCIUM 7.8 mg/dL (8.5-10.1); CO2 25 mmol/L (21-32); CREATININE 1.1 mg/dL (0.55-1.02); GLUCOSE,RANDOM 121 mg/dL (74-106); SGOT/AST 102 U/L (15-37); SGPT/ALT 78 U/L (12-78); TOT PROT 4.2 g/dl (6.4-8.2)
--- NOTE | 2016-10-24 18:41 | PN ---
Progress Note (short form) - Note Progress Note: Patient developed fever of 103. Panculture was ordered. otherwise has no new complains. Vital Signs Temperature 103.4 F H 10/24/16 14:15 Pulse Rate 119 H 10/24/16 14:15 Respiratory Rate 20 10/24/16 14:15 Blood Pressure 131/71 10/24/16 14:15 O2 Sat by Pulse Oximetry (%) 96 10/24/16 09:00 Current Medications Generic Name Dose Route Start Last Admin Trade Name Freq PRN Reason Stop Dose Admin Acetaminophen 325 mg 10/20/16 17:55 10/24/16 15:25 Tylenol - PO 325 mg Q8H PRN Administration FEVER OR PAIN Guaifenesin 10 ml 10/20/16 17:55 Robitussin - PO Q6H PRN COUGH Heparin Sodium (Porcine) 5,000 unit 10/20/16 22:00 10/24/16 13:21 Heparin - SQ 5,000 unit TID JOSE Administration Ertapenem 1 gm/ Sodium 50 mls @ 50 mls/hr 10/24/16 16:30 Chloride IVPB DAILY JOSE Protocol Losartan Potassium 100 mg 10/21/16 10:00 10/24/16 09:06 Cozaar - PO 100 mg DAILY JOSE Administration Morphine Sulfate 1 mg 10/21/16 12:48 Morphine Injection - IVPUSH Q3H PRN PAIN Nystatin 500,000 units 10/20/16 18:00 10/24/16 17:38 Nystatin Oral Suspension - PO 500,000 units Q6HPO JOSE Administration Ondansetron HCl 8 mg 10/20/16 17:55 10/21/16 09:34 Zofran - PO 8 mg Q8H PRN Administration NAUSEA Ranitidine HCl 150 mg 10/20/16 22:00 10/24/16 09:06 Zantac - PO 150 mg BID JOSE Administration Sucralfate 1 gm 10/20/16 22:00 10/24/16 09:06 Carafate Oral Suspension - PO 1 gm BID JOSE Administration Home Medications Medication Instructions Recorded Atorvastatin Ca [Lipitor] 20 mg PO HS #30 tablet 10/10/16 Levofloxacin [Levaquin -] 500 mg PO DAILY #5 tablet 10/10/16 Sucralfate Oral Suspension 1 gm PO BID #240 ml 10/10/16 [Carafate Oral Suspension -] Losartan Potassium [Cozaar] 100 mg PO DAILY 10/14/16 CBCD WBC 18.3 K/mm3 (4.0-10.0) H 10/24/16 16:30 RBC 2.63 M/mm3 (3.60-5.2) L 10/24/16 16:30 Hgb 7.5 GM/dL (10.7-15.3) L D 10/24/16 16:30 Hct 22.6 % (32.4-45.2) L D 10/24/16 16:30 MCV 86.1 fl (80-96) 10/24/16 16:30 MCHC 33.3 g/dl (32.0-36.0) 10/24/16 16:30 RDW 18.4 % (11.6-15.6) H 10/24/16 16:30 Plt Count 397 K/MM3 (134-434) 10/24/16 16:30 MPV 8.5 fl (7.5-11.1) 10/24/16 16:30 CMP Sodium 140 mmol/L (136-145) 10/24/16 16:30 Potassium 4.2 mmol/L (3.5-5.1) 10/24/16 16:30 Chloride 105 mmol/L (98-107) 10/24/16 16:30 Carbon Dioxide 25 mmol/L (21-32) 10/24/16 16:30 Anion Gap 10 (8-16) 10/24/16 16:30 BUN 30 mg/dL (7-18) H D 10/24/16 16:30 Creatinine 1.1 mg/dL (0.55-1.02) H 10/24/16 16:30 Creat Clearance w eGFR 49.10 (>60) 10/24/16 16:30 Random Glucose 121 mg/dL (74-106) H 10/24/16 16:30 Calcium 7.8 mg/dL (8.5-10.1) L 10/24/16 16:30 Total Bilirubin 1.5 mg/dL (0.2-1.0) H D 10/24/16 16:30 AST 102 U/L (15-37) H 10/24/16 16:30 ALT 78 U/L (12-78) 08/20/17 16:30 Alkaline Phosphatase 932 U/L (45-117) H 10/24/16 16:30 Total Protein 4.2 g/dl (6.4-8.2) L 10/24/16 16:30 Albumin 1.5 g/dl (3.4-5.0) L 10/24/16 16:30 CARDIAC ENZYMES Creatine Kinase 23 IU/L (26-192) L 10/13/16 23:30 Troponin I < 0.02 ng/ml (0.00-0.05) 10/13/16 23:30 GENERAL: The patient is awake, alert, and fully oriented, in no acute distress. HEAD: Normal with no signs of trauma. EYES: PERRL, extraocular movements intact, sclera anicteric, conjunctiva clear. ENT: Ears normal, oropharynx clear without exudates, moist mucous membranes. NECK: Trachea midline, full range of motion, supple. LUNGS: decreased breath sounds right base HEART: Regular rate and rhythm, S1, S2 without murmur, rub or gallop. ABDOMEN: Soft, nontender, nondistended, normoactive bowel sounds, no guarding, no hepatosplenomegaly, no masses. EXTREMITIES: 2+ pulses, warm, well-perfused, no edema. NEUROLOGICAL: Cranial nerves II through XII grossly intact. Normal speech, gait not observed. PSYCH: Normal mood, normal affect. SKIN: Warm, dry, normal turgor, no rashes or lesions noted A/P: 71 y/o unfortunate lady with h/o HTN, renal cell Ca with lung and liver mets , s /p resection and chemo in [place], and recent hospitalization for PNA , who presented with fever and malaise # Acute Fever r/o sepsis, panculture was ordered, discussed with ID, placed the patient back to Ertapenem , waiting for repeat culture result. # Pleural effusion Exudative R > L s/p R thoracentesis s/p VATS/pleur-x by , CXR on the left side positive for effusion as well, cytology neg , and cx neg ; once stable will prepare the patient for discharge will discuss with social group worker, oncologist. # LE edema continues, s/p Lasix IV 40mg. # Renal cell carcinoma:s/p Left nephrectomy; with mets to liver and lungs. Further care [facility] once patient is stable. # Thrush: Nystatin # HTN: cont losartan # Acute Transaminitis : due to liver Mets DVT px: Scds, Heparin Critical care time 35min. Visit type - Emergency Visit Emergency Visit: Yes ED Registration Date: 10/14/16 Care time: The patient presented to the Emergency Department on the above date and was hospitalized for further evaluation of their emergent condition. - New Patient This patient is new to me today: No - Critical Care Critical Care patient: Yes Total Critical Care Time (in minutes): 35 Critical Care Statement: The care of this patient involved high complexity decision making to prevent further life threatening deterioration of the patient 's condition and/or to evaluate & treat vital organ system(s) failure or risk of failure.
[2016-10-24] MEDS: ERTAPENEM SODIUM 1 GM in SODIUM CHLORIDE 50 ML IVPB SCH (20:10)
[2016-10-25] MEDS: HEPARIN NA (PORCINE) 5,000 UNITS/ML 1ML VIAL SQ SCH ×3 (05:18→22:46)
[2016-10-25] MEDS: NYSTATIN 500,000 UNITS/5 ML SUSPENSION PO SCH ×4 (05:18→17:35)
[2016-10-25] MEDS: ACETAMINOPHEN 325 MG TABLET (FP) PO PRN ×2 (05:18→17:50)
[2016-10-25] MEDS ORDERED: PT OWN MED DRAWER 7, Y5N ONE (10:39)
[2016-10-25] MEDS: RANITIDINE HCL 150 MG TABLET (FP) PO SCH ×2 (10:44→22:47)
[2016-10-25] MEDS: SUCRALFATE 1 GM/10 ML UNIT DOSE CUPS PO SCH ×2 (10:44→22:47)
[2016-10-25] MEDS: LOSARTAN POTASSIUM 50 MG TABLET (FP) PO SCH (10:45)
[2016-10-25] MEDS: ERTAPENEM SODIUM 1 GM in SODIUM CHLORIDE 50 ML IVPB SCH (10:47)
--- NOTE | 2016-10-25 10:56 | PN ---
Progress Note, Physician History of Present Illness: pulmonary alert,-c/o sob,-hemoptysis,mild cp secondary to chest tube - Current Medication List Current Medications: Active Medications Acetaminophen (Tylenol -) 325 mg PO Q8H PRN PRN Reason: FEVER OR PAIN Last Admin: 10/25/16 05:18 Dose: 325 mg Guaifenesin (Robitussin -) 10 ml PO Q6H PRN PRN Reason: COUGH Heparin Sodium (Porcine) (Heparin -) 5,[address] [facility] Last Admin: 10/25/16 05:18 Dose: 5,000 unit Ertapenem 1 gm/ Sodium (Chloride) 50 mls @ 50 mls/hr IVPB DAILY [facility] PRN Reason: Protocol Last Admin: 10/24/16 20:10 Dose: 50 mls/hr Losartan Potassium (Cozaar -) [address] [facility] Last Admin: 10/24/16 09:06 Dose: 100 mg Morphine Sulfate (Morphine Injection -) 1 mg IVPUSH Q3H PRN PRN Reason: PAIN Nystatin (Nystatin Oral Suspension -) 500,[address] [facility] Last Admin: 10/25/16 05:18 Dose: 500,000 units Ondansetron HCl (Zofran -) 8 mg PO Q8H PRN PRN Reason: NAUSEA Last Admin: 10/21/16 09:34 Dose: 8 mg Ranitidine HCl (Zantac -) [address] [facility] Last Admin: 10/24/16 22:06 Dose: 150 mg Sucralfate (Carafate Oral Suspension -) [address] [facility] Last Admin: 10/24/16 22:06 Dose: 1 gm - Objective Vital Signs: Vital Signs Temperature 101.1 F H 10/25/16 05:00 Pulse Rate 107 H 10/25/16 05:00 Respiratory Rate 20 10/25/16 05:00 Blood Pressure 120/55 10/25/16 05:00 O2 Sat by Pulse Oximetry (%) 94 L 10/24/16 22:00 Constitutional: Yes: Well Nourished, Calm Eyes: Yes: WNL HENT: Yes: WNL Neck: Yes: WNL Cardiovascular: Yes: Tachycardia, S1, S2 Respiratory: Yes: Diminished Gastrointestinal: Yes: Normal Bowel Sounds, Soft Extremities: Yes: WNL Edema: Yes Labs: CBC, BMP Problem List - Problems (1) Kidney cancer, primary, with metastasis from kidney to other site Code(s): C64.9 - MALIGNANT NEOPLASM OF UNSP KIDNEY, EXCEPT RENAL PELVIS C79.9 - SECONDARY MALIGNANT NEOPLASM OF UNSPECIFIED SITE Qualifiers: Laterality: left Qualified Code(s): C64.2 - Malignant neoplasm of left kidney, except renal pelvis; C79.9 - Secondary malignant neoplasm of unspecified site (2) Pleural effusion Code(s): J90 - PLEURAL EFFUSION, NOT ELSEWHERE CLASSIFIED (3) Hemoptysis Code(s): R04.2 - HEMOPTYSIS (4) Anemia Code(s): D64.9 - ANEMIA, UNSPECIFIED Qualifiers: Anemia type: other cause Other causes of anemia: antineoplastic chemotherapy Qualified Code(s): D64.81 - Anemia due to antineoplastic chemotherapy; T45.1X5A - Adverse effect of antineoplastic and immunosuppressive drugs, initial encounter (5) Lung nodules Code(s): R91.8 - OTHER NONSPECIFIC ABNORMAL FINDING OF LUNG FIELD (6) Metastases to the liver Code(s): C78.7 - SECONDARY MALIG NEOPLASM OF LIVER AND INTRAHEPATIC BILE DUCT (7) Metastatic lung cancer (metastasis from lung to other site) Code(s): C34.90 - MALIGNANT NEOPLASM OF UNSP PART OF UNSP BRONCHUS OR LUNG Qualifiers: Laterality: right Qualified Code(s): C34.91 - Malignant neoplasm of unspecified part of right bronchus or lung (8) Fever Code(s): R50.9 - FEVER, UNSPECIFIED Assessment/Plan A/P Metastatic Renal Cell Ca to lung, liver Pleural Effusion - Exudative Hemoptysis Fever likely from malignancy Anemia - monitor pleur-x output - cough suppressants - monitor hemoptysis - DVT prophylaxis - OOB to chair if possible - rehab/PT - will need VNS for pleur-x drainage at home - monitor h+h - chest x-ray today DR REID
--- NOTE | 2016-10-25 11:46 | PN ---
Physical Exam: SUBJECTIVE: Patient seen and examined at bedside. No acute events overnight. Pt states she feels wll today with mild discomfort due to the drainage catheter. Denies headache, cp, sob, nausea. OBJECTIVE: Vital Signs Period Temp Pulse Resp BP Sys/Aldrich Pulse Ox Last 24 Hr 97.9 F-103.4 F 102-119 20-20 107-131/54-71 94-96 GENERAL: The patient is awake, alert, and fully oriented, in no acute distress. HEAD: Normal with no signs of trauma. EYES: scleral icterus,No ptosis. ENT: nares patent, oropharynx clear without exudates, moist mucous membranes. NECK: Trachea midline, full range of motion, supple, no carotid bruits. LUNGS: decreased breath sounds in R lung base, clear to auscultation bilaterally , no wheezes, no crackles, no accessory muscle use. Right sided drain in place. HEART: Regular rate and rhythm, normal S1, S2 without murmur, rub or gallop. ABDOMEN: Soft, tender to palpation in RUQ, nondistended, normoactive bowel sounds, no guarding, no rebound, no hepatosplenomegaly, no masses. No cva tenderness EXTREMITIES: 2+ pulses, warm, well-perfused, 2+ pedal edema. NEUROLOGICAL: Cranial nerves II through XII grossly intact. Normal speech, gait not observed. PSYCH: Normal mood, normal affect. SKIN: Warm, dry, normal turgor, no rashes or lesions noted Laboratory Results - last 24 hr 10/24/16 10/24/16 16:30 16:30 WBC 18.3 H RBC 2.63 L Hgb 7.5 L D Hct 22.6 L D MCV 86.1 MCH 28.6 MCHC 33.3 RDW 18.4 H Plt Count 397 MPV 8.5 Sodium 140 Potassium 4.2 Chloride 105 Carbon Dioxide 25 Anion Gap 10 BUN 30 H D Creatinine 1.1 H Creat Clearance w eGFR 49.10 Random Glucose 121 H Calcium 7.8 L Total Bilirubin 1.5 H D AST 102 H ALT 78 Alkaline Phosphatase 932 H Total Protein 4.2 L Albumin 1.5 L Active Medications Generic Name Dose Route Start Last Admin Trade Name Freq PRN Reason Stop Dose Admin Acetaminophen 325 mg 10/20/16 17:55 10/25/16 05:18 Tylenol - PO 325 mg Q8H PRN Administration FEVER OR PAIN Guaifenesin 10 ml 10/20/16 17:55 Robitussin - PO Q6H PRN COUGH Heparin Sodium (Porcine) 5,000 unit 10/20/16 22:00 10/25/16 05:18 Heparin - SQ 5,000 unit TID JOSE Administration Ertapenem 1 gm/ Sodium 50 mls @ 50 mls/hr 10/24/16 16:30 10/25/16 10:47 Chloride IVPB 50 mls/hr DAILY JOSE Administration Protocol Losartan Potassium 100 mg 10/21/16 10:00 10/25/16 10:45 Cozaar - PO 100 mg DAILY JOSE Administration Morphine Sulfate 1 mg 10/21/16 12:48 Morphine Injection - IVPUSH Q3H PRN PAIN Nystatin 500,000 units 10/20/16 18:00 10/25/16 11:04 Nystatin Oral Suspension - PO 500,000 units Q6HPO JOSE Administration Ondansetron HCl 8 mg 10/20/16 17:55 10/21/16 09:34 Zofran - PO 8 mg Q8H PRN Administration NAUSEA Ranitidine HCl 150 mg 10/20/16 22:00 10/25/16 10:44 Zantac - PO 150 mg BID JOSE Administration Sucralfate 1 gm 10/20/16 22:00 10/25/16 10:44 Carafate Oral Suspension - PO 1 gm BID JOSE Administration ASSESSMENT/PLAN: 71yo F h/o renal ca (s/p nephrectomy 02/2016) with multiple mets to liver and lungs, HTN, and recent hospitalization for PNA. Leukocytosis 15.9, Fever 102 ( per ER physician), Tachycardia 116. CXR increased b/l effusions (R>L); questionable opacity right cardiac border most likely representing congestion. #Pleural effusion -tap showed no cancer cells, exudative -Pleur-x in place and draining -Robitussin for cough -per surg pt will need VNS 3/wk -CXR shows possible b/l effusion, likely 2/2 splinting. Pt is refusing pain meds #Sepsis -Pt measured her fever at 102, and had tachycardia of 116 on admission. Site of infection: pleural effusion vs UTI -BCx, UCx, pleural fluid Cx neg -US guided thoracentesis of pleural effusion: exudative by Light's criteria #anemia -no transfusion at this time #RUQ pain, lft abnormalities, elev INR -Due to liver metastases #Renal carcinoma (s/o L nephrectomy) with liver and lung mets -reactive leukocytosis and low grade fever -Pt is not medically stable for chemotherapy at this time -per Heme/Onc, Pt is being optimized -palliative consult #HTN -Continued home medication Amlodipine #Hyperlipidemia -Holding atorvastatin in light of worsening AST #FEN -NS @ 50mls/hr -lytes wnl -Regular Diet #PPX -HSQ Dispo: Admit to med-surg floor Tyree Jensen MD PGY-1 Visit type - Emergency Visit Emergency Visit: No - New Patient This patient is new to me today: No - Critical Care Critical Care patient: No - Discharge Referral Referred to [facility] Med P.C[facility] No
[2016-10-25 11:57] LABS: MCH 28.4 pg (25.7-33.7); MCHC 32.8 g/dl (32.0-36.0); MEAN CELL VOLUME 86.6 fl (80-96); MEAN PLT VOLUME 8.4 fl (7.5-11.1); PLATELET COUNT 390 K/MM3 (134-434); RDW 18.1 % (11.6-15.6); WHITE BLOOD COUNT 17.3 K/mm3 (4.0-10.0)
--- NOTE | 2016-10-25 15:17 | PN ---
Progress Note, Physician History of Present Illness: patient spiked fever over the weekend abx restarted patient feeling very weak famly in room - Current Medication List Current Medications: Active Medications Acetaminophen (Tylenol -) 325 mg PO Q8H PRN PRN Reason: FEVER OR PAIN Last Admin: 10/25/16 05:18 Dose: 325 mg Guaifenesin (Robitussin -) 10 ml PO Q6H PRN PRN Reason: COUGH Heparin Sodium (Porcine) (Heparin -) 5,000 unit SQ TID [facility] Last Admin: 10/25/16 05:18 Dose: 5,000 unit Ertapenem 1 gm/ Sodium (Chloride) 50 mls @ 50 mls/hr IVPB DAILY [facility] PRN Reason: Protocol Last Admin: 10/25/16 10:47 Dose: 50 mls/hr Losartan Potassium (Cozaar -) 100 mg PO DAILY [facility] Last Admin: 10/25/16 10:45 Dose: 100 mg Morphine Sulfate (Morphine Injection -) 1 mg IVPUSH Q3H PRN PRN Reason: PAIN Nystatin (Nystatin Oral Suspension -) 500,000 units PO Q6HPO [facility] Last Admin: 10/25/16 11:04 Dose: 500,000 units Ondansetron HCl (Zofran -) 8 mg PO Q8H PRN PRN Reason: NAUSEA Last Admin: 10/21/16 09:34 Dose: 8 mg Ranitidine HCl (Zantac -) 150 mg PO BID [facility] Last Admin: 10/25/16 10:44 Dose: 150 mg Sucralfate (Carafate Oral Suspension -) 1 gm PO BID [facility] Last Admin: 10/25/16 10:44 Dose: 1 gm - Objective Vital Signs: Vital Signs Temperature 99.6 F 10/25/16 14:10 Pulse Rate 117 H 10/25/16 14:10 Respiratory Rate 20 10/25/16 14:10 Blood Pressure 122/58 10/25/16 14:10 O2 Sat by Pulse Oximetry (%) 94 L 10/24/16 22:00 Constitutional: Yes: Calm, Other Eyes: Yes: Conjunctiva Clear Cardiovascular: Yes: Regular Rate and Rhythm Respiratory: Yes: Diminished, Poor Air Entry (rt side), Other (chest tube in place) Musculoskeletal: Yes: WNL Extremities: Yes: WNL Neurological: Yes: Alert, Oriented Psychiatric: Yes: Alert, Oriented Labs: CBC, BMP 10/25/16 11:30 10/24/16 16:30 INR, PTT INR 1.36 (0.82-1.09) H 10/19/16 06:00 Assessment/Plan ) Renal carcinoma (s/p L nephrectomy) with mets to lungs and liver 2) CKD 3) Abdominal pain, right-sided 4) HTN 5) Hyperlipidemia leukocytosis plan continue current mgmt abx to continue watch for fevers and wbc
--- NOTE | 2016-10-25 15:20 | PN ---
Teaching Attending Note Name of Resident: Tyree Jensen ATTENDING PHYSICIAN STATEMENT I saw and evaluated the patient. I reviewed the resident's note and discussed the case with the resident. I agree with the resident's findings and plan as documented. SUBJECTIVE: Patient has no further fever, comfortable, back to IV antibiotic as per ID OBJECTIVE: Vital Signs Temperature 99.6 F 10/25/16 14:10 Pulse Rate 117 H 10/25/16 14:10 Respiratory Rate 20 10/25/16 14:10 Blood Pressure 122/58 10/25/16 14:10 O2 Sat by Pulse Oximetry (%) 94 L 10/24/16 22:00 CBCD WBC 17.3 K/mm3 (4.0-10.0) H 10/25/16 11:30 RBC 2.52 M/mm3 (3.60-5.2) L 10/25/16 11:30 Hgb 7.2 GM/dL (10.7-15.3) L 10/25/16 11:30 Hct 21.8 % (32.4-45.2) L 10/25/16 11:30 MCV 86.6 fl (80-96) 10/25/16 11:30 MCHC 32.8 g/dl (32.0-36.0) 10/25/16 11:30 RDW 18.1 % (11.6-15.6) H 10/25/16 11:30 Plt Count 390 K/MM3 (134-434) 10/25/16 11:30 MPV 8.4 fl (7.5-11.1) 10/25/16 11:30 CMP Sodium 140 mmol/L (136-145) 10/24/16 16:30 Potassium 4.2 mmol/L (3.5-5.1) 10/24/16 16:30 Chloride 105 mmol/L (98-107) 10/24/16 16:30 Carbon Dioxide 25 mmol/L (21-32) 10/24/16 16:30 Anion Gap 10 (8-16) 10/24/16 16:30 BUN 30 mg/dL (7-18) H D 10/24/16 16:30 Creatinine 1.1 mg/dL (0.55-1.02) H 10/24/16 16:30 Creat Clearance w eGFR 49.10 (>60) 10/24/16 16:30 Random Glucose 121 mg/dL (74-106) H 10/24/16 16:30 Calcium 7.8 mg/dL (8.5-10.1) L 10/24/16 16:30 Total Bilirubin 1.5 mg/dL (0.2-1.0) H D 10/24/16 16:30 AST 102 U/L (15-37) H 10/24/16 16:30 ALT 78 U/L (12-78) 10/24/16 16:30 Alkaline Phosphatase 932 U/L (45-117) H 10/24/16 16:30 Total Protein 4.2 g/dl (6.4-8.2) L 10/24/16 16:30 Albumin 1.5 g/dl (3.4-5.0) L 10/24/16 16:30 CARDIAC ENZYMES Creatine Kinase 23 IU/L (26-192) L 10/13/16 23:30 Troponin I < 0.02 ng/ml (0.00-0.05) 10/13/16 23:30 Current Medications Generic Name Dose Route Start Last Admin Trade Name Freq PRN Reason Stop Dose Admin Acetaminophen 325 mg 10/20/16 17:55 10/25/16 05:18 Tylenol - PO 325 mg Q8H PRN Administration FEVER OR PAIN Guaifenesin 10 ml 10/20/16 17:55 Robitussin - PO Q6H PRN COUGH Heparin Sodium (Porcine) 5,000 unit 10/20/16 22:00 10/25/16 05:18 Heparin - SQ 5,000 unit TID JOSE Administration Ertapenem 1 gm/ Sodium 50 mls @ 50 mls/hr 10/24/16 16:30 10/25/16 10:47 Chloride IVPB 50 mls/hr DAILY JOSE Administration Protocol Losartan Potassium 100 mg 10/21/16 10:00 10/25/16 10:45 Cozaar - PO 100 mg DAILY JOSE Administration Morphine Sulfate 1 mg 10/21/16 12:48 Morphine Injection - IVPUSH Q3H PRN PAIN Nystatin 500,000 units 10/20/16 18:00 10/25/16 11:04 Nystatin Oral Suspension - PO 500,000 units Q6HPO JOSE Administration Ondansetron HCl 8 mg 10/20/16 17:55 10/21/16 09:34 Zofran - PO 8 mg Q8H PRN Administration NAUSEA Ranitidine HCl 150 mg 10/20/16 22:00 10/25/16 10:44 Zantac - PO 150 mg BID JOSE Administration Sucralfate 1 gm 10/20/16 22:00 10/25/16 10:44 Carafate Oral Suspension - PO 1 gm BID JOSE Administration Home Medications Medication Instructions Recorded Atorvastatin Ca [Lipitor] 20 mg PO HS #30 tablet 10/10/16 Levofloxacin [Levaquin -] 500 mg PO DAILY #5 tablet 10/10/16 Sucralfate Oral Suspension 1 gm PO BID #240 ml 10/10/16 [Carafate Oral Suspension -] Losartan Potassium [Cozaar] 100 mg PO DAILY 10/14/16 Microbiology 10/24/16 16:30 Blood - Peripheral Venous Blood Culture - Preliminary NO GROWTH OBTAINED AFTER 24 HOURS, INCUBATION TO CONTINUE FOR 4 DAYS. 10/24/16 16:30 Blood - Peripheral Venous Blood Culture - Preliminary NO GROWTH OBTAINED AFTER 24 HOURS, INCUBATION TO CONTINUE FOR 4 DAYS. 10/14/16 14:00 Pleural Fluid AFB Smear Concentration - Final 10/14/16 14:00 Pleural Fluid Mycobacterial Culture - Preliminary 10/13/16 23:30 Blood - Peripheral Venous Blood Culture - Final NO GROWTH AFTER 5 DAYS INCUBATION 10/14/16 14:00 Pleural Fluid Gram Stain - Final 10/14/16 14:00 Pleural Fluid Body Fluid Culture - Final NO GROWTH OF AEROBIC ORGANISMS AFTER 48 HOURS INCUBATION 10/14/16 14:00 Pleural Fluid Anaerobic Culture - Final NO ANAEROBES WERE ISOLATED 10/13/16 23:30 Urine - Urine Clean Catch Urine Culture - Final NO GROWTH OBTAINED 10/14/16 14:00 Pleural Fluid SUNITA Preparation - Preliminary 10/14/16 14:00 Pleural Fluid Fungal Culture - Preliminary PE: per resident's note ASSESSMENT AND PLAN: 71 y/o unfortunate lady with h/o HTN, renal cell Ca with lung and liver mets , s /p resection and chemo in [place], and recent hospitalization for PNA , who presented with fever and malaise # Acute Fever , afebrile today r/o sepsis, panculture was ordered, discussed with ID, placed the patient back to Ertapenem , waiting for repeat culture result. # Pleural effusion Exudative R > L s/p R thoracentesis s/p VATS/pleur-x by , CXR on the left side positive for effusion as well, cytology neg , and cx neg . # LE edema continues, s/p Lasix IV 40mg x1 dose # Renal cell carcinoma:s/p Left nephrectomy; with mets to liver and lungs. Further care [facility] once patient is stable. # Thrush: Nystatin # HTN: cont losartan # Acute Transaminitis : due to liver Mets DVT px: Scds, Heparin
[2016-10-26] MEDS: NYSTATIN 500,000 UNITS/5 ML SUSPENSION PO SCH ×4 (01:09→17:34)
[2016-10-26] MEDS: ACETAMINOPHEN 325 MG TABLET (FP) PO PRN ×2 (06:06→16:53)
[2016-10-26] MEDS: HEPARIN NA (PORCINE) 5,000 UNITS/ML 1ML VIAL SQ SCH ×3 (06:06→22:55)
--- NOTE | 2016-10-26 07:15 | MSN ---
Admitting History and Physical - Past Medical History Cardiovascular: Yes: HTN Pulmonary: Yes: Other (R-sided lung mets from renal ca) Gastrointestinal: Yes: Other (Liver mets from renal ca) Renal/: Yes: Other (RENAL CELL CANCER) Heme/Onc: Yes: Anemia - Past Surgical History Past Surgical History: Yes: Colonoscopy, Nephrectomy (L kidney 02/2016) - Smoking History Smoking history: Never smoked Have you smoked in the past 12 months: No - Alcohol/Substance Use Hx Alcohol Use: No Home Medications - Allergies Allergies/Adverse Reactions: Allergies Allergy/AdvReac Type Severity Reaction Status Date / Time Penicillins Allergy Verified 10/13/16 21:22 - Home Medications Home Medications: Ambulatory Orders Atorvastatin Ca [Lipitor] 20 mg PO HS #30 tablet 10/10/16 Levofloxacin [Levaquin -] 500 mg PO DAILY #5 tablet 10/10/16 Sucralfate Oral Suspension [Carafate Oral Suspension -] 1 gm PO BID #240 ml 08/21 Losartan Potassium [Cozaar] 100 mg PO DAILY 10/14/16 Family Disease History - Family Disease History Family Disease History: Other: Father (HTN) Physical Examination Vital Signs: Vital Signs Temperature 100 F H 10/26/16 06:00 Pulse Rate 116 H 10/26/16 06:00 Respiratory Rate 20 10/26/16 06:00 Blood Pressure 131/62 10/26/16 06:00 O2 Sat by Pulse Oximetry (%) 94 L 10/25/16 21:00 Constitutional: Yes: Well Nourished, No Distress, Calm Eyes: Yes: WNL, Conjunctiva Clear, EOM Intact HENT: Yes: WNL, Atraumatic, Normocephalic Neck: Yes: WNL, Supple, Trachea Midline Cardiovascular: Yes: WNL, Regular Rate and Rhythm Gastrointestinal: Yes: WNL, Normal Bowel Sounds Musculoskeletal: Yes: WNL Extremities: Yes: WNL Edema: No Integumentary: Yes: WNL Neurological: Yes: WNL, Alert, Oriented ...Motor Strength: WNL Psychiatric: Yes: WNL Imaging - Results Chest X-ray: Image Reviewed
[2016-10-26 07:24] LABS: BASOPHIL 0.4 % (0-2.0); EOSINOPHIL 0.7 % (0-4.5); MCH 27.8 pg (25.7-33.7); MCHC 32.7 g/dl (32.0-36.0); MEAN CELL VOLUME 85.2 fl (80-96); MEAN PLT VOLUME 8.3 fl (7.5-11.1); NEUTROPHILS 83.1 % (42.8-82.8); PLATELET COUNT 377 K/MM3 (134-434); RDW 18.2 % (11.6-15.6); WHITE BLOOD COUNT 16.9 K/mm3 (4.0-10.0)
[2016-10-26 07:28] LABS: ANION GAP 7 (8-16); CALCIUM 7.4 mg/dL (8.5-10.1); CO2 27 mmol/L (21-32); GLUCOSE,RANDOM 103 mg/dL (74-106)
[2016-10-26 07:29] LABS: CREATININE 1.1 mg/dL (0.55-1.02)
[2016-10-26] MEDS: ERTAPENEM SODIUM 1 GM in SODIUM CHLORIDE 50 ML IVPB SCH (09:16)
[2016-10-26] MEDS: RANITIDINE HCL 150 MG TABLET (FP) PO SCH ×2 (09:16→22:56)
[2016-10-26] MEDS: LOSARTAN POTASSIUM 50 MG TABLET (FP) PO SCH (09:16)
[2016-10-26] MEDS: SUCRALFATE 1 GM/10 ML UNIT DOSE CUPS PO SCH ×2 (09:16→22:55)
[2016-10-26 10:01] LABS: ANISOCYTOSIS 1+; MICROCYTOSIS FEW; POLYCHROMASIA 1+; TEAR DROP CELLS RARE
--- NOTE | 2016-10-26 10:06 | PN ---
Teaching Attending Note Name of Resident: Tyree Jensen ATTENDING PHYSICIAN STATEMENT I saw and evaluated the patient. I reviewed the resident's note and discussed the case with the resident. I agree with the resident's findings and plan as documented. SUBJECTIVE: Patient had a low grade fever overnight. no fever at this time. OBJECTIVE: Vital Signs Temperature 98.4 F 10/26/16 08:19 Pulse Rate 114 H 10/26/16 08:19 Respiratory Rate 20 10/26/16 08:19 Blood Pressure 109/44 10/26/16 08:19 O2 Sat by Pulse Oximetry (%) 94 L 10/25/16 21:00 CBCD WBC 16.9 K/mm3 (4.0-10.0) H 10/26/16 05:35 RBC 2.47 M/mm3 (3.60-5.2) L 10/26/16 05:35 Hgb 6.9 GM/dL (10.7-15.3) L* 10/26/16 05:35 Hct 21.0 % (32.4-45.2) L 10/26/16 05:35 MCV 85.2 fl (80-96) 10/26/16 05:35 MCHC 32.7 g/dl (32.0-36.0) 10/26/16 05:35 RDW 18.2 % (11.6-15.6) H 10/26/16 05:35 Plt Count 377 K/MM3 (134-434) 10/26/16 05:35 MPV 8.3 fl (7.5-11.1) 10/26/16 05:35 CMP Sodium 140 mmol/L (136-145) 10/26/16 05:35 Potassium 3.8 mmol/L (3.5-5.1) 10/26/16 05:35 Chloride 106 mmol/L (98-107) 10/26/16 05:35 Carbon Dioxide 27 mmol/L (21-32) 10/26/16 05:35 Anion Gap 7 (8-16) L 10/26/16 05:35 BUN 31 mg/dL (7-18) H 10/26/16 05:35 Creatinine 1.1 mg/dL (0.55-1.02) H 10/26/16 05:35 Creat Clearance w eGFR 49.10 (>60) 10/24/16 16:30 Random Glucose 103 mg/dL (74-106) 10/26/16 05:35 Calcium 7.4 mg/dL (8.5-10.1) L 10/26/16 05:35 Total Bilirubin 1.5 mg/dL (0.2-1.0) H D 10/24/16 16:30 AST 102 U/L (15-37) H 10/24/16 16:30 ALT 78 U/L (12-78) 10/24/16 16:30 Alkaline Phosphatase 932 U/L (45-117) H 10/24/16 16:30 Total Protein 4.2 g/dl (6.4-8.2) L 10/24/16 16:30 Albumin 1.5 g/dl (3.4-5.0) L 10/24/16 16:30 CARDIAC ENZYMES Creatine Kinase 23 IU/L (26-192) L 10/13/16 23:30 Troponin I < 0.02 ng/ml (0.00-0.05) 10/13/16 23:30 Current Medications Generic Name Dose Route Start Last Admin Trade Name Freq PRN Reason Stop Dose Admin Acetaminophen 325 mg 10/20/16 17:55 10/26/16 06:06 Tylenol - PO 325 mg Q8H PRN Administration FEVER OR PAIN Guaifenesin 10 ml 10/20/16 17:55 Robitussin - PO Q6H PRN COUGH Heparin Sodium (Porcine) 5,000 unit 10/20/16 22:00 10/26/16 06:06 Heparin - SQ 5,000 unit TID JOSE Administration Ertapenem 1 gm/ Sodium 50 mls @ 50 mls/hr 10/24/16 16:30 10/26/16 09:16 Chloride IVPB 50 mls/hr DAILY JOSE Administration Protocol Losartan Potassium 100 mg 10/21/16 10:00 10/26/16 09:16 Cozaar - PO 100 mg DAILY JOSE Administration Morphine Sulfate 1 mg 10/21/16 12:48 Morphine Injection - IVPUSH Q3H PRN PAIN Nystatin 500,000 units 10/20/16 18:00 10/26/16 06:06 Nystatin Oral Suspension - PO 500,000 units Q6HPO JOSE Administration Ondansetron HCl 8 mg 10/20/16 17:55 10/21/16 09:34 Zofran - PO 8 mg Q8H PRN Administration NAUSEA Ranitidine HCl 150 mg 10/20/16 22:00 10/26/16 09:16 Zantac - PO 150 mg BID JOSE Administration Sucralfate 1 gm 10/20/16 22:00 10/26/16 09:16 Carafate Oral Suspension - PO 1 gm BID JOSE Administration Home Medications Medication Instructions Recorded Atorvastatin Ca [Lipitor] 20 mg PO HS #30 tablet 10/10/16 Levofloxacin [Levaquin -] 500 mg PO DAILY #5 tablet 10/10/16 Sucralfate Oral Suspension 1 gm PO BID #240 ml 10/10/16 [Carafate Oral Suspension -] Losartan Potassium [Cozaar] 100 mg PO DAILY 10/14/16 Microbiology 10/24/16 16:30 Blood - Peripheral Venous Blood Culture - Preliminary NO GROWTH OBTAINED AFTER 24 HOURS, INCUBATION TO CONTINUE FOR 4 DAYS. 10/24/16 16:30 Blood - Peripheral Venous Blood Culture - Preliminary NO GROWTH OBTAINED AFTER 24 HOURS, INCUBATION TO CONTINUE FOR 4 DAYS. 10/14/16 14:00 Pleural Fluid AFB Smear Concentration - Final 10/14/16 14:00 Pleural Fluid Mycobacterial Culture - Preliminary 10/13/16 23:30 Blood - Peripheral Venous Blood Culture - Final NO GROWTH AFTER 5 DAYS INCUBATION 10/14/16 14:00 Pleural Fluid Gram Stain - Final 10/14/16 14:00 Pleural Fluid Body Fluid Culture - Final NO GROWTH OF AEROBIC ORGANISMS AFTER 48 HOURS INCUBATION 10/14/16 14:00 Pleural Fluid Anaerobic Culture - Final NO ANAEROBES WERE ISOLATED 10/13/16 23:30 Urine - Urine Clean Catch Urine Culture - Final NO GROWTH OBTAINED 10/14/16 14:00 Pleural Fluid SUNITA Preparation - Preliminary 10/14/16 14:00 Pleural Fluid Fungal Culture - Preliminary PE: per resident's note positive for right sided pleur-x ASSESSMENT AND PLAN: 71 y/o unfortunate lady with h/o HTN, renal cell Ca with lung and liver mets , s /p resection and chemo in , and recent hospitalization for PNA , who presented with fever and malaise # Right sided Pleur-x monitor the output. Once stable for discharge will need VNS for pleur-x drainage at home # Acute Anemia will transfuse one unit today , monitor H/H # Acute Leukocytosis improving 16.9 today, with low grade Fever last night. panculture was ordered follow the culture, discussed with ID, placed the patient back to Ertapenem day#2 , waiting for repeat culture result. # Pleural effusion Exudative R > L s/p R thoracentesis s/p VATS/pleur-x by , CXR on the left side positive for effusion as well, cytology neg , and cx neg . # LE edema improved s/p Lasix IV 40mg x1 dose. # Metastatic Renal cell carcinoma:s/p Left nephrectomy; with mets to liver and lungs. Further care [facility] once patient is stable. # Thrush: Nystatin # HTN: cont losartan # Acute Transaminitis : due to liver Mets DVT px: Scds, Heparin
--- NOTE | 2016-10-26 10:12 | PN ---
Physical Exam: SUBJECTIVE: Patient seen and examined at bedside. No acute events overnight. Pt continues to have fevers and tachycardia. No complaints at this time. Denies headache, cp, sob, nausea. OBJECTIVE: Vital Signs Period Temp Pulse Resp BP Sys/Aldrich Pulse Ox Last 24 Hr 97.8 F-100 F 104-118 20-20 104-131/44-62 94 GENERAL: The patient is awake, alert, and fully oriented, in no acute distress. HEAD: Normal with no signs of trauma. EYES: scleral icterus,No ptosis. ENT: nares patent, oropharynx clear without exudates, moist mucous membranes. NECK: Trachea midline, full range of motion, supple, no carotid bruits. LUNGS: decreased breath sounds bilateral bases, no wheezes, no crackles, no accessory muscle use. Right sided drain in place. HEART: Regular rate and rhythm, normal S1, S2 without murmur, rub or gallop. ABDOMEN: Soft, tender to palpation in RUQ, nondistended, normoactive bowel sounds, no guarding, no rebound, no hepatosplenomegaly, no masses. No cva tenderness EXTREMITIES: 2+ pulses, warm, well-perfused, 1+ pedal edema. NEUROLOGICAL: Cranial nerves II through XII grossly intact. Normal speech, gait not observed. PSYCH: Normal mood, normal affect. SKIN: Warm, dry, normal turgor, no rashes or lesions noted Laboratory Results - last 24 hr 10/25/16 10/26/16 10/26/16 11:30 05:35 05:35 WBC 17.3 H 16.9 H RBC 2.52 L 2.47 L Hgb 7.2 L 6.9 L* Hct 21.8 L 21.0 L MCV 86.6 85.2 MCH 28.4 27.8 MCHC 32.8 32.7 RDW 18.1 H 18.2 H Plt Count 390 377 MPV 8.4 8.3 Neutrophils % 83.1 H Lymphocytes % 9.5 Monocytes % 6.3 Eosinophils % 0.7 Basophils % 0.4 Polychromasia 1+ Anisocytosis 1+ Microcytosis Few Tear Drop Cells Rare Sodium 140 Potassium 3.8 Chloride 106 Carbon Dioxide 27 Anion Gap 7 L BUN 31 H Creatinine 1.1 H Random Glucose 103 Calcium 7.4 L Crossmatch 10/26/16 08:50 WBC RBC Hgb Hct MCV MCH MCHC RDW Plt Count MPV Neutrophils % Lymphocytes % Monocytes % Eosinophils % Basophils % Polychromasia Anisocytosis Microcytosis Tear Drop Cells Sodium Potassium Chloride Carbon Dioxide Anion Gap BUN Creatinine Random Glucose Calcium Crossmatch See Detail Active Medications Generic Name Dose Route Start Last Admin Trade Name Freq PRN Reason Stop Dose Admin Acetaminophen 325 mg 10/20/16 17:55 10/26/16 06:06 Tylenol - PO 325 mg Q8H PRN Administration FEVER OR PAIN Guaifenesin 10 ml 10/20/16 17:55 Robitussin - PO Q6H PRN COUGH Heparin Sodium (Porcine) 5,000 unit 10/20/16 22:00 10/26/16 06:06 Heparin - SQ 5,000 unit TID JOSE Administration Ertapenem 1 gm/ Sodium 50 mls @ 50 mls/hr 10/24/16 16:30 10/26/16 09:16 Chloride IVPB 50 mls/hr DAILY JOSE Administration Protocol Losartan Potassium 100 mg 10/21/16 10:00 10/26/16 09:16 Cozaar - PO 100 mg DAILY JOSE Administration Morphine Sulfate 1 mg 10/21/16 12:48 Morphine Injection - IVPUSH Q3H PRN PAIN Nystatin 500,000 units 10/20/16 18:00 10/26/16 06:06 Nystatin Oral Suspension - PO 500,000 units Q6HPO JOSE Administration Ondansetron HCl 8 mg 10/20/16 17:55 10/21/16 09:34 Zofran - PO 8 mg Q8H PRN Administration NAUSEA Ranitidine HCl 150 mg 10/20/16 22:00 10/26/16 09:16 Zantac - PO 150 mg BID JOSE Administration Sucralfate 1 gm 10/20/16 22:00 10/26/16 09:16 Carafate Oral Suspension - PO 1 gm BID JOSE Administration ASSESSMENT/PLAN: 71yo F h/o renal ca (s/p nephrectomy 02/2016) with multiple mets to liver and lungs, HTN, and recent hospitalization for PNA. Leukocytosis 15.9, Fever 102 ( per ER physician), Tachycardia 116. CXR increased b/l effusions (R>L); questionable opacity right cardiac border most likely representing congestion. #Pleural effusion -tap showed no cancer cells, exudative -Pleur-x in place and draining -Robitussin for cough -per surg pt will need VNS 3/wk -CXR shows possible b/l effusion, likely 2/2 splinting. Pt is refusing pain meds #Sepsis -Pt measured her fever at 102, and had tachycardia of 116 on admission. Possibly 2/2 malignancy -BCx, UCx, pleural fluid Cx neg -US guided thoracentesis of pleural effusion: exudative by Light's criteria #anemia -Hb 6.9 -1 PRBC #RUQ pain, lft abnormalities, elev INR -Due to liver metastases #Renal carcinoma (s/o L nephrectomy) with liver and lung mets -reactive leukocytosis and low grade fever -Pt is not medically stable for chemotherapy at this time -per Heme/Onc, Pt is being optimized -palliative consult #HTN -Continued home medication Amlodipine #Hyperlipidemia -Holding atorvastatin in light of worsening AST #FEN -NS @ 50mls/hr -lytes wnl -Regular Diet #PPX -HSQ Dispo: Admit to med-surg floor Tyree Jensen MD PGY-1 Visit type - Emergency Visit Emergency Visit: No - New Patient This patient is new to me today: No - Critical Care Critical Care patient: No - Discharge Referral Referred to [facility] No
--- NOTE | 2016-10-26 10:54 | PN ---
Progress Note, Physician History of Present Illness: pulmonary alert,feels weak,-sob,-hemoptysis - Current Medication List Current Medications: Active Medications Acetaminophen (Tylenol -) 325 mg PO Q8H PRN PRN Reason: FEVER OR PAIN Last Admin: 10/26/16 06:06 Dose: 325 mg Guaifenesin (Robitussin -) 10 ml PO Q6H PRN PRN Reason: COUGH Heparin Sodium (Porcine) (Heparin -) 5,000 unit SQ TID [facility] Last Admin: 10/26/16 06:06 Dose: 5,000 unit Ertapenem 1 gm/ Sodium (Chloride) 50 mls @ 50 mls/hr IVPB DAILY [facility] PRN Reason: Protocol Last Admin: 10/26/16 09:16 Dose: 50 mls/hr Losartan Potassium (Cozaar -) 100 mg PO DAILY [facility] Last Admin: 10/26/16 09:16 Dose: 100 mg Morphine Sulfate (Morphine Injection -) 1 mg IVPUSH Q3H PRN PRN Reason: PAIN Nystatin (Nystatin Oral Suspension -) 500,000 units PO Q6HPO [facility] Last Admin: 10/26/16 06:06 Dose: 500,000 units Ondansetron HCl (Zofran -) 8 mg PO Q8H PRN PRN Reason: NAUSEA Last Admin: 10/21/16 09:34 Dose: 8 mg Ranitidine HCl (Zantac -) 150 mg PO BID [facility] Last Admin: 10/26/16 09:16 Dose: 150 mg Sucralfate (Carafate Oral Suspension -) 1 gm PO BID [facility] Last Admin: 10/26/16 09:16 Dose: 1 gm - Objective Vital Signs: Vital Signs Temperature 97.9 F 10/26/16 10:30 Pulse Rate 105 H 10/26/16 10:30 Respiratory Rate 20 10/26/16 08:19 Blood Pressure 109/44 10/26/16 08:19 O2 Sat by Pulse Oximetry (%) 92 L 10/26/16 08:00 Constitutional: Yes: Well Nourished, Calm Eyes: Yes: WNL HENT: Yes: WNL Neck: Yes: WNL Cardiovascular: Yes: Regular Rate and Rhythm, S1, S2 Respiratory: Yes: Diminished Gastrointestinal: Yes: Normal Bowel Sounds, Soft Extremities: Yes: WNL Edema: No Labs: CBC, BMP 10/26/16 05:35 10/26/16 05:35 INR, PTT INR 1.36 (0.82-1.09) H 10/19/16 06:00 Problem List - Problems (1) Kidney cancer, primary, with metastasis from kidney to other site Code(s): C64.9 - MALIGNANT NEOPLASM OF UNSP KIDNEY, EXCEPT RENAL PELVIS C79.9 - SECONDARY MALIGNANT NEOPLASM OF UNSPECIFIED SITE Qualifiers: Laterality: left Qualified Code(s): C64.2 - Malignant neoplasm of left kidney, except renal pelvis; C79.9 - Secondary malignant neoplasm of unspecified site (2) Pleural effusion Code(s): J90 - PLEURAL EFFUSION, NOT ELSEWHERE CLASSIFIED (3) Hemoptysis Code(s): R04.2 - HEMOPTYSIS (4) Anemia Code(s): D64.9 - ANEMIA, UNSPECIFIED Qualifiers: Anemia type: other cause Other causes of anemia: antineoplastic chemotherapy Qualified Code(s): D64.81 - Anemia due to antineoplastic chemotherapy; T45.1X5A - Adverse effect of antineoplastic and immunosuppressive drugs, initial encounter (5) Lung nodules Code(s): R91.8 - OTHER NONSPECIFIC ABNORMAL FINDING OF LUNG FIELD (6) Metastases to the liver Code(s): C78.7 - SECONDARY MALIG NEOPLASM OF LIVER AND INTRAHEPATIC BILE DUCT (7) Metastatic lung cancer (metastasis from lung to other site) Code(s): C34.90 - MALIGNANT NEOPLASM OF UNSP PART OF UNSP BRONCHUS OR LUNG Qualifiers: Laterality: right Qualified Code(s): C34.91 - Malignant neoplasm of unspecified part of right bronchus or lung (8) Fever Code(s): R50.9 - FEVER, UNSPECIFIED Assessment/Plan A/P Metastatic 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
--- NOTE | 2016-10-26 16:25 | PN ---
Progress Note, Physician History of Present Illness: feels better than yesterday had hemoptysis which ahs resolved weakness persists otherwise doing well - Current Medication List Current Medications: Active Medications Acetaminophen (Tylenol -) 325 mg PO Q8H PRN PRN Reason: FEVER OR PAIN Last Admin: 10/26/16 06:06 Dose: 325 mg Guaifenesin (Robitussin -) 10 ml PO Q6H PRN PRN Reason: COUGH Heparin Sodium (Porcine) (Heparin -) 5,000 unit SQ TID [facility] Last Admin: 10/26/16 14:43 Dose: 5,000 unit Ertapenem 1 gm/ Sodium (Chloride) 50 mls @ 50 mls/hr IVPB DAILY [facility] PRN Reason: Protocol Last Admin: 10/26/16 09:16 Dose: 50 mls/hr Losartan Potassium (Cozaar -) 100 mg PO DAILY [facility] Last Admin: 10/26/16 09:16 Dose: 100 mg Morphine Sulfate (Morphine Injection -) 1 mg IVPUSH Q3H PRN PRN Reason: PAIN Nystatin (Nystatin Oral Suspension -) 500,000 units PO Q6HPO [facility] Last Admin: 10/26/16 12:29 Dose: Not Given Ondansetron HCl (Zofran -) 8 mg PO Q8H PRN PRN Reason: NAUSEA Last Admin: 10/21/16 09:34 Dose: 8 mg Ranitidine HCl (Zantac -) 150 mg PO BID [facility] Last Admin: 10/26/16 09:16 Dose: 150 mg Sucralfate (Carafate Oral Suspension -) 1 gm PO BID [facility] Last Admin: 10/26/16 09:16 Dose: 1 gm - Objective Vital Signs: Vital Signs Temperature 99.3 F 10/26/16 15:04 Pulse Rate 115 H 10/26/16 15:04 Respiratory Rate 20 10/26/16 08:19 Blood Pressure 134/62 10/26/16 15:04 O2 Sat by Pulse Oximetry (%) 92 L 10/26/16 08:00 Constitutional: Yes: Calm, Thin, Other Cardiovascular: Yes: Regular Rate and Rhythm Respiratory: Yes: Regular, Poor Air Entry, Other Gastrointestinal: Yes: Normal Bowel Sounds, Soft Musculoskeletal: Yes: Other Neurological: Yes: Alert, Oriented Psychiatric: Yes: Alert, Oriented Labs: CBC, BMP 10/26/16 05:35 10/26/16 05:35 INR, PTT INR 1.36 (0.82-1.09) H 10/19/16 06:00 Assessment/Plan )Problem List - Problems (1) Kidney cancer, primary, with metastasis from kidney to other site Code(s): C64.9 - MALIGNANT NEOPLASM OF UNSP KIDNEY, EXCEPT RENAL PELVIS C79.9 - SECONDARY MALIGNANT NEOPLASM OF UNSPECIFIED SITE Qualifiers: Laterality: left Qualified Code(s): C64.2 - Malignant neoplasm of left kidney, except renal pelvis; C79.9 - Secondary malignant neoplasm of unspecified site (2) Pleural effusion Code(s): J90 - PLEURAL EFFUSION, NOT ELSEWHERE CLASSIFIED (3) Hemoptysis Code(s): R04.2 - HEMOPTYSIS (4) Anemia Code(s): D64.9 - ANEMIA, UNSPECIFIED Qualifiers: Anemia type: other cause Other causes of anemia: antineoplastic chemotherapy Qualified Code(s): D64.81 - Anemia due to antineoplastic chemotherapy; T45.1X5A - Adverse effect of antineoplastic and immunosuppressive drugs, initial encounter (5) Lung nodules Code(s): R91.8 - OTHER NONSPECIFIC ABNORMAL FINDING OF LUNG FIELD (6) Metastases to the liver Code(s): C78.7 - SECONDARY MALIG NEOPLASM OF LIVER AND INTRAHEPATIC BILE DUCT (7) Metastatic lung cancer (metastasis from lung to other site) Code(s): C34.90 - MALIGNANT NEOPLASM OF UNSP PART OF UNSP BRONCHUS OR LUNG Qualifiers: Laterality: right Qualified Code(s): C34.91 - Malignant neoplasm of unspecified part of right bronchus or lung (8) Fever Code(s): R50.9 - FEVER, UNSPECIFIED Renal carcinoma (s/p L nephrectomy) with mets to lungs and liver 2) CKD 3) Abdominal pain, right-sided 4) HTN 5) Hyperlipidemia leukocytosis plan continue current mgmt will probably deescalate tomorrow and see how patient behaves
[2016-10-26] MEDS ORDERED: PT OWN MED DRAWER 7, Y5N ONE (17:04)
--- NOTE | 2016-10-26 20:14 | PN ---
Progress Note (short form) - Note Progress Note: Patient seen and examined Received one unit of packed cells and feels somewhat stronger. However, legs too weak on occasion to be able to ambulate. ROS- no headaches, diplopia , epistaxis, dysphagia, chest pain, some SOB on exertion, no GI complaints of nausea, emesis, diarrhea, some pain at tube site Last Vital Signs Temp Pulse Resp BP Pulse Ox 99.7 F H 123 H 18 137/65 92 L 10/26/16 18:00 10/26/16 17:00 10/26/16 17:00 10/26/16 17:00 10/26/16 08:00 HEENT: LUIS, EOM Intact Oropharynx: No thrush, No mucositis Neck: Supple Cor: RSR, No murmurs, No gallops Lungs: diminished breath sounds RLL Abd: Soft, Normal bowel sounds, No organomegaly Ext:No significant edema Skin: No rashes, Integument intact CBC, BMP 10/26/16 05:35 10/26/16 05:35 Current Medications Generic Name Dose Route Start Last Admin Trade Name Freq PRN Reason Stop Dose Admin Acetaminophen 325 mg 10/20/16 17:55 10/26/16 16:53 Tylenol - PO 325 mg Q8H PRN Administration FEVER OR PAIN Guaifenesin 10 ml 10/20/16 17:55 Robitussin - PO Q6H PRN COUGH Heparin Sodium (Porcine) 5,000 unit 10/20/16 22:00 10/26/16 14:43 Heparin - SQ 5,000 unit TID [facility] Administration Ertapenem 1 gm/ Sodium 50 mls @ 50 mls/hr 10/24/16 16:30 10/26/16 09:16 Chloride IVPB 50 mls/hr DAILY [facility] Administration Protocol Losartan Potassium 100 mg 10/21/16 10:00 10/26/16 09:16 Cozaar - PO 100 mg DAILY [facility] Administration Morphine Sulfate 1 mg 10/21/16 12:48 Morphine Injection - IVPUSH Q3H PRN PAIN Nystatin 500,000 units 10/20/16 18:00 10/26/16 17:34 Nystatin Oral Suspension - PO 500,000 units Q6HPO [facility] Administration Ondansetron HCl 8 mg 10/20/16 17:55 10/21/16 09:34 Zofran - PO 8 mg Q8H PRN Administration NAUSEA Ranitidine HCl 150 mg 10/20/16 22:00 10/26/16 09:16 Zantac - PO 150 mg BID [facility] Administration Sucralfate 1 gm 10/20/16 22:00 10/26/16 09:16 Carafate Oral Suspension - PO 1 gm BID [facility] Administration Impression: 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 Pleural effusion with chest tube drainage Poor performance status currently Plan: Continue pulmonary, I.D. f/u Status will dictate future course.
[2016-10-27 07:34] LABS: BASOPHIL 0.4 % (0-2.0); EOSINOPHIL 0.4 % (0-4.5); MCHC 33.1 g/dl (32.0-36.0); MEAN CELL VOLUME 84.6 fl (80-96); MEAN PLT VOLUME 8.7 fl (7.5-11.1); PLATELET COUNT 392 K/MM3 (134-434); RDW 17.7 % (11.6-15.6); WHITE BLOOD COUNT 19.7 K/mm3 (4.0-10.0)
[2016-10-27 07:37] LABS: ANION GAP 9 (8-16); CALCIUM 7.7 mg/dL (8.5-10.1); CO2 26 mmol/L (21-32); CREATININE 1.1 mg/dL (0.55-1.02); GLUCOSE,RANDOM 87 mg/dL (74-106)
[2016-10-27] MEDS ORDERED: ONDANSETRON 4 MG TABLET PO ONE (07:54)
[2016-10-27] MEDS: ONDANSETRON 8 MG TABLET (FP) PO PRN (08:00)
[2016-10-27] MEDS ORDERED: PT OWN MED DRAWER 7, Y5N ONE ×4 (09:15→21:55)
[2016-10-27] MEDS: SUCRALFATE 1 GM/10 ML UNIT DOSE CUPS PO SCH ×2 (10:40→21:53)
[2016-10-27] MEDS: RANITIDINE HCL 150 MG TABLET (FP) PO SCH ×3 (10:40→21:52)
[2016-10-27] MEDS: LOSARTAN POTASSIUM 50 MG TABLET (FP) PO SCH ×2 (10:40→12:03)
[2016-10-27] MEDS: NYSTATIN 500,000 UNITS/5 ML SUSPENSION PO SCH ×2 (12:00→18:45)
[2016-10-27] MEDS: ACETAMINOPHEN 325 MG TABLET (FP) PO PRN (12:02)
--- NOTE | 2016-10-27 12:48 | PN ---
Progress Note (short form) - Note Progress Note: PULMONARY Febrile overnight. Denies shortness of breath or cough. c/o nausea. Last Vital Signs Temp Pulse Resp BP Pulse Ox 99.4 F 117 H 18 122/62 92 L 10/27/16 10:00 10/27/16 10:00 10/27/16 10:00 10/27/16 10:00 10/27/16 09:00 Gen: weak appearing but in NAD Heart: tachycardic, regular Lung: decreased breath sounds right base Abd: soft, nontender Ext: no edema CBC, BMP 10/27/16 05:25 10/27/16 05:25 Active Medications Acetaminophen (Tylenol -) 325 mg PO Q8H PRN PRN Reason: FEVER OR PAIN Last Admin: 10/27/16 12:02 Dose: 325 mg Guaifenesin (Robitussin -) 10 ml PO Q6H PRN PRN Reason: COUGH Heparin Sodium (Porcine) (Heparin -) 5,000 unit SQ TID [facility] Last Admin: 10/26/16 22:55 Dose: 5,000 unit Ertapenem 1 gm/ Sodium (Chloride) 50 mls @ 50 mls/hr IVPB DAILY [facility] PRN Reason: Protocol Last Admin: 10/26/16 09:16 Dose: 50 mls/hr Losartan Potassium (Cozaar -) 100 mg PO DAILY [facility] Last Admin: 10/27/16 12:03 Dose: 100 mg Morphine Sulfate (Morphine Injection -) 1 mg IVPUSH Q3H PRN PRN Reason: PAIN Nystatin (Nystatin Oral Suspension -) 500,000 units PO Q6HPO [facility] Last Admin: 10/26/16 17:34 Dose: 500,000 units Ondansetron HCl (Zofran -) 8 mg PO Q8H PRN PRN Reason: NAUSEA Last Admin: 10/27/16 08:00 Dose: 8 mg Ranitidine HCl (Zantac -) 150 mg PO BID [facility] Last Admin: 10/27/16 12:02 Dose: 150 mg Sucralfate (Carafate Oral Suspension -) 1 gm PO BID [facility] Last Admin: 10/27/16 10:40 Dose: Not Given A/P Metastatic Renal Cell Ca to lung, liver Pleural Effusion - Exudative Hemoptysis Fever UTI - antibiotics per ID - monitor pleur-x output - cough suppressants - monitor hemoptysis - DVT prophylaxis - OOB to chair if possible - rehab/PT - will need VNS for pleur-x drainage at home
[2016-10-27] MEDS: ERTAPENEM SODIUM 1 GM in SODIUM CHLORIDE 50 ML IVPB SCH (13:40)
[2016-10-27] MEDS: HEPARIN NA (PORCINE) 5,000 UNITS/ML 1ML VIAL SQ SCH ×2 (14:00→21:52)
--- NOTE | 2016-10-27 16:27 | PN ---
Physical Exam: SUBJECTIVE: Patient seen and examined at bedside. No acute events overnight. Pt continues to have fevers and tachycardia. No complaints at this time. Denies headache, cp, sob, nausea. OBJECTIVE: Vital Signs Period Temp Pulse Resp BP Sys/Aldrich Pulse Ox Last 24 Hr 98.5 F-103.0 F 88-123 18-18 101-137/53-66 92-92 GENERAL: The patient is awake, alert, and fully oriented, in no acute distress. HEAD: Normal with no signs of trauma. EYES: scleral icterus,No ptosis. ENT: nares patent, oropharynx clear without exudates, moist mucous membranes. NECK: Trachea midline, full range of motion, supple, no carotid bruits. LUNGS: decreased breath sounds bilateral bases, no wheezes, no crackles, no accessory muscle use. Right sided drain in place. HEART: Regular rate and rhythm, normal S1, S2 without murmur, rub or gallop. ABDOMEN: Soft, tender to palpation in RUQ, nondistended, normoactive bowel sounds, no guarding, no rebound, no hepatosplenomegaly, no masses. No cva tenderness EXTREMITIES: 2+ pulses, warm, well-perfused, 1+ pedal edema. NEUROLOGICAL: Cranial nerves II through XII grossly intact. Normal speech, gait not observed. PSYCH: Normal mood, normal affect. SKIN: Warm, dry, normal turgor, no rashes or lesions noted Laboratory Results - last 24 hr 10/27/16 10/27/16 05:25 05:25 WBC 19.7 H RBC 2.85 L Hgb 8.0 L D Hct 24.1 L MCV 84.6 MCH 28.0 MCHC 33.1 RDW 17.7 H Plt Count 392 MPV 8.7 Neutrophils % 83.0 H Lymphocytes % 10.4 Monocytes % 5.8 Eosinophils % 0.4 Basophils % 0.4 Sodium 142 Potassium 4.2 Chloride 107 Carbon Dioxide 26 Anion Gap 9 BUN 33 H Creatinine 1.1 H Random Glucose 87 Calcium 7.7 L Active Medications Generic Name Dose Route Start Last Admin Trade Name Freq PRN Reason Stop Dose Admin Acetaminophen 325 mg 10/20/16 17:55 10/27/16 12:02 Tylenol - PO 325 mg Q8H PRN Administration FEVER OR PAIN Guaifenesin 10 ml 10/20/16 17:55 Robitussin - PO Q6H PRN COUGH Heparin Sodium (Porcine) 5,000 unit 10/20/16 22:00 10/26/16 22:55 Heparin - SQ 5,000 unit TID [facility] Administration Ertapenem 1 gm/ Sodium 50 mls @ 50 mls/hr 10/24/16 16:30 10/27/16 13:40 Chloride IVPB 50 mls/hr DAILY [facility] Administration Protocol Losartan Potassium 100 mg 10/21/16 10:00 10/27/16 12:03 Cozaar - PO 100 mg DAILY [facility] Administration Morphine Sulfate 1 mg 10/21/16 12:48 Morphine Injection - IVPUSH Q3H PRN PAIN Nystatin 500,000 units 10/20/16 18:00 10/27/16 12:00 Nystatin Oral Suspension - PO Not Given Q6HPO [facility] Ondansetron HCl 8 mg 10/20/16 17:55 10/27/16 08:00 Zofran - PO 8 mg Q8H PRN Administration NAUSEA Ranitidine HCl 150 mg 10/20/16 22:00 10/27/16 12:02 Zantac - PO 150 mg BID [facility] Administration Sucralfate 1 gm 10/20/16 22:00 10/27/16 10:40 Carafate Oral Suspension - PO Not Given BID [facility] ASSESSMENT/PLAN: 71yo F h/o renal ca (s/p nephrectomy 02/2016) with multiple mets to liver and lungs, HTN, and recent hospitalization for PNA. Leukocytosis 15.9, Fever 102 ( per ER physician), Tachycardia 116. CXR increased b/l effusions (R>L); questionable opacity right cardiac border most likely representing congestion. #Pleural effusion -tap showed no cancer cells, exudative -Pleur-x in place and draining -Robitussin for cough -per surg pt will need VNS 3/wk -CXR shows possible b/l effusion #Sepsis -Pt measured her fever at 102, and had tachycardia of 116 on admission. Possibly 2/2 malignancy -US guided thoracentesis of pleural effusion: exudative by Light's criteria -UCx pos for Vr Ec faecium -BCx, pleural fluid Cx neg -Pt on contact precautions #anemia -Hb 8.0 after PRBCs #RUQ pain, lft abnormalities, elev INR -Due to liver metastases #Renal carcinoma (s/o L nephrectomy) with liver and lung mets -reactive leukocytosis and low grade fever -Pt is not medically stable for chemotherapy at this time -per Heme/Onc, Pt is being optimized -palliative consult #HTN -Continued home medication Amlodipine #Hyperlipidemia -Holding atorvastatin in light of worsening AST #FEN -NS @ 50mls/hr -lytes wnl -Regular Diet #PPX -HSQ Dispo: Admit to med-surg floor Tyree Jensen MD PGY-1 Visit type - Emergency Visit Emergency Visit: No - New Patient This patient is new to me today: No - Critical Care Critical Care patient: No - Discharge Referral Referred to [facility] Med [facility].C[facility] No
--- NOTE | 2016-10-27 17:06 | PN ---
Progress Note, Physician History of Present Illness: still very weak low grade fever chest tube in place - Current Medication List Current Medications: Active Medications Acetaminophen (Tylenol -) 325 mg PO Q8H PRN PRN Reason: FEVER OR PAIN Last Admin: 10/27/16 12:02 Dose: 325 mg Guaifenesin (Robitussin -) 10 ml PO Q6H PRN PRN Reason: COUGH Heparin Sodium (Porcine) (Heparin -) 5,000 unit SQ TID [facility] Last Admin: 10/26/16 22:55 Dose: 5,000 unit Linezolid (Zyvox (Restricted To Id) -) 600 mg PO BID [facility] Losartan Potassium (Cozaar -) 100 mg PO DAILY [facility] Last Admin: 10/27/16 12:03 Dose: 100 mg Morphine Sulfate (Morphine Injection -) 1 mg IVPUSH Q3H PRN PRN Reason: PAIN Nystatin (Nystatin Oral Suspension -) 500,000 units PO Q6HPO [facility] Last Admin: 10/27/16 12:00 Dose: Not Given Ondansetron HCl (Zofran -) 8 mg PO Q8H PRN PRN Reason: NAUSEA Last Admin: 10/27/16 08:00 Dose: 8 mg Ranitidine HCl (Zantac -) 150 mg PO BID [facility] Last Admin: 10/27/16 12:02 Dose: 150 mg Sucralfate (Carafate Oral Suspension -) 1 gm PO BID [facility] Last Admin: 10/27/16 10:40 Dose: Not Given - Objective Vital Signs: Vital Signs Temperature 98.6 F 10/27/16 14:38 Pulse Rate 88 10/27/16 14:38 Respiratory Rate 18 10/27/16 14:38 Blood Pressure 109/56 10/27/16 14:38 O2 Sat by Pulse Oximetry (%) 92 L 10/27/16 09:00 Constitutional: Yes: No Distress, Calm Cardiovascular: Yes: Regular Rate and Rhythm Respiratory: Yes: Regular, Poor Air Entry (rt side), Other (chest tube in place) Gastrointestinal: Yes: Normal Bowel Sounds, Soft Musculoskeletal: Yes: WNL Extremities: Yes: WNL Neurological: Yes: Alert, Oriented Psychiatric: Yes: Alert, Oriented Labs: CBC, BMP 10/27/16 05:25 10/27/16 05:25 INR, PTT INR 1.36 (0.82-1.09) H 10/19/16 06:00 Assessment/Plan )Problem List - Problems (1) Kidney cancer, primary, with metastasis from kidney to other site Code(s): C64.9 - MALIGNANT NEOPLASM OF UNSP KIDNEY, EXCEPT RENAL PELVIS C79.9 - SECONDARY MALIGNANT NEOPLASM OF UNSPECIFIED SITE Qualifiers: Laterality: left Qualified Code(s): C64.2 - Malignant neoplasm of left kidney, except renal pelvis; C79.9 - Secondary malignant neoplasm of unspecified site (2) Pleural effusion Code(s): J90 - PLEURAL EFFUSION, NOT ELSEWHERE CLASSIFIED (3) Hemoptysis Code(s): R04.2 - HEMOPTYSIS (4) Anemia Code(s): D64.9 - ANEMIA, UNSPECIFIED Qualifiers: Anemia type: other cause Other causes of anemia: antineoplastic chemotherapy Qualified Code(s): D64.81 - Anemia due to antineoplastic chemotherapy; T45.1X5A - Adverse effect of antineoplastic and immunosuppressive drugs, initial encounter (5) Lung nodules Code(s): R91.8 - OTHER NONSPECIFIC ABNORMAL FINDING OF LUNG FIELD (6) Metastases to the liver Code(s): C78.7 - SECONDARY MALIG NEOPLASM OF LIVER AND INTRAHEPATIC BILE DUCT (7) Metastatic lung cancer (metastasis from lung to other site) Code(s): C34.90 - MALIGNANT NEOPLASM OF UNSP PART OF UNSP BRONCHUS OR LUNG Qualifiers: Laterality: right Qualified Code(s): C34.91 - Malignant neoplasm of unspecified part of right bronchus or lung (8) Fever Code(s): R50.9 - FEVER, UNSPECIFIED Renal carcinoma (s/p L nephrectomy) with mets to lungs and liver 2) CKD 3) Abdominal pain, right-sided 4) HTN 5) Hyperlipidemia leukocytosis uti plan stopped ertapenam started on zyox rest continue current mgt' rest as primary
--- NOTE | 2016-10-27 17:23 | PN ---
Teaching Attending Note Name of Resident: Tyree Jensen ATTENDING PHYSICIAN STATEMENT I saw and evaluated the patient. I reviewed the resident's note and discussed the case with the resident. I agree with the resident's findings and plan as documented. SUBJECTIVE: Patient having intermittent chills. OBJECTIVE: Vital Signs Period Temp Pulse Resp BP Sys/Aldrich Pulse Ox Last 24 Hr 98.5 F-100.3 F 88-117 18-18 101-136/53-66 92-92 HEART: S1S2, tachycardic LUNGS: Few rhonchi, decreased BS at bases ABDOMEN: Soft, non-tender, non-distended, normal BS EXTREMITIES: 1+ edema ASSESSMENT AND PLAN: This is a 71 year old woman with a history of HTN, metastatic urothelial carcinoma who presented to the ER with fever, back and abdominal pain. 1. Bilateral pleural effusions - s/p right thoracentesis 10/14 - fluid negative for malignancy - s/p bronchoscopy, right thoracoscopy and Pleur-x placement 10/19 - Continue Pleur-x drainage 2. Anemia, likely secondary to chronic illness - Improved with transfusion 3. Sepsis secondary to VRE UTI - Invanz discontinued - Zyvox started 4. HTN - Continue Cozaar 5. Hyperlipidemia - Lipitor hels secondary to transaminitis 6. Hepatic transaminitis, likely secondary to metastatic disease 7. Metastatic urothelial carcinoma - History of left nephrectomy 8. Stage 3 CKD - Stable
[2016-10-27] MEDS: LINEZOLID 600 MG TABLET (RESTRICTED TO ID) PO SCH (21:56)
[2016-10-28] MEDS: NYSTATIN 500,000 UNITS/5 ML SUSPENSION PO SCH ×3 (01:17→12:00)
[2016-10-28] MEDS: HEPARIN NA (PORCINE) 5,000 UNITS/ML 1ML VIAL SQ SCH ×3 (06:26→22:06)
[2016-10-28 07:10] LABS: BASOPHIL 0.4 % (0-2.0); EOSINOPHIL 0.4 % (0-4.5); MCH 28.1 pg (25.7-33.7); MEAN CELL VOLUME 85.3 fl (80-96); MEAN PLT VOLUME 8.2 fl (7.5-11.1); NEUTROPHILS 81.4 % (42.8-82.8); PLATELET COUNT 366 K/MM3 (134-434); RDW 17.6 % (11.6-15.6); WHITE BLOOD COUNT 18.4 K/mm3 (4.0-10.0)
[2016-10-28 07:17] LABS: ANION GAP 7 (8-16); CALCIUM 7.7 mg/dL (8.5-10.1); CO2 27 mmol/L (21-32); CREATININE 1.2 mg/dL (0.55-1.02); GLUCOSE,RANDOM 97 mg/dL (74-106)
[2016-10-28] MEDS ORDERED: PT OWN MED DRAWER 7, Y5N ONE ×2 (09:10→22:05)
[2016-10-28] MEDS: SUCRALFATE 1 GM/10 ML UNIT DOSE CUPS PO SCH ×2 (09:38→22:06)
[2016-10-28] MEDS: RANITIDINE HCL 150 MG TABLET (FP) PO SCH ×2 (09:38→22:11)
[2016-10-28] MEDS: LOSARTAN POTASSIUM 50 MG TABLET (FP) PO SCH (09:38)
[2016-10-28] MEDS: LINEZOLID 600 MG TABLET (RESTRICTED TO ID) PO SCH ×2 (09:39→22:11)
--- NOTE | 2016-10-28 11:32 | PN ---
Progress Note, Physician History of Present Illness: pulmonary alert,nad,less dyspneic,,-hemoptysis - Current Medication List Current Medications: Active Medications Acetaminophen (Tylenol -) 325 mg PO Q8H PRN PRN Reason: FEVER OR PAIN Last Admin: 10/27/16 12:02 Dose: 325 mg Guaifenesin (Robitussin -) 10 ml PO Q6H PRN PRN Reason: COUGH Heparin Sodium (Porcine) (Heparin -) 5,000 unit SQ TID [facility] Last Admin: 10/28/16 06:26 Dose: 5,000 unit Linezolid (Zyvox (Restricted To Id) -) 600 mg PO BID [facility] Last Admin: 10/28/16 09:39 Dose: 600 mg Losartan Potassium (Cozaar -) 100 mg PO DAILY [facility] Last Admin: 10/28/16 09:38 Dose: 100 mg Morphine Sulfate (Morphine Injection -) 1 mg IVPUSH Q3H PRN PRN Reason: PAIN Nystatin (Nystatin Oral Suspension -) 500,000 units PO Q6HPO [facility] Last Admin: 10/28/16 06:27 Dose: 500,000 units Ondansetron HCl (Zofran -) 8 mg PO Q8H PRN PRN Reason: NAUSEA Last Admin: 10/27/16 08:00 Dose: 8 mg Ranitidine HCl (Zantac -) 150 mg PO BID [facility] Last Admin: 10/28/16 09:38 Dose: 150 mg Sucralfate (Carafate Oral Suspension -) 1 gm PO BID [facility] Last Admin: 10/28/16 09:38 Dose: 1 gm - Objective Vital Signs: Vital Signs Temperature 99.1 F 10/28/16 06:22 Pulse Rate 101 H 10/28/16 06:22 Respiratory Rate 16 10/28/16 06:22 Blood Pressure 112/58 10/28/16 06:22 O2 Sat by Pulse Oximetry (%) 92 L 10/27/16 09:00 Constitutional: Yes: Well Nourished, Calm Eyes: Yes: WNL HENT: Yes: WNL Neck: Yes: WNL Cardiovascular: Yes: Regular Rate and Rhythm, S1, S2 Respiratory: Yes: Diminished (diminished bs on r) Gastrointestinal: Yes: Normal Bowel Sounds, Soft Extremities: Yes: WNL Edema: No Labs: CBC, BMP 10/28/16 06:30 10/28/16 06:30 INR, PTT INR 1.36 (0.82-1.09) H 10/19/16 06:00 - ....Imaging Chest X-ray: Report Reviewed, Image Reviewed (increased r pleural effusion) Problem List - Problems (1) Kidney cancer, primary, with metastasis from kidney to other site Code(s): C64.9 - MALIGNANT NEOPLASM OF UNSP KIDNEY, EXCEPT RENAL PELVIS C79.9 - SECONDARY MALIGNANT NEOPLASM OF UNSPECIFIED SITE Qualifiers: Laterality: left Qualified Code(s): C64.2 - Malignant neoplasm of left kidney, except renal pelvis; C79.9 - Secondary malignant neoplasm of unspecified site (2) Pleural effusion Code(s): J90 - PLEURAL EFFUSION, NOT ELSEWHERE CLASSIFIED (3) Hemoptysis Code(s): R04.2 - HEMOPTYSIS (4) Anemia Code(s): D64.9 - ANEMIA, UNSPECIFIED Qualifiers: Anemia type: other cause Other causes of anemia: antineoplastic chemotherapy Qualified Code(s): D64.81 - Anemia due to antineoplastic chemotherapy; T45.1X5A - Adverse effect of antineoplastic and immunosuppressive drugs, initial encounter (5) Lung nodules Code(s): R91.8 - OTHER NONSPECIFIC ABNORMAL FINDING OF LUNG FIELD (6) Metastases to the liver Code(s): C78.7 - SECONDARY MALIG NEOPLASM OF LIVER AND INTRAHEPATIC BILE DUCT (7) Metastatic lung cancer (metastasis from lung to other site) Code(s): C34.90 - MALIGNANT NEOPLASM OF UNSP PART OF UNSP BRONCHUS OR LUNG Qualifiers: Laterality: right Qualified Code(s): C34.91 - Malignant neoplasm of unspecified part of right bronchus or lung (8) Fever Code(s): R50.9 - FEVER, UNSPECIFIED Assessment/Plan A/P Metastatic Renal Cell Ca to lung, liver Pleural Effusion - Exudative Hemoptysis resolved Fever Anemia - monitor pleur-x output - cough suppressants - DVT prophylaxis - OOB to chair if possible - rehab/PT - will need VNS for pleur-x drainage at home - monitor h+h - transfuse prn - thoracic surgery f/u DR REID
--- NOTE | 2016-10-28 14:04 | PN ---
Physical Exam: SUBJECTIVE: Patient seen and examined at bedside. No acute events overnight. Pt feels better than yesterday. No complaints at this time. Denies headache, cp , sob, nausea. OBJECTIVE: Vital Signs Period Temp Pulse Resp BP Sys/Aldrich Pulse Ox Last 24 Hr 98.3 F-99.1 F 88-113 16-18 108-121/53-58 92 GENERAL: The patient is awake, alert, and fully oriented, in no acute distress HEAD: Normal with no signs of trauma EYES: scleral icterus,No ptosis ENT: nares patent, oropharynx clear without exudates, moist mucous membranes NECK: Trachea midline, full range of motion, supple, no carotid bruits LUNGS: decreased breath sounds bilateral bases, R>L, no wheezes, no crackles, no accessory muscle use. Right sided drain in place HEART: Regular rate and rhythm, normal S1, S2 without murmur, rub or gallop. ABDOMEN: Soft, tender to palpation in RUQ, nondistended, normoactive bowel sounds, no guarding, no rebound, no hepatosplenomegaly, no masses. No cva tenderness EXTREMITIES: 2+ pulses, warm, well-perfused, 1+ pedal edema NEUROLOGICAL: Cranial nerves II through XII grossly intact. Normal speech, gait not observed. PSYCH: Normal mood, normal affect SKIN: Warm, dry, normal turgor, no rashes or lesions noted Laboratory Results - last 24 hr 10/28/16 10/28/16 06:30 06:30 WBC 18.4 H RBC 2.62 L Hgb 7.4 L Hct 22.3 L MCV 85.3 MCH 28.1 MCHC 33.0 RDW 17.6 H Plt Count 366 MPV 8.2 Neutrophils % 81.4 Lymphocytes % 11.7 Monocytes % 6.1 Eosinophils % 0.4 Basophils % 0.4 Sodium 140 Potassium 4.0 Chloride 106 Carbon Dioxide 27 Anion Gap 7 L BUN 35 H Creatinine 1.2 H Random Glucose 97 Calcium 7.7 L Active Medications Generic Name Dose Route Start Last Admin Trade Name Freq PRN Reason Stop Dose Admin Acetaminophen 325 mg 10/20/16 17:55 10/27/16 12:02 Tylenol - PO 325 mg Q8H PRN Administration FEVER OR PAIN Guaifenesin 10 ml 10/20/16 17:55 Robitussin - PO Q6H PRN COUGH Heparin Sodium (Porcine) 5,000 unit 10/20/16 22:00 10/28/16 06:26 Heparin - SQ 5,000 unit TID JOSE Administration Linezolid 600 mg 10/27/16 22:00 10/28/16 09:39 Zyvox (Restricted To Id) - PO 600 mg BID JOSE Administration Losartan Potassium 100 mg 10/21/16 10:00 10/28/16 09:38 Cozaar - PO 100 mg DAILY JOSE Administration Morphine Sulfate 1 mg 10/21/16 12:48 Morphine Injection - IVPUSH Q3H PRN PAIN Nystatin 500,000 units 10/20/16 18:00 10/28/16 06:27 Nystatin Oral Suspension - PO 500,000 units Q6HPO JOSE Administration Ondansetron HCl 8 mg 10/20/16 17:55 10/27/16 08:00 Zofran - PO 8 mg Q8H PRN Administration NAUSEA Ranitidine HCl 150 mg 10/20/16 22:00 10/28/16 09:38 Zantac - PO 150 mg BID JOSE Administration Sucralfate 1 gm 10/20/16 22:00 10/28/16 09:38 Carafate Oral Suspension - PO 1 gm BID JOSE Administration ASSESSMENT/PLAN: 71yo F h/o renal ca (s/p nephrectomy 02/2016) with multiple mets to liver and lungs, HTN, and recent hospitalization for PNA. Leukocytosis 15.9, Fever 102 ( per ER physician), Tachycardia 116. CXR increased b/l effusions (R>L); questionable opacity right cardiac border most likely representing congestion. #Pleural effusion -tap showed no cancer cells, exudative -Pleur-x in place and draining -Robitussin for cough -per surg pt will need VNS 3/wk -CXR shows worsened R sided interval airspace disease and likely pleural effusion -per thoracic surg, likely pleuro-vac is ok. Pt may have PNA. On Linezolid, which should cover CAP and HCAP. #Sepsis -Pt measured her fever at 102, and had tachycardia of 116 on admission. Possibly 2/2 malignancy -US guided thoracentesis of pleural effusion: exudative by Light's criteria -UCx pos for Vr Ec faecium -BCx, pleural fluid Cx neg -Pt on contact precautions -Pt switched to Linezolid #anemia -Hb 7.4 today #RUQ pain, lft abnormalities, elev INR -Due to liver metastases #Renal carcinoma (s/o L nephrectomy) with liver and lung mets -reactive leukocytosis and low grade fever -Pt is not medically stable for chemotherapy at this time -per Heme/Onc, Pt is being optimized -palliative consult #HTN -Continued home medication Amlodipine #Hyperlipidemia -Holding atorvastatin in light of worsening AST #FEN -NS @ 50mls/hr -lytes wnl -Regular Diet #PPX -HSQ Dispo: Admit to med-surg floor Tyree Jensen MD PGY-1 Visit type - Emergency Visit Emergency Visit: No - New Patient This patient is new to me today: No - Critical Care Critical Care patient: No - Discharge Referral Referred to [facility] Med P.C.: No
--- NOTE | 2016-10-28 14:33 | PN ---
Progress Note, Physician History of Present Illness: still very weak has been afebrile post start of abx - Current Medication List Current Medications: Active Medications Acetaminophen (Tylenol -) 325 mg PO Q8H PRN PRN Reason: FEVER OR PAIN Last Admin: 10/27/16 12:02 Dose: 325 mg Guaifenesin (Robitussin -) 10 ml PO Q6H PRN PRN Reason: COUGH Heparin Sodium (Porcine) (Heparin -) 5,000 unit SQ TID [facility] Last Admin: 10/28/16 06:26 Dose: 5,000 unit Linezolid (Zyvox (Restricted To Id) -) 600 mg PO BID [facility] Last Admin: 10/28/16 09:39 Dose: 600 mg Losartan Potassium (Cozaar -) 100 mg PO DAILY [facility] Last Admin: 10/28/16 09:38 Dose: 100 mg Morphine Sulfate (Morphine Injection -) 1 mg IVPUSH Q3H PRN PRN Reason: PAIN Nystatin (Nystatin Oral Suspension -) 500,000 units PO Q6HPO [facility] Last Admin: 10/28/16 06:27 Dose: 500,000 units Ondansetron HCl (Zofran -) 8 mg PO Q8H PRN PRN Reason: NAUSEA Last Admin: 10/27/16 08:00 Dose: 8 mg Ranitidine HCl (Zantac -) 150 mg PO BID [facility] Last Admin: 10/28/16 09:38 Dose: 150 mg Sucralfate (Carafate Oral Suspension -) 1 gm PO BID [facility] Last Admin: 10/28/16 09:38 Dose: 1 gm - Objective Vital Signs: Vital Signs Temperature 98.9 F 10/28/16 13:29 Pulse Rate 101 H 10/28/16 13:29 Respiratory Rate 18 10/28/16 13:29 Blood Pressure 108/56 10/28/16 13:29 O2 Sat by Pulse Oximetry (%) 92 L 10/28/16 09:00 Constitutional: Yes: No Distress, Calm Respiratory: Yes: Poor Air Entry, Other (chest tube in place) Gastrointestinal: Yes: Normal Bowel Sounds, Soft Musculoskeletal: Yes: WNL Extremities: Yes: WNL Neurological: Yes: Alert, Oriented Psychiatric: Yes: Alert, Oriented Labs: CBC, BMP 10/28/16 06:30 10/28/16 06:30 INR, PTT INR 1.36 (0.82-1.09) H 10/19/16 06:00 Assessment/Plan )Problem List - Problems (1) Kidney cancer, primary, with metastasis from kidney to other site Code(s): C64.9 - MALIGNANT NEOPLASM OF UNSP KIDNEY, EXCEPT RENAL PELVIS C79.9 - SECONDARY MALIGNANT NEOPLASM OF UNSPECIFIED SITE Qualifiers: Laterality: left Qualified Code(s): C64.2 - Malignant neoplasm of left kidney, except renal pelvis; C79.9 - Secondary malignant neoplasm of unspecified site (2) Pleural effusion Code(s): J90 - PLEURAL EFFUSION, NOT ELSEWHERE CLASSIFIED (3) Hemoptysis Code(s): R04.2 - HEMOPTYSIS (4) Anemia Code(s): D64.9 - ANEMIA, UNSPECIFIED Qualifiers: Anemia type: other cause Other causes of anemia: antineoplastic chemotherapy Qualified Code(s): D64.81 - Anemia due to antineoplastic chemotherapy; T45.1X5A - Adverse effect of antineoplastic and immunosuppressive drugs, initial encounter (5) Lung nodules Code(s): R91.8 - OTHER NONSPECIFIC ABNORMAL FINDING OF LUNG FIELD (6) Metastases to the liver Code(s): C78.7 - SECONDARY MALIG NEOPLASM OF LIVER AND INTRAHEPATIC BILE DUCT (7) Metastatic lung cancer (metastasis from lung to other site) Code(s): C34.90 - MALIGNANT NEOPLASM OF UNSP PART OF UNSP BRONCHUS OR LUNG Qualifiers: Laterality: right Qualified Code(s): C34.91 - Malignant neoplasm of unspecified part of right bronchus or lung (8) Fever Code(s): R50.9 - FEVER, UNSPECIFIED Renal carcinoma (s/p L nephrectomy) with mets to lungs and liver 2) CKD 3) Abdominal pain, right-sided 4) HTN 5) Hyperlipidemia leukocytosis uti plan continue zyox for tomorrow then will see wbc and decide further incentive cindy monitor blood counts wbc marginally down h and h down
--- NOTE | 2016-10-28 14:39 | PN ---
Teaching Attending Note Name of Resident: Tyree Jensen ATTENDING PHYSICIAN STATEMENT I saw and evaluated the patient. I reviewed the resident's note and discussed the case with the resident. I agree with the resident's findings and plan as documented. SUBJECTIVE: Patient says she is feeling better. OBJECTIVE: Vital Signs Period Temp Pulse Resp BP Sys/Aldrich Pulse Ox Last 24 Hr 98.3 F-99.1 F 96-113 16-18 108-121/53-58 92 HEART: S1S2, tachycardic LUNGS: Decreased BS at bases ABDOMEN: Soft, non-tender, non-distended, normal BS EXTREMITIES: 1+ edema ASSESSMENT AND PLAN: This is a 71 year old woman with a history of HTN, metastatic urothelial carcinoma who presented to the ER with fever, back and abdominal pain. 1. Bilateral pleural effusions - s/p right thoracentesis 10/14 - fluid negative for malignancy - s/p bronchoscopy, right thoracoscopy and Pleur-x placement 10/19 - Continue Pleur-x drainage - Continue incentive spirometer 2. Anemia, likely secondary to chronic illness - Hemoglobin decreasing - continue to monitor and transfuse if < 7.0 3. Sepsis secondary to VRE UTI - Temp, WBC improving - Continue Zyvox 4. HTN - Continue Cozaar 5. Hyperlipidemia - Lipitor held secondary to transaminitis 6. Hepatic transaminitis, likely secondary to metastatic disease 7. Metastatic urothelial carcinoma - History of left nephrectomy 8. Stage 3 CKD
[2016-10-29] MEDS: NYSTATIN 500,000 UNITS/5 ML SUSPENSION PO SCH ×5 (00:20→18:39)
[2016-10-29] MEDS ORDERED: PT OWN MED DRAWER 7, Y5N ONE ×2 (04:03→22:30)
[2016-10-29 07:10] LABS: BASOPHIL 0.5 % (0-2.0); EOSINOPHIL 0.4 % (0-4.5); MCH 27.9 pg (25.7-33.7); MCHC 32.7 g/dl (32.0-36.0); MEAN CELL VOLUME 85.4 fl (80-96); MEAN PLT VOLUME 8.1 fl (7.5-11.1); NEUTROPHILS 82.2 % (42.8-82.8); PLATELET COUNT 369 K/MM3 (134-434); RDW 17.8 % (11.6-15.6)
[2016-10-29 07:36] LABS: ALBUMIN 1.3 g/dl (3.4-5.0); ALK PHOS 961 U/L (45-117); ANION GAP 6 (8-16); BILIRUBIN,TOTAL 1.8 mg/dL (0.2-1.0); CALCIUM 7.7 mg/dL (8.5-10.1); CO2 27 mmol/L (21-32); CREATININE 1.3 mg/dL (0.55-1.02); GLUCOSE,RANDOM 94 mg/dL (74-106); SGOT/AST 91 U/L (15-37); SGPT/ALT 66 U/L (12-78); TOT PROT 4.1 g/dl (6.4-8.2)
[2016-10-29 07:52] LABS: HYPOCHROMIA 1+; PLATELET ESTIMATE ADEQUATE (NORMAL)
[2016-10-29] MEDS: SUCRALFATE 1 GM/10 ML UNIT DOSE CUPS PO SCH ×2 (11:11→22:33)
[2016-10-29] MEDS: LOSARTAN POTASSIUM 50 MG TABLET (FP) PO SCH (11:11)
--- NOTE | 2016-10-29 11:11 | PN ---
Progress Note (short form) - Note Progress Note: PULMONARY AWAKE/ALERT FAMILY PRESENT VSS/AFEBRILE PALE/ANICTERIC DIMINISHED BASES S1S2 NO EDEMA LABS/MEDS/NOTES/IMAGING REVIEWED Metastatic Renal Cell Ca to lung, liver Pleural Effusion - Exudative-s/p vats/pleurodesis/pleurovac Hemoptysis resolved Fever Anemia requiring prbc's - monitor pleur-x output - cough suppressants - DVT prophylaxis - OOB to chair if possible - rehab/PT - will need VNS for pleur-x drainage at home - monitor h+h - transfuse to keep hgb greater than 8gm - thoracic surgery f/u as required Theresa AGUIRRE MD
[2016-10-29] MEDS: RANITIDINE HCL 150 MG TABLET (FP) PO SCH ×2 (11:13→22:33)
[2016-10-29] MEDS: ACETAMINOPHEN 325 MG TABLET (FP) PO PRN ×2 (11:13→22:57)
[2016-10-29] MEDS: LINEZOLID 600 MG TABLET (RESTRICTED TO ID) PO SCH ×2 (11:13→22:33)
--- NOTE | 2016-10-29 14:21 | PN ---
Physical Exam: SUBJECTIVE: Patient seen and examined at bedside. No acute events overnight. Pt states she feels the same as yesterday. Denies headache, cp, sob, abd pain. OBJECTIVE: Vital Signs Period Temp Pulse Resp BP Sys/Aldrich Pulse Ox Last 24 Hr 98.2 F-100.6 F 100-105 18-18 99-112/52-57 92-94 GENERAL: The patient is awake, alert, and fully oriented, in no acute distress HEAD: Normal with no signs of trauma EYES: scleral icterus,No ptosis ENT: nares patent, oropharynx clear without exudates, moist mucous membranes NECK: Trachea midline, full range of motion, supple, no carotid bruits LUNGS: decreased breath sounds bilateral bases, R decreased > L, no wheezes, no crackles, no accessory muscle use. Right sided drain in place HEART: Regular rate and rhythm, normal S1, S2 without murmur, rub or gallop. ABDOMEN: Soft, tender to palpation in RUQ, nondistended, normoactive bowel sounds, no guarding, no rebound, no hepatosplenomegaly, no masses. No cva tenderness EXTREMITIES: 2+ pulses, warm, well-perfused, 1+ pedal edema NEUROLOGICAL: Cranial nerves II through XII grossly intact. Normal speech, gait not observed. PSYCH: Normal mood, normal affect SKIN: Warm, dry, normal turgor, no rashes or lesions noted Laboratory Results - last 24 hr 10/26/16 10/29/16 10/29/16 08:50 06:30 06:30 WBC 18.0 H RBC 2.47 L Hgb 6.9 L* Hct 21.1 L MCV 85.4 MCH 27.9 MCHC 32.7 RDW 17.8 H Plt Count 369 MPV 8.1 Neutrophils % 82.2 Lymphocytes % 11.0 Monocytes % 5.9 Eosinophils % 0.4 Basophils % 0.5 Hypochromia 1+ Platelet Estimate Adequate Sodium 141 Potassium 4.2 Chloride 108 H Carbon Dioxide 27 Anion Gap 6 L BUN 37 H Creatinine 1.3 H Creat Clearance w eGFR 40.49 Random Glucose 94 Calcium 7.7 L Total Bilirubin 1.8 H AST 91 H ALT 66 Alkaline Phosphatase 961 H Total Protein 4.1 L Albumin 1.3 L Blood Type A POSITIVE Antibody Screen Negative Crossmatch See Detail 10/29/16 13:20 WBC RBC Hgb Hct MCV MCH MCHC RDW Plt Count MPV Neutrophils % Lymphocytes % Monocytes % Eosinophils % Basophils % Hypochromia Platelet Estimate Sodium Potassium Chloride Carbon Dioxide Anion Gap BUN Creatinine Creat Clearance w eGFR Random Glucose Calcium Total Bilirubin AST ALT Alkaline Phosphatase Total Protein Albumin Blood Type Antibody Screen Crossmatch See Detail Active Medications Generic Name Dose Route Start Last Admin Trade Name Freq PRN Reason Stop Dose Admin Acetaminophen 325 mg 10/20/16 17:55 10/29/16 11:13 Tylenol - PO 325 mg Q8H PRN Administration FEVER OR PAIN Guaifenesin 10 ml 10/20/16 17:55 Robitussin - PO Q6H PRN COUGH Heparin Sodium (Porcine) 5,000 unit 10/20/16 22:00 10/28/16 22:06 Heparin - SQ 5,000 unit TID JOSE Administration Linezolid 600 mg 10/27/16 22:00 10/29/16 11:13 Zyvox (Restricted To Id) - PO 600 mg BID JOSE Administration Losartan Potassium 100 mg 10/21/16 10:00 10/29/16 11:11 Cozaar - PO 100 mg DAILY JOSE Administration Morphine Sulfate 1 mg 10/21/16 12:48 Morphine Injection - IVPUSH Q3H PRN PAIN Nystatin 500,000 units 10/20/16 18:00 10/29/16 12:44 Nystatin Oral Suspension - PO 500,000 units Q6HPO JOSE Administration Ondansetron HCl 8 mg 10/20/16 17:55 10/27/16 08:00 Zofran - PO 8 mg Q8H PRN Administration NAUSEA Ranitidine HCl 150 mg 10/20/16 22:00 10/29/16 11:13 Zantac - PO 150 mg BID JOSE Administration Sucralfate 1 gm 10/20/16 22:00 10/29/16 11:11 Carafate Oral Suspension - PO 1 gm BID JOSE Administration ASSESSMENT/PLAN: 71yo F h/o renal ca (s/p nephrectomy 02/2016) with multiple mets to liver and lungs, HTN, and recent hospitalization for PNA. Leukocytosis 15.9, Fever 102 ( per ER physician), Tachycardia 116. CXR increased b/l effusions (R>L); questionable opacity right cardiac border most likely representing congestion. #Pleural effusion -tap showed no cancer cells, exudative -Pleur-x in place and draining -Robitussin for cough -per surg pt will need VNS 3/wk -CXR shows worsened R sided interval airspace disease and likely pleural effusion -per thoracic surg, likely pleuro-vac is ok. Pt may have PNA. On Linezolid, which should cover CAP and HCAP. -Chest CT #Sepsis -Pt measured her fever at 102, and had tachycardia of 116 on admission. Possibly 2/2 malignancy -US guided thoracentesis of pleural effusion: exudative by Light's criteria -UCx pos for Vr Ec faecium -BCx, pleural fluid Cx neg -Pt on contact precautions -Pt switched to Linezolid #anemia -Hb 6.9 today -1 PRBC #Diarrhea -per pt copious and watery -C. diff toxin & Ab testing #RUQ pain, lft abnormalities, elev INR -Due to liver metastases #Renal carcinoma (s/o L nephrectomy) with liver and lung mets -reactive leukocytosis and low grade fever -Pt is not medically stable for chemotherapy at this time -per Heme/Onc, Pt is being optimized -palliative consult #HTN -Continued home medication Amlodipine #Hyperlipidemia -Holding atorvastatin in light of worsening AST #FEN -NS @ 50mls/hr -lytes wnl -Regular Diet #PPX -HSQ Dispo: Admit to med-surg floor Tyree Jensen MD PGY-1 Visit type - Emergency Visit Emergency Visit: No - New Patient This patient is new to me today: No - Critical Care Critical Care patient: No - Discharge Referral Referred to [facility] Med P.C.: No
[2016-10-29] MEDS: HEPARIN NA (PORCINE) 5,000 UNITS/ML 1ML VIAL SQ SCH ×3 (14:32→22:33)
--- NOTE | 2016-10-29 14:51 | PN ---
Teaching Attending Note Name of Resident: Tyree Jensen ATTENDING PHYSICIAN STATEMENT I saw and evaluated the patient. I reviewed the resident's note and discussed the case with the resident. I agree with the resident's findings and plan as documented. SUBJECTIVE: Patient feels SOB with exertion. Had chills this morning. OBJECTIVE: Vital Signs Period Temp Pulse Resp BP Sys/Aldrich Pulse Ox Last 24 Hr 98.2 F-100.6 F 100-105 18-18 99-112/52-57 92-94 HEART: S1S2, tachycardic LUNGS: Decreased BS at bases ABDOMEN: Soft, non-tender, non-distended, normal BS EXTREMITIES: 1+ edema ASSESSMENT AND PLAN: This is a 71 year old woman with a history of HTN, metastatic urothelial carcinoma who presented to the ER with fever, back and abdominal pain. 1. Bilateral pleural effusions - s/p right thoracentesis 10/14 - fluid negative for malignancy - s/p bronchoscopy, right thoracoscopy and Pleur-x placement 10/19 - Continue Pleur-x drainage - Continue incentive spirometer - Patient had temp 100.6 this morning - will get CT of chest 2. Anemia, likely secondary to chronic illness - Hemoglobin decreasing - Transfuse 1 unit PRBCs today 3. Sepsis secondary to VRE UTI - Had temp 100.6 this morning - Continue Zyvox 4. HTN - Continue Cozaar 5. Hyperlipidemia - Lipitor held secondary to transaminitis 6. Hepatic transaminitis, likely secondary to metastatic disease 7. Metastatic urothelial carcinoma - History of left nephrectomy 8. Stage 3 CKD
--- NOTE | 2016-10-29 15:07 | PN ---
Progress Note, Physician History of Present Illness: looking much better no complaints sitting in chair - Current Medication List Current Medications: Active Medications Acetaminophen (Tylenol -) 325 mg PO Q8H PRN PRN Reason: FEVER OR PAIN Last Admin: 10/29/16 11:13 Dose: 325 mg Guaifenesin (Robitussin -) 10 ml PO Q6H PRN PRN Reason: COUGH Heparin Sodium (Porcine) (Heparin -) 5,000 unit SQ TID [facility] Last Admin: 10/29/16 14:32 Dose: 5,000 unit Linezolid (Zyvox (Restricted To Id) -) 600 mg PO BID [facility] Last Admin: 10/29/16 11:13 Dose: 600 mg Losartan Potassium (Cozaar -) 100 mg PO DAILY [facility] Last Admin: 10/29/16 11:11 Dose: 100 mg Morphine Sulfate (Morphine Injection -) 1 mg IVPUSH Q3H PRN PRN Reason: PAIN Nystatin (Nystatin Oral Suspension -) 500,000 units PO Q6HPO [facility] Last Admin: 10/29/16 12:44 Dose: 500,000 units Ondansetron HCl (Zofran -) 8 mg PO Q8H PRN PRN Reason: NAUSEA Last Admin: 10/27/16 08:00 Dose: 8 mg Ranitidine HCl (Zantac -) 150 mg PO BID [facility] Last Admin: 10/29/16 11:13 Dose: 150 mg Sucralfate (Carafate Oral Suspension -) 1 gm PO BID [facility] Last Admin: 10/29/16 11:11 Dose: 1 gm - Objective Vital Signs: Vital Signs Temperature 99.0 F 10/29/16 13:40 Pulse Rate 105 H 10/29/16 13:40 Respiratory Rate 18 10/29/16 13:40 Blood Pressure 108/53 10/29/16 13:40 O2 Sat by Pulse Oximetry (%) 94 L 10/29/16 09:00 Constitutional: Yes: No Distress, Calm Cardiovascular: Yes: Regular Rate and Rhythm Respiratory: Yes: Poor Air Entry, Other (rt side chest tube) Gastrointestinal: Yes: Normal Bowel Sounds, Soft Musculoskeletal: Yes: WNL Extremities: Yes: Other Neurological: Yes: Alert, Oriented Psychiatric: Yes: Alert Labs: CBC, BMP 10/29/16 06:30 10/29/16 06:30 INR, PTT INR 1.36 (0.82-1.09) H 10/19/16 06:00 - ....Imaging Chest X-ray: Report Reviewed, Image Reviewed Assessment/Plan )Problem List - Problems (1) Kidney cancer, primary, with metastasis from kidney to other site Code(s): C64.9 - MALIGNANT NEOPLASM OF UNSP KIDNEY, EXCEPT RENAL PELVIS C79.9 - SECONDARY MALIGNANT NEOPLASM OF UNSPECIFIED SITE Qualifiers: Laterality: left Qualified Code(s): C64.2 - Malignant neoplasm of left kidney, except renal pelvis; C79.9 - Secondary malignant neoplasm of unspecified site (2) Pleural effusion Code(s): J90 - PLEURAL EFFUSION, NOT ELSEWHERE CLASSIFIED (3) Hemoptysis Code(s): R04.2 - HEMOPTYSIS (4) Anemia Code(s): D64.9 - ANEMIA, UNSPECIFIED Qualifiers: Anemia type: other cause Other causes of anemia: antineoplastic chemotherapy Qualified Code(s): D64.81 - Anemia due to antineoplastic chemotherapy; T45.1X5A - Adverse effect of antineoplastic and immunosuppressive drugs, initial encounter (5) Lung nodules Code(s): R91.8 - OTHER NONSPECIFIC ABNORMAL FINDING OF LUNG FIELD (6) Metastases to the liver Code(s): C78.7 - SECONDARY MALIG NEOPLASM OF LIVER AND INTRAHEPATIC BILE DUCT (7) Metastatic lung cancer (metastasis from lung to other site) Code(s): C34.90 - MALIGNANT NEOPLASM OF UNSP PART OF UNSP BRONCHUS OR LUNG Qualifiers: Laterality: right Qualified Code(s): C34.91 - Malignant neoplasm of unspecified part of right bronchus or lung (8) Fever Code(s): R50.9 - FEVER, UNSPECIFIED Renal carcinoma (s/p L nephrectomy) with mets to lungs and liver 2) CKD 3) Abdominal pain, right-sided 4) HTN 5) Hyperlipidemia leukocytosis uti after looking at the xray decision to do a ct scan--which is the plan plan continue zyox then will see wbc and decide further incentive cindy monitor blood counts wbc marginally down await for imaging studies
--- NOTE | 2016-10-29 20:01 | PN ---
Progress Note (short form) - Note Progress Note: PAtient seen and examined 10/28 and 10/29/16 vitals/labs/meds reviewed Patient c/o diarrhea Last Vital Signs Temp Pulse Resp BP Pulse Ox 98.7 F 88 18 102/53 94 L 10/29/16 18:00 10/29/16 18:00 10/29/16 18:00 10/29/16 18:00 10/29/16 09:00 NCAT RRR Decreased breath sounds bilaterally has chest tube, draining at bedside. 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 CXR -- RML/RLL consolidation.chronin LLL consolidation PAtient was treated initially with meropenem. Recently had VRE in urine and is being treated with zyvox Continues to have some low grade teps. diarrhea today--check c.diff gentle hydration Patient with ongoing medical issues, SPoke with Dr. Seo, at [facility]--who has accepted the case. discussed with hospitalist team. discussed with patients family in detail --------family has yet to decide about transfer
--- NOTE | 2016-10-29 20:36 | DS ---
Physical Exam: SUBJECTIVE: Patient seen and examined at bedside. No acute events overnight. Pt states she feels the same as yesterday. Denies headache, cp, sob, abd pain. OBJECTIVE: Vital Signs Period Temp Pulse Resp BP Sys/Aldrich Pulse Ox Last 24 Hr 98.5 F-100.6 F 88-105 18-18 99-112/52-57 92-94 PHYSICAL EXAM GENERAL: The patient is awake, alert, and fully oriented, in no acute distress HEAD: Normal with no signs of trauma EYES: scleral icterus,No ptosis ENT: nares patent, oropharynx clear without exudates, moist mucous membranes NECK: Trachea midline, full range of motion, supple, no carotid bruits LUNGS: decreased breath sounds bilateral bases, R decreased > L, no wheezes, no crackles, no accessory muscle use. Right sided drain in place HEART: Regular rate and rhythm, normal S1, S2 without murmur, rub or gallop. ABDOMEN: Soft, tender to palpation in RUQ, nondistended, normoactive bowel sounds, no guarding, no rebound, no hepatosplenomegaly, no masses. No cva tenderness EXTREMITIES: 2+ pulses, warm, well-perfused, 1+ pedal edema NEUROLOGICAL: Cranial nerves II through XII grossly intact. Normal speech, gait not observed. PSYCH: Normal mood, normal affect SKIN: Warm, dry, normal turgor, no rashes or lesions noted LABS Laboratory Results - last 24 hr 10/26/16 10/29/16 10/29/16 08:50 06:30 06:30 WBC 18.0 H RBC 2.47 L Hgb 6.9 L* Hct 21.1 L MCV 85.4 MCH 27.9 MCHC 32.7 RDW 17.8 H Plt Count 369 MPV 8.1 Neutrophils % 82.2 Lymphocytes % 11.0 Monocytes % 5.9 Eosinophils % 0.4 Basophils % 0.5 Hypochromia 1+ Platelet Estimate Adequate Sodium 141 Potassium 4.2 Chloride 108 H Carbon Dioxide 27 Anion Gap 6 L BUN 37 H Creatinine 1.3 H Creat Clearance w eGFR 40.49 Random Glucose 94 Calcium 7.7 L Total Bilirubin 1.8 H AST 91 H ALT 66 Alkaline Phosphatase 961 H Total Protein 4.1 L Albumin 1.3 L Blood Type A POSITIVE Antibody Screen Negative Crossmatch See Detail 10/29/16 13:20 WBC RBC Hgb Hct MCV MCH MCHC RDW Plt Count MPV Neutrophils % Lymphocytes % Monocytes % Eosinophils % Basophils % Hypochromia Platelet Estimate Sodium Potassium Chloride Carbon Dioxide Anion Gap BUN Creatinine Creat Clearance w eGFR Random Glucose Calcium Total Bilirubin AST ALT Alkaline Phosphatase Total Protein Albumin Blood Type A POSITIVE Antibody Screen Negative Crossmatch See Detail HOSPITAL COURSE: Date of Admission:10/14/16 Date of Discharge: 10/29/16 71yo F h/o renal ca (s/p nephrectomy 02/2016) with multiple mets to liver and lungs, HTN, and recent hospitalization for PNA. Leukocytosis 15.9, Fever 102 ( per ER physician), Tachycardia 116. CXR increased b/l effusions (R>L); questionable opacity right cardiac border most likely representing congestion. The patient came in with sepsis possibly 2/2 malignancy. She had a fever of 102 , and had tachycardia of 116 on admission. Throughout her stay, her fever and tachycardia did not remit. Ultimately she had a urine culture return as positive for Vr Ec faecium. The patient was initially on Ertapenem, but after that culture result, she was switched to Linezolid. The patient was found to have a right pleural effusion, which was tapped and was found to be exudative without any cancer cells. The pleural effusion did not resolve after the tap, so CT surgery was consulted, and they did a vats procedure and left a pleur-x catheter in place. During her stay, the patient was being optimized for chemotherapy. During her stay, the patient was anemic repetedly requiring several units of blood. The patient had a single episode of copious watery diarrhea, so C. diff studies were collected. Throughout her stay, the patient had some R glank discomfort with LFT elevation , which were attributable to liver metastases. The patient's original cancer was a renal cell carcinoma which metastesized to liver and lung prior to her arrival. She had a nephrectomy in the past. Heme onc was consulted on the case. The patient had HTN and HLD prior to admission, she was treated with home medications Tyree Jensen MD PGY-1 Minutes to complete discharge: 45 Discharge Summary Reason For Visit: SEPSIS, KIDNEY CANCER,PLEURAL EFFUSION Current Active Problems Fever (Acute) Hepatomegaly (Acute) Kidney cancer, primary, with metastasis from kidney to other site (Chronic) Pleural effusion (Chronic) Sepsis (Chronic) Condition: Stable - Instructions Diet, Activity, Other Instructions: Please make sure you follow up on all your doctors' appointments and take all your prescription medications as directed. You will need visiting nurse services (VNS) three times per week once you get home. If your symptoms get worse or if you develop new symptoms, please return to the emergency department. Referrals: Gómez Howell MD [Staff Physician] - Jian Schmidt MD [Primary Care Provider] - Laura Bashir MD [Staff Physician] - Andrade Cortes MD [Staff Physician] - Disposition: TRANSFER ACUTE CARE/OTHER HOSP - Home Medications Comprehensive Discharge Medication List: Ambulatory Orders Atorvastatin Ca [Lipitor] 20 mg PO HS #30 tablet 10/10/16 Levofloxacin [Levaquin -] 500 mg PO DAILY #5 tablet 10/10/16 Sucralfate Oral Suspension [Carafate Oral Suspension -] 1 gm PO BID #240 ml 08/21 Losartan Potassium [Cozaar] 100 mg PO DAILY 10/14/16 This patient is new to me today: No Emergency Visit: No Critical Care patient: No - Discharge Referral Referred to [facility] Med P.C.: No
[2016-10-29] MEDS: SODIUM CHLORIDE 1,000 ML IV SCH (22:38)
[2016-10-30] MEDS: NYSTATIN 500,000 UNITS/5 ML SUSPENSION PO SCH ×5 (00:15→17:13)
[2016-10-30] MEDS: HEPARIN NA (PORCINE) 5,000 UNITS/ML 1ML VIAL SQ SCH ×3 (05:14→21:17)
[2016-10-30 07:40] LABS: BASOPHIL 0.3 % (0-2.0); EOSINOPHIL 0.5 % (0-4.5); MCH 28.8 pg (25.7-33.7); MCHC 33.8 g/dl (32.0-36.0); MEAN CELL VOLUME 85.1 fl (80-96); MEAN PLT VOLUME 8.1 fl (7.5-11.1); NEUTROPHILS 80.6 % (42.8-82.8); PLATELET COUNT 342 K/MM3 (134-434); RDW 16.9 % (11.6-15.6); WHITE BLOOD COUNT 16.6 K/mm3 (4.0-10.0)
[2016-10-30 08:01] LABS: ALBUMIN 1.3 g/dl (3.4-5.0); ANION GAP 10 (8-16); CALCIUM 7.4 mg/dL (8.5-10.1); CO2 24 mmol/L (21-32); GLUCOSE,RANDOM 87 mg/dL (74-106); SGOT/AST 106 U/L (15-37); SGPT/ALT 66 U/L (12-78)
[2016-10-30 08:03] LABS: ALK PHOS 968 U/L (45-117); BILIRUBIN,TOTAL 2.1 mg/dL (0.2-1.0); CREATININE 1.3 mg/dL (0.55-1.02); TOT PROT 4.2 g/dl (6.4-8.2)
[2016-10-30] MEDS ORDERED: ONDANSETRON 4 MG TABLET PO ONE (09:59)
[2016-10-30] MEDS ORDERED: PT OWN MED DRAWER 7, Y5N ONE (10:00)
[2016-10-30] MEDS: SUCRALFATE 1 GM/10 ML UNIT DOSE CUPS PO SCH ×2 (10:10→21:17)
[2016-10-30] MEDS: RANITIDINE HCL 150 MG TABLET (FP) PO SCH ×2 (10:10→21:17)
[2016-10-30] MEDS: LOSARTAN POTASSIUM 50 MG TABLET (FP) PO SCH (10:11)
[2016-10-30] MEDS: LINEZOLID 600 MG TABLET (RESTRICTED TO ID) PO SCH (10:12)
--- NOTE | 2016-10-30 13:22 | PN ---
Progress Note, Physician History of Present Illness: patient sstable no new issues - Current Medication List Current Medications: Active Medications Acetaminophen (Tylenol -) 325 mg PO Q8H PRN PRN Reason: FEVER OR PAIN Last Admin: 10/29/16 22:57 Dose: 325 mg Guaifenesin (Robitussin -) 10 ml PO Q6H PRN PRN Reason: COUGH Heparin Sodium (Porcine) (Heparin -) 5,000 unit SQ TID [facility] Last Admin: 10/30/16 05:14 Dose: 5,000 unit Sodium Chloride (Normal Saline -) 1,000 mls @ 60 mls/hr IV ASDIR [facility] Last Admin: 10/29/16 22:38 Dose: 60 mls/hr Linezolid (Zyvox (Restricted To Id) -) 600 mg PO BID [facility] Last Admin: 10/30/16 10:12 Dose: 600 mg Losartan Potassium (Cozaar -) 100 mg PO DAILY [facility] Last Admin: 10/30/16 10:11 Dose: 100 mg Morphine Sulfate (Morphine Injection -) 1 mg IVPUSH Q3H PRN PRN Reason: PAIN Nystatin (Nystatin Oral Suspension -) 500,000 units PO Q6HPO [facility] Last Admin: 10/30/16 12:12 Dose: 500,000 units Ondansetron HCl (Zofran -) 8 mg PO Q8H PRN PRN Reason: NAUSEA Last Admin: 10/27/16 08:00 Dose: 8 mg Ranitidine HCl (Zantac -) 150 mg PO BID [facility] Last Admin: 10/30/16 10:10 Dose: 150 mg Sucralfate (Carafate Oral Suspension -) 1 gm PO BID [facility] Last Admin: 10/30/16 10:10 Dose: 1 gm - Objective Vital Signs: Vital Signs Temperature 98.2 F 10/30/16 10:00 Pulse Rate 91 H 10/30/16 10:00 Respiratory Rate 18 10/30/16 10:00 Blood Pressure 108/57 10/30/16 10:00 O2 Sat by Pulse Oximetry (%) 96 10/29/16 21:00 Constitutional: Yes: No Distress, Calm Cardiovascular: Yes: Regular Rate and Rhythm Respiratory: Yes: Poor Air Entry, Other (chest tube in place) Gastrointestinal: Yes: Normal Bowel Sounds, Soft Musculoskeletal: Yes: WNL Extremities: Yes: WNL Neurological: Yes: Alert, Oriented Psychiatric: Yes: Alert Labs: CBC, BMP 10/30/16 06:00 10/30/16 06:00 INR, PTT INR 1.36 (0.82-1.09) H 10/19/16 06:00 Assessment/Plan )Problem List - Problems (1) Kidney cancer, primary, with metastasis from kidney to other site Code(s): C64.9 - MALIGNANT NEOPLASM OF UNSP KIDNEY, EXCEPT RENAL PELVIS C79.9 - SECONDARY MALIGNANT NEOPLASM OF UNSPECIFIED SITE Qualifiers: Laterality: left Qualified Code(s): C64.2 - Malignant neoplasm of left kidney, except renal pelvis; C79.9 - Secondary malignant neoplasm of unspecified site (2) Pleural effusion Code(s): J90 - PLEURAL EFFUSION, NOT ELSEWHERE CLASSIFIED (3) Hemoptysis Code(s): R04.2 - HEMOPTYSIS (4) Anemia Code(s): D64.9 - ANEMIA, UNSPECIFIED Qualifiers: Anemia type: other cause Other causes of anemia: antineoplastic chemotherapy Qualified Code(s): D64.81 - Anemia due to antineoplastic chemotherapy; T45.1X5A - Adverse effect of antineoplastic and immunosuppressive drugs, initial encounter (5) Lung nodules Code(s): R91.8 - OTHER NONSPECIFIC ABNORMAL FINDING OF LUNG FIELD (6) Metastases to the liver Code(s): C78.7 - SECONDARY MALIG NEOPLASM OF LIVER AND INTRAHEPATIC BILE DUCT (7) Metastatic lung cancer (metastasis from lung to other site) Code(s): C34.90 - MALIGNANT NEOPLASM OF UNSP PART OF UNSP BRONCHUS OR LUNG Qualifiers: Laterality: right Qualified Code(s): C34.91 - Malignant neoplasm of unspecified part of right bronchus or lung (8) Fever Code(s): R50.9 - FEVER, UNSPECIFIED Renal carcinoma (s/p L nephrectomy) with mets to lungs and liver 2) CKD 3) Abdominal pain, right-sided 4) HTN 5) Hyperlipidemia leukocytosis uti after looking at the xray decision to do a ct scan--which is the plan plan continue zyox complete a 7 day course
--- NOTE | 2016-10-30 16:17 | PN ---
Teaching Attending Note Name of Resident: Tyree Jensen ATTENDING PHYSICIAN STATEMENT I saw and evaluated the patient. I reviewed the resident's note and discussed the case with the resident. I agree with the resident's findings and plan as documented. SUBJECTIVE: Patient has no complaints. Had diarrhea yesterday. OBJECTIVE: Vital Signs Period Temp Pulse Resp BP Sys/Aldrich Pulse Ox Last 24 Hr 96.8 F-99.0 F 75-107 18-18 102-127/53-66 96-98 HEART: S1S2, tachycardic LUNGS: Decreased BS at bases ABDOMEN: Soft, non-tender, non-distended, normal BS EXTREMITIES: trace edema ASSESSMENT AND PLAN: This is a 71 year old woman with a history of HTN, metastatic urothelial carcinoma who presented to the ER with fever, back and abdominal pain. 1. Bilateral pleural effusions - s/p right thoracentesis 10/14 - fluid negative for malignancy - s/p bronchoscopy, right thoracoscopy and Pleur-x placement 10/19 - Continue Pleur-x drainage - Continue incentive spirometer - Chest CT pending 2. Anemia, likely secondary to chronic illness - Transfused 1 unit PRBCs yesterday 3. Sepsis secondary to VRE UTI - Afebrile, WBC decreasing - Stool negative for C. difficile - Continue Zyvox 4. HTN - Continue Cozaar 5. Hyperlipidemia - Lipitor held secondary to transaminitis 6. Hepatic transaminitis, likely secondary to metastatic disease 7. Metastatic high-grade papillary urothelial carcinoma - Treated with atezolizumab x 4 cycles in [place] with no response - Plan for transfer to [facility] for further treatment 8. Stage 3 CKD - Creatinine increasing - IV fluid - Monitor creatinine
[2016-10-30] MEDS: SODIUM CHLORIDE 1,000 ML IV SCH (16:27)
[2016-10-30] MEDS: ACETAMINOPHEN 325 MG TABLET (FP) PO PRN (19:08)
[2016-10-30 20:50] VITALS: BP 118/49; PULSE 108; TEMP 101.4
== END 2016-10-30 23:17 | disposition short-term general hospital (02) | DRG 853 ==
LOC: JER 20:57 → JERBED 10-14 02:10 → UNDOADMIN 10-14 02:18 → J7W 10-14 03:51 → JICU 10-19 20:36 → J2W 10-20 18:13 → J4W 10-21 19:14 → J4S 10-26 20:17
PROVIDERS: ADMIT Internal Medicine; ATTEND Internal Medicine
PROC: 0W993ZX Drainage of Right Pleural Cavity, Percutaneous Approach, Diagnostic (ICD-10-PCS; 2016-10-14)
PROC: 30233N1 Transfusion of Nonautologous Red Blood Cells into Peripheral Vein, Percutaneous Approach (ICD-10-PCS; 2016-10-15)
PROC: 0B9N40Z Drainage of Right Pleura with Drainage Device, Percutaneous Endoscopic Approach (ICD-10-PCS; principal; 2016-10-20)
PROC: 0BJ08ZZ Inspection of Tracheobronchial Tree, Via Natural or Artificial Opening Endoscopic (ICD-10-PCS; 2016-10-20)
DX: A41.9 Sepsis, unspecified organism (principal); J18.9 Pneumonia, unspecified organism; C78.7 Secondary malignant neoplasm of liver and intrahepatic bile duct; C64.9 Malignant neoplasm of unspecified kidney, except renal pelvis; C78.01 Secondary malignant neoplasm of right lung; J90 Pleural effusion, not elsewhere classified; N39.0 Urinary tract infection, site not specified; R16.0 Hepatomegaly, not elsewhere classified; E78.5 Hyperlipidemia, unspecified; R42 Dizziness and giddiness; E86.9 Volume depletion, unspecified; D64.9 Anemia, unspecified; R33.8 Other retention of urine; R50.81 Fever presenting with conditions classified elsewhere; I12.9 Hypertensive chronic kidney disease with stage 1 through stage 4 chronic kidney disease, or unspecified chronic kidney disease; N18.3 Chronic kidney disease, stage 3 (moderate); R19.7 Diarrhea, unspecified; Z88.0 Allergy status to penicillin
CPT/HCPCS: 36415; 36430; 71010-TC; 71250-TC; 74176-TC; 76942; 80048; 80053; 81003; 81015; 82042; 82150; 82438; 82803; 82945; 83605; 83615; 83690; 84157; 84311; 84478; 84484; 85025; 85027; 85610; 85730; 86850; 86900; 86901; 86922; 87040; 87070; 87075; 87086; 87102; 87116; 87186; 87205; 87206; 87210; 87324; 87449; 88108; 88305-TC; 89051; 93005; 93010; 94760; 97116-GP; 97162-GP; 99284-25; J1644; P9038; P9058; Q9967